=== PATIENT | male | born 1945 | race Caucasian/White ===

== ENCOUNTER 2022-04-18 14:48 | Outpatient (CLI) | payer MEDICARE, BC, SELFPAY ==
--- OUTSIDE RECORDS SUMMARY | 2022-04-18 14:51 | XMS_ITS | Encounter Summary ---
:1945 Author Organization [place] Address [address] [place] [address] Care Team Providers Name Role Phone [facility], [facility] Provi kelle Clinics- Antony Bucrh MD Unavailable Yeny May APRN SECURITY NURSE Unavailable Encounter Details Date Type Department Care Team Description 12/12/2021 Travel Social History Tobacco Use Types Packs/Day Years Used Date Smoking Tobacco: Former Cigarettes Quit : 1979 Smokeless Tobacco: Never Alcohol Use Standard Drinks/Week Comments Yes 0 (1 standard drink = 0.6 oz pure alcoho l) 1-2 drinks a day Sex Assigned at Date Recorded Male 04/02/2021 10:12 AM CDT COVID-19 Exposure Response Date Recorded In the last 10 days, have you been in contact with No / Unsu re 12/12/2021 9:43 AM CDT someone who was confirmed or suspected to have Coronavirus/COVID-19? documented as of this encounter Plan of Treatment Not on filedocumented as of this encounter Visit Diagnoses Not on filedocumented in this encounter Care Teams Spray Foam Installer Relationship Specialty Start Date End Date [facility], PCP - General 02/01/21 [facility]- [address] [place] [address] Antony Burch Assigned Neuroscience 04/08/21 MD Jan Provider [address] [address] Yeny May APRN SECURITY NURSE Assigned Heart and Vascular 10/28/21 [address] Provider [place] [id number] documented as of this encounter
--- OUTSIDE RECORDS SUMMARY | 2022-04-18 14:51 | XMS_ITS | Encounter Summary ---
:1945 Author Organization [place] Address [address] [place] [address] Care Team Providers Name Role Phone [facility], [facility] Prov kelle Clinics- Antony Burch MD Unavailable Yeny May APRN, CNP Unavailable Reason for Referral Consultation (Routine: Next available opening) - Pending Review Specialty Diagnoses / Procedures Referred By Contact Refer red To Contact Cardiovascular Disease Diagnoses Benign essential hypertension Yeny May APRN [employer] [address] [place] [address] Referral ID Status Reason Start Date Expiration Date Visits V isits Requested Authorized [id number] Pending 11/28/2021 11/28/2022 1 1 Review Consultation (Routine: Next available opening) - Pending Review Specialty Diagnoses / Procedures Referred By Contact Refer red To Contact Cardiovascular Disease Diagnoses Benign essential hypertension Yeny May APRN CNP [address] [place] [address] Referral ID Status Reason Start Date Expiration Date Visits V isits Requested Authorized [id number] Pending 11/28/2021 11/28/2022 1 1 Review Scheduling Instructions BP check at time of labs Reason for Visit Reason Comments Follow Up Atrial Fib Hypertension Consultation (Routine: Next available opening) - Pending Review Specialty Diagnoses / Procedures Referred By Contact Refer red To Contact Cardiovascular Disease Diagnoses Benign essential hypertension Yeny May, INDUSTRIAL DESIGN INTERN [employer] [address] [place] [address] Referral ID Status Reason Start Date Expiration Date Visits V isits Requested Authorized [id number] Pending 10/23/2021 10/23/2022 1 1 Review Encounter Details Date Type Department Care Team Description 11/28/2021 Office Visit Yeny Evans, Connor colon [facility] INDUSTRIAL DESIGN INTERN [employer] hypertension [facility] [address] [place] [address] [place] [phone] (Work) [phone] Social History Tobacco Use Types Packs/Day Years [...] in contact with No / Unsu re 11/28/2021 8:46 AM CDT someone who was confirmed or suspected to have Coronavirus/COVID-19? documented as of this encounter Last Filed Vital Signs Vital Sign Reading Time Taken Comments Blood Pressure 148/84 11/28/2021 10:06 AM CDT Pulse 67 11/28/2021 10:06 AM CDT Temperature - - Respiratory Rate - - Oxygen Saturation 98% 11/28/2021 10:06 AM CDT Inhaled Oxygen Concentration - - Weight 128.4 kg (283 lb) 11/28/2021 10:06 AM CDT Height 185.4 cm (6' 1) 11/28/2021 10:06 AM CDT Body Mass Index 37.34 11/28/2021 10:06 AM CDT documented in this encounter Patient Instructions Patient InstructionsYeny May APRN CNP - 11/28/2021 10:19 AM CDT Increase your hydrochlorothiazide to 25 mg/day Return in 2 wks with labs and BP check with RN documented in this encounter Progress Notes Yeny May APRN CNP - 11/28/2021 10:00 AM CDT HISTORY OF PRESENT ILLNESS: ? This is a 75 year old male who follows with Dr. Casiano at [facility] ??His past medical history includes: A-fib, hypertension, sleep apnea, hyperlipidemia, GERD, neuropathy, and arthritis ?? Mr Lang was hospitalized (02/01/21) for stroke-like symptoms and brief left- sided weakness/confusion. His EKG showed??atrial fibrillation??at 63 bpm and he was started on Eliquis. ??His brain MRI showed acute/early subacute ischemia in the left parietal cortex felt to be due to new onset A-fib. ??HisECHO showed LVEF 50-55%, mild RV enlargement with borderline reduced RV function, 1+ aortic regurgitation, mild aortic root dilatation and ascending aorta dilatation. ?? A follow up event monitor showed atrial fibrillation with intermittent IVCD with HRs 50-80 bpm Therewas one pause up to 2.7 sec during sleep. His Losartan was increased last month for better blood pressure control. ?? Our visit today is for further review and labs ?? Mr Lang overall denies any significant cardiovascular complaints He specifically denies any chestpain, orthopnea, or significant palpitations. He has some shortness of breath after going up a couple of flight of stairs, but this is unchanged. He does not participate in any formal exercise due to balance and shoulder issues but is able to do all of his own yard work He does tend to get more ankle swelling towards the end of the day ?I reviewed his labs today: Sodium: 139 Potassium: 4.0 BUN: 15 Creatinine: 0.86 ?? VITAL SIGNS: BP: 148/84 Pulse: 67 Weight: 283 lbs (stable) BMI: 37 ?? IMPRESSION AND PLAN: ?? Asymptomatic Persistent A-fib -incidentally noted at time of stroke (01/2021) -rate controlled without any??heart rate reducing??agents -one 2.7 sec pause during sleep Consider treadmill stress test to assess chronotropic response if hedevelops dyspnea on exertion, lightheadedness or presyncope. -chronic Eliquis (CHADS2 Vasc score: 5) ?? 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 Hypertension: -on Losartan 50 mg, hydrochlorothiazide 12.5 mg, Hytrin 2mg -BP still elevated -will increase hydrochlorothiazide to 25 mg/day -return in 2-3 wks with BMP and BP check with the RN ?? Hyperlipidemia: -now on Crestor 5 mg Some intolerance to Atorvastatin -LDL 40 (managed by PMD) ?? Sleep Apnea -wears CPAP ?? Obesity: -discussed weight reduction and increasing physical activity ?? Peripheral Neuropathy The total time for the visit today was 30 minutes which includes patient visit, reviewing of records, discussion, and placing of orders of the outpatient coordination of cardiovascular care as described. The level of medical decision making during this visit was of mild/moderate complexity. Thank you for allowing me to participate in their care. Orders Placed This Encounter Procedures ??? Basic metabolic panel ??? Basic metabolic panel ??? Follow-Up with Cardiology Nurse ??? Follow-Up with Cardiology Orders Placed This Encounter Medications ??? hydrochlorothiazide (HYDRODIURIL) 25 MG tablet Sig: Take 1 tablet (25 mg) by mouth daily Dispense: 90 tablet Refill: 3 Medications Discontinued During This Encounter Medication Reason ??? hydrochlorothiazide (MICROZIDE) 12.5 MG capsule Encounter Diagnosis Name Primary? Benign essential hypertension CURRENT MEDICATIONS: Current Outpatient Medications Medication Sig Dispense Refill ??? apixaban ANTICOAGULANT (ELIQUIS) 5 MG tablet Take 1 tablet (5 mg) by mouth 2 times daily 180 tablet 3 ??? co-enzyme Q-10 100 MG CAPS capsule Take 100 mg by mouth daily ??? hydrochlorothiazide (HYDRODIURIL) 25 MG tablet Take 1 tablet (25 mg) by mouth daily 90 tablet 3 ??? losartan (COZAAR) 50 MG tablet Take 1 tablet (50 mg) by mouth daily 90 tablet 3 ??? pantoprazole (PROTONIX) 40 MG EC tablet Take 40 mg by mouth every other day ??? rosuvastatin (CRESTOR) 5 MG tablet TAKE ONE TABLET BY MOUTH IN THE EVENING ??? terazosin (HYTRIN) 2 MG capsule Take 2 mg by mouth At Bedtime. ALLERGIES Allergies Allergen Reactions ??? Simvastatin Other (See Comments) Myalgias ??? Lisinopril Cough PAST MEDICAL HISTORY: Past Medical History: Diagnosis Date ??? Arthritis ??? Coronary artery disease more than ten years high cholestrol ??? High cholesterol ??? Hypertension ??? SURJIT on CPAP 07/18/2017 PAST SURGICAL HISTORY: Past Surgical History: Procedure Laterality Date ??? ARTHROPLASTY HIP 03/22/2013 Procedure: ARTHROPLASTY HIP; Right Total hip Arthroplasty ; Surgeon: Mark Viera MD; Location: [facility] OR ??? LAMINECTOMY LUMBAR THREE+ LEVELS FAMILY HISTORY: No family history on file. SOCIAL HISTORY: Social History Socioeconomic History ??? Marital status: Spouse name: None ??? Number of children: None ??? Years of education: None ??? Highest education level: None Tobacco Use ??? Smoking status: Former Smoker Quit date: 1980 Years since quittin.4 ??? Smokeless tobacco: Never Used Substance and Sexual Activity ??? Alcohol use: Yes Comment: 1-2 drinks a day ??? Drug use: No Review of Systems: Skin: Eyes: ENT: Positive for vertigo Respiratory: Positive for shortness of breath;dyspnea on exertion;sleep apnea;CPAP Cardiovascular: Positive for;palpitations;edema Gastroenterology: Negative Genitourinary: Musculoskeletal: Negative Neurologic: Negative Psychiatric: Heme/Lymph/Imm: Endocrine: Physical Exam: Vitals: BP (!) 148/84 (BP Location: Right arm, Patient Position: Sitting, Cuff Size: Adult Regular) Pulse 67 Ht 1.854 m (6' 1) Wt 128.4 kg (283 lb) SpO2 98% BMI 37.34 kg/m?? Constitutional: cooperative;well nourished Skin: warm and dry to the touch Head: normocephalic Eyes: pupils equal and round Lymph: ENT: no pallor or cyanosis Neck: JVP normal Respiratory: clear to auscultation;normal respiratory excursion Cardiac: irregularly irregular rhythm no presence of murmur pulses full and equal GI: BS normoactive obese Extremities and Muscular Skeletal: bilateral LE edema;trace Neurological: affect appropriate Psych: Alert and Oriented x 3 CC Yeny May APRN [employer] [facility] [address] [place] [id number] documented in this encounter Plan of Treatment Scheduled Orders Name Type Priority Associated Diagnoses Order S chedule Basic metabolic panel Lab Routine Benign essential Ex pected: 05/30/2022 hypertension (Approximate), Expires: 2022 Scheduled Referrals Name Type Priority Associated Diagnoses Order S chedule Follow-Up with Referral Routine: Next Benign essential Expected : Cardiology Nurse available opening hypertension 2021 (Approximate), Expires: 11/28/2022 Follow-Up with Referral Routine: Next Benign essential Expected : Cardiology available opening hypertension 05/30/2022 (Approximate), Expires: 11/28/2022 documented as of this encounter Results (ABNORMAL) Basic metabolic panel (12/12/2021 10:03 AM CDT) Analysis Performed At Patho logist Time Signature Sodium 137 133 - 144 12/12/2021 LABORATORY mmol/L 11:43 AM CDT Potassium 3.7 3.4 - 5.3 12/12/2021 LABORATORY mmol/L 11:43 AM CDT Chloride 102 94 - 109 12/12/2021 LABORATORY mmol/L 11:43 AM CDT Carbon Dioxide 28 20 - 32 12/12/2021 LABORATORY (CO2) mmol/L 11:43 AM CDT Anion Gap 7 3 - 14 12/12/2021 LABORATORY mmol/L 11:43 AM CDT Urea Nitrogen 14 7 - 30 12/12/2021 LABORATORY mg/dL 11:43 AM CDT Creatinine 0.98 0.66 - 12/12/2021 LABORATORY 1.25 mg/dL 11:43 AM CDT Calcium 9.3 8.5 - 10.1 12/12/2021 LABORATORY mg/dL 11:43 AM CDT Glucose 113 (H) 70 - 99 12/12/2021 LABORATORY mg/dL 11:43 AM CDT GFR Estimate 79 >60 12/12/2021 [facility] mL/min/1.7 11:43 AM CDT 3m2 Comment: Effective June 19, 2021 eGF Rcr in adults is calculated using the 2020 CKD-EPI creatinine equation which includ es age and gender (Bob et al., NEJM, DOI: 10.1056/WTULuf7489841) Specimen Anatomical Collection Method / Collection Time Recei price Time (Source) Location / Volume Laterality Blood STRUCTURE OF RIGHT Venipuncture / 12/12/2021 10:03 UPPER LIMB / Unknown AM CDT 10:03 AM CDT Unknown Yeny May APRN, CNP LAB - BLOOD ORDERABLES Performing Organization Address City/State/ZIP Code [place] [address] Care Lab [address] Lab (1st floor, no room number) documented in this encounter Visit Diagnoses Diagnosis Benign essential hypertension Essential hypertension, benign documented in this encounter Care Teams Rocket Engine Component Mechanic Relationship Specialty Start Date End Date [facility], PCP - General 02/01/21 [facility]- [address] [place] [address] Antony Burch Assigned Neuroscience 04/08/21 MD Jan Provider [address] [address] Yeny May APRN CNP Assigned Heart and Vascular 10/28/21 [address] Provider [place] [id number] documented as of this encounter
--- OUTSIDE RECORDS SUMMARY | 2022-04-18 14:51 | XMS_ITS | Encounter Summary ---
:1945 Author Organization [place] Address [address] [place] [address] Care Team Providers Name Role Phone [facility] Provi kelle Clinics- Antony Burch MD Unavailable Yeny May APRN PLASMA PROCESSING CENTRIFUGE OPERATOR Unavailable Reason for Visit Reason Comments Hypertension BP Re-Check Encounter Details Date Type Department Care Team Description 12/12/2021 Documentation Only University Rhea Calderon Hypert ension (BP [facility] Re-Check) [facility] [id number] [place] [address] [address] [place] [address] Social History Tobacco Use Types Packs/Day Years [...] on filedocumented in this encounter Care Teams Admissions Officer Relationship Specialty Start Date End Date [facility], PCP - General 02/01/21 [facility]- [address] [place] [address] Antony Burch Assigned Neuroscience 04/08/21 MD Jan Provider [address] [address] Yeny May APRN PLASMA PROCESSING CENTRIFUGE OPERATOR Assigned Heart and Vascular 10/28/21 [address] Provider [place] [id number] documented as of this encounter
--- OUTSIDE RECORDS SUMMARY | 2022-04-18 14:51 | XMS_ITS | Encounter Summary ---
:1945 Author Organization [place] Address [address] [place] [address] Care Team Providers Name Role Phone [facility] Provi kelle Clinics- Denton Casiano MD Unavailable Antony Burch MD Unavailable [phone] Encounter Details Date Type Department Care Team Description 10/22/2021 Travel Social History Tobacco Use Types Packs/Day Years Used Date Smoking Tobacco: Former Cigarettes Quit : 1979 Smokeless Tobacco: Never Alcohol Use Standard Drinks/Week Comments Not Currently 0 (1 standard drink = 0.6 oz pure alcoho l) Sex Assigned at Date Recorded Male 04/02/2021 10:12 AM CDT COVID-19 Exposure Response Date Recorded In the last 10 days, have you been in contact with No / Unsu re 10/22/2021 11:16 PM CDT someone who was confirmed or suspected to have Coronavirus/COVID-19? documented as of this encounter Plan of Treatment Not on filedocumented as of this encounter Visit Diagnoses Not on filedocumented in this encounter Care Teams Carding Machine Feeder Relationship Specialty Start Date End Date [facility], PCP - General 02/01/21 [facility]- [address] [place] [address] Denton Casiano MD Assigned Heart and Vascular 03/25/2110/27 [address] Provider [place] [address] Antony Burch Assigned Neuroscience 04/08/21 MD Jan Provider [address] [id number] documented as of this encounter
--- OUTSIDE RECORDS SUMMARY | 2022-04-18 14:51 | XMS_ITS | Clinical Summary ---
:1945 Author Organization [place] Address [address] [place] [address] Care Team Providers Name Role Phone [facility] Provi kelle [place]- Antony Burch MD Unavailable Yeny May APRN TRUCKING SUPERVISOR Unavailable Allergies Active Allergy Reactions Severity Noted Date Comments Lisinopril Cough Low 03/21/2021 Simvastatin Other (See Comments) 07/18/2017 Myalgia s Medications Medication Sig Dispensed Refills Start Date End Date Status terazosin (HYTRIN) 2 MG Take 2 mg by 0 Active capsule mouth At Bedtime. pantoprazole (PROTONIX) 40 Take 40 mg by 0 Active MG EC tablet mouth every other day co-enzyme Q-10 100 MG CAPS Take 100 mg 0 Active capsule by mouth daily rosuvastatin (CRESTOR) 5 TAKE ONE 0 08/16/2021 Active MG tablet TABLET BY MOUTH IN THE EVENING losartan (COZAAR) 50 MG Take 1 tablet 90 tablet 3 10/23/2021 Active tabletIndications: Benign (50 mg) by essential hypertension mouth daily hydrochlorothiazide Take 1 tablet 90 tablet 3 11/28/2021 Active (HYDRODIURIL) 25 MG (25 mg) by tabletIndications: Benign mouth daily essential hypertension apixaban ANTICOAGULANT Take 1 tablet 180 tablet 3 02/04/2022 Active (ELIQUIS) 5 MG (5 mg) by tabletIndications: mouth 2 times Cerebrovascular accident daily (CVA) due to embolism of cerebral artery (H) Active Problems Problem Noted Date Morbid obesity 03/21/2021 TIA (transient ischemic attack) 02/01/2021 Atrial fibrillation, unspecified type 02/01/2021 CVA (cerebral vascular accident) 02/01/2021 Gastroesophageal reflux disease without esophagitis Overview: Formatting of this note might be differe nt from the original. Atypical Chest pain with card eval last yr and was neg for ischemia and [place] to be reflux SURJIT on CPAP 07/18/2017 Overview: Formatting of this note might be differe nt from the original. 03[place] Angioedema of lips, initial encounter 02/27/2014 Hives 02/27/2014 Status post THR (total hip replacement) 03/22/2013 Encounters Date Type Specialty Care Team Description 02/04/2022 Refill Cardiology Lalo, Yeny E, ROLLS BAKER TRUCKING SUPERVISOR Refi ll Request (Eliquhortencia) from Last 3 Months Social History Tobacco Use Types Packs/Day Years Used Date Smoking Tobacco: Former Cigarettes Quit : 1979 Smokeless Tobacco: Never Alcohol Use Standard Drinks/Week Comments Yes 0 (1 standard drink = 0.6 oz pure alcoho l) 1-2 drinks a day Sex Assigned at Date Recorded Male 04/02/2021 10:12 AM CDT Last Filed Vital Signs Vital Sign Reading Time Taken Comments Blood Pressure 107/74 12/12/2021 10:27 AM CDT Pulse 65 12/12/2021 10:27 AM CDT Temperature 36.2 ??C (97.2 ??F) 02/20/2021 9:41 PM CDT Respiratory Rate 18 02/20/2021 9:41 PM CDT Oxygen Saturation 96% 12/12/2021 10:27 AM CDT Inhaled Oxygen Concentration - - Weight 128.4 kg (283 lb) 11/28/2021 10:06 AM CDT Height 185.4 cm (6' 1) 11/28/2021 10:06 AM CDT Body Mass Index 37.34 11/28/2021 10:06 AM CDT Plan of Treatment Health Maintenance Due Date Last Done Comments ADVANCE CARE PLANNING 1945 ANNUAL REVIEW OF HM ORDERS 1945 HEPATITIS B IMMUNIZATION 1945 (1 of 3 - 3-dose series) HEPATITIS C SCREENING 12/24/1961 FALL RISK ASSESSMENT 12/24/2008 MEDICARE ANNUAL WELLNESS 12/24/2008 VISIT COVID-19 Vaccine (2 - 06/25/2021 05/28/2021 Moderna series) PHQ-2 (once per calendar 06/30/2021 year) INFLUENZA VACCINE (#1) 2022 04/10/2021, 04/14/2020, 03/08/2019, Additional history exists DTAP/TDAP/TD IMMUNIZATION 04/18/2025 04/18/2015 (2 - Td or Tdap) LIPID 02/02/2026 02/02/2021 COLONOSCOPY Discontinued 07/04/2011 COLORECTAL CANCER Discontinued SCREENING Pneumococcal Vaccine: 65+ Completed 03/08/2019, 04/18/2015 Years ZOSTER IMMUNIZATION Completed 06/05/2020, 03/14/2020, 05/28/2013 CT COLONOGRAPHY Discontinued FIT-DNA (Cologuard) Discontinued FIT Discontinued FLEX SIG Discontinued IPV IMMUNIZATION Aged Out No longer eligi ble based on patient 's age to complete this topic MENINGITIS IMMUNIZATION Aged Out No longe r eligible based on patient 's age to complete this topic Medical Devices Implanted Type Area Human Services Case Manager Device Shelf Model / Identifier Expiration Serial / Lot Date Imp Head Femoral Zim Versys 36mm -3.5 [id number] Right : [employer] 07/30/[id number] / Implanted: Qty: 1 on 03/22/2013 by Mark Viera MD at [facility] / [id number] Insurance Payer Benefit Plan / Subscriber ID Effective Phone Address T ype Group Dates MEDICARE MEDICARE [id number] 2008-Prese [phone] ATTN CLAI [place] Medicare nt 40 [address] [place] [address] BCBS BCBS OF [place] [id number] 2008-Prese [phone] [address] [address] Indemnity nt [address] [place] [id number] Advance Directives For more information, please contact: [phone] Latest Code Status on File Code Status Date Activated Date Inactivated Comments Full Code 02/01/2021 6:24 PM 02/02/2021 4:22 PM All basic and advanced life-sustaining interventions ar e performed as appropriate Question Answer Comments Code status determined by: Discussion with patient/ legal de cision maker Code Status History Code Status Date Activated Date Inactivated Comments Full Code 03/22/2013 12:02 PM 03/25/2013 2:20 PM Care Teams Pharmaceutical Engineer Relationship Specialty Start Date End Date [facility], PCP - General 02/01/21 [facility]- [address] [place] [address] Antony Burch Assigned Neuroscience 04/08/21 MD Jan Provider [address] [id number] Yeny May APRN CNP Assigned Heart and Vascular 10/28/21 [address] Provider [place] [id number]
--- OUTSIDE RECORDS SUMMARY | 2022-04-18 14:51 | XMS_ITS | Encounter Summary ---
:1945 Author Organization [place] Address [address] [place] [address] Care Team Providers Name Role Phone [facility] Prov kelle Cayden- Antony Burch MD Unavailable Lalo Yeny E CONCRETE FINISHER APPRENTICE AUTOMATIC SPINNING LATHE SETTER Unavailable Reason for Visit Reason Onset Date Comments Call Back 10/31/2021 Medication questions Encounter Details Date Type Department Care Team Description 10/31/2021 Telephone [facility] Lalo Yeny E, Ca ll Back (Medication Clinic Arianna CONCRETE FINISHER APPRENTICE AUTOMATIC SPINNING LATHE SETTER questions) [address] [facility] [address] [facility] [address] [place] [id number] [place] [address] Social History Tobacco Use Types Packs/Day Years [...] in contact with No / Unsu re 10/23/2021 12:53 PM CDT someone who was confirmed or suspected to have Coronavirus/COVID-19? documented as of this encounter Miscellaneous Notes Telephone Encounter - Linda Thornton RN - 10/31/2021 1:52 PM CDT Contacted patient and will take 50mg of losartan in am. Has a follow up visit on 11-28-21 patient willtake his BP at home in am and in evening and will bring them to his next OV to review. Linda Thornton RN on 10/31/2021 at 1:54 PM Telephone Encounter - Shilpa Jacobs - 10/31/2021 12:02 PM CDT Health Call Center Phone Message May a detailed message be left on voicemail: yes Reason for Call: Other: Pt would like a call back to discuss when he is suppose to take his losartanin the morning or at night for his med change of 50 mg Action Taken: Message routed [facility] Cardio Travel Screening: Not Applicable documented in this encounter Plan of Treatment Not on filedocumented as of this encounter Visit Diagnoses Not on filedocumented in this encounter Care Teams Airport Operations Crew Member Relationship Specialty Start Date End Date [facility], PCP - General 02/01/21 [facility] [address] [place] [address] Antony Burch Assigned Neuroscience 04/08/21 MD Jan Provider [address] [place] [id number] Yeny May APRN CNP Assigned Heart and Vascular 10/28/21 [address] Provider [place] [id number] documented as of this encounter
--- OUTSIDE RECORDS SUMMARY | 2022-04-18 14:51 | XMS_ITS | Encounter Summary ---
:1945 Author Organization [place] Address [address] [place] [address] Care Team Providers Name Role Phone [facility] Provi kelle Clinics- Denton Casiano MD Unavailable Antony Burch MD Unavailable [phone] Encounter Details Date Type Department Care Team Description 10/23/2021 Travel Social History Tobacco Use Types Packs/Day [...] on filedocumented in this encounter Care Teams Technical Lead Relationship Specialty Start Date End Date [facility], PCP - General 02/01/21 [facility]- [address] [place] [address] Denton Casiano MD Assigned Heart and Vascular 03/25/2110/27 [address] Provider [place] [address] Antony Burch Assigned Neuroscience 04/08/21 MD Jan Provider [address] [place] [address] [id number] documented as of this encounter
--- OUTSIDE RECORDS SUMMARY | 2022-04-18 14:51 | XMS_ITS | Encounter Summary ---
:1945 Author Organization [place] Address [address] [place] [address] Care Team Providers Name Role Phone [facility] kelle Clinics- Antony Burch MD Unavailable [phone] Yeny May [facility] Un[facility] Reason for Visit Reason Onset Date Comments Refill Request 02/04/2022 Eliquis Encounter Details Date Type Department Care Team Description 02/04/2022 Refill [facility] Yeny May, JOELLEN RN Refill Request (Eliquis) [facility] Heart [facility] [id number] [place] [address] [place], [place] [phone] (Wo rk) [id number] [phone] Social History Tobacco Use Types Packs/Day Years Used Date Smoking Tobacco: Former Cigarettes Quit : 1979 Smokeless Tobacco: Never Alcohol Use Standard Drinks/Week Comments Yes 0 (1 standard drink = 0.6 oz pure alcoho l) 1-2 drinks a day Sex Assigned at Date Recorded Male 04/02/2021 10:12 AM CDT documented as of this encounter Miscellaneous Notes Telephone Encounter - Yaquelin Barkley RN - 02/04/2022 11:49 AM CDT [facility] Refill Guideline reviewed. Medication meets criteria for refill. 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
--- OUTSIDE RECORDS SUMMARY | 2022-04-18 14:51 | XMS_ITS | Encounter Summary ---
:1945 Author Organization [place] Address [address] [place] [address]. [place] [address] Care Team Providers Name Role Phone [facility] Prov kelle Cayden- Denton Casiano MD Unavailable Reason for Visit Reason Comments Stroke follow up Encounter Details Date Type Department Care Team Description 04/03/2021 Office Visit [facility] Vivi Celeste PA-C [address] [place] [address] History of TIA (transient ischemic attac k) and stroke (Primary Dx); Neurology Clinic Antony Burch MD [address] [place] [address] Peripheral sensory-motor axonal polyneur opathy Kevin [address] [place] [id number] Social History Tobacco Use Types Packs/Day Years Used Date Smoking Tobacco: Former Cigarettes Quit : 1979 Smokeless Tobacco: Never Alcohol Use Standard Drinks/Week Comments Not Currently 0 (1 standard drink = 0.6 oz pure alcoho l) Sex Assigned at Date Recorded Male 04/02/2021 10:12 AM CDT COVID-19 Exposure Response Date Recorded In the last month, have you been in contact with No / Unsure 04/03/2021 1:41 PM CDT someone who was confirmed or suspected to have Coronavirus / COVID-19? documented as of this encounter Last Filed Vital Signs Vital Sign Reading Time Taken Comments Blood Pressure 122/81 04/03/2021 1:48 PM CDT Pulse 52 04/03/2021 1:48 PM CDT Temperature - - Respiratory Rate - - Oxygen Saturation 96% 04/03/2021 1:48 PM CDT Inhaled Oxygen Concentration - - Weight 123.3 kg (271 lb 12.8 oz) 04/03/2021 1:48 PM CDT Height 185.4 cm (6' 1) 04/03/2021 1:48 PM CDT Body Mass Index 35.86 04/03/2021 1:48 PM CDT documented in this encounter Patient Instructions Patient InstructionsAntony Burch MD - 04/03/2021 2:00 PM CDT AFTER VISIT SUMMARY (AVS): At today's visit we thoroughly discussed current symptoms, evaluation results, symptoms and signs ofstroke, secondary stroke prevention measures, and the plan. Symptoms and signs of stroke were discussed. You should call 911 with any SUDDEN onset of weakness, vision loss, speech problems, numbness, or severe headache of unknown cause. For secondary stroke prevention: -Continue Eliquis and atorvastatin lifelong -Long-term blood pressure goal is less than 130/85 -Long-term LDL goal is less than 70 -Long-term goal of hemoglobin A1C is less than 7.0 -Low-salt low-fat diet -Regular aerobic exercise 30 minutes 3-4 times per week If you want to evaluate your peripheral polyneuropathy and balance difficulty further, please schedule a separate visit. Next follow-up appointment is on as needed basis. Please do not hesitate to call me with any questions or concerns. Thanks. documented in this encounter Progress Notes Antony Burch MD - 04/03/2021 2:00 PM CDT ESTABLISHED PATIENT NEUROLOGY NOTE DATE OF VISIT: 04/03/2021 CLINIC LOCATION: [facility] PATIENT NAME: Vivek Lang DATE of : 1945 REASON FOR VISIT: Chief Complaint Patient presents with ??? Stroke follow up SUBJECTIVE: HISTORY OF PRESENT ILLNESS: Patient is new to me, but was previously seen by stroke neurology team. History and prior evaluation are briefly summarized below, but please refer to previous neurology notes for more detailed information. The patient is accompanied by his , who participates in the interview today. Per chart review, the patient has history of peripheral polyneuropathy, lumbar radiculopathy with associated right foot drop, hypertension, obstructive sleep apnea, arthritis, and vertigo. On 02/01/2021 he presented to [facility] with transient episode of bilateral hand incoordination, confusion, blurry vision, and dysarthria/language difficulty that lasted 10 to 15 minutes. In the emergency room he was found to be in atrial fibrillation on telemetry. Head CT was negative for acute intracranial findings. Brain MRI from the same day demonstrated punctate foci of acute to early subacute ischemia in the left temporal occipital junction with equivocal additional punctate foci of ischemia in the left parietal cortex along with cerebral atrophy and non-specific T2 hyperintensities felt to be most likely related to chronic microvascular ischemic changes.Head and neck CTA was negative for high-grade stenosis of intracranial or cervical vessels. Images were personally reviewed and independently interpreted. Additional stroke evaluation included TTE, which demonstrated atrial fibrillation rhythm with no evidence of intracardiac thrombus. LDL was 40. Hemoglobin A1C was 5.6. B12 was 367. The patient was evaluated by stroke inpatient neurology team that recommended to start anticoagulation with Eliquis whilestopping aspirin and to continue home statin. Outpatient 30-day cardiac event monitoring was also consistent with atrial fibrillation. At the present time, the patient is compliant with Eliquis and 10 mg of atorvastatin. He denies interval development of new focal neurological symptoms. Has chronic bilateral lower extremity numbness due to known peripheral polyneuropathy, chronic low back pain with right-sided lumbar radiculopathy and resultant right foot drop, and chronic balance difficulty. Had 2 previous back surgeries and underwent EMG at [place] in 2018, which demonstrated length dependent sensorimotor axonal polyneuropathy and chronic right lumbosacral radiculopathy, predominantly involving L3-L5 myotomes (according to Care Everywhere). On review of systems, patient endorses no additional active complaints. Medications, allergies, family and social history were also reviewed. There are no changes reported by patient. REVIEW OF SYSTEMS: 10-system review was completed. Pertinent positives are included in HPI. The remainder of ROS is negative. EXAM: Physical Exam: Vitals: BP (!) 162/75 Pulse 52 Ht 1.854 m (6' 1) Wt 123.3 kg (271 lb 12.8 oz) SpO2 96% BMI 35.86 kg/m?? General: pt is in NAD, cooperative. Skin: normal turgor, moist mucous membranes, no lesions/rashes noticed. HEENT: ATNC, white sclera, normal conjunctiva. Respiratory: Symmetric lung excursion, no accessory respiratory muscle use. Abdomen: Non distended. Neurological: awake, cooperative, follows commands, no aphasia or dysarthria noted, cranial nerves II-XII: Funduscopic exam is normal bilaterally, no ptosis, extraocular motility is full, face is symmetric, tongue is midline, equally moves all extremities, strength is 5/5 bilaterally in upper and lower extremities, except right dorsiflexion which is reduced to 4-/5, there is associated muscle atrophies of the right lower extremity (chronic), no pronator drift, deep tendon reflexes are equal in both upper extremities, but absent at patella and ankles bilaterally, sensation to the light touch, vibration, and pinprick is reduced from his knees down, proprioception is relatively preserved, finger to nose and [id number] tests are intact bilaterally, unsteady gait with elements of right steppage. Unable to tandem. ASSESSMENT AND PLAN: Assessment: 75 year old male patient presents for a follow-up of punctate and likely asymptomatic strokes felt to be related to atrial fibrillation. The stroke work-up is complete, which was reviewed in detail, including brain images. The patient is on appropriate secondary stroke prevention measures.We reviewed typical symptoms and signs of stroke and the plan. We also briefly discussed his balance difficulty and polyneuropathy symptoms along with possible associated work-up which would include lab work and possibly cervical spine MRI to evaluate for presenceof cervical myelopathy. The patient wanted to think about it and will contact my clinic if he is willing to proceed. I discussed with the patient and his that he does not need to follow-up regarding his history of stroke, but if other neuropathy evaluation is desired, he could schedule a separate neurology visitat his convenience. Vivek to follow up with Primary Care provider regarding elevated blood pressure. Diagnoses: ICD-10-CM 1. History of TIA (transient ischemic attack) and stroke Z86.73 2. 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 Symptoms and signs of stroke were discussed. The patient clearly understands to call 911 with any SUDDEN onset of weakness, vision loss, speech problems, numbness, or severe headache of unknown cause. For secondary stroke prevention, I counseled the patient to: -Continue Eliquis and atorvastatin lifelong -Long-term blood pressure goal is less than 130/85 -Long-term LDL goal is less than 70 -Long-term goal of hemoglobin A1C is less than 7.0 -Low-salt low-fat diet -Regular aerobic exercise 30 minutes 3-4 times per week I suggested the patient to schedule a separate visit to discuss his peripheral polyneuropathy and associated balance difficulty in detail. Next follow-up appointment is on as needed basis. Total Time: 81 minutes spent on the date of the encounter doing chart review, history and exam, documentation and further activities per the note. Antony Burch MD [facility] Neurology (Chart documentation was completed in part with [employer] voice-recognition software. Even though reviewed, some grammatical, spelling, and word errors may remain.) documented in this encounter Plan of Treatment Scheduled Referrals Name Type Priority Associated Diagnoses Order 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
--- OUTSIDE RECORDS SUMMARY | 2022-04-18 14:51 | XMS_ITS | Encounter Summary ---
:1945 Author Organization [place] Address [address] [place] [address] Care Team Providers Name Role Phone [facility], [facility] And [facility] kelle Clinics- Denton Casiano MD Unavailable Antony Burch MD Unavailable [phone] Reason for Referral Consultation (Routine: Next available opening) - Pending Review Specialty Diagnoses / Procedures Referred By Contact Refer red To Contact Cardiovascular Disease Diagnoses Benign essential hypertension Yeny May APRN CNP [address] [place] [address] Referral ID Status Reason Start Date Expiration Date Visits V isits Requested Authorized [id number] Pending 10/23/2021 10/23/2022 1 1 Review Reason for Visit Reason Comments Follow Up 6 month TIA, HTN Consultation (Routine) - Closed Specialty Diagnoses / Procedures Referred By Contact Refer red To Contact Diagnoses Benign essential hypertension History of TIA (transient ischemic attack) and stroke Permanent atrial fibrillation (H) Morbid obesity (H) Denton Casiano MD [address] [place] [address] Referral ID Status Reason Start Date Expiration Date Visits Requ ested Visits Authorized [id number] Closed 03/21/2021 03/21/2022 1 1 Encounter Details Date Type Department Care Team Description 10/23/2021 [facility] [address] [place] [id number] Benign essential hypertension; [facility] November, BLASTING GANG MINER MACHINING MANAGER [address] [place] [id number] History of TIA (transient ischemic attac k) and stroke; [facility] Permanent atrial fibrillatio n (H); [address] [facility] Morbid obesity (H) [address] [place] [address] Social History Tobacco Use Types [...] Sign Reading Time Taken Comments Blood Pressure 150/76 10/23/2021 1:36 PM CDT Pulse 64 10/23/2021 12:56 PM CDT Temperature - - Respiratory Rate - - Oxygen Saturation 94% 10/23/2021 12:56 PM CDT Inhaled Oxygen Concentration - - Weight 127.5 kg (281 lb) 10/23/2021 12:56 PM CDT Height 185.4 cm (6' 1) 10/23/2021 12:56 PM CDT Body Mass Index 37.07 10/23/2021 12:56 PM CDT documented in this encounter Patient Instructions Patient Instructionsmelecio November, BLASTING GANG MINER MACHINING 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 Return in 1 month with labs Continue to work on weight reduction documented in this encounter Progress Notes Yeny May APRN CNP - 10/23/2021 1:00 PM CDT HISTORY OF PRESENT ILLNESS: ? This is a 75 year old male who follows with Dr. Casiano at [facility] His past medical history includes: A-fib, hypertension, sleep apnea, hyperlipidemia, GERD, neuropathy, and arthritis ?? Mr Lang was hospitalized (02/01/21) for stroke-like symptoms and brief left- sided weakness/confusion. His EKG showed atrial fibrillation at 63 bpm and he was started on Eliquis. His brain MRI showed acute/early subacute ischemia in the left parietal cortex felt to be due to new onset A-fib. His ECHO showed LVEF 50-55%, mild RV enlargement with borderline reduced RV function, 1+ aortic regurgitation,mild aortic root dilatation and ascending aorta dilatation. A follow up event monitor showed atrial fibrillation with intermittent IVCD with HRs 50-80 bpm Therewas one pause up to 2.7 sec during sleep. Our visit today is for a 6 month review Mr Lang overall denies any significant cardiovascular complaints He recently returned from [place] and admits to eating and drinking more calories He is not surprised that he has gained weight, but is motivated to diet He denies any chest pain, orthopnea, or significant palpitations. He has some shortness of breath after going up a couple of flight of stairs, but this is unchanged. He does not participate in any formal exercise due to balance and shoulder issues. He has not been checking his BP at home, but does have a way to do so, ? VITAL SIGNS: BP: 142/92 , 150/76 Pulse: 64 Weight: 281 bs (up 10 lbs in 6 months) BMI: 37 ?? IMPRESSION AND PLAN: ?? Asymptomatic Persistent A-fib -incidentally noted at time of stroke (01/2021) -rate controlled without any heart rate reducing agents -one 2.7 sec pause during sleep Consider treadmill stress test to assess chronotropic response if hedevelops dyspnea on exertion, lightheadedness or presyncope. -chronic Eliquis (CHADS2 Vasc score: 5) ?? 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 Hypertension: -on Losartan 25 mg, hydrochlorothiazide 12.5 mg, Hytrin 2mg -BP elevated -will increase Losartan to 50 mg/day -return in 1 month with BMP ?? Hyperlipidemia: -now on Crestor Some intolerance to Atorvastatin -LDL 40 (managed by PMD) ?? Sleep Apnea -wears CPAP Obesity: -discussed weight reduction and increasing physical activity Peripheral Neuropathy The total time for the visit today was 30 minutes which includes patient visit, reviewing of records, discussion, and placing of orders of the outpatient coordination of cardiovascular care as described. The level of medical decision making during this visit was of moderate complexity. Thank you for allowing me to participate in their care. Orders Placed This Encounter Procedures ??? Basic metabolic panel ??? Follow-Up with Cardiology SAIMA Orders Placed This Encounter Medications ??? rosuvastatin (CRESTOR) 5 MG tablet Sig: TAKE ONE TABLET BY MOUTH IN THE EVENING ??? losartan (COZAAR) 50 MG tablet Sig: Take 1 tablet (50 mg) by mouth daily Dispense: 90 tablet Refill: 3 Medications Discontinued During This Encounter Medication Reason ??? atorvastatin (LIPITOR) 10 MG tablet Therapy completed ??? losartan (COZAAR) 25 MG tablet Encounter Diagnoses Name Primary? Benign essential hypertension ??? History of TIA (transient ischemic attack) and stroke ??? Permanent atrial fibrillation (H) ??? Morbid obesity (H) CURRENT MEDICATIONS: Current Outpatient Medications Medication Sig Dispense Refill ??? apixaban ANTICOAGULANT (ELIQUIS) 5 MG tablet Take 1 tablet (5 mg) by mouth 2 times daily 180 tablet 3 ??? co-enzyme Q-10 100 MG CAPS capsule Take 100 mg by mouth daily ??? hydrochlorothiazide (MICROZIDE) 12.5 MG capsule Take 1 capsule (12.5 mg) by mouth daily 90 capsule 3 ??? losartan (COZAAR) 50 MG tablet Take 1 tablet (50 mg) by mouth daily 90 tablet 3 ??? pantoprazole (PROTONIX) 40 MG EC tablet Take 40 mg by mouth every other day ??? terazosin (HYTRIN) 2 MG capsule Take 2 mg by mouth At Bedtime. ??? rosuvastatin (CRESTOR) 5 MG tablet TAKE ONE TABLET BY MOUTH IN THE EVENING ALLERGIES Allergies Allergen Reactions ??? Simvastatin Other [...] ??? Smoking status: Former Smoker Quit date: 1979 Years since quittin.3 ??? Smokeless tobacco: Never Used Substance and Sexual Activity ??? Alcohol use: Not Currently ??? Drug use: No Review of Systems: Skin: Negative Eyes: Positive for glasses ENT: Positive for vertigo Hx vertigo Respiratory: Positive for sleep apnea;CPAP;dyspnea on exertion Cardiovascular: Positive for;palpitations;chest pain;edema Gastroenterology: Positive for reflux under control with medication Genitourinary: Positive for urinary frequency Musculoskeletal: Positive for joint pain shoulders Neurologic: Positive for numbness or tingling of feet Neuropathy Psychiatric: Negative Heme/Lymph/Imm: Negative Endocrine: Negative Physical Exam: Vitals: BP (!) 150/76 Pulse 64 Ht 1.854 m (6' 1) Wt 127.5 kg (281 lb) SpO2 94% BMI 37.07 kg/m?? Constitutional: cooperative;well nourished Skin: warm and dry to the touch Head: normocephalic Eyes: pupils equal and round Lymph: ENT: no pallor or cyanosis Neck: JVP normal Respiratory: clear to auscultation;normal respiratory excursion Cardiac: irregularly irregular rhythm no presence of murmur pulses full and equal GI: BS normoactive obese Extremities and Muscular Skeletal: no edema Neurological: affect appropriate Psych: Alert and Oriented x 3 CC Denton Casiano MD [address] [facility] [address] [place] [address] documented in this encounter Plan of Treatment Scheduled Referrals Name Type Priority Associated Diagnoses Order S chedule Follow-Up with Referral Routine: Next Benign essential Expected : Cardiology SAIMA available opening hypertension 11/23/19 (Approximate), Expires: 10/23/2022 documented as of this encounter Results (ABNORMAL) Basic metabolic panel (11/28/2021 8:57 AM CDT) Analysis Performed At Patho logist Time Signature Sodium 139 133 - 144 11/28/2021 LABORATORY mmol/L 9:53 AM CDT Potassium 4.0 3.4 - 5.3 11/28/2021 LABORATORY mmol/L 9:53 AM CDT Chloride 105 94 - 109 11/28/2021 LABORATORY mmol/L 9:53 AM CDT Carbon Dioxide 27 20 - 32 11/28/2021 LABORATORY (CO2) mmol/L 9:53 AM CDT Anion Gap 7 3 - 14 11/28/2021 [facility] LAB[facility]ATORY mmol/L 9:53 AM CDT Urea Nitrogen 15 7 - 30 11/28/2021 LABORATORY mg/dL 9:53 AM CDT Creatinine 0.86 0.66 - 11/28/2021 LABORATORY 1.25 mg/dL 9:53 AM CDT Calcium 8.8 8.5 - 10.1 11/28/2021 LABORATORY mg/dL 9:53 AM CDT Glucose 120 (H) 70 - 99 11/28/2021 LABORATORY mg/dL 9:53 AM CDT GFR Estimate 89 >60 11/28/2021 LABORATORY mL/min/1.7 9:53 AM CDT 3m2 Comment: Effective June 19, 2021 eGF Rcr in adults is calculated using the 2020 CKD-EPI creatinine equation which includ es age and gender (Bob et al., NEJM, DOI: 10.1056/UREWku3924604) Specimen Anatomical Collection Method / Collection Time Recei price Time (Source) Location / Volume Laterality Blood STRUCTURE OF RIGHT Venipuncture / 11/28/2021 8:57 06/0 06/2021 8:57 HAND / Unknown Unknown AM CDT AM CDT Yeny May BLASTING GANG MINER MACHINING MANAGER LAB - BLOOD ORDERABLES Performing Organization Address City/State/ZIP Code Phon [place] [address] Care Lab [address] Lab (1st floor, no room number) documented in this encounter Visit Diagnoses Diagnosis Benign essential hypertension Essential hypertension, benign History of TIA (transient ischemic attac k) and stroke Permanent atrial fibrillation (H) Atrial fibrillation Morbid obesity (H) Morbid obesity documented in this encounter Care Teams Abrasives Sales Representative Relationship Specialty Start Date End Date [facility], PCP - General 02/01/21 [facility]- [address] [place] [address] Denton Casiano MD Assigned Heart and Vascular 03/25/2110/27 [address] Provider [place] [id number] Antony Burch Assigned Neuroscience 04/08/21 MD Jan Provider [address] [place] [address] [address] documented as of this encounter
--- OUTSIDE RECORDS SUMMARY | 2022-04-18 14:51 | XMS_ITS | Encounter Summary ---
:1945 Author Organization [place] Address [address] [place] [address] Care Team Providers Name Role Phone [facility] And Primary Care Prov kelle Clinics- Antony Burch MD Unavailable Lalo November UTILITY MANAGER SITE SPECIALIST Unavailable Reason for Visit Reason Comments Hypertension BP Re-Check Consultation (Routine: Next available opening) - Pending Review Specialty Diagnoses / Procedures Referred By Contact Refer red To Contact Cardiovascular Disease Diagnoses Benign essential hypertension Lalo November, UTILITY MANAGER SITE SPECIALIST [address] [facility] [address] [place] [address] Referral ID Status Reason Start Date Expiration Date Visits V isits Requested Authorized [id number] Pending 11/28/2021 11/28/2022 1 1 Review Encounter Details Date Type Department Care Team Description 12/12/2021 [facility] [employer] [facility] November, Hypertension (BP Health/Nurse [facility] UTILITY MANAGER SITE SPECIALIST Re-Check) Visit Heart [address] [facility] [address] [address] [place], [place] [address] [address] [place], [place] (Work) [address] Social History Tobacco Use Types Packs/Day [...] Pulse 65 12/12/2021 10:27 AM CDT Temperature - - Respiratory Rate - - Oxygen Saturation 96% 12/12/2021 10:27 AM CDT Inhaled Oxygen Concentration - - Weight - - Height - - Body Mass Index - - documented in this encounter Progress Notes Rhea Calderon CMA - 12/12/2021 10:00 AM CDT ALLIED HEALTH BLOOD PRESSURE CHECK Last office visit: 11/28/21 With Yeny May Previous blood pressure: 148/84 mm Hg Previous heart rate: 67 bpm Time of visit: 9:45 Morning medications were taken at: apx 8:15 am Today's blood pressure: 107/74 mm Hg Today's heart rate: 65 bpm Home monitor blood pressure: N/A mmHg Home monitor heart rate: N/A bpm Additional Comments: Pt is taking hydrochlorothiazide 12.5 MG BID until current RX is gone (apx a month supply left). Then will take 25 MG every day. Pt not having any issues or side effects. Results routed to: Yeny May/Linda Thornton Ordering Provider: Yeny May In clinic Provider: Dr. Weathers documented in this encounter Plan of Treatment Not on filedocumented as of this encounter Visit Diagnoses Diagnosis Benign essential hypertension Essential hypertension, benign documented in this encounter Care Teams Cost Accounting Analyst Relationship Specialty Start Date End Date [facility], PCP - General 02/01/21 [facility]- [address] [place] [address] Antony Burch Assigned Neuroscience 04/08/21 MD Jan Provider [address] [place] [address] Yeny May APRN SITE SPECIALIST Assigned Heart and Vascular 10/28/21 [address] Provider [place] [address] documented as of this encounter
--- OUTSIDE RECORDS SUMMARY | 2022-04-18 14:51 | XMS_ITS | Encounter Summary ---
:1945 Author Organization [place] Address [address] [place] [address] Care Team Providers Name Role Phone [facility], [facility] And Primary Care [place] kelle Clinics- Antony Burch MD Unavailable [phone] Yeny May APRN SUPERVISOR TREE TRIMMING Unavailable Encounter Details Date Type Department Care Team Description 12/08/2021 Travel Social History Tobacco Use Types Packs/Day [...] in contact with No / Unsu re 12/08/2021 10:52 PM CDT someone who was confirmed or suspected to have Coronavirus/COVID-19? documented as of this encounter Plan of Treatment Not on filedocumented as of this encounter Visit Diagnoses Not on filedocumented in this encounter Care Teams Pallet Repairer Relationship Specialty Start Date End Date [facility], PCP - General 02/01/21 [facility]- [address] [place] [address] Antony Burch Assigned Neuroscience 04/08/21 MD Jan Provider [address] [place] [address] Yeny May APRN SUPERVISOR TREE TRIMMING Assigned Heart and Vascular 10/28/21 [address] Provider [place] [id number] documented as of this encounter
--- OUTSIDE RECORDS SUMMARY | 2022-04-18 14:51 | XMS_ITS | Encounter Summary ---
:1945 Author Organization [place] Address [address] [place] [address]. [place] [address] Care Team Providers Name Role Phone [facility] And Primary Care Provi kelle Clinics- Yeny May CONTINGENTS SUPERVISOR WHITE SUGAR BOILER Unavailable Encounter Details Date Type Department Care Team Description 03/21/2021 Travel Social History Tobacco Use Types Packs/Day [...] been in contact with No / Unsure 03/21/2021 7:20 AM CDT someone who was confirmed or suspected to have Coronavirus / COVID-19? documented as of this encounter Plan of Treatment Not on filedocumented as of this encounter Visit Diagnoses Not on filedocumented in this encounter Care Teams Green Inspector Relationship Specialty Start Date End Date [facility], PCP - General 02/01/21 [facility] Named [facility]- [address] [place] [address] Yeny May, CONTINGENTS SUPERVISOR WHITE SUGAR BOILER Assigned Heart and Vascular 02/18/2103/24 [address] Provider [place] [address] documented as of this encounter
--- OUTSIDE RECORDS SUMMARY | 2022-04-18 14:51 | XMS_ITS | Encounter Summary ---
:1945 Author Organization [place] Address [address] [place] [address] Care Team Providers Name Role Phone [facility] And Primary Care Provi kelle Clinics- Antony Burch MD Unavailable Yeny May APRN BOBBIN PRESSER Unavailable Encounter Details Date Type Department Care Team Description 11/28/2021 [facility] Heart Jw essential hypertension Clinic [place] [address] [place] [address] [address] [place] [address] Social History Tobacco Use Types Packs/Day Years [...] Not on filedocumented as of this encounter Procedures Procedure Name Priority Date/Time Associated Diagnosis Comme nts BASIC METABOLIC Routine 11/28/2021 8:57 AM Benign essential Re sults for this PANEL CDT hypertension procedure are i n the results section. documented in this encounter Results (ABNORMAL) Basic metabolic panel [...] Anion Gap 7 3 - 14 11/28/2021 LABORATORY mmol/L 9:53 AM CDT Urea Nitrogen [...] and gender (Bob et al., NEJM, DOI: 10.1056/[id number]) Specimen Anatomical Collection Method / Collection Time Recei price Time (Source) Location / Volume Laterality Blood STRUCTURE OF RIGHT Venipuncture / 11/28/2021 8:57 06/0 06/2021 8:57 HAND / Unknown Unknown AM CDT AM CDT Yeny May APRN, CNP LAB - BLOOD ORDERABLES Performing Organization Address City/State/ZIP Code [place] [address] Care Lab [address] Lab (1st floor, no room number) documented in this encounter Visit Diagnoses Diagnosis Benign essential hypertension Essential hypertension, benign documented in this encounter Care Teams Javascript Software Engineer Relationship Specialty Start Date End Date [facility], PCP - General 02/01/21 [facility]- [address] [place] [address] Antony Burch Assigned Neuroscience 04/08/21 MD Jan Provider [address] [place] [address] Yeny May APRN BOBBIN PRESSER Assigned Heart and Vascular 10/28/21 [address] Provider [place] [id number] documented as of this encounter
--- OUTSIDE RECORDS SUMMARY | 2022-04-18 14:51 | XMS_ITS | Encounter Summary ---
:1945 Author Organization [place] Address [address] [place] [address] Care Team Providers Name Role Phone [facility], [facility] And Primary Care Provi kelle Clinics- Antony Burch MD Unavailable Yeny May APRN MOLD BUNCH TRIMMER Unavailable Encounter Details Date Type Department Care Team Description 11/28/2021 Travel Social History Tobacco Use Types Packs/Day [...] on filedocumented in this encounter Care Teams Wreath And Garland Maker Relationship Specialty Start Date End Date [facility], PCP - General 02/01/21 [facility]- [address] [place] [address] Antony Burch Assigned Neuroscience 04/08/21 MD Jan Provider [address] [address] Yeny May APRN MOLD BUNCH TRIMMER Assigned Heart and Vascular 10/28/21 [address] Provider [place] [id number] documented as of this encounter
--- OUTSIDE RECORDS SUMMARY | 2022-04-18 14:51 | XMS_ITS | Encounter Summary ---
:1945 Author Organization [place] Address [address] [place] [address] Care Team Providers Name Role Phone [facility] And Primary Care Provi kelle Clinics- Denton Casiano MD Unavailable Encounter Details Date Type Department Care Team Description 04/03/2021 Travel Social History Tobacco Use Types Packs/Day [...] on filedocumented in this encounter Care Teams Putty Mixer Relationship Specialty Start Date End Date [facility], PCP - General 02/01/21 [facility]- [address] [place] [address] Denton Casiano MD Assigned Heart and Vascular 03/25/2110/27 [address] [facility] [address] Provider [place] [address] documented as of this encounter
--- OUTSIDE RECORDS SUMMARY | 2022-04-18 14:51 | XMS_ITS | Encounter Summary ---
:1945 Author Organization [place] Address [address] [place] [address] Care Team Providers Name Role Phone [facility] And Primary Care Provi kelle Clinics- Antony Burch MD Unavailable Yeny May APRN ENTRY LEVEL BUSINESS ANALYST Unavailable Encounter Details Date Type Department Care Team Description 12/12/2021 [facility] Heart Jw essential hypertension Clinic [place] [address] [place] [address] [address] [place] [address] Social History Tobacco Use [...] Associated Diagnosis Comme nts BASIC METABOLIC Routine 12/12/2021 10:03 Benign essential Resu lts for this PANEL AM CDT hypertension procedure are i n the [...] AM CDT GFR Estimate 79 >60 12/12/2021 LABORATORY mL/min/1.7 11:43 AM CDT 3m2 Comment: Effective June 19, 2021 eGF Rcr in adults is calculated using the 2020 CKD-EPI creatinine equation which includ es age and gender (Bob et al., NEJM, DOI: 10.1056/[id number]) Specimen Anatomical Collection Method / Collection Time Recei price Time (Source) Location / Volume Laterality Blood STRUCTURE OF RIGHT Venipuncture / 12/12/2021 10:03 UPPER LIMB / Unknown AM CDT 10:03 AM CDT Unknown Yeny May APRN, CNP LAB - BLOOD ORDERABLES Performing Organization Address City/State/ZIP Code [place] [address] Care Lab [address] Lab (1st floor, no room number) documented in this encounter Visit Diagnoses Diagnosis Benign essential hypertension Essential hypertension, benign documented in this encounter Care Teams Bolt Machine Operator Relationship Specialty Start Date End Date [facility], PCP - General 02/01/21 [facility]- [address] [place] [address] Antony Burch Assigned Neuroscience 04/08/21 MD Jan Provider [address] [address] Yeny May APRN ENTRY LEVEL BUSINESS ANALYST Assigned Heart and Vascular 10/28/21 [address] Provider [place] [id number] documented as of this encounter
--- OUTSIDE RECORDS SUMMARY | 2022-04-18 14:52 | XMS_ITS | Encounter Summary ---
:1945 Author Organization [place] Address [address] [place] [address] Care Team Providers Name Role Phone [facility] And Primary Care Provi kelle Clinics- Yeny May APRN MANAGER CONFIGURATION Unavailable Encounter Details Date Type Department Care Team Description 02/20/2021 Travel Social History Tobacco Use Types Packs/Day Years Used Date Smoking Tobacco: Former Cigarettes Quit : 1979 Smokeless Tobacco: Never Alcohol Use Standard Drinks/Week Comments Yes 0 (1 standard drink = 0.6 oz pure alcoho l) 1-2 per day Sex Assigned at Date Recorded Male 04/02/2021 10:12 AM CDT COVID-19 Exposure Response Date Recorded In the last month, have you been in contact with No / Unsure 02/20/2021 9:18 PM CDT someone who was confirmed or suspected to have Coronavirus / COVID-19? documented as of this encounter Plan of Treatment Not on filedocumented as of this encounter Visit Diagnoses Not on filedocumented in this encounter Care Teams Health Records Technology Teacher Relationship Specialty Start Date End Date [facility], PCP - General 02/01/21 [facility]- [address] [place] [address] Yeny May, TEST TUBE MAKER MANAGER CONFIGURATION Assigned Heart and Vascular 02/18/2103/24 [address] Provider [place] [address] documented as of this encounter
--- OUTSIDE RECORDS SUMMARY | 2022-04-18 14:52 | XMS_ITS | Encounter Summary ---
:1945 Author Organization [place] Address [facility] [place] [address] Care Team Providers Name Role Phone Ran Lee MD Primary Care Provider Reason for Visit Auth/Cert - Closed Specialty Diagnoses / Procedures Referred By Contact Refer red To Contact Surgery Diagnoses DJD Rh Periop Services Procedures ARTHROPLASTY HIP [address], [place] [address] Phone: Fax: Referral ID Status Reason Start Date Expiration Date Visits Requ ested Visits Authorized [id number] Closed 1 1 Encounter Details Date Type Department Care Team Description 03/22/2013 Anesthesia Event [facility] Domenico Browne PeriOp Services MD Michael [address] [place] [address] ANESTHESIA [id number] [place], [place] [address] (Wo rk) Anesthesia Record Procedure Summary Procedure Name Responsible Anesthesia Start Anesthesia Stop Anesthesiologist Time Time Right Total hip Domenico Browne MD 03/22/13 0727 03/22/13 0947 Arthroplasty (Right: Hip) Events Date Time Event Comment 03/22/2013 0727 An Start 0730 An Start Data 0734 An Induction 0735 AN START GERMAIN 0735 Present 0738 An Intubation 0749 an ran now 0828 Present 0919 Present 0920 AN END GERMAIN BILLING 09 Present 09 an stop data 0947 An Stop Electronically s igned by Saul Mcdonough CRNA on March 22 9:47 AM Name Total midazolam 1 mg/mL 2 mg fentaNYL 50 mcg/mL 200 mcg lidocaine 1% 50 mg propofol 10 mg/mL 200 mg rocuronium 10 mg/mL 50 mg glycopyrrolate 0.2 mg/mL 0.8 mg neostigmine 1mg/mL 3 mg dexamethasone 4 mg/mL 8 mg HYDROmorphone 1 mg/ml 1 mg ketamine 100 mg/mL 100 mg ceFAZolin (ANCEF) IVPB 2 g (pre-mix) 2 g tranexamic Acid (CYKLOKAPRON) 1,000 mg in NaCl 0.9% 50 mL bolus 1 g naloxone 0.4 mg/mL 40 mcg lactated ringers infusion 2,800 mL Agents Name O2 Air Exp Sevoflurane Exp Desflurane Blood No blood administrations on file. Lines, Drains, and Airways Type Details Placement Removal Peripheral IV 03/22/13; 0646; 18 G; 03/22/13 0646 by 03/25/13 1148 by Left; Hand Domenico Browne Wehage, Peg gy, RN MD RETIRED ETT 03/22/13; 0738; Airway 03/22/13 0738 by 03/22/13 0939 by Size: 8; Cuffed; Oral Saul Mcdonough, Saul Mcdonough, endotracheal tube; Blade NURSE LDR FLAME CUTTING SUPERVISOR NURSE LDR CR NA Type: Anna; Blade Size: 2; Place by: ; Insertion Attempts: 1; Breath Sounds: Equal, clear and bilateral; End Tidal CO2: Present; Dentition: Intact; Grade View of Cords: 1 Urethral Catheter 03/22/13; 0756; No; 03/22/13 0756 by 03/23/13 1928 by Anesthesia; 16 fr Arias Meza, GARRETT Siddiqui, Kris Cid RN Incision/Surgical Site 03/22/13; 0759; Right; 03/22/13 0759 by 0 01/04/17 1804 by Hip; 01/04/17; 1804 Arias Meza, Debby Giron RN Retired Non-Surgical 03/22/13; 09; 03/22/13 0930 by 03/22/13 0 955 by Airway nasopharyngeal; End of Judith Soler, Maxwell moreno, raiza RN GARRETT Wong documented in this encounter Social History Tobacco Use Types Packs/Day Years Used Date Smoking Tobacco: Never Alcohol Use Standard Drinks/Week Comments Yes 0 (1 standard drink = 0.6 oz pure alcoho l) 2 per day Sex Assigned at Date Recorded Male 04/02/2021 10:12 AM CDT documented as of this encounter OR Notes Anesthesia Postprocedure Evaluation - Domenico Browne MD - 03/22/2013 10:40 AM CDT Anesthesia Post-Evaluation Note Patient: Vivek Lang Procedure(s) Performed: Procedure(s) with comments: ARTHROPLASTY HIP - Right Total hip Arthroplasty Patient location: PACU Anesthesia type: General Patient Condition Respiratory Function (RR / SpO2 / Airway Patency): Satisfactory Cardiac Function (HR / Rhythm / BP): Satisfactory Mental Status: Satisfactory Temperature: Satisfactory Pain Control: Satisfactory PONV: None or treated Hydration Status: Satisfactory Beta-Aftab Therapy: None indicated, given if indicated Blood pressure 170/98, temperature 96.8 ??F (36 ??C), temperature source Temporal, resp. rate 8, height 1.905 m (6' 3), weight 130.636 kg (288 lb), SpO2 94.00%. Domenico Browne MD Anesthesia Preprocedure Evaluation - Domenico Browne MD - 03/22/2013 6:40 AM CDT Anesthesia Evaluation . Pt has had prior anesthetic. Type: General No history of anesthetic complications ROS/MED HX Pulmonary: - neg pulmonary ROS Neurologic: - neg neurologic ROS Cardiovascular: (+) hypertension CAD (patient denies ASCVD, but in chart), . . METS/Exercise Tolerance: Hematologic: Comments: Hgb 14.8 K 4.5 - neg hematologic ROS Musculoskeletal: - neg musculoskeletal ROS GI/Hepatic: - neg GI/hepatic ROS Renal: - neg renal ROS Endo: - neg endo ROS Psychiatric: - neg psychiatric ROS Infectious Disease: - neg infectious disease ROS Other: - neg other ROS Physical Exam Normal systems: cardiovascular, pulmonary and dental Airway Mallampati: II TM distance: >3 FB Neck ROM: full Dental Cardiovascular Rhythm and rate: regular and normal (-) no friction rub, no systolic click and no murmur Pulmonary breath sounds clear to auscultation(-) no rhonchi, no decreased breath sounds, no wheezes, no ralesand no stridor Anesthesia Plan ASA Scores 2 . Plan for General and ETT - with Intravenous induction.Maintenance will be Balanced. Routine analgesia and antiemetics to be used for post-operative care. Anesthetic plan, risks, benefits and alternatives discussed with: patient or business process representative. History & Physical Review History and physical reviewed; no interval change. . documented in this encounter Miscellaneous Notes Anesthesia Care Transfer Note - Saul Mcdonough APRN CRNA - 03/22/2013 9:46 AM CDT Anesthesia Care Transfer Note Patient: Vivek Lang Transferred to: PACU Patient vital signs: stable Airway: nonePt awake vss exchanging well report to rn documented in this encounter Plan of Treatment Not on filedocumented as of this encounter Visit Diagnoses Not on filedocumented in this encounter Administered Medications Inactive Administered Medications - up to 3 most recent administrations Medication Order MAR Action Action Date Dose Rate Site ceFAZolin (ANCEF) IVPB 2 g (pre-mix) Given 03/22/2013 7:27 AM CDT 2 g Routine, 2 g, Intravenous, PRE-OP/PRE-PROCEDURE, Starting on Fri03/22/13 at 0542, For 1 dose, Give first dose within 1 hour PRIOR to incision., Indications: Perioperative Pharmacoprophylaxis, Pre-procedure dexamethasone (DECADRON) injection Given 03/22/2013 7:34 AM CDT 8 mg PRN, Administer over 1-4 Minutes, Starting on Fri03/22/13 at 0734, Anesthesia Intra-op fentaNYL (SUBLIMAZE) injection Given 03/22/2013 8:27 AM CDT 100 mcg PRN, moderate to severe pain, Starting on Fri03/22/13 at 0734, Anesthesia Intra-op Given 03/22/2013 7:34 AM CDT 100 mcg glycopyrrolate (ROBINUL) injection Given 03/22/2013 9:08 AM CDT 0.6 mg PRN, Starting on Fri03/22/13 at 0734, Anesthesia Intra-op Given 03/22/2013 7:34 AM CDT 0.2 mg HYDROmorphone (PF) (DILAUDID) injection Given 03/22/2013 7:48 AM CDT 1 mg PRN, moderate to severe pain, Starting on Fri03/22/13 at 0748, Anesthesia Intra-op ketamine (KETALAR) injection Given 03/22/2013 7:34 AM CDT 100 mg PRN, Starting on Fri03/22/13 at 0734, Must dilute with NS or D5W prior to intravenous administration., Anesthesia Intra-op lactated ringers infusion New Bag 03/22/2013 8:45 AM CDT mL at 75-100 mL/hr, Intravenous, CONTINUOUS, UNLESS otherwise indicated., Pre-procedure, Starting on Fri03/22/13 at 0545, Until Fri03/22/13 at 0941 New Bag 03/22/2013 8:07 AM CDT mL New Bag 03/22/2013 7:27 AM CDT mL lidocaine 1 % injection Given 03/22/2013 7:34 AM CDT 50 mg PRN, Starting on Fri03/22/13 at 0734, Anesthesia Intra-op midazolam (VERSED) injection Given 03/22/2013 7:27 AM CDT 2 mg PRN, anxiety, Starting on Fri03/22/13 at 0727, Anesthesia Intra-op naloxone (NARCAN) injection Given 03/22/2013 9:31 AM CDT 40 mcg PRN, opioid reversal, Starting on Fri03/22/13 at 0931, For respiratory rate < or = 8. Partial reversal dose: 0.1 mg titrated q 2 minutes for Sedation Level of 3 (frequently drowsy, arousable, drifts to sleep during conversation).Full reversal dose: 0.4 mg bolus for Sedation Level of 4 (somnolent, minimal or no response to stimulation)., Anesthesia Intra-op neostigmine (PROSTIGMINE) injection Given 03/22/2013 9:08 AM CDT 3 mg Intravenous, PRN, Starting on 9/23/13 at 0908, Anesthesia Intra-op propofol (DIPRIVAN) injection Given 03/22/2013 7:34 AM CDT 200 mg PRN, Starting on Fri03/22/13 at 0734, Anesthesia Intra-op rocuronium (ZEMURON) injection Given 03/22/2013 7:34 AM CDT 50 mg PRN, Starting on Fri03/22/13 at 0734, Anesthesia Intra-op tranexamic Acid (CYKLOKAPRON) 1,000 mg in NaCl New Bag 0 03/22/2013 7:27 AM CDT 1 g 0.9% 50 mL bolus 1 g, Intravenous, ONCE, On Fri03/22/13 at 0545, For 1 dose, Each 1 gram to be infused over 10 minutes., Pre-procedure documented in this encounter Care Teams Hot Plate Plywood Press Operator Relationship Specialty Start Date End Date Ran Lee MD PCP - General Family Practice 06/27/11 07/30/[address] [phone] documented as of this encounter
--- OUTSIDE RECORDS SUMMARY | 2022-04-18 14:52 | XMS_ITS | Encounter Summary ---
:1945 Author Organization [place] Address [address] [place] [address] Care Team Providers Name Role Phone [facility] Primary Care [facility] Clinics- Encounter Details Date Type Department Care Team Description 02/14/2021 Travel Social History Tobacco Use Types Packs/Day [...] been in contact with No / Unsure 02/14/2021 7:18 AM CDT someone who was confirmed or suspected to have Coronavirus / COVID-19? documented as of this encounter Plan of Treatment Not on filedocumented as of this encounter Visit Diagnoses Not on filedocumented in this encounter Care Teams Associate Professor Of History Relationship Specialty Start Date End Date [facility] And PCP - General 02/01/21 [facility] [address] [place] [address] documented as of this encounter
--- OUTSIDE RECORDS SUMMARY | 2022-04-18 14:52 | XMS_ITS | Encounter Summary ---
:1945 Author Organization [facility] Address [address] [place] [address] Care Team Providers Name Role Phone Unavailable Primary Care Provider Unavailable Reason for Visit (Routine) - Closed Specialty Diagnoses / Procedures Referred By Contact Refer red To Contact Cardiology Diagnoses er weekend Zz Rh Echocardiography Procedures ECH STRESS TEST [address] [phone] Phone: Referral ID Status Reason Start Date Expiration Date Visits Requ ested Visits Authorized [id number] Closed 01/06/2017 01/06/2018 1 1 Encounter Details Date Type Department Care Team Description 01/06/2017 Hospital Encounter [facility] Sharri Lashay William Pr ecordial pain Cardiopulmonary MD Soraya [address] [facility] [place], [place] [address] [address] [facility] [phone] [place], [place] [id number] (Wo rk) Social History Tobacco Use Types Packs/Day Years Used Date Smoking Tobacco: Never Alcohol Use Standard Drinks/Week Comments Yes 0 (1 standard drink = 0.6 oz pure alcoho l) 2 per day Sex Assigned at Date Recorded Male 04/02/2021 10:12 AM CDT documented as of this encounter Medications at Time of Discharge Medication Sig Dispensed Refills Start Date End Date terazosin (HYTRIN) 2 MG Take 2 mg by mouth 0 capsule At Bedtime. 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 per tablet triamterene-hydrochloroth One half tab 1-2 30 tablet 0 /01/201702/01/2021 iazide (MAXZIDE-25) times daily for 37.5-25 MG per tablet blood pressure documented as of this encounter Plan of Treatment Not on filedocumented as of this encounter Procedures Procedure Name Priority Date/Time Associated Diagnosis Comme nts ECHO STRESS TEST KARI 01/06/2017 1:43 PM Precordial pain Re sults for this WITH LUMASON CDT procedure are i n the results section. documented in this encounter Results Echo Stress Test with Lumason (01/06/2017 1:43 PM CDT) Anatomical Region Laterality Modality Echocardiography Specimen (Source) Anatomical Collection Method Collection Time Re ceived Time Location / / Volume Laterality 01/06/2017 1:24 PM CDT Narrative 01/06/2017 4:15 PM CDT [id number]^NATALIIA^LASHAY^SORAYA [facility] Echocardiography Laboratory [address] [place] [address] Name: VIVEK LANG : 1945 Study Date: 01/06/2017 01:24 PM Age: 71 yrs Gender: Male Patient Location: [facility] Reason For Study: Precordian Pain History: Chest Pain,HTN,Hyperlipidemia Ordering Physician: LASHAY WILLIAM Referring Physician: Clair Performed By: Yuri Engel RDCS BSA: 2.5 m2 Height: 74 in Weight: 270 lb HR: 64 BP: 140/90 mmHg Medications: HCTZ __ Procedure Stress Echo Complete. Contrast Lumason. __ Interpretation Summary This was a normal stress echocardiogram with no evidence of stress-induced ischemia. Fair to poor exercise tolerance ( 03:58 Cayden protocol / 4.6 Mets) The sensitivity of this test may be limi pushpa due to limited exercise tolerance. __ Stress Exercise was stopped due to fatigue. The patient exhibited dyspnea during exe rcise. There was a hypertensive BP response to exercise. Target Heart Rate was achieved. The Neal treadmill score was intermediat e risk ( -11< Neal score <5). There was no chest pain or significant S T changes with exercise. This was a normal stress echocardiogram with no evidence of stress-induced ischemia. The visual ejection fraction is estimate d at >70%. Normal resting wall motion and no stress -induced wall motion abnormality. Left ventricular cavity size decreases w ith exercise. Global LV systolic function augments wit h exercise. Baseline The patient is in normal sinus rhythm. Occasional premature ventricular contrac tions. The visual ejection fraction is estimate d at 55-60%. No regional wall motion abnormalities no pushpa. Stress Results ? Protocol: ??Cayden Protocol ?Maximum Predicted HR: ?? 147 bpm ? Target HR: 125 bpm ? % Maximum Predicted HR: 85 % ? Duration ??Heart ??Stage ?? (mm:ss) ??Rate ? BP ? Comment ? (bpm) Stage 1 ?? 3:00 ? 111 ?? 162/90 Stage 2 ?? 0:58 ? 125 ?? 180/115SOB RecoveryR ??12:00 ?72 ?124/82 RP P: 22,500, No sx's upon termination, DTS: ? -3, FAC: Below ? Stress Duration: ?? 3:58 mm:ss * ?Recovery Time: 12:00 mm:ss ? Maximum Stress HR: 125 bpm * ? METS: ?5 Left Ventricle The left ventricle is normal in size. Mitral Valve The mitral valve is not well visualized. There is no mitral regurgitation noted. There is no mitral valve stenosis . Tricuspid Valve The tricuspid valve is not well visualiz ed. There is trace tricuspid regurgitation. There is no tricuspid flavia nosis. Aortic Valve The aortic valve is trileaflet. No aorti c regurgitation is present. No aortic stenosis is present. Pulmonic Valve The pulmonic valve is not well seen, but is grossly normal. There is trace pulmonic valvular regurgitation. There i s no pulmonic valvular stenosis. __ Doppler Measurements & Calculations TR max raffy: 328.8 cm/sec TR max P.2 mmHg __ Report approved by: Dr. Colby rodriguez 01/06/2017 04:15 PM Procedure Note Colby Russell MD - 01/06/2017For matting of this note might be different from the original. [id number] [facility] [id number]^NATALIIA^LASHAY^SORAYA [facility] Echocardiography Laboratory [address] [place] [address] Name: VIVEK LANG : 1945 Study Date: 01/06/2017 01:24 PM Age: 71 yrs Gender: Male Patient Location: [facility] Reason For Study: Precordian Pain History: Chest Pain,HTN,Hyperlipidemia Ordering Physician: LASHAY WILLIAM Referring Physician: Clair Performed By: Yuri Engel RDCS BSA: 2.5 m2 Height: 74 in Weight: 270 lb HR: 64 BP: 140/90 mmHg Medications: HCTZ __ Procedure Stress Echo Complete. Contrast Lumason. __ Interpretation Summary This was a normal stress echocardiogram with no evidence of stress-induced ischemia. Fair to poor exercise tolerance ( 03:58 Cayden protocol / 4.6 Mets) The sensitivity of this test may be limi pushpa due to limited exercise tolerance. __ Stress Exercise was stopped due to fatigue. The patient exhibited dyspnea during exe rcise. There was a hypertensive BP response to exercise. Target Heart Rate was achieved. The Neal treadmill score was intermediat e risk ( -11< Neal score <5). There was no chest pain or significant S T changes with exercise. This was a normal stress echocardiogram with no evidence of stress-induced ischemia. The visual ejection fraction is estimate d at >70%. Normal resting wall motion and no stress -induced wall motion abnormality. Left ventricular cavity size decreases w ith exercise. Global LV systolic function augments wit h exercise. Baseline The patient is in normal sinus rhythm. Occasional premature ventricular contrac tions. The visual ejection fraction is estimate d at 55-60%. No regional wall motion abnormalities no pushpa. Stress Results Protocol: Cayden Protocol Maximum Predic pushpa HR: 147 bpm Target HR: 125 bpm % Maximum Predicted HR: 85 % Duration Heart Stage (mm:ss) Rate BP Comment (bpm) Stage 1 3:00 111 162/90 Stage 2 0:58 125 180/115SOB RecoveryR 12:00 72 124/82 RPP: 22,500, N o sx's upon termination, DTS: -3, FAC: Below Stress Duration: 3:58 mm:ss * Recovery Time: 12:00 mm:ss Maximum Stress HR: 125 bpm * METS: 5 Left Ventricle The left ventricle is normal in size. Mitral Valve The mitral valve is not well visualized. There is no mitral regurgitation noted. There is no mitral valve stenosis . Tricuspid Valve The tricuspid valve is not well visualiz ed. There is trace tricuspid regurgitation. There is no tricuspid flavia nosis. Aortic Valve The aortic valve is trileaflet. No aorti c regurgitation is present. No aortic stenosis is present. Pulmonic Valve The pulmonic valve is not well seen, but is grossly normal. There is trace pulmonic valvular regurgitation. There i s no pulmonic valvular stenosis. __ Doppler Measurements & Calculations TR max raffy: 328.8 cm/sec TR max P.2 mmHg __ Report approved by: Dr. Colby rodriguez 01/06/2017 04:15 PM Lashay William MD CV ECHO ORDERABLES documented in this encounter Visit Diagnoses Diagnosis Precordial pain documented in this encounter Administered Medications Inactive Administered Medications - up to 3 most recent administrations Medication Order MAR Action Action Date Dose Rate Site sulfur hexafluoride microsphere Given 01/06/2017 1:44 PM CDT 5 m Ls (LUMASON) 60.7-25 MG injection 5 mL 5 mL, Intravenous, ONCE, On 01/06/17 at 1345, For 1 dose documented in this encounter
--- OUTSIDE RECORDS SUMMARY | 2022-04-18 14:52 | XMS_ITS | Encounter Summary ---
:1945 Author Organization [place] Address [address] [place] [address]. [place] [address] Care Team Providers Name Role Phone [facility] Primary Care [facility] Clinics- Reason for Referral Care Coordination (Routine) - Closed Specialty Diagnoses / Procedures Referred By Contact Refer red To Contact Diagnoses Other specified counseling System, Provider Not In Referral ID Status Reason Start Date Expiration Date Visits Requ ested Visits Authorized [id number] Closed 02/05/2021 02/05/2022 1 1 Encounter Details Date Type Department Care Team Description 02/05/2021 Orders Only [facility], Provider Other specified Care Coordination Not In counseling [address] [place] [phone] Social History Tobacco Use Types Packs/Day Years Used Date Smoking Tobacco: Never Alcohol Use Standard Drinks/Week Comments Yes 0 (1 standard drink = 0.6 oz pure alcoho l) 2 per day Sex Assigned at Date Recorded Male 04/02/2021 10:12 AM CDT COVID-19 Exposure Response Date Recorded In the last month, have you been in contact with No / Unsure 02/01/2021 2:12 PM CDT someone who was confirmed or suspected to have Coronavirus / COVID-19? 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
--- OUTSIDE RECORDS SUMMARY | 2022-04-18 14:52 | XMS_ITS | Encounter Summary ---
:1945 Author Organization [place] Address [address] [place] [id number] Care Team Providers Name Role Phone Unavailable Primary Care Provider Unavailable Reason for Visit Reason Comments Chest Pain Encounter Details Date Type Department Care Team Description 01/04/2017 Emergency [facility] Lashay Saldana Precor dial pain; [employer] Emergency Dep t MD Esther Sinus bradycardia; [address] [facility] Bruised ribs, left, initial encounter; [place], [place] Essential hypertension [id number] [facility] [phone] [place], [place] [address] (Wo rk) Social History Tobacco Use Types Packs/Day Years Used Date Smoking Tobacco: Never Alcohol Use Standard Drinks/Week Comments Yes 0 (1 standard drink = 0.6 oz pure alcoho l) 2 per day Sex Assigned at Date Recorded Male 04/02/2021 10:12 AM CDT documented as of this encounter Last Filed Vital Signs Vital Sign Reading Time Taken Comments Blood Pressure 120/68 01/04/2017 5:30 PM CDT Pulse 48 01/04/2017 3:40 PM CDT Temperature 36.9 ??C (98.5 ??F) 01/04/2017 2:23 PM CDT Respiratory Rate 18 01/04/2017 3:40 PM CDT Oxygen Saturation 94% 01/04/2017 5:30 PM CDT Inhaled Oxygen Concentration - - Weight - - Height - - Body Mass Index - - documented in this encounter Discharge Instructions Discharge InstructionsLashay Saldana MD - 01/04/2017 5:33 PM CDT Discharge Instructions Chest Pain You have been seen today for chest pain or discomfort. At this time, your doctor has found no signs that your chest pain is due to a serious or life-threatening condition, (or you have declined more testing and/or admission to the hospital). However, sometimes there is a serious problem that does not show up right away. Your evaluation today may not be complete and you may need further testing and evaluation. You need to follow-up with your regular doctor within 7 days. Return to the Emergency Department if: ??? Your chest pain changes, gets worse, starts to happen more often, or comes with less activity. ??? You are short of breath. ??? You get very weak or tired. ??? You pass out or faint. ??? You have any new symptoms, like fever, cough, numb legs, or you cough up blood. ??? You have anything else that worries you. Until you follow-up with your regular doctor please do the following: ??? Take one aspirin daily unless you have an allergy or are told not to by your doctor. ??? If a stress test appointment has been made, go to the appointment. ??? If you have questions, contact your regular doctor. If your doctor today has told you to follow-up with your regular doctor, it is very important that you make an appointment with your clinic and go to the appointment. If you do not follow-up with your primary doctor, it may result in missing an important development which could result in permanent injury or disability and/or lasting pain. If there is any problem keeping your appointment, call your doctor or return to the Emergency Department. If you were given a prescription for medicine here today, be sure to read all of the information (including the package insert) that comes with your prescription. This will include important information about the medicine, its side effects, and any warnings that you need to know about. The pharmacist who fills the prescription can provide more information and answer questions you may have about the medicine. If you have questions or concerns that the pharmacist cannot address, please call or return to the Emergency Department. Remember that you can always come back to the Emergency Department if you are not able to see your regular doctor in the amount of time listed above, if you get any new symptoms, or if there is anything that worries you. documented in this encounter Medications at Time of Discharge [...] One half tab 1-2 30 tablet 0 01/201702/01/2021 iazide (MAXZIDE-25) times daily for 37.5-25 MG per tablet blood pressure documented as of this encounter ED Notes Amy Oliveira RN - 01/04/2017 3:41 PM CDT Pt back from imaging, hooked up to VS machine, updated on plan of care and estimated wait times for results of studies. Call light within reach. Debby Hines RN - 01/04/2017 2:17 PM CDT Jaw pain and heart burn started about an hour ago, took a TUMS without relief. feels miserable. Fell a couple days ago, onto left arm into left side of his chest and is so sore its hard to breathe. Feels a little short of breath. Denies nausea and vomiting. [place] a little clammy on the way over here. Lashay Saldana MD - 01/04/2017 2:11 PM CDT History Chief Complaint: Chest Pain HPI Vivek Lang is a 71 year old male with a history of coronary artery disease, on a daily Asprin regimen who presents to the Emergency Department for evaluation of chest pain. The patient reports the onset of jaw pain and burning chest pain approximately one hour prior to arrival. He took TUMs without any relief. No particular event happening at onset. Not pleuritic or exertional. Here in the ED, the patient reports slight improvement of his symptoms. Of note, he reports falling a couple days ago, landing on his left arm and left side of his chest and since complains of chest soreness and pain, increased shortness of breath with exertion as well as fatigue and an intermittent cough. The patient denies any fever, nausea, vomiting, leg swelling, congestion, wheezing or abdominal pain. Cardiac Risk Factors: History of hypertension - yes History of hyperlipidemia - yes History of diabetes - no History of smoking - no Family history of heart complications - no Allergies: No known drug allergies Medications: Asprin terazosin (HYTRIN) 2 MG capsule acetaminophen 650 MG TABS bisoprolol-hydrochlorothiazide (ZIAC) 10-6.25 MG per tablet Past Medical History: Coronary artery disease Hyperlipidemia Hypertension Past Surgical History: Arthroplasty hip Laminectomy lumbar Family History: No past pertinent family history. Social History: Smoking Status: never smoker Alcohol Use: yes Marital Status: [2] Review of Systems Constitutional: Positive for fatigue. Negative for fever. HENT: Negative for congestion. Respiratory: Positive for cough and shortness of breath. Negative for wheezing. Cardiovascular: Positive for chest pain. Negative for leg swelling. Gastrointestinal: Negative for abdominal pain, nausea and vomiting. All other systems reviewed and are negative. Physical Exam First Vitals: Patient Vitals for the past 24 hrs: BP Temp Pulse Heart Rate Resp SpO2 01/04/17 1423 127/67 98.5 ??F (36.9 ??C) 56 56 16 95 % Physical Exam Eyes: Sclera white; Pupils are equal and round ENT: External ears and nares normal CV: Regular rate and rhythm, No murmur Tenderness upper L CW and lateral L CW, no bruising or rash Trace BLE edema ankles only; symmetric Resp: Breath sounds clear and equal bilaterally GI: Abdomen is soft, non-tender, non-distended MS: Moves all extremities Skin: Warm and dry Neuro: Speech is normal and fluent. No apparent deficit. Emergency Department Course ECG: Indication: chest pain Time: 1420 Vent. Rate 55 bpm. KS interval 238. QRS duration 118. QT/QTc 474/453. P-R-T axis 45 37 63. Sinus bradycardia with st degree AV block, nonspecific intraventricular conduction delay, nonspecific ST abnormality, Abnormal ECG. Read time: 1425. Imaging: Radiographic findings were communicated with the patient who voiced understanding of the findings. Chest XR: There is moderate cardiomegaly. The lungs are clear. There is no pleural effusion or pneumothorax. There is no evidence for congestive failure. As per radiology. Laboratory: CBC: WBC: 6.1, HGB: 15.5, PLT: 150 BMP: Glucose 179(H), Calcium 8.3(L), o/w WNL (Creat 1.05) 1542 Troponin: <0.015 1730 Troponin: <0.015 Hemoglobin A1c: 5.9 Interventions: 1505 Asprin 324 mg PO Emergency Department Course: Nursing notes and vitals reviewed. I performed an exam of the patient as documented above. EKG obtained in the ED, see results above. The patient was sent for a chest xray while here in the emergency department, findings above. Blood drawn. This was sent to the lab for further testing, results above. 1602 I reassessed the patient. Patients heart rate was going as low as 36. I personally reviewed the laboratory results with the Patient and answered all related questions prior to discharge. 1733 I reassessed the patient. Findings and plan explained to the Patient. Patient discharged home with instructions regarding supportive care, medications, and reasons to return. The importance of close follow-up was reviewed. Impression & Plan Medical Decision Making: Vivek Lang is a 71 year old male here for evaluation of burning chest discomfort in the setting of recent shortness of breath on exertion. He has a separate chest pain secondary to a fall that he has had. Differential for this combination includes ACS, pericarditis, pleural effusion, pneumothorax, hemothorax, pneumonia, rib fracture amongst others. EKG was obtained and shows no ischemic changes. First troponin came back negative but he arrived soon after symptom onset. He has several risk factors for heart disease including his age and gender and hypertension and high cholesterol. His HEART score is 3 or 4 depending on how you characterize his pain. Based on this a second troponin was obtained. This returned normal as well. When I was updating him I noticed his heart rate would drop to under 40. This was still sinus on the monitor. I wonder if this may be the reason he has been feeling more fatigued and more short of breath as he does not have the cardiac output he needs to support his exertion. He is on a betablocker and his blood pressure medication is being changed. Outpatient stress test is ordered and he will be following up closely with his primary care physician. Diagnosis: ICD-10-CM 1. Precordial pain R07.2 Troponin I 2. Sinus bradycardia R00.1 3. Bruised ribs, left, initial encounter S20.212A Disposition: discharged to home Discharge Medications: New Prescriptions TRIAMTERENE-HYDROCHLOROTHIAZIDE (MAXZIDE-25) 37.5-25 MG PER TABLET One half tab 1-2 times daily forblood pressure I, Amy Golden, am serving as a scribe on 01/04/2017 at 2:25 PM to personally document services performed by Lashay Saldana, * based on my observations and the provider's statements to me. Amy Golden 01/04/2017 [facility] EMERGENCY [facility]PARTMENT Lashay Saldana MD 01/04/17 1815 documented in this encounter Plan of Treatment Not on filedocumented as of this encounter Procedures Procedure Name Priority Date/Time Associated Comments Diagnosis TROPONIN I Timed 01/04/2017 4:52 PM Precordial pain Result s for this CDT procedure are i n the results section. XR CHEST 2 VIEWS STAT 01/04/2017 3:39 PM Resul ts for this CDT procedure are i n the results section. CBC WITH PLATELETS & STAT 01/04/2017 2:52 PM R esults for this DIFFERENTIAL CDT procedure are i n the results section. TROPONIN I STAT 01/04/2017 2:52 PM Results f or this CDT procedure are i n the results section. HEMOGLOBIN A1C Routine 01/04/2017 2:52 PM Results for this CDT procedure are i n the results section. BASIC METABOLIC PANEL STAT 01/04/2017 2:52 PM Results for this CDT procedure are i n the results section. EKG 12-LEAD, TRACING STAT 01/04/2017 2:20 PM R esults for this ONLY CDT procedure are i n the results section. documented in this encounter Results Troponin I (01/04/2017 4:52 PM CDT) [facility] Method Time Signature Troponin I ES <0.015 0.000 - [place] The 99th percentile for uppe r reference range is 0.045 ug/L. ??Troponin values in 0.045 [facility] the range of 0.045 - 0.120 ug/L may be associated wit h risks of adverse ug/L HOSPITAL clinical events. Specimen Anatomical Collection Method Collection Time Receive d Time (Source) Location / / Volume Laterality Blood specimen 01/04/2017 4:52 PM 017 5:04 (specimen) CDT PM CDT Lashay Saldana MD LAB - BLOOD ORDERABLES Performing Organization Address City/State/ZIP Code Phon e Number M [place] [address] [address] [facility] [address] [phone] XR Chest 2 Views (01/04/2017 3:39 PM CDT) Anatomical Region Laterality Modality Chest Digital Radiography Specimen (Source) Anatomical Location Collection Method / Collectio n Time Received Time / Laterality Volume Impressions 01/04/2017 3:50 PM CDT IMPRESSION: There is moderate cardiomegaly. The lungs are clear. There is no pleural effusion or pneumothorax. There is no evidence for congestive failure. LACI TORIBIO MD Narrative 01/04/2017 3:50 PM CDT CHEST TWO VIEWS ??01/04/2017 3:39 PM COMPARISON: None. HISTORY: Chest pain, short of breath, re cent fall on left chest. Procedure Note Laci Toribio MD - 01/04/2017Forma tting of this note might be different from the original. CHEST TWO VIEWS 01/04/2017 3:39 PM COMPARISON: None. HISTORY: Chest pain, short of breath, re cent fall on left chest. IMPRESSION: There is moderate cardiomega ly. The lungs are clear. There is no pleural effusion or pneumothorax. There is no evidence for congestive failure. LACI TORIBIO MD Lashay Saldana MD IMG DIAGNOSTIC IMAGING ORDER ANTHONY Hemoglobin A1c (01/04/2017 2:52 PM CDT) athologist Signature Hemoglobin A1C 5.9 4.3 - 6.0 [facility] Specimen Anatomical Collection Method Collection Time Receive d Time (Source) Location / / Volume Laterality 01/04/2017 2:52 PM 7 3:18 CDT PM CDT Lashay Saldana MD LAB - BLOOD ORDERABLES Performing Organization Address City/[facility] Phon e Number M [facility] [address] [place], [place] [address] [facility] [address] [place], [place] [address] [address] [phone] Troponin I (01/04/2017 2:52 PM CDT) [facility] Method Time Signature Troponin I ES <0.015 0.000 [facility] The 99th percentile for uppe r reference range is 0.045 ug/L. ??Troponin values in 0.045 [facility] the range of 0.045 - 0.120 ug/L may be associated wit h risks of adverse ug/L HOSPITAL clinical events. Specimen Anatomical Collection Method Collection Time Receive d Time (Source) Location / / Volume Laterality Blood specimen 01/04/2017 2:52 PM 017 3:18 (specimen) CDT PM CDT Lashay Saldana MD LAB - BLOOD ORDERABLES Performing Organization Address City/[facility]/ZIP Code Phon e Number M [facility] [address] [phone] [facility] [address] [id number], [facility] [phone] (ABNORMAL) Basic metabolic panel (01/04/2017 2:52 PM CDT) athologist Signature Sodium 134 133 - 144 [place] mmol/L [facility] Potassium 3.9 3.4 - 5.3 [place] mmol/L [facility] Chloride 101 94 - 109 [place] mmol/L [facility] Carbon Dioxide 25 20 - 32 [place] mmol/L [facility] Anion Gap 8 3 - 14 [place] mmol/L [facility] Glucose 179 (H) 70 - 99 [place] mg/dL [facility] Urea Nitrogen 20 7 - 30 [place] mg/dL [facility] Creatinine 1.05 0.66 - [place] 1.25 mg/dL [facility] GFR Estimate 69 >60 [place] mL/min/1.[address] Comment: Non GFR Calc GFR Estimate If Black 84 >60 mL/min/1.7m2 F [facility] Comment: GFR Calc Calcium 8.3 (L) 8.5 - 10.1 mg/dL [facility] Specimen Anatomical Collection Method Collection Time Receive d Time (Source) Location / / Volume Laterality Blood specimen 01/04/2017 2:52 PM 017 3:18 (specimen) CDT PM CDT Lashay Saldana MD LAB - BLOOD ORDERABLES Performing Organization Address City/State/ZIP Code Phon e Number M [facility] [address] [phone] [facility] [address] [phone], [facility] [phone] CBC with platelets differential (01/04/2017 2:52 PM CDT) [facility] Method Time Signature WBC 6.1 4.0 - [place] 11.0 [facility] 10e9/L [facility] RBC Count 5.05 4.4 - 5.9 [place] 10e12/L [facility] Hemoglobin 15.5 13.3 - [place] 17.7 g/dL [facility] Hematocrit 46.6 40.0 - [place] 53.0 % [facility] MCV 92 78 - 100 [facility] MCH 30.7 26.5 - [facility] 33.0 pg [facility] MCHC 33.3 31.5 - [place] 36.5 g/dL [facility] RDW 13.2 10.0 - [place] 15.0 % [facility] Platelet Count 150 150 - 450 [place] 10e9/L [facility] Diff Method Automated [facility] % Neutrophils 68.3 % [facility] % Lymphocytes 20.4 % [facility] % Monocytes 7.9 % [facility] % Eosinophils 2.1 % [facility] % Basophils 1.0 % [facility] % Immature 0.3 % [place] Granulocytes [facility] Nucleated RBCs 0 0 /100 [facility] Absolute 4.1 1.6 - 8.3 [place] Neutrophil 10e9/L [facility] Absolute 1.2 0.8 - 5.3 [place] Lymphocytes 10e9/L [facility] Absolute 0.5 0.0 - 1.3 [place] Monocytes 10e9/L [facility] Absolute 0.1 0.0 - 0.7 [place] Eosinophils 10e9/L [facility] Absolute 0.1 0.0 - 0.2 [place] Basophils 10e9/L [facility] Abs Immature 0.0 0 - 0.4 [place] Granulocytes [address] [place] [address] Absolute 0.0 [place] Nucleated RBC [facility] Specimen Anatomical Collection Method Collection Time Receive d Time (Source) Location / / Volume Laterality Blood specimen 01/04/2017 2:52 PM 017 3:18 (specimen) CDT PM CDT Lashay Saldana MD LAB - BLOOD ORDERABLES Performing Organization Address City/State/ZIP Code Phon e Number [facility] [address] [address] [facility] [address] [phone] EKG 12 lead (01/04/2017 2:20 PM CDT) [facility] gist Method Time Signature Interpretation ECG Click View RADIOLOGY Image link RESULTS to view waveform and result Specimen (Source) Anatomical Collection Method Collection Time Re ceived Time Location / / Volume Laterality 01/04/2017 2:20 PM CDT Lashay Saldana MD ECG ORDERABLES Performing Organization Address City/State/ZIP Code Phon e Number RADIOLOGY RESULTS documented in this encounter Visit Diagnoses Diagnosis Precordial pain Sinus bradycardia Other specified cardiac dysrhythmias Bruised ribs, left, initial encounter Essential hypertension Unspecified essential hypertension documented in this encounter Administered Medications Inactive Administered Medications - up to 3 most recent administrations Medication Order MAR Action Action Date Dose Rate Site aspirin chewable tablet 324 mg Given 01/04/2017 3:05 PM CDT 324 mg 324 mg, Oral, ONCE, On 01/04/17 at 1433, For 1 dose documented in this encounter Active and Recently Administered Medications Times are shown in CDT. Scheduled Medication Order 01/02/2017 01/03/2017 01/04/2017 aspirin chewable tablet 324 mg (COMPLETED) 1505 (Given - Provider: Debby Hines RN) 324 mg, Oral, ONCE, 01/04/17 at 1433, For 1 dose documented in this encounter
--- OUTSIDE RECORDS SUMMARY | 2022-04-18 14:52 | XMS_ITS | Encounter Summary ---
:1945 Author Organization [facility] Address [address] [place] [id number] Care Team Providers Name Role Phone [facility] Provi kelle [facility]- Lalo November CLEAN ENERGY POLICY ANALYST BUSINESS CONTINUITY ANALYST Unavailable Reason for Referral Consultation (Routine) - Closed Specialty Diagnoses / Procedures Referred By Contact Refer red To Contact Diagnoses Benign essential hypertension History of TIA (transient ischemic attack) and stroke Permanent atrial fibrillation (H) Morbid obesity (H) Denton Casiano MD [address] [place] [address] Referral ID Status Reason Start Date Expiration Date Visits Requ ested Visits Authorized [id number] Closed 03/21/2021 03/21/2022 1 1 Reason for Visit Reason Comments Hypertension Consultation (Routine) - Closed Specialty Diagnoses / Procedures Referred By Contact Refer red To Contact Diagnoses Benign essential hypertension Lalo November, CLEAN ENERGY POLICY ANALYST BUSINESS CONTINUITY ANALYST [address] [place] [address] Referral ID Status Reason Start Date Expiration Date Visits Requ ested Visits Authorized [id number] Closed 02/14/2021 02/14/2022 1 1 Encounter Details Date Type Department Care Team Description 03/21/2021 Office Visit [facility], Yeny E, A PRN BUSINESS CONTINUITY ANALYST [address] [place] [id number] History of TIA (transient ischemic attac k) and stroke (Primary Dx); [facility] Denton Casiano MD [address] [place] [id number] Benign essential hypertension; [facility] Permanent atrial fibrillatio n (H); [address] [facility] Morbid obesity (H) [address] [place] [address] Social History Tobacco Use Types [...] Sign Reading Time Taken Comments Blood Pressure 118/74 03/21/2021 8:37 AM CDT Pulse 60 03/21/2021 8:37 AM CDT Temperature - - Respiratory Rate - - Oxygen Saturation - - Inhaled Oxygen Concentration - - Weight 124.2 kg (273 lb 14.4 oz) 03/21/2021 8:37 AM CDT Height 185.4 cm (6' 1) 03/21/2021 8:37 AM CDT Body Mass Index 36.14 03/21/2021 8:37 AM CDT documented in this encounter Progress Notes Denton Casiano MD - 03/21/2021 8:45 AM CDT Cardiology Progress Note Assessment and Plan: 1. Atrial fibrillation, recent diagnosis but minimally symptomatic ?? Continue anticoagulation for presentation of TIA ?? Auto rate controlled. 2-second pauses on monitor. If lightheadedness or presyncope or dyspnea on exertion in the future, consider treadmill stress test to assess chronotropic response and possible pacemaker. 2. Hypertension ?? Change lisinopril to losartan due to cough Follow-up in 6 months with Yeny May 40 minutes was spent with the patient, precharting and reviewing tests as well as post visit charting all done today.. This note was transcribed using electronic voice recognition software and there may be typographicalerrors present. Interval History: The patient is a very pleasant 75 year old whom I have seen during inpatient hospitalization earlierthis year when he presented with TIA and rate controlled atrial fibrillation. The atrial fibrillation was not known previously. He was put on anticoagulation and has done pretty well since. We changed his antihypertensive regimen a little bit, he has noticed a little bit of dry cough with the lisinopril. He has some stable dyspnea. He gets occasional headaches. He does not have any stroke residual. Review of Systems: Review of Systems: Skin: Negative Eyes: Positive for ENT: Positive for hearing loss Respiratory: Positive for dyspnea on exertion;cough;CPAP;sleep apnea Cardiovascular: Positive for Gastroenterology: Positive for heartburn Genitourinary: Positive for urgency Musculoskeletal: Positive for arthritis;joint pain Neurologic: Positive for headaches;stroke;numbness or tingling of feet Psychiatric: Negative Heme/Lymph/Imm: Negative Endocrine: Negative Physical Exam: Vitals: BP 118/74 Pulse 60 Ht 1.854 m (6' 1) Wt 124.2 kg (273 lb 14.4 oz) BMI 36.14 kg/m?? Constitutional: cooperative;well nourished Skin: warm and dry to the touch Head: normocephalic Eyes: pupils equal and round Chest: clear to auscultation;normal respiratory excursion Cardiac: irregularly irregular rhythm no presence of murmur Extremities and Back: no edema Neurological: affect appropriate Medications: Current Outpatient Medications Medication Sig Dispense Refill ??? apixaban ANTICOAGULANT (ELIQUIS) 5 MG tablet Take 1 tablet (5 mg) by mouth 2 times daily 180 tablet 3 ??? atorvastatin (LIPITOR) 10 MG tablet Take 10 mg by mouth At Bedtime ??? co-enzyme Q-10 100 MG CAPS capsule Take 100 mg by mouth daily ??? hydrochlorothiazide (MICROZIDE) 12.5 MG capsule Take 1 capsule (12.5 mg) by mouth daily 90 capsule 3 ??? losartan (COZAAR) 25 MG tablet Take 1 tablet (25 mg) by mouth daily 90 tablet 3 ??? pantoprazole (PROTONIX) 40 MG EC tablet Take 40 mg by mouth every other day ??? terazosin (HYTRIN) 2 MG capsule Take 2 mg by mouth At Bedtime. Data: All laboratory data reviewed Results for orders placed or performed in visit on 03/21/21 (from the past 24 hour(s)) Basic metabolic panel Result Value Ref Range Sodium 137 133 - 144 mmol/L Potassium 3.8 3.4 - 5.3 mmol/L Chloride 105 94 - 109 mmol/L Carbon Dioxide (CO2) 26 20 - 32 mmol/L Anion Gap 6 3 - 14 mmol/L Urea Nitrogen 14 7 - 30 mg/dL Creatinine 1.14 0.66 - 1.25 mg/dL Calcium 8.7 8.5 - 10.1 mg/dL Glucose 120 (H) 70 - 99 mg/dL GFR Estimate 62 >60 mL/min/1.73m2 All laboratory data reviewed Lab Results Component Value Date CHOL 115 02/02/2021 Lab Results Component Value Date HDL 55 02/02/2021 Lab Results Component Value Date LDL 40 02/02/2021 Lab Results Component Value Date TRIG 98 02/02/2021 No results found for: CHOLHDLRATIO TSH Date Value Ref Range Status 02/01/2021 1.29 0.40 - 4.00 mU/L Final Last Basic Metabolic Panel: Lab Results Component Value Date NA 137 03/21/2021 NA 134 01/04/2017 Lab Results Component Value Date POTASSIUM 3.8 03/21/2021 POTASSIUM 3.9 01/04/2017 Lab Results Component Value Date CHLORIDE 105 03/21/2021 CHLORIDE 101 01/04/2017 Lab Results Component Value Date ISIS 8.7 03/21/2021 ISIS 8.3 01/04/2017 Lab Results Component Value Date CO2 26 03/21/2021 CO2 25 01/04/2017 Lab Results Component Value Date BUN 14 03/21/2021 BUN 20 01/04/2017 Lab Results Component Value Date CR 1.14 03/21/2021 CR 1.05 01/04/2017 Lab Results Component Value Date GLC 120 03/21/2021 GLC 179 01/04/2017 Lab Results Component Value Date WBC 7.5 02/20/2021 WBC 6.1 01/04/2017 Lab Results Component Value Date RBC 5.05 02/20/2021 RBC 5.05 01/04/2017 Lab Results Component Value Date HGB 15.8 02/20/2021 HGB 15.5 01/04/2017 Lab Results Component Value Date HCT 46.7 02/20/2021 HCT 46.6 01/04/2017 Lab Results Component Value Date MCV 93 02/20/2021 MCV 92 01/04/2017 Lab Results Component Value Date MCH 31.3 02/20/2021 MCH 30.7 01/04/2017 Lab Results Component Value Date MCHC 33.8 02/20/2021 MCHC 33.3 01/04/2017 Lab Results Component Value Date RDW 12.7 02/20/2021 RDW 13.2 01/04/2017 Lab Results Component Value Date PLT 143 02/20/2021 PLT 150 01/04/2017 documented in this encounter Plan of Treatment Scheduled Referrals Name Type Priority Associated Diagnoses Order S chedule Follow-Up with Referral Routine: Next Benign essential Expected : Cardiac Advanced available opening hypertension 09/18/2021 Practice Provider History of TIA (Approxi mate), (transient ischemic Expires: attack) and stro ke 03/21/2022 Permanent atrial fibrillation (H) Morbid obesity (H) documented as of this encounter Visit Diagnoses Diagnosis History of TIA (transient ischemic attac k) and stroke - Primary Benign essential hypertension Essential hypertension, benign Permanent atrial fibrillation (H) Atrial fibrillation Morbid obesity (H) Morbid obesity documented in this encounter Care Teams Food Service Order Clerk Relationship Specialty Start Date End Date [facility], PCP - General 02/01/21 [facility]- [address] [place] [address] Yeny May APRN BUSINESS CONTINUITY ANALYST Assigned Heart and Vascular 02/18/2103/24 [address] Provider [place] [id number] documented as of this encounter
--- OUTSIDE RECORDS SUMMARY | 2022-04-18 14:52 | XMS_ITS | Encounter Summary ---
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 Unavailable Reason for Visit Reason Comments Dizziness Encounter Details Date Type Department Care Team Description 02/20/2021 Emergency [facility] Trey Brittany Alfaro MD Dizziness Emergency Dept [facility] [address] [place] [address] [place], [place] [phone] (Wo rk) Social History Tobacco Use Types [...] Sign Reading Time Taken Comments Blood Pressure 126/94 02/20/2021 11:00 PM CDT Pulse 51 02/20/2021 11:05 PM CDT Temperature 36.2 ??C (97.2 ??F) 02/20/2021 9:41 PM CDT Respiratory Rate 18 02/20/2021 9:41 PM CDT Oxygen Saturation 99% 02/20/2021 11:05 PM CDT Inhaled Oxygen Concentration - - Weight 122.5 kg (270 lb) 02/20/2021 9:41 PM CDT Height 185.4 cm (6' 1) 02/20/2021 9:41 PM CDT Body Mass Index 35.62 02/20/2021 9:41 PM CDT documented in this encounter Discharge Instructions Discharge InstructionsLiu Alfaro MD - 02/20/2021 11:20 PM CDT Discharge Instructions Dizziness (Lightheaded) Today you were seen for dizziness. Dizziness can be caused by many things and it can be very difficult to determine the cause of dizziness. At this time, your provider has found no signs that your dizziness is due to a serious or life- threatening condition. However, sometimes there is a serious problem that does not show up right away, and it is important for you to follow up with your regular provider as instructed. Generally, every Emergency Department visit should have a follow-up clinic visit with either a primary or a specialty clinic/provider. Please follow-up as instructed by your emergency provider today. Return to the Emergency Department if: You pass out (fainting or falling out), especially during exercise. You develop chest pain, chest pressure or difficulty breathing. Your feel an irregular heartbeat. You have excessive vaginal bleeding, or blood in your stool or vomit (throw up). You have a high fever. Your symptoms get worse or more frequent. If when you begin to feel dizzy or lightheaded, it is important to sit down or lay down immediately to prevent injury from falling. If you were given a prescription for [...] are not able to see your regular provider in the amount of time listed above, if you get any new symptoms, or if there is anything that worries you. documented in this encounter Medications at Time of Discharge Medication Sig Dispensed Refills Start Date End Date co-enzyme Q-10 100 MG CAPS Take 100 mg by 0 capsule mouth daily pantoprazole (PROTONIX) 40 Take 40 mg by 0 MG EC tablet mouth every other day terazosin (HYTRIN) 2 MG Take 2 mg by mouth 0 capsule At Bedtime. 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 symptoms fell similar to his stroke 3 weeks ago. Is currently on Eliquis. Denies any other neuro deficit. ABCs intact. Liu Alfaro MD - 02/20/2021 9:17 PM CDT History Chief Complaint: Dizziness The history is provided by the patient. Vivek Lang is a 75 year old male with history of CVA, CAD, hypertension, and atrial fibrillation, currently anticoagulated on Eliquis, who presents with dizziness. The patient reports that he beganto feel dizzy last night before bed, but it helped to lie down and close his eyes. He had mild dizziness this morning and also notes feeling tired and anxious all day. He also reports having acid reflux today. Earlier today, a friend commented that the patient looked flushed. The patient later called the nurse line, who suggested he come to the ED. He denies any chest pain, shortness of breath, headache, weakness, numbness, confusion, or fever. The patient also notes that he was seen at Urgent Care on 02/08/21 for an allergic reaction to bee stings and received a prescription for Prednisone, which he just finished on Friday. He was also admitted to [facility] on 02/01/2021 for a stroke. At that time his medications were optimized and he was started on anticoagulation. Imaging/Labs from [facility] ED visit on 02/01/2021: Imaging: Chest XR: No radiographic evidence of acute chest abnormality. Reading per radiology Head CT w/o contrast: 1. No CT findings of acute intracranial process. 2. Brain atrophy and presumed chronic small vessel ischemic changes, as described. Reading per radiology Head/Neck CTA w contrast: 1. No high-grade stenosis or large vessel occlusion identified involving the major intracranial arteries. 2. No high-grade stenosis or occlusion of the cervical carotid or vertebral arteries. 3. Mild atherosclerotic disease involving the carotid bifurcations and carotid siphons without significant stenosis. Reading per radiology MR Brain w/o and w contrast: 1. Punctate focus of acute to early subacute ischemia in the left temporal/occipital junction. Equivocal additional punctate focus of ischemia in the left parietal cortex. 2. Age-related changes. 3. The brainstem is obscured by artifact. Reading per radiology Echocardiogram: Left ventricular systolic function is borderline reduced. The visual ejection fraction is 50-55%. Right ventricle is mildly dilated. Right ventricular systolic function is borderline reduced. Mild (1+) aortic regurgitation. The inferior vena cava was dilated at 3.1 cm without respiratory variability, consistent with increased right atrial pressure. Mild aortic root dilatation. Max diameter of the visualized portion 4.1 cm. The ascending aorta is Mildly dilated. Max diameter of the visualized portion 4.2 cm. The rhythm was atrial fibrillation. Laboratory: BMP: Glucose 109(H), o/w WNL (Creatinine: 1.07) CBC: WBC 5.4, HGB 15.5, PLT 138(L) TSH with free T4 reflex: 1.29 Hemoglobin A1C: 5.6 Asymptomatic COVID-PCR: Negative Review of Systems Constitutional: Negative for fever. Respiratory: Negative for shortness of breath. Cardiovascular: Negative for chest pain. Neurological: Positive for dizziness. Negative for weakness, numbness and headaches. Psychiatric/Behavioral: Negative for confusion. The patient is nervous/anxious. All other systems reviewed and are negative. Allergies: Simvastatin Medications: Eliquis Lipitor Zestoretic Protonix Hytrin Past Medical History: Arthritis CAD Hypertension TIA Atrial fibrillation CVA GERD Colon polyps Sleep apnea Past Surgical History: Right total hip arthroplasty Lumbar laminectomy Left ankle surgery Colonoscopy Family History: CVA, father Lung cancer, mother Social History: PCP: [facility] Presents to the ED with . Physical Exam Patient Vitals for the past 24 hrs: BP Temp Temp src Pulse Resp SpO2 Height Weight 02/20/212304 -- -- -- 51 -- 99 % -- -- 02/20/212299 (!) 126/94 -- -- 51 -- 98 % -- -- 02/20/212254 -- -- -- 54 -- 96 % -- -- 02/20/212244 138/78 -- -- 53 -- 97 % -- -- 02/20/212239 -- -- -- 52 -- 97 % -- -- 02/20/212234 -- -- -- 50 -- 97 % -- -- 02/20/212229 138/80 -- -- 50 -- 96 % -- -- 02/20/212219 -- -- -- 55 -- 97 % -- -- 02/20/212214 121/87 -- -- 50 -- 97 % -- -- 02/20/212209 -- -- -- 52 -- 97 % -- -- 02/20/212204 -- -- -- 53 -- 97 % -- -- 02/20/212199 136/77 -- -- 63 -- 99 % -- -- 02/20/212154 -- -- -- 59 -- 98 % -- -- 02/20/212140 (!) 148/95 97.2 ??F (36.2 ??C) Oral 58 18 98 % 1.854 m (6' 1) 122.5 kg (270 lb) Physical Exam General: Well appearing, nontoxic. Resting comfortably Head: Scalp, face, and head appear normal Eyes: Pupils are equal, round, reactive to light EOMI, no nystagmus Conjunctivae non-injected and sclerae white ENT: The external nose is normal Pinnae are normal Neck: Normal range of motion There is no rigidity noted Trachea is in the midline CV: Regular rate and rhythm Normal S1/S2, no S3/S4 No murmur or rub. Radial pulses 2+ bilaterally. Resp: Lungs are clear and equal bilaterally There is no tachypnea No increased work of breathing No rales, wheezing, or rhonchi GI: Abdomen is soft, obese, no rigidity or guarding No distension, or mass No tenderness or rebound tenderness MS: Normal muscular tone Symmetric motor strength No lower extremity edema Skin: No rash or acute skin lesions noted Neuro: A&Ox3, GCS 15 CN II - XII intact Speech clear, fluent, and normal Strength 5/5 and symmetric in bilateral upper and lower extremities. No pronator drift. No leg drift. SILT throughout. No ankle clonus FTN testing normal. No tremor. No meningismus Psych: Normal affect. Appropriate interactions. Emergency Department Course ECG: ECG taken at 2157, ECG read at 2206 Atrial fibrillation with slow ventricular response Nonspecific intraventricular block Abnormal ECG No significant change as compared to prior, dated 02/01/2021. Rate 54 bpm. MT interval * ms. QRS duration 126 ms. QT/QTc 420/398 ms. P-R-T axes * 59 31. Laboratory: CBC: WBC 7.5, HGB 15.8, PLT 143(L) CMP: Glucose 117(H), Protein Total 6.5(L), o/w WNL (Creatinine: 1.10) Glucose by meter: 132(H) Magnesium: 1.9 Emergency Department Course: Reviewed: I reviewed the patient's nursing notes, vitals, past medical records, Care Everywhere. Assessments: ED Course as of Feb 21 2336e Feb 20, [id number] I performed an assessment and examination of the patient as noted above. 2322 Findings and plan explained to the Patient. Patient discharged home with instructions regardingsupportive care, medications, and reasons to return. The importance of close follow-up was reviewed. Disposition: The patient was discharged to home. Impression & Plan Medical Decision Making: Vivek Lang is a 75 year old male who presents for evaluation of intermittent episodes of dizziness and feeling flushed. On my evaluation he is well- appearing, hemodynamically stable and afebrile. He has no focal neurologic deficits. Telemetry and EKG monitoring revealed atrial fibrillation with con trolled ventricular response and no evidence of acute ischemia or other dysrhythmia. A broad differential diagnosis is considered. Work-up in the emergency department thankfully reassuring. CMP, glucose, CBC without any concerning findings. Patient has mild stable chronic thrombocytopenia. His presenting signs and symptoms are not consistent with acute stroke, intracranial hemorrhage. Patient has no concerning headache. No fever or evidence of infection. He has no chest pain or ischemic symptoms to suggest an acute coronary syndrome or other primary cardiac etiology. While in the emergency department the patient remained asymptomatic and he felt that he was doing well. At this time is no indication for further emergent testing or hospitalization. If symptoms continue I stressed the importance of close outpatient follow-up with his primary care physician. The patient has completed his stroke evaluation with the exception of 30-day cardiac event monitor which she is currently wearing and his medications have been optimized per his previous hospitalization and follow-up with cardiology. The patient was agreeable with the plan of care. Close return precautions were provided he was discharged in stable condition. Covid-19 Vivek Lang was evaluated during a global COVID-19 pandemic, which necessitated consideration that the patient might be at risk for infection with the SARS-CoV-2 virus that causes COVID-19. Applicable protocols for evaluation were followed during the patient's care. Diagnosis: ICD-10-CM 1. Dizziness R42 Scribe Disclosure: Pamela Coyle, am serving as a scribe at 10:11 PM on 02/20/2021 to document services personally performed by Liu Alfaro MD based on my observations and the provider's statements to me. Liu Alfaro MD 02/21/21 2683 documented in this encounter Plan of Treatment Not on filedocumented as of this encounter Procedures Procedure Name Priority Date/Time Associated Comments Diagnosis EXTRA BLUE TOP TUBE STAT 02/20/2021 10:03 Resu lts for this PM CDT procedure are i n the results section. CBC WITH PLATELETS AND STAT 02/20/2021 10:03 R esults for this DIFFERENTIAL PM CDT procedure are i n the results section. CBC WITH PLATELETS & STAT 02/20/2021 10:03 Res ults for this DIFFERENTIAL PM CDT procedure are i n the results section. MAGNESIUM STAT 02/20/2021 10:03 Results for this PM CDT procedure are i n the results section. COMPREHENSIVE STAT 02/20/2021 10:03 Results fo r this METABOLIC PANEL PM CDT procedure ar e in the results section. EXTRA TUBE STAT 02/20/2021 10:02 Results for this PM CDT procedure are i n the results section. EXTRA BLOOD BANK STAT 02/20/2021 10:02 Results for this PURPLE TOP TUBE PM CDT procedure ar e in the results section. EXTRA GREEN TOP STAT 02/20/2021 10:02 Results for this (LITHIUM HEPARIN) TUBE PM CDT proce dure are in the results section. EXTRA RED TOP TUBE STAT 02/20/2021 10:02 Resul ts for this PM CDT procedure are i n the results section. EKG 12-LEAD, TRACING STAT 02/20/2021 9:57 PM R esults for this ONLY CDT procedure are i n the results section. GLUCOSE BY METER STAT 02/20/2021 9:54 PM Resul ts for this CDT procedure are i n the results section. documented in this encounter Results (ABNORMAL) CBC with platelets and differential (02/20/2021 10:03 PM CDT) [facility] gist Method Time Signature WBC Count 7.5 4.0 - 02/20/2021 [facility] 11.0 10:13 PM CDT 10e3/uL RBC Count 5.05 4.40 - 02/20/2021 [facility] 5.90 10:13 PM CDT 10e6/uL Hemoglobin 15.8 13.3 - 02/20/2021 [facility] 17.7 g/dL 10:13 PM CDT Hematocrit 46.7 40.0 - 02/20/2021 [facility] 53.0 % 10:13 PM CDT MCV 93 78 - 100 02/20/2021 [facility] fL 10:13 PM CDT MCH 31.3 26.5 - 02/20/2021 [facility] 33.0 pg 10:13 PM CDT MCHC 33.8 31.5 - 02/20/2021 [facility] 36.5 g/dL 10:13 PM CDT RDW 12.7 10.0 - 02/20/2021 [facility] 15.0 % 10:13 PM CDT Platelet Count 143 (L) 150 - 450 02/20/2021 [facility] 10e3/uL 10:13 PM CDT % Neutrophils 65 % 02/20/2021 [facility] 10:13 PM CDT % Lymphocytes 22 % 02/20/2021 [facility] 10:13 PM CDT % Monocytes 9 % 02/20/2021 [facility] 10:13 PM CDT % Eosinophils 3 % 02/20/2021 [facility] 10:13 PM CDT % Basophils 1 % 02/20/2021 [facility] 10:13 PM CDT % Immature 0 % 02/20/2021 [facility] Granulocytes 10:13 PM CDT NRBCs per 100 WBC 0 <1 /100 02/20/2021 [facility] RY 10:13 PM CDT Absolute 4.8 1.6 - 8.3 02/20/2021 [facility] Neutrophils 10e3/uL 10:13 PM CDT Absolute 1.7 0.8 - 5.3 02/20/2021 [facility] Lymphocytes 10e3/uL 10:13 PM CDT Absolute 0.7 0.0 - 1.3 02/20/2021 [facility] Monocytes 10e3/uL 10:13 PM CDT Absolute 0.2 0.0 - 0.7 02/20/2021 [facility] Eosinophils 10e3/uL 10:13 PM CDT Absolute 0.1 0.0 - 0.2 02/20/2021 [facility] Basophils 10e3/uL 10:13 PM CDT Absolute Immature 0.0 <=0.0 02/20/2021 [facility] Granulocytes 10e3/uL 10:13 PM CDT Absolute NRBCs 0.0 10e3/uL 02/20/2021 [facility] 10:13 PM CDT Specimen Anatomical Collection Method / Collection Time Recei price Time (Source) Location / Volume Laterality Blood STRUCTURE OF RIGHT Venipuncture / 02/20/2021 10:03 UPPER LIMB / Unknown PM CDT 10:09 PM CDT Unknown Liu Alfaro MD LAB - BLOOD ORDERABLES Performing Organization Address City/State/ZIP Code [place] [address] Care Lab [address] Lab (1st floor, no room number) Magnesium (02/20/2021 10:03 PM CDT) P athologist Signature Magnesium 1.9 1.6 - 2.3 02/20/2021 [facility] mg/dL 10:31 PM CDT Specimen Anatomical Collection Method / Collection Time Recei price Time (Source) Location / Volume Laterality Blood STRUCTURE OF RIGHT Venipuncture / 02/20/2021 10:03 UPPER LIMB / Unknown PM CDT 10:09 PM CDT Unknown Liu Alfaro MD LAB - BLOOD ORDERABLES Performing Organization Address City/[facility]/ZIP Code [place] [address] Care Lab [address] Lab (1st floor, no room number) (ABNORMAL) Comprehensive metabolic panel (02/20/2021 10:03 PM CDT) Patholo gist Method Time Signature Sodium 138 133 - 144 02/20/2021 [facility] mmol/L 10:31 PM CDT Potassium 3.5 3.4 - 5.3 02/20/2021 [facility] mmol/L 10:31 PM CDT Chloride 104 94 - 109 02/20/2021 [facility] mmol/L 10:31 PM CDT Carbon Dioxide 28 20 - 32 02/20/2021 [facility] (CO2) mmol/L 10:31 PM CDT Anion Gap 6 3 - 14 02/20/2021 [facility] mmol/L 10:31 PM CDT Urea Nitrogen 17 7 - 30 02/20/2021 [facility] mg/dL 10:31 PM CDT Creatinine 1.10 0.66 - 02/20/2021 [facility] 1.25 mg/dL 10:31 PM CDT Calcium 8.6 8.5 - 10.1 02/20/2021 [facility] mg/dL 10:31 PM CDT Glucose 117 (H) 70 - 99 02/20/2021 [facility] mg/dL 10:31 PM CDT Alkaline 65 40 - 150 02/20/2021 [facility] Phosphatase U/L 10:31 PM CDT AST 25 0 - 45 U/L 02/20/2021 [facility] 10:31 PM CDT ALT 35 0 - 70 U/L 02/20/2021 [facility] 10:31 PM CDT Protein Total 6.5 (L) 6.8 - 8.8 02/20/2021 [facility] g/dL 10:31 PM CDT Albumin 3.5 3.4 - 5.0 02/20/2021 [facility] g/dL 10:31 PM CDT Bilirubin Total 1.0 0.2 - 1.3 02/20/2021 [facility] mg/dL 10:31 PM CDT GFR Estimate 64 >60 02/20/2021 [facility]ORY mL/min/1.7 10:31 PM CDT 3m2 Comment: As of January 07, 2021, eGFR is ca lculated by the CKD-EPI creatinine equation, without race adjustment. eGFR can be inf luenced by muscle mass, exercise, and diet. The reported eGFR is an estimation only and is only applicable if the renal function is stable. Specimen Anatomical Collection Method / Collection Time Recei price Time (Source) Location / Volume Laterality Blood STRUCTURE OF RIGHT Venipuncture / 02/20/2021 10:03 UPPER LIMB / Unknown PM CDT 10:09 PM CDT Unknown Liu Alfaro MD LAB - BLOOD ORDERABLES Performing Organization Address City/[facility]/ZIP [facility] [place] [phone] Care Lab [address] Lab (1st floor, no room number) Extra Blue Top Tube (02/20/2021 10:03 PM CDT) P athologist Signature Hold Specimen JI 02/20/2021 [facility] 11:16 PM CDT Specimen Anatomical Collection Method / Collection Time Recei price Time (Source) Location / Volume Laterality Blood STRUCTURE OF RIGHT Venipuncture / 02/20/2021 10:03 UPPER LIMB / Unknown PM CDT 10:09 PM CDT Unknown Liu Alfaro MD LAB - BLOOD ORDERABLES Performing Organization Address City/State/ZIP Code [place] [address] Care Lab [address] Lab (1st floor, no room number) Extra Blood Bank Purple Top Tube (02/20/2021 10:02 PM CDT) P athologist Signature Hold Specimen JIC 02/20/2021 [facility] 11:16 PM CDT Specimen Anatomical Collection Method / Collection Time Recei price Time (Source) Location / Volume Laterality Blood STRUCTURE OF RIGHT Venipuncture / 02/20/2021 10:02 UPPER LIMB / Unknown PM CDT 10:09 PM CDT Unknown Liu Alfaro MD LAB - BLOOD ORDERABLES Performing Organization Address City/[facility]/ZIP Code Phon e Number BLOOD BANK [address] [place] [address] Extra Green Top ([place] Heparin) Tube (02/20/2021 10:02 PM CDT) athologist Signature Hold Specimen JIC 02/20/2021 [facility] 11:16 PM CDT Specimen Anatomical Collection Method / Collection Time Recei price Time (Source) Location / Volume Laterality Blood STRUCTURE OF RIGHT Venipuncture / 02/20/2021 10:02 UPPER LIMB / Unknown PM CDT 10:09 PM CDT Unknown Liu Alfaro MD LAB - BLOOD ORDERABLES Performing Organization Address City/[facility]/ZIP Code [place] [address] Care Lab [address] Lab (1st floor, no room number) Extra Red Top Tube (02/20/2021 10:02 PM CDT) P athologist Signature Hold Specimen JIC 02/20/2021 [facility] 11:16 PM CDT Specimen Anatomical Collection Method / Collection Time Recei price Time (Source) Location / Volume Laterality Blood STRUCTURE OF RIGHT Venipuncture / 02/20/2021 10:02 UPPER LIMB / Unknown PM CDT 10:09 PM CDT Unknown Liu Alfaro MD LAB - BLOOD ORDERABLES Performing Organization Address City/[facility]/ZIP Code [place] [address] Care Lab [address] Lab (1st floor, no room number) EKG 12-lead, tracing only (02/20/2021 9:57 PM CDT) Component Value Ref Range Test Analysis Performed Pathologis t Method Time At Signature Systolic Blood mmHg RADIOLOGY Pressure RESULTS Diastolic Blood mmHg RADIOLOGY Pressure RESULTS Ventricular Rate 54 BPM RADIOLOGY RESULTS Atrial Rate 500 BPM RADIOLOGY RESULTS MT Interval ms RADIOLOGY RESULTS QRS Duration 126 ms RADIOLOGY RESULTS QT 420 ms RADIOLOGY RESULTS QTc 398 ms RADIOLOGY RESULTS P [place] degrees RADIOLOGY RESULTS R AXIS 59 degrees RADIOLOGY RESULTS T [place] 31 degrees RADIOLOGY RESULTS Interpretation Atrial fibrillation with slow ventricular response RADIOLOGY ECG Non-specific intra-ventricular conduction block RESULTS Abnormal ECG When compared with ECG of 01-FEB-2021 15:21, QT has shortened Confirmed by - EMERGENCY ROMMEL Harden PHYSICIAN ([id number]), editor & co founder RAJIV HEBERT ([id number]) on 02/21/2021 6:42:50 AM Specimen Anatomical Collection Method Collection Time Receive d Time (Source) Location / / Volume Laterality 02/20/2021 9:57 PM 6:42 CDT AM CDT Gil Stevens DO ECG ORDERABLES Performing Organization Address City/[facility]/ZIP Code Phon e Number RADIOLOGY RESULTS (ABNORMAL) Glucose by meter (02/20/2021 9:54 PM CDT) P athologist Signature GLUCOSE BY 132 (H) 70 - 99 02/20/2021 [facility] METER POCT mg/dL 10:00 PM CDT POC Specimen Anatomical Collection Method Collection Time Receive d Time (Source) Location / / Volume Laterality Blood BLOOD SPECIMEN / 02/20/2021 9:54 PM 02/20 Unknown CDT 10:00 PM CDT Liu Alfaro MD LAB - BEAKER POCT Performing Organization Address City/[facility]/ZIP Code Phon e [place] [address] Care Lab [address] Lab (1st floor, no room number) documented in this encounter Visit Diagnoses Diagnosis Dizziness Dizziness and giddiness documented in this encounter Care Teams Research Statistician Relationship Specialty Start Date End Date [facility], PCP - General 02/01/21 [facility] [address] [place] [address] Yeny May, HAYDEE HAND EDGE BANDER Assigned Heart and Vascular 02/18/2103/24 [address] Provider CYNTHIA BROWN [id number] documented as of this encounter
--- OUTSIDE RECORDS SUMMARY | 2022-04-18 14:52 | XMS_ITS | Encounter Summary ---
:1945 Author Organization [place] Address Critical access hospital0 [place] [address] Care Team Providers Name Role Phone [facility]- Reason for Referral Consultation (Routine) - Closed Specialty Diagnoses / Procedures Referred By Contact Refer coleen To Contact Diagnoses TIA (transient ischemic attack) Atrial fibrillation, unspecified type (H) Denton Casiano MD [address] [facility] [address] [place] [address] Referral ID Status Reason Start Date Expiration Date Visits Requ ested Visits Authorized [id number] Closed 02/02/2021 02/02/2022 1 1 Consultation (Routine) Specialty Diagnoses / Procedures Referred By Contact Bam horne To Contact Neurology Vivi Celeste PA- C [address] [place], [place] [address] Referral ID Status Reason Start Date Expiration Date Visits Requ ested Visits Authorized Scheduling Instructions Follow up in 4-[address] Whitlock or Dr. Burch Diagnosis: recent stroke and peripheral neuropathy consultation Reason for Visit Reason Comments One-sided Weakness Auth/Cert Specialty Diagnoses / Procedures Referred By Contact Refer red To Contact Med Surg Diagnoses TIA (transient ischemic attack) Atrial fibrillation, unspecified type (H) CVA (cerebral vascular accident) (H) TIA (transient ischemic attack) Atrial fibrillation, unspecified type (H) CVA (cerebral vascular accident) (H) [facility] [address] [place], [place] [address] Phone: Referral ID Status Reason Start Date Expiration Date Visits Requ ested Visits Authorized [id number] 1 1 Encounter Details Date Type Department Care Team Description 02/01/2021 [facility][1] Zac Watkins MD [facility] [address] [place] [id number] Cerebrovascular accident (CVA) due to em bolism of cerebral artery (H) (Primary Dx); - Encounter [facility] Geetha Briseno MD [address] [place] [address] TIA (transient ischemic attack); 02/02/2021 Dept Atrial fibrillation, unspeci fied type (H) [address] [place] [address] Social History Tobacco Use Types Packs/Day Years [...] Sign Reading Time Taken Comments Blood Pressure 159/88 02/02/2021 1:58 PM CDT Pulse 62 02/02/2021 1:58 PM CDT Temperature 36.5 ??C (97.7 ??F) 02/02/2021 7:43 AM CDT Respiratory Rate 18 02/02/2021 1:58 PM CDT Oxygen Saturation 96% 02/02/2021 1:58 PM CDT Inhaled Oxygen Concentration - - Weight 130.7 kg (288 lb 3.2 oz) 02/01/2021 6:19 PM CDT Height 185.4 cm (6' 1) 02/01/2021 6:19 PM CDT Body Mass Index 38.02 02/01/2021 6:19 PM CDT documented in this encounter Discharge Summaries Lianet Hawthorne PA-C - 02/02/2021 1:15 PM CDT Discharge Summary Hospitalist Service Vivek Lang Date of : 1945 Age: [age] year old Date of Admission: 02/01/2021 Date of Discharge: 02/02/2021 Admitting Physician: Geetha Briseno MD Discharge Physician: Lianet Hawthorne PA-C Discharging Service: Hospitalist Service Primary Provider: [facility], [facility]- Primary Care Physician Discharge Diagnoses/Problem Oriented Hospital Course (Providers): Vivek Lang was admitted on 02/01/2021 by Geetha Briseno MD and I would refer you to their history and physical. Briefly, patient presented with left- sided weakness, bilateral foot numbness, confusion, eye blurriness and dysarthria. All symptoms are resolved now. On admission CT head and CTA head/ neck were unremarkable. EKG showed a rate controlled atrial fibrillation. Patient was given aspirin and MRI brain was performed which showed punctate focus of acute to early subacute ischemia in the left temporal/occipital junction. There was an equivocal additional punctate focus of ischemia in the le ft parietal cortex. Stroke neurology consulted and cardiology consulted who agreed that Eliquis should be used for anticoagulation. He may stop his baby aspirin and continue his cholesterol medicine. A30-day event monitor was placed and he should follow-up with both neurology and cardiology as an outpatient. I am concerned that his blood pressure has been elevated here but he assures me that it is more normal at home. He should continue his current blood pressure medicine and check this daily to see if it needs to be adjusted. Code Status: Full Code Brief Hospital Stay Summary Sent Home With Patient in AVS: Reason for your hospital stay You were admitted for concern stroke like symptoms. On admission you were found to be in an irregular heart rhythm called atrial fibrillation. MRI showed that you had a stroke with punctate focus of acute to early subacute ischemia in the left temporal/occipital junction. Equivocal additional punctate focus of ischemia in the left parietal cortex. You were seen by stroke neurology and Cardiology who agreed the stroke was likely related to atrial fibrillation. We have started you a blood thinner to prevent stroke called Eliquis. You CAN NOT miss doses as this is preventing stroke. We have also put on a 30 day event monitor to see how fast and irregular your heart is on a regular basis. You should have follow up with Cardiology and Neurology in the future. Please check your blood pressure daily and keep record of this Pending Results: Unresulted Labs Ordered in the Past 30 Days of this Admission Date and Time Order Name Status Description 02/02/2021 12:03 PM Vitamin B12 In process Discharge Instructions and Follow-Up: Follow-up Appointments Follow-up and recommended labs and tests Follow up with primary care provider or cardiology in 2 weeks to look at blood pressure diary Follow up with neurology, referral placed Discharge Disposition: Discharged to home Discharge Medications: Current Discharge Medication List START taking these medications Details apixaban ANTICOAGULANT (ELIQUIS) 5 MG tablet Take 1 tablet (5 mg) by mouth 2 times daily Qty: 60 tablet, Refills: 6 Associated Diagnoses: 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) CONTINUE these medications which have NOT CHANGED Details atorvastatin (LIPITOR) 10 MG tablet Take 10 mg by mouth At Bedtime co-enzyme Q-10 100 MG CAPS capsule Take 100 mg by mouth daily pantoprazole (PROTONIX) 40 MG EC tablet Take 40 mg by mouth every other day terazosin (HYTRIN) 2 MG capsule Take 2 mg by mouth At Bedtime. triamterene-HCTZ (MAXZIDE-25) 37.5-25 MG tablet Take 1 tablet by mouth daily STOP taking these medications aspirin 81 MG EC tablet Comments: Reason for Stopping: Allergies: No Known Allergies Consultations This Hospital Stay: Consultation during this admission received from cardiology and neurology Condition and Physical on Discharge: Discharge condition: Stable Vitals: Blood pressure (!) 159/69, pulse 67, temperature 97.7 ??F (36.5 ??C), temperature source Oral, resp. rate 18, height 1.854 m (6' 1), weight 130.7 kg (288 lb 3.2 oz), SpO2 94 %. Constitutional: Alert and orientated x 3 Lungs: CTAB Cardiovascular: RRR with no murmur Abdomen: Bowel sounds are present with no tenderness Skin: No rash or open sores Other: Discharge Time: Less than 30 minutes. Image Results From This Hospital Stay (For Non-EPIC Providers): Results for orders placed or performed during the hospital encounter of 02/01/[address] w/o contrast Narrative CT SCAN OF THE HEAD WITHOUT CONTRAST 02/01/2021 3:56 PM HISTORY: 5 minute episode aphasia and coordination difficulty now normal TECHNIQUE: Axial images of the head and coronal reformations without IV contrast material. Radiation dose for this scan was reduced using automated exposure control, adjustment of the mA and/or kV according to patient size, or iterative reconstruction technique. COMPARISON: None. FINDINGS: There is no evidence of intracranial hemorrhage, mass, acute infarct or anomaly. The ventricles are normal in size and configuration. Moderate generalized brain parenchymal volume loss. Mild patchy scattered nonspecific hypoattenuation in the cerebral white matter, likely representing chronic small vessel ischemic changes. Atherosclerotic calcifications primarily involving the carotid siphons are noted. Bilateral lens replacements. The visualized orbits otherwise appear normal. The visualized aspects of the paranasal sinuses, mastoids, and middle ear cavities appear clear. The bony calvarium and bones of the skull base appear intact. Impression IMPRESSION: 1. No CT findings of acute intracranial process. 2. Brain atrophy and presumed chronic small vessel ischemic changes, as described. DAGOBERTO PATHAK MD SYSTEM ID: [id number] CTA Head Neck with Contrast Narrative CT ANGIOGRAM OF THE HEAD AND NECK WITH CONTRAST 02/01/2021 3:57 PM HISTORY: 5 minutes episode aphasia and discoordination. TECHNIQUE: CT angiography with an injection of 70mL [id number]-[id number] IV with scans through the head and neck. Images were transferred to a separate 3-D workstation where multiplanar reformations and 3-D images were created. Estimates of carotid stenoses are made relative to the distal internal carotid artery diameters except as noted. Radiation dose for this scan was reduced using automated exposure control, adjustment of the mA and/or kV according to patient size, or iterative reconstruction technique. COMPARISON: CT head of same date. CT HEAD FINDINGS: No contrast enhancing lesions identified. The cerebral vasculature appears grossly symmetric along the convexities. CT ANGIOGRAM HEAD FINDINGS: Nonflow-limiting atherosclerotic calcification of the bilateral carotid siphons. The major intracranial arteries including the proximal branches of the anterior cerebral, middle cerebral, and posterior cerebral arteries appear patent without vascular cutoff. No aneurysm identified. No significant stenosis. Venous circulation is unremarkable. CT ANGIOGRAM NECK FINDINGS: Mild atherosclerosis of the aortic arch without significant stenosis of the origins of the great vessels. Conventional three-vessel aortic arch branching pattern. Right carotid artery: The right common and internal carotid arteries are patent. Mild atherosclerotic disease at the carotid bifurcation and proximal internal carotid artery without significant stenosis by NASCET criteria. Left carotid artery: The left common and internal carotid arteries are patent. Mild atherosclerotic disease at the carotid bifurcation and proximal internal carotid artery without significant stenosis by NASCET criteria. Vertebral arteries: Vertebral arteries are patent without evidence of dissection. Dominant left and smaller right vertebral arteries. No significant stenosis. Other findings: Minimal anterolisthesis of C4 on C5, likely on a degenerative basis. Multilevel degenerative changes are noted in the cervical spine. Impression IMPRESSION: 1. No high-grade stenosis or large vessel occlusion identified involving the major intracranial arteries. 2. No high-grade stenosis or occlusion of the cervical carotid or vertebral arteries. 3. Mild atherosclerotic disease involving the carotid bifurcations and carotid siphons without significant stenosis. DAGOBERTO PATHAK MD SYSTEM ID: [id number] MR Brain w/o & w Contrast Narrative EXAM: MR BRAIN W/O and W CONTRAST LOCATION: [facility] DATE/TIME: 02/01/2021 4:39 PM INDICATION: One sided weakness COMPARISON: CTA head and neck on the same date CONTRAST: 12 mL Gadavist TECHNIQUE: Routine multiplanar multisequence head MRI without and with intravenous contrast. FINDINGS: The brainstem is largely obscured by artifact. INTRACRANIAL CONTENTS: Punctate focus of restricted diffusion in the left temporal/occipital junction. Equivocal punctate focus of restricted diffusion in the left parietal cortex. No mass, acute hemorrhage, or extra-axial fluid collections. Patchy nonspecific T2/FLAIR hyperintensities within the cerebral white matter most consistent with mild to moderate chronic microvascular ischemic change. Normal ventricles and sulci. Normal position of the cerebellar tonsils. No pathologic contrast enhancement. SELLA: No abnormality accounting for technique. OSSEOUS STRUCTURES/SOFT TISSUES: Normal marrow signal. The major intracranial vascular flow voids are maintained. ORBITS: No abnormality accounting for technique. SINUSES/MASTOIDS: Mild mucosal thickening scattered about the paranasal sinuses. No middle ear or mastoid effusion. Impression IMPRESSION: 1. Punctate focus of acute to early subacute ischemia in the left temporal/occipital junction. Equivocal additional punctate focus of ischemia in the left parietal cortex. 2. Age-related changes. 3. The brainstem is obscured by artifact. XR Chest 2 Views Narrative CHEST TWO VIEWS 02/01/2021 4:46 PM HISTORY: Transient ischemic attack, new diagnosis atrial fibrillation. COMPARISON: 01/04/2017 FINDINGS: Cardiomegaly is similar to prior. Pulmonary vascularity within normal limits. No airspace consolidation, pneumothorax, or pleural effusion. Stable calcified granuloma in the left lung. Impression IMPRESSION: No radiographic evidence of acute chest abnormality. ANUSHKA LACEY MD SYSTEM ID: [id number] Echocardiogram Complete Value LVEF 50-55% Narrative [id number]^SUZANNA^GEETHA^TENZIN [facility] Echocardiography Laboratory [address] [place], [place] [address] Name: VIVEK LANG Nusrat : 1945 Study Date: 02/02/2021 07:18 AM Age: 75 yrs Gender: Male Patient Location: [facility] Reason For Study: TIA Ordering Physician: GEETHA BRISENO Referring Physician: [facility] Performed By: Vivek Elliott RDCS BSA: 2.5 m2 Height: 73 in Weight: 288 lb HR: 55 BP: 179/93 mmHg Procedure Complete Portable Echo Adult. Poson ([facility] #[id number]) given intravenously. Interpretation Summary Technically challenging study due to patient body habitus, even with the use of contrast imaging. Left ventricular systolic function is borderline reduced. [...] 4.2 cm. The rhythm was atrial fibrillation. Left Ventricle The left ventricle is normal in size. There is normal left ventricular wall thickness. Left ventricular systolic function is borderline reduced. The visual ejection fraction is 50-55%. Left ventricular diastolic function is not assessable. No regional wall motion abnormalities noted. Right Ventricle The right ventricle is mildly dilated. The right ventricular systolic function is borderline reduced. Atria The left atrium is mildly dilated. The right atrium is mildly dilated. Mitral Valve The mitral valve is normal in structure and function. Tricuspid Valve The tricuspid valve is not well visualized, but is grossly normal. There is trace tricuspid regurgitation. The right ventricular systolic pressure is approximated at 29.5 mmHg plus the right atrial pressure. Aortic Valve There is mild trileaflet aortic sclerosis. There is mild (1+) aortic regurgitation. Pulmonic Valve The pulmonic valve is not well seen, but is grossly normal. Vessels Mild aortic root dilatation. Max diameter of the visualized portion 4.1 cm. The ascending aorta is Mildly dilated. Max diameter of the visualized portion 4.2 cm. The inferior vena cava was dilated at 3.1 cm without respiratory variability, consistent with increased right atrial pressure. Pericardium There is no pericardial effusion. Rhythm The rhythm was atrial fibrillation. MMode/2D Measurements & Calculations IVSd: 1.2 cm LVIDd: 5.8 cm LVIDs: 3.2 cm LVPWd: 1.1 cm FS: 44.5 % LV mass(C)d: 271.6 grams LV mass(C)dI: 108.1 grams/m2 Ao root diam: 4.1 cm LA dimension: 5.4 cm asc Aorta Diam: 4.2 cm LA/Ao: 1.3 LVOT diam: 2.6 cm LVOT area: 5.3 cm2 LA Volume (BP): 90.0 ml LA Volume Index (BP): 35.9 ml/m2 RWT: 0.39 Time Measurements Aortic HR: 65.0 BPM Doppler Measurements & Calculations MV E max raffy: 83.2 cm/sec AI P1/2t: 447.0 msec LV V1 max P.3 mmHg LV V1 max: 75.9 cm/sec LV V1 VTI: 14.8 cm CO(LVOT): 5.1 l/min CI(LVOT): 2.0 l/min/m2 SV(LVOT): 78.6 ml SI(LVOT): 31.3 ml/m2 TR max raffy: 270.5 cm/sec TR max P.5 mmHg E/E' av.7 Lateral E/e': 7.3 Medial E/e': 10.1 Report approved by: Anika Howe 02/02/2021 08:10 AM Most Recent Lab Results In [facility] (For Non-EPIC Providers): Most Recent 3 CBC's: Recent Labs Lab Test 02/01/21 1516 01/04/17 1452 03/24/13 0619 WBC 5.4 6.1 -- HGB 15.5 15.5 10.6* MCV 93 92 -- PLT 138* 150 -- Most Recent 3 BMP's: Recent Labs Lab Test 02/01/21 1516 01/04/17 1452 03/24/13 0619 03/23/13 0618 NA 138 134 -- 135 POTASSIUM 3.8 3.9 -- 4.6 CHLORIDE 105 101 -- 98 CO2 26 25 -- 30 BUN 16 20 -- 15 CR 1.07 1.05 -- 0.78 ANIONGAP 7 8 -- 7 ISIS 8.6 8.3* -- 8.3* GLC 109* 179* 105* 155* 156* Most Recent 3 Troponin's:No lab results found. Most Recent 3 INR's: Recent Labs Lab Test 03/25/13 0630 03/24/13 0619 03/23/13 0618 INR 1.72* 1.23* 1.13 Most Recent 2 LFT's:No lab results found. Most Recent Cholesterol Panel: Recent Labs Lab Test 02/02/21 0643 CHOL 115 LDL 40 HDL 55 TRIG 98 Most Recent 6 Bacteria Isolates From Any Culture (See EPIC Reports for Culture Details):No lab results found. Most Recent TSH, T4 and HgbA1c: Recent Labs Lab Test 02/01/21 1841 02/01/21 1516 TSH -- 1.29 A1C 5.6 -- Associated attestation - Boubacar Haq MD - 02/07/2021 1:18 PM CDT Physician Attestation I, Boubacar Haq MD, have reviewed and discussed with the advanced practice provider their discharge plan for Vivek Lang. I did not participate in a shared visit by interviewing or examining thepatient and this should be billed as an advanced practice provider only discharge. Boubacar Haq Date of Service (when I saw the patient): I did not personally see this patient today. documented in this encounter Discharge Instructions AttachmentsThe following attachments cannot be sent through Care Everywhere. Eliquis Oral Tablet 5 mg ([place])AFIB PATIENT INFORMATIONAtrial Fibrillation, Discharge Instructions for ([place])documented in this encounter Medications at Time of Discharge Medication Sig Dispensed Refills Start Date End Date co-enzyme Q-10 100 MG CAPS Take 100 mg by 0 capsule mouth daily pantoprazole (PROTONIX) 40 Take 40 mg by 0 MG EC tablet mouth every other day terazosin (HYTRIN) 2 MG Take 2 mg by mouth 0 capsule At Bedtime. apixaban ANTICOAGULANT Take 1 tablet (5 60 tablet 6 021 02/14/2021 (ELIQUIS) 5 MG mg) by mouth 2 tabletIndications: times daily 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) atorvastatin (LIPITOR) 10 Take 10 mg by 0 10/23/2021 MG tablet mouth At Bedtime triamterene-HCTZ Take 1 tablet by 0 (MAXZIDE-25) 37.5-25 MG mouth daily tablet documented as of this encounter Progress Notes Azalea Iglesias RN - 02/02/2021 2:18 PM CDT Patient's After Visit Summary was reviewed with patient and Patient verbalized understanding of After Visit Summary, recommended follow up and was given an opportunity to ask questions. Discharge medications sent home with patient/family: YES Discharged with spouse Yumi Sims - 02/02/2021 12:34 PM CDT 30 day event monitor placed. documented in this encounter H&P Notes Geetha Briseno MD - 02/01/2021 4:48 PM CDT [facility] History and Physical Hospitalist Date of Admission: 02/01/2021 Assessment and Plan: Vivek Lang is a 75 year old male past medical history of hypertension who presents with strokelike symptoms which have now resolved. In the ED patient is a CT head without contrast did not show anyacute changes CTA which not show any occlusive disease an MRI ordered which is pending. Symptomatic patient symptoms are improved. Labs are within normal limits, ECG does show new atrial fib. He has been admitted for management of his new diagnosis of atrial fib and TIA. TIA -MRI ordered pending -Neurology has been consulted. Aspirin for now and then start Duexis once MRI has been done. Defer to neurology when to start DOAC -Pending MRI results may consider permissive hypertension versus resuming his antihypertensive medications -Neurochecks, lipid panel and hemoglobin A1c New atrial fib. His Chads score is 3. -Currently rate controlled. Echocardiogram ordered. TSH. Pending MRI results we will consider DOAC Hypertension -May consider resuming antihypertensive pending MRI results and also pharmacy reconciliation BPH -Resume medication once reconciled SURJIT -CPAP in the evening GERD -Medication once reconciled History of arthritis - educated patient to avoid NSAID'S while on anticoagulation, hold meloxicam --------- # Code status: # Anticipated discharge date and Disposition: in 1-2 day # DVT: SCDs # IVF: none Geetha Briseno MD Text Page (7am - 6pm, M-F) Primary Care Physician [facility] Chief Complaint History is obtained from the patient History of Present Illness Vivek Lang is a h 75 year old male past medical history of hypertension who presents with strokelike symptoms which have now resolved. Symptoms began 1 pm. His symptoms were left-sided weakness bilateral foot numbness confusion blurriness, dysarthria. His symptoms only lasted 3 minutes and now areresolved. Otherwise patient has minimal complaints. Low-dose aspirin and his blood pressure medications in the Evening Past Medical History I have reviewed this patient's medical history and updated it with pertinent information if needed. Past Medical History: Diagnosis Date ??? Arthritis ??? Coronary artery disease more than ten years high cholestrol ??? High cholesterol ??? Hypertension Past Surgical History I have reviewed this patient's surgical history and updated it with pertinent information if needed. Past Surgical History: Procedure Laterality Date ??? ARTHROPLASTY HIP 03/22/2013 Procedure: ARTHROPLASTY HIP; Right Total hip Arthroplasty ; Surgeon: Mark Viera MD; Location: [facility] OR ??? LAMINECTOMY LUMBAR THREE+ LEVELS Prior to Admission Medications Prior to Admission Medications Prescriptions Last Dose Informant Patient Reported? Taking? ASPIRIN PO Yes No Sig: Take 81 mg by mouth daily acetaminophen 650 MG TABS No No Sig: Take 650 mg by mouth every 6 hours bisoprolol-hydrochlorothiazide (ZIAC) 10-6.25 MG per tablet Yes No Sig: Take 1 tablet by mouth daily. terazosin (HYTRIN) 2 MG capsule Yes No Sig: Take 2 mg by mouth At Bedtime. triamterene-hydrochlorothiazide (MAXZIDE-25) 37.5-25 MG per tablet No No Sig: One half tab 1-2 times daily for blood pressure Facility-Administered Medications: None Allergies No Known Allergies Social History I have reviewed this patient's social history and updated it with pertinent information if needed. Vivek Silverio Precious reports that he has never smoked. He does not have any smokeless tobacco history on file. He reports current alcohol use. He reports that he does not use drugs. Family History Family history reviewed with patient and is noncontributory. ROS Constitutional: no weight loss, night sweats, fever, chills HEENT: no vision changes, headache, eye pain, double vision, no runny nose, stuffy ears, sore throat Cardiovascular: no chest pain, shortness of breath, PND, orthopnea, edema, palpitations, LOC Respiratory: no SOB, cough, wheezing Gastrointestinal: no abdominal pain, no hematochezia, melena, vomiting, diarrhea, constipation Musculoskeletal: no muscle weakness, pain, stiffness, joint swelling, decreased range of movement Neurological: no numbness, no weakness, poor balance, headache Psychiatric: no depression, change in mood, no hermila, change in personality Endocrine: no polyuria, polydipsia, heat cold intolerance Hematologic: no bruising, or bleeding easily Physical Exam Temp: 98.3 ??F (36.8 ??C) Temp src: Oral BP: (!) 181/96 Pulse: 50 Resp: 20 SpO2: 97 % Vital Signs with Ranges Temp: [97.6 ??F (36.4 ??C)-98.3 ??F (36.8 ??C)] 98.3 ??F (36.8 ??C) Pulse: [49-83] 50 Resp: [20] 20 BP: (161-181)/(80-115) 181/96 SpO2: [96 %-98 %] 97 % 284 lbs 0 oz General: Pt in NAD, normal appearance HEENT: PERRLA, EOMI, normocephalic / atraumatic no cervical LAD, no bruit, no pallor, WNL oropharynx, neck supple Cardiac: +S1, S2, RRR, no MRG, no edema Lungs: Clear to Auscultation Bilateral, normal breathing without accessory muscle usage, no wheezing, rhonchi or crackles GI: soft NT/ND +bowel sounds all quadrants Psych: normal mood and affect, A&Ox3 Neurological: A&O x3, non focal Skin: warm, dry, normal turgor, no rash Data Data reviewed today: I personally reviewed the EKG tracing showing atrial fib. Recent Labs Lab 02/01/21 1516 WBC 5.4 HGB 15.5 MCV 93 PLT 138* NA 138 POTASSIUM 3.8 CHLORIDE 105 CO2 26 BUN 16 CR 1.07 ANIONGAP 7 ISIS 8.6 GLC 109* Recent Results (from the past 24 hour(s)) Head CT w/o contrast Narrative CT SCAN OF THE HEAD WITHOUT CONTRAST 02/01/2021 3:56 PM HISTORY: 5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 intact, conjunctiva and lids normal Neck: supple, painless ROM, no cervical lymphadenopathy Lungs: CTAB, no resp distress CV: rrr, no m/r/g, ppi Abd: soft, nontender, nondistended, no rebound/masses/guarding/hsm Ext: no peripheral edema Skin: warm, dry, well perused, no rashes/bruising/lesions on exposed skin Neuro: alert, follows commands, speech clear, CN 2-12 intact, strength 5/5 and symmetric in BUE intrinsic hand muscles as well as BLE SILT in all 4 ext Negative Pronator drift Intact finger-nose bilateral upper extremities, no dysdiadochokinesis gait stable Psych: Normal mood, normal affect Emergency Department Course ECG ECG taken at 1521, ECG read at [address] abnormality No significant changes as compared to prior, dated 01/04/17. Rate 63 bpm. KS interval * ms. QRS duration 110 ms. QT/QTc 456/466 ms. P-R-T axes * 38 51. Imaging: XR Chest 2 Views Final Result IMPRESSION: No radiographic evidence of acute chest abnormality. ANUSHKA LACEY MD SYSTEM ID: [id number] CTA Head Neck with Contrast Preliminary Result IMPRESSION: 1. No high-grade stenosis or large vessel occlusion identified involving the major intracranial arteries. 2. No high-grade stenosis or occlusion of the cervical carotid or vertebral arteries. 3. Mild atherosclerotic disease involving the carotid bifurcations and carotid siphons without significant stenosis. Head CT w/o contrast Preliminary Result IMPRESSION: 1. No CT findings of acute intracranial process. 2. Brain atrophy and presumed chronic small vessel ischemic changes, as described. MR Brain w/o & w Contrast (Results Pending) Laboratory: BMP: Glucose 109 (H) o/w WNL (Creatinine 1.07) CBC: WBC 5.4, HGB 15.5, PLT 138 (L) Asymptomatic COVID: in process Emergency Department Course: Reviewed: I reviewed nursing notes, vitals, past medical history and care everywhere Assessments: 1441 I obtained history and examined the patient as noted above. 1610 I rechecked the patient and explained findings. Consults: [address] Olivia of stroke neurology regarding patient's presentation, findings, and plan of care. [address] Olivia of stroke neurology regarding patient's presentation, findings, and plan of care. [address] Briseno of the hospitalist service regarding patient's presentation, findings, and plan of care. They accepted the patient for admission. Interventions: 1614 ASA 162 mg PO 1732 Gadavist 12 mL IV Disposition: The patient was admitted to the hospital under the care of Dr. Briseno. Impression & Plan Medical Decision Making: Presenting symptoms consistent with a TIA. Neuro exam normal on arrival and the patient feels at baseline and no ongoing abnormal speech pattern according to his significant other and daughter. Found of atrial fibrillation which is a new diagnosis for him on a screening EKG. Initial CT CTA showing no significant acute abnormalities. Discussed with stroke neurology given the new A. fib will admit to the hospitalist service to complete stroke work-up and MRI. Aspirin for the time being consider DOAC in a.m. after stroke neurology has been able to evaluate Covid-19 Vivek Lang was evaluated during a global COVID-19 pandemic, which necessitated consideration that the patient might be at risk for infection with the SARS-CoV-2 virus that causes COVID-19. Applicable protocols for evaluation were followed during the patient's care. COVID-19 was considered as part of the patient's evaluation. The plan for testing is: a test was obtained during this visit. Diagnosis: ICD-10-CM 1. TIA (transient ischemic attack) G45.9 2. Atrial fibrillation, unspecified type (H) I48.91 Scribe Disclosure: I, Suzette Fraga, am serving as a scribe at 2:41 PM on 02/01/2021 to document services personally performed by Zac Watkins, based on my observations and the provider's statements to me. Zac Watkins MD 02/01/21 1820 documented in this encounter Miscellaneous Notes Plan of Care - Esdras Chauhan RN - 02/02/2021 1:44 PM CDT Primary Dx: TIA Adm Date: 02/01/2021 Code Status: Full Code Living Situation: Home w/ Assessment: BP (!) 159/69 (BP Location: Right arm) Pulse 67 Temp 97.7 ??F (36.5 ??C) (Oral) Resp 18 Ht 1.854 m (6' 1) Wt 130.7 kg (288 lb 3.2 oz) SpO2 94% BMI 38.02 kg/m?? Neuro: AxOx4, calm, cooperative, no pronator drift, purposeful movement, no WKNS, sensation intact, speech is clear and logical. HEENT: Resp: clear bilat, denies SOB/cough CV: denies chest pain, Apical pulse abnormal, running A-Fib on tele w/ a 2.1 sec pause. PNV: pulses +2, +1 edema in ankles, reports numbness and tingling in feet bilat per baseline. Warm,no discoloration, GI: WDL, Last BM 02/02 : WDL Skin: CDI, denies areas of concern MS: WDL, at normal strength against resistance Pain: denies Safety: Ind in room, calls appropriately, at bedside IV: Labs: MRI: L Temporal/Occipital Ischemic stroke. Tele: A-Fib, 2.1 sec pause Activity: Ind Nutrition: Tolerating reg Misc: POC: discharge home with event monitor and neuro consult. Plan of Care - Bianca Melgar, PT - 02/02/2021 12:22 PM CDT PT: Orders received. Chart reviewed and discussed with care team. PT not indicated as pt near baseline level of functioning with no residual deficits. Defer discharge recommendations to care team. Willcomplete IP PT orders. Plan of Care - Patito Gil OT - 02/02/2021 11:20 AM CDT OT: Orders received. Chart reviewed and discussed with care team. OT not indicated as pt near baseline level of functioning with no residual deficits. Defer discharge recommendations to care team. Willcomplete IP OT orders. Utilization Review - Peri Wadsworth MD - 02/02/2021 10:44 AM CDT Admission Status; Secondary Review Determination Under the authority of the Utilization Management Committee, the utilization review process indicated a secondary review on the above patient. The review outcome is based on review of the medical records, discussions with staff, and applying clinical experience noted on the date of the review. (x) Inpatient Status Appropriate - This patient's medical care is consistent with medical managementfor inpatient care and reasonable inpatient medical practice. () Observation Status Appropriate - This patient does not meet hospital inpatient criteria and is placed in observation status. If this patient's primary payer is Medicare and was admitted as an inpatient, Condition Code 44 should be used and patient status changed to observation. () Admission Status NOT Appropriate - This patient's medical care is not consistent with medical management for Inpatient or Observation Status. RATIONALE FOR DETERMINATION Vivek Lang is a 75 year old male with hypertension who presented with left- sided weakness, bilateral foot numbness, confusion, blurry vision, and dysarthria. In the ED, a CT head without contrast didnot show any acute changes and CTA did not show any occlusive disease. EKG showed new atrial fibrillation. Symptoms resolved. MRI, however, shows punctate focus of acute to early subacute ischemia in the left temporal/occipital junction. Equivocal additional punctate focus of ischemia in the left parietal cortex. Neurology/Stroke consultation pending. It is reasonable to anticipate a hospital stay ofat least 2 midnights. IP status appropriate. The severity of illness, intensity of service provided, expected LOS and risk for adverse outcome make the care complex, high risk and appropriate for hospital admission. The information on this document is developed by the utilization review team in order for the business office to ensure compliance. This only denotes the appropriateness of proper admission status and does not reflect the quality of care rendered. The definitions of Inpatient Status and Observation Status used in making the determination above are those provided in the CMS Coverage Manual, Chapter 1 and Chapter 6, section 70.4. Sincerely, Peri Wadsworth MD Physician Advisor Utilization Review/ Case Management [facility]. Provider Notification - Lo Hsu RN - 02/02/2021 5:08 AM CDT Paged: FYI per telephone maintainer pt had 2.1 sec pause Plan of Care - Lianet Germain RN - 02/02/2021 12:20 AM CDT Paged and called Dr. Peters to make sure she got a call back from Neurology, no response to either. No new orders regarding abnormal MRI. Plan of Care - Lianet Germain RN - 02/01/2021 11:55 PM CDT Paged covering Neurology per Dr. Peters's request. MRI results are back and abnormal. Plan of Care - Gerri Miller RN - 02/01/2021 9:02 PM CDT PRIMARY DIAGNOSIS: TIA/Afib OUTPATIENT/OBSERVATION GOALS TO BE MET BEFORE DISCHARGE: 1. Orthostatic performed: No 2. Diagnostic testing complete & at baseline neurologic testing: No 3. Cleared by consultants (if involved): No 4. Interpretation of cardiac rhythm per behavioral health tech: Afib controlled HR in the 50s 5. Tolerating adequate PO diet and medications: Yes 6. Return to near baseline physical activity or neurologic status: Yes Transfer Station Attendant Nurse Safe discharge environment identified: Yes Barriers to discharge: Yes Entered by: Gerri Miller 02/01/2021 9:02 PM Please review provider order for any additional goals. Nurse to notify provider when observation goals have been met and patient is ready for discharge. Temp: 98 ??F (36.7 ??C) Temp src: Oral BP: (!) 169/88 Pulse: 54 Resp: 18 SpO2: 95 % O2 Device: None (Room air) A&Ox4. Neuros intact. Up Independently. Denies pain. Denies nausea. Regular diet- eating well. No swallowing issues. Denies weakness. Plan- echo in am, neurology following/consult, per neurology a cardiology consult but not ordered yet, neuro checks every 4 hours, PT/OT consults ordered, monitor on tele overnight, lipid panel lab draw in am, MRI results still pending. Pharmacy-Admission Medication History - Yoni Woodard RPH - 02/01/2021 7:05 PM CDT Admission medication history interview status for this patient is complete. See [facility] admission navigator for allergy information, prior to admission medications and immunization status. Medication history interview done, indicate source(s): Patient and Family Medication history resources (including written lists, pill bottles, clinic record):[facility], [facility] Changes made to [employer]LECT[employer] medication list: Added: Atorvastatin, Protonix, Coq10 Changed: Asa, Maxzide Removed: Ziac (old) Medication reconciliation/reorder completed by provider prior to medication history? N Prior to Admission medications Medication Sig Last Dose Taking? Auth Provider aspirin 81 MG EC tablet Take 81 mg by mouth every other day 01/31/2021 at hs Yes Unknown, Entered By History atorvastatin (LIPITOR) 10 MG tablet Take 10 mg by mouth At Bedtime 01/31/2021 at hs Yes Unknown, Entered By History co-enzyme Q-10 100 MG CAPS capsule Take 100 mg by mouth daily 02/01/2021 at am Yes Unknown, Entered ByHistory pantoprazole (PROTONIX) 40 MG EC tablet Take 40 mg by mouth every other day 01/30/2021 at hs Yes Unknown, Entered By History terazosin (HYTRIN) 2 MG capsule Take 2 mg by mouth At Bedtime. 01/31/2021 at hs Yes Reported, Patient triamterene-HCTZ (MAXZIDE-25) 37.5-25 MG tablet Take 1 tablet by mouth daily 02/01/2021 at am Yes Unknown, Entered By History Plan of Care - Gerri Miller RN - 02/01/2021 6:51 PM CDT ROOM # 225 Living Situation (if not independent, order SW consult): Facility name: special effects person: , pt lives with Activity level at baseline: Ind Activity level on admit: Ind Patient registered to observation; given Patient Bill of Rights; given the opportunity to ask questions about observation status and their plan of care. Patient has been oriented to the observation room, bathroom and call light is in place. Discussed discharge goals and expectations with patient/family. 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 ECHO COMPLETE WITH Routine 02/02/2021 7:38 AM Res ults for this CONTRAST CDT procedure are i n the results section. TROPONIN I STAT 02/02/2021 6:43 AM Results f or this CDT procedure are i n the results section. LIPID REFLEX TO DIRECT Routine 02/02/2021 6:43 AM Results for this LDL PANEL CDT procedure are i n the results section. VITAMIN B12 Routine 02/02/2021 6:43 AM Results f or this CDT procedure are i n the results section. HEMOGLOBIN A1C Routine 02/01/2021 6:41 PM Results for this CDT procedure are i n the results section. SARS-COV2 (COVID-19) STAT 02/01/2021 6:00 PM R esults for this VIRUS RT-PCR CDT procedure are i n the results section. COVID-19 VIRUS STAT 02/01/2021 6:00 PM Results for this (CORONAVIRUS) BY PCR CDT procedu re are in the results section. MR BRAIN W/O & W STAT 02/01/2021 5:35 PM Resul ts for this CONTRAST CDT procedure are i n the results section. XR CHEST 2 VIEWS STAT 02/01/2021 4:46 PM Resul ts for this CDT procedure are i n the results section. CTA HEAD NECK W STAT 02/01/2021 3:57 PM Result s for this CONTRAST CDT procedure are i n the results section. CT HEAD W/O CONTRAST STAT 02/01/2021 3:56 PM R esults for this CDT procedure are i n the results section. EKG 12-LEAD, TRACING STAT 02/01/2021 3:21 PM R esults for this ONLY CDT procedure are i n the results section. CBC WITH PLATELETS AND STAT 02/01/2021 3:16 PM Results for this DIFFERENTIAL CDT procedure are i n the results section. CBC WITH PLATELETS & STAT 02/01/2021 3:16 PM R esults for this DIFFERENTIAL CDT procedure are i n the results section. TSH WITH FREE T4 REFLEX Routine 02/01/2021 3:16 PM Results for this CDT procedure are i n the results section. BASIC METABOLIC PANEL STAT 02/01/2021 3:16 PM Results for this CDT procedure are i n the results section. documented in this encounter Results CARDIAC EVENT MONITOR APPLICATION AND PROVIDER INTERPRETATION (02/02/2021 12:34 PM CDT) Anatomical Region Laterality Modality Other Specimen (Source) Anatomical Location Collection Method / Collectio n Time Received Time / Laterality Volume Narrative This result has an attachment that is no t available. Lianet Hawthorne PA-C CV CARDIAC SERVICES ORDERA BLES ECHO COMPLETE WITH CONTRAST (02/02/2021 7:38 AM CDT) P athologist Signature LVEF 50-55% CARDIOLOGY RESULTS Anatomical Region Laterality Modality Echocardiography Specimen (Source) Anatomical Collection Method Collection Time Re ceived Time Location / / Volume Laterality 02/02/2021 7:18 AM CDT Narrative 02/02/2021 8:10 AM T [id number]^SUZANNA^GEETHA^TENZIN [facility] Echocardiography Laboratory [address] [place] [id number] Name: VIVEK LANG : 1945 Study Date: 02/02/2021 07:18 AM Age: 75 yrs Gender: Male Patient Location: [facility] Reason For Study: TIA Ordering Physician: GEETHA BRISENO Referring Physician: [facility] Performed By: Vivek Elliott RDCS BSA: 2.5 m2 Height: 73 in Weight: 288 lb HR: 55 BP: 179/93 mmHg Procedure Complete Portable Echo Adult. [employer] (N DC #[id number]) given intravenously. Interpretation Summary Technically challenging study due to pat ient body habitus, even with the use of contrast imaging. Left ventricular systolic function is medardo rderline reduced. The visual ejection fraction is 50-55%. Right ventricle is mildly dilated. Right ventricular systolic function is borderline reduced. Mild (1+) aortic regurgitation. The inferior vena cava was dilated at 3. 1 cm without respiratory variability, consistent with increased right atrial p ressure. Mild aortic root dilatation. Max diamete r of the visualized portion 4.1 cm. The ascending aorta is Mildly dilated. M ax diameter of the visualized portion 4.2 cm. The rhythm was atrial fibrillation. Left Ventricle The left ventricle is normal in size. Th ere is normal left ventricular wall thickness. Left ventricular systolic fun ction is borderline reduced. The visual ejection fraction is 50-55%. Left ventricular diastolic function is not assessable. No regional wall motion abno rmalities noted. Right Ventricle The right ventricle is mildly dilated. T he right ventricular systolic function is borderline reduced. Atria The left atrium is mildly dilated. The r ight atrium is mildly dilated. Mitral Valve The mitral valve is normal in structure and function. Tricuspid Valve The tricuspid valve is not well visualiz ed, but is grossly normal. There is trace tricuspid regurgitation. The right ventricular systolic pressure is approximated at 29.5 mmHg plus the right atrial pressure. 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 There is mild (1+) aortic regurgitation. Pulmonic Valve The pulmonic valve is not well seen, but is grossly normal. Vessels Mild aortic root dilatation. Max diamete r of the visualized portion 4.1 cm. The ascending aorta is Mildly dilated. M ax diameter of the visualized portion 4.2 cm. The inferior vena cava was dilat ed at 3.1 cm without respiratory variability, consistent with increased r ight atrial pressure. Pericardium There is no pericardial effusion. Rhythm The rhythm was atrial fibrillation. MMode/2D Measurements & Calculations IVSd: 1.2 cm LVIDd: 5.8 cm LVIDs: 3.2 cm LVPWd: 1.1 cm FS: 44.5 % LV mass(C)d: 271.6 grams LV mass(C)dI: 108.1 grams/m2 Ao root diam: 4.1 cm LA dimension: 5.4 cm asc Aorta Diam: 4.2 cm LA/Ao: 1.3 LVOT diam: 2.6 cm LVOT area: 5.3 cm2 LA Volume (BP): 90.0 ml LA Volume Index (BP): 35.9 ml/m2 RWT: 0.39 Time Measurements Aortic HR: 65.0 BPM Doppler Measurements & Calculations MV E max raffy: 83.2 cm/sec AI P1/2t: 447.0 msec LV V1 max P.3 mmHg LV V1 max: 75.9 cm/sec LV V1 VTI: 14.8 cm CO(LVOT): 5.1 l/min CI(LVOT): 2.0 l/min/m2 SV(LVOT): 78.6 ml SI(LVOT): 31.3 ml/m2 TR max raffy: 270.5 cm/sec TR max P.5 mmHg E/E' av.7 Lateral E/e': 7.3 Medial E/e': 10.1 Report approved by: Anika Howe 02/02 08:10 AM Procedure Note Jose Weathers MD - 02/02/2021Formatting o f this note might be different from the original. [id number]^SUZANNA^GEETHA^TENZIN [facility] Echocardiography Laboratory [address] [place] [id number] Name: VIVEK LANG : 1945 Study Date: 02/02/2021 07:18 AM Age: 75 yrs Gender: Male Patient Location: [facility] Reason For Study: TIA Ordering Physician: GEETHA BRISENO Referring Physician: [facility] Performed By: Vivek Elliott RDCS BSA: 2.5 m2 Height: 73 in Weight: 288 lb HR: 55 BP: 179/93 mmHg Procedure Complete Portable Echo Adult. Jessy Deng DC #[id number]) given intravenously. Interpretation Summary Technically challenging study due to pat ient body habitus, even with the use of contrast imaging. Left ventricular systolic function is medardo rderline reduced. The visual ejection fraction is 50-55%. Right ventricle is mildly dilated. Right ventricular systolic function is borderline reduced. Mild (1+) aortic regurgitation. The inferior vena cava was dilated at 3. 1 cm without respiratory variability, consistent with increased right atrial p ressure. Mild aortic root dilatation. Max diamete r of the visualized portion 4.1 cm. The ascending aorta is Mildly dilated. M ax diameter of the visualized portion 4.2 cm. The rhythm was atrial fibrillation. Left Ventricle The left ventricle is normal in size. Th ere is normal left ventricular wall thickness. Left ventricular systolic fun ction is borderline reduced. The visual ejection fraction is 50-55%. Left ventricular diastolic function is not assessable. No regional wall motion abno rmalities noted. Right Ventricle The right ventricle is mildly dilated. T he right ventricular systolic function is borderline reduced. Atria The left atrium is mildly dilated. The r ight atrium is mildly dilated. Mitral Valve The mitral valve is normal in structure and function. Tricuspid Valve The tricuspid valve is not well visualiz ed, but is grossly normal. There is trace tricuspid regurgitation. The right ventricular systolic pressure is approximated at 29.5 mmHg plus the right atrial pressure. 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 There is mild (1+) aortic regurgitation. Pulmonic Valve The pulmonic valve is not well seen, but is grossly normal. Vessels Mild aortic root dilatation. Max diamete r of the visualized portion 4.1 cm. The ascending aorta is Mildly dilated. M ax diameter of the visualized portion 4.2 cm. The inferior vena cava was dilat ed at 3.1 cm without respiratory variability, consistent with increased r ight atrial pressure. Pericardium There is no pericardial effusion. Rhythm The rhythm was atrial fibrillation. MMode/2D Measurements & Calculations IVSd: 1.2 cm LVIDd: 5.8 cm LVIDs: 3.2 cm LVPWd: 1.1 cm FS: 44.5 % LV mass(C)d: 271.6 grams LV mass(C)dI: 108.1 grams/m2 Ao root diam: 4.1 cm LA dimension: 5.4 cm asc Aorta Diam: 4.2 cm LA/Ao: 1.3 LVOT diam: 2.6 cm LVOT area: 5.3 cm2 LA Volume (BP): 90.0 ml LA Volume Index (BP): 35.9 ml/m2 RWT: 0.39 Time Measurements Aortic HR: 65.0 BPM Doppler Measurements & Calculations MV E max raffy: 83.2 cm/sec AI P1/2t: 447.0 msec LV V1 max P.3 mmHg LV V1 max: 75.9 cm/sec LV V1 VTI: 14.8 cm CO(LVOT): 5.1 l/min CI(LVOT): 2.0 l/min/m2 SV(LVOT): 78.6 ml SI(LVOT): 31.3 ml/m2 TR max raffy: 270.5 cm/sec TR max P.5 mmHg E/E' av.7 Lateral E/e': 7.3 Medial E/e': 10.1 Report approved by: Anika Howe 02/02 08:10 AM Geetha Briseno MD CV ECHO ORDERABLES Vitamin B12 (02/02/2021 6:43 AM CDT) athologist Signature Vitamin B12 [phone] 02/02/2021 [facility] pg/mL 6:09 PM CDT Specimen Anatomical Collection Method / Collection Time Recei price Time (Source) Location / Volume Laterality Blood STRUCTURE OF LEFT Venipuncture / 02/02/2021 6:43 02/02 7:21 HAND / Unknown Unknown AM CDT AM CDT Vivi Celeste PA-C LAB - BLOOD ORDERABLES Performing Organization Address City/State/ZIP Code [place] [address] [address] [facility], [address] [place] [address], Lab [place] [address] [facility], Room [address]80 Troponin I (02/02/2021 6:43 AM CDT) athologist Signature Troponin I <0.015 0.000 - 02/02/2021 LABORATORY 0.045 ug/L 9:44 AM CDT Comment: The 99th percentile for upper r eference range is 0.045ug/L. Troponin values in the range of 0.045 - 0.120 ug/L may b e associated with risks of adverse clinical events. Specimen Anatomical Collection Method / Collection Time Recei price Time (Source) Location / Volume Laterality Blood STRUCTURE OF LEFT Venipuncture / 02/02/2021 6:43 02/02 7:21 HAND / Unknown Unknown AM CDT AM CDT Vivi Celeste PA-C LAB - BLOOD ORDERABLES Performing Organization Address City/State/ZIP Code [place] [address] [facility] [address] Lab (1st floor, no room number) Lipid panel reflex to direct LDL (02/02/2021 6:43 AM CDT) P athologist Signature Cholesterol 115 <200 mg/dL 02/02/2021 [facility] 7:45 AM CDT Comment: Age 0-19 years Desirable: <170 mg/dL Borderline high: ??170-199 mg/dl High: ?>199 mg/dl Age 20 years and older Desirable: <200 mg/dL Triglycerides 98 <150 mg/dL 02/02/2021 7:45 AM CDT [facility] Comment: 0-9 years: Normal: ?Less than 75 mg/dL Borderline high: ??75-99 mg/dL High: ? Greater than or equal to 100 mg/dL 0-19 years: Normal: ?Less than 90 mg/dL Borderline high: ??90-129 mg/dL High: ? Greater than or equal to 130 mg/dL 20 years and older: Normal: ?Less than 150 mg/dL Borderline high: ??150-199 mg/dL High: ? 200-499 mg/dL Very high: ?? Greater than or equal to 5 00 mg/dL Direct Measure HDL 55 >=40 mg/dL 02/02/2021 7:45 AM C DT [facility] Comment: 0-19 years: ? Greater than or equal to 45 mg/dL Low: Less than 40 mg/dL Borderline low: 40-44 mg/dL 20 years and older: Female: Greater than or equal to 50 mg/d L Male: ?? Greater than or equal to 40 mg/ dL LDL Cholesterol Calculated 40 <=100 mg/dL 02/02/2021 7:45 AM CDT [facility] Comment: Age 0-19 years: Desirable: 0-110 mg/dL Borderline high: 110-129 mg/dL High: >= 130 mg/dL Age 20 years and older: Desirable: <100mg/dL Above desirable: 100-129 mg/dL Borderline high: 130-159 mg/dL High: 160-189 mg/dL Very high: >= 190 mg/dL Non HDL Cholesterol 60 <130 mg/dL 02/02/2021 7:45 AM CDT [facility] Comment: 0-19 years: Desirable: ? Less than 120 mg/ dL Borderline high: ?? 120-144 mg/dL High: ? Greater th an or equal to 145 mg/dL 20 years and older: Desirable: ? 130 mg/dL Above Desirable: 130-159 mg/dL Borderline high: ?? 160-189 mg/dL High: ? 190-219 mg/dL Very high: ?? Greater than or equal to 2 20 mg/dL Patient Fasting > 8hrs? Unknown 02/02/2021 7:45 AM CDT [facility] Specimen Anatomical Collection Method / Collection Time Recei price Time (Source) Location / Volume Laterality Blood STRUCTURE OF LEFT Venipuncture / 02/02/2021 6:43 02/02 7:21 HAND / Unknown Unknown AM CDT AM CDT Geetha Briseno MD LAB - BLOOD ORDERABLES Performing Organization Address City/State/ZIP Code [place] [phone] [facility] [address] Lab (1st floor, no room number) Hemoglobin A1c (02/01/2021 6:41 PM CDT) P athologist Signature Hemoglobin A1C 5.6 0.0 - 5.6 02/01/2021 [facility] % 7:12 PM CDT Comment: Normal <5.7% Prediabetes 5.7-6.4% ?? Diabetes 6.5% or higher Note: Adopted from ADA consensus guideli kelly. Specimen Anatomical Collection Method / Collection Time Recei price Time (Source) Location / Volume Laterality Blood BLOOD SPECIMEN / Venipuncture / 02/01/2021 6:41 2020 6:44 Unknown Unknown PM CDT PM CDT Geetha Briseno MD LAB - BLOOD ORDERABLES Performing Organization Address City/[facility]/ZIP [place] [address] Care Lab [address] [facility] Lab (1st floor, no room number) SARS-COV2 (COVID-19) Virus RT-PCR (02/01/2021 6:00 PM CDT) Analysis Performed At [facility] logist Time Signature SARS CoV2 PCR Negative Negative 02/01/2021 LABORATORY 6:31 PM CDT Comment: NEGATIVE: SARS-CoV-2 (COVID-19) RNA not detected, presumed negative. Specimen Anatomical Location / Collection Method Collection Walter e Received Time (Source) Laterality / Volume Swab NASOPHARYNGEAL Non-blood 02/01/2021 6:00 02/01/2021 6:04 STRUCTURE / Unknown Collection / PM CDT PM CDT Unknown Narrative LABORATORY - 02/01/2021 6:31 PM CDT Testing was performed using the claudio?? SARS-CoV-2 & Influenza A/B Assay on the claudio?? Dayana?? System. ??This test shoul d be ordered for the detection of SARS-COV-2 in individuals who meet SARS-CoV-2 clini isis and/or epidemiological criteria. Test performance is unknown in asymptomatic p atients. ??This test is for in vitro diagnostic use under the FDA EUA for lab oratories certified under CLIA to perform moderate and/or high complexity testing. This test has not been FDA cleared or approved. ??A negative test does not rul e out the presence of PCR inhibitors in the specimen or target RNA in concentration below the limit of detection for the assay. The possibility of a false negative shou ld be considered if the patient's recent exposure or clinical presentation sugges ts COVID-19. ??[facility] are certified under the Clinical Laborat ory Improvement Amendments of 1988 (CLIA-88) as qualified to perform moderate and/or high complexity laboratory testing. Zac Watkins MD LAB - MICRO GENERAL ORDERABL ES Performing Organization Address City/[facility]/ZIP Code Phon e Number [facility] [place] [address] Care Lab [address] [facility] Lab (1st floor, no room number) MR Brain w/o & w Contrast (02/01/2021 5:35 PM CDT) Anatomical Region Laterality Modality Head, SUBRAD MR NEURO, UMP MR NEURO, RAD MR Magnetic Resonance Specimen (Source) Anatomical Collection Method Collection Time Re ceived Time Location / / Volume Laterality 02/01/2021 4:39 PM CDT Impressions 02/01/2021 11:36 PM CDT IMPRESSION: 1. ??Punctate focus of acute to early corbin bacute ischemia in the left temporal/occipital junction. Equivocal additional punctate focus of ischemia in the left parietal cortex. 2. ??Age-related changes. 3. ??The brainstem is obscured by artifa ct. Narrative 02/01/2021 11:36 PM CDT EXAM: MR BRAIN W/O and W CONTRAST LOCATION: [facility] DATE/TIME: 02/01/2021 4:39 PM INDICATION: One sided weakness COMPARISON: CTA head and neck on the [facility] CONTRAST: 12 mL Gadavist TECHNIQUE: Routine multiplanar multisequ ence head MRI without and with intravenous contrast. FINDINGS: The brainstem is largely obscured by art ifact. INTRACRANIAL CONTENTS: Punctate focus of restricted diffusion in the left temporal/occipital junction. Equivocal punctate focus of restricted diffusion in the left parietal cortex. No mass, acute hemorrhage, or extra-axial fluid collections. Patchy nonspecific T2/FLAIR hyperintensities wi thin the cerebral white matter most consistent with mild to moderate chronic microvascular ischemic change. Normal ventricles and sulci. Normal position of the cerebellar tonsils. No pathologic contrast enhancement. SELLA: No abnormality accounting for jennifer hnique. OSSEOUS STRUCTURES/SOFT TISSUES: Normal marrow signal. The major intracranial vascular flow voids are maintained. ORBITS: No abnormality accounting for te chnique. SINUSES/MASTOIDS: Mild mucosal thickenin g scattered about the paranasal sinuses. No middle ear or mastoid effusion. Procedure Note Jamil Khoury MD - 02/01/2021Formatti ng of this note might be different from the original. EXAM: MR BRAIN W/O and W CONTRAST LOCATION: [facility] DATE/TIME: 02/01/2021 4:39 PM INDICATION: One sided weakness COMPARISON: CTA head and neck on the peter date CONTRAST: 12 mL Gadavist TECHNIQUE: Routine multiplanar multisequ ence head MRI without and with intravenous contrast. FINDINGS: The brainstem is largely obscured by art ifact. INTRACRANIAL CONTENTS: Punctate focus of restricted diffusion in the left temporal/occipital junction. Equivocal punctate focus of restricted diffusion in the left parietal cortex. No mass, acute hemorrhage, or extra-axial fluid collections. Patchy nonspecific T2/FLAIR hyperintensities wi thin the cerebral white matter most consistent with mild to moderate chronic microvascular ischemic change. Normal ventricles and sulci. Normal position of the cerebellar tonsils. No pathologic contrast enhancement. SELLA: No abnormality accounting for jennifer hnique. OSSEOUS STRUCTURES/SOFT TISSUES: Normal marrow signal. The major intracranial vascular flow voids are maintained. ORBITS: No abnormality accounting for te chnique. SINUSES/MASTOIDS: Mild mucosal thickenin g scattered about the paranasal sinuses. No middle ear or mastoid effusion. IMPRESSION: 1. Punctate focus of acute to early suba cute ischemia in the left temporal/occipital junction. Equivocal additional punctate focus of ischemia in the left parietal cortex. 2. Age-related changes. 3. The brainstem is obscured by artifact . Zac Watkins MD IMG MRI ORDERABLES XR Chest 2 Views (02/01/2021 4:46 PM CDT) Anatomical Region Laterality Modality Chest Digital Radiography Specimen (Source) Anatomical Location Collection Method / Collectio n Time Received Time / Laterality Volume Impressions 02/01/2021 5:18 PM CDT IMPRESSION: No radiographic evidence of acute chest abnormality. ANUSHKA LACEY MD SYSTEM ID: ??[id number] Narrative 02/01/2021 5:18 PM CDT CHEST TWO VIEWS 02/01/2021 4:46 PM HISTORY: Transient ischemic attack, new diagnosis atrial fibrillation. COMPARISON: 01/04/2017 FINDINGS: Cardiomegaly is similar to ash or. Pulmonary vascularity within normal limits. No airspace consol idation, pneumothorax, or pleural effusion. Stable calcified granu nida in the left lung. Procedure Note Anushka Lacey MD - 02/01/2021Forma tting of this note might be different from the original. CHEST TWO VIEWS 02/01/2021 4:46 PM HISTORY: Transient ischemic attack, new diagnosis atrial fibrillation. COMPARISON: 01/04/2017 FINDINGS: Cardiomegaly is similar to ash or. Pulmonary vascularity within normal limits. No airspace consol idation, pneumothorax, or pleural effusion. Stable calcified granu nida in the left lung. IMPRESSION: No radiographic evidence of acute chest abnormality. ANUSHAK LACEY MD SYSTEM ID: [id number] Zac Watkins MD G DIAGNOSTIC IMAGING ORDER ANTHONY CTA Head Neck with Contrast (02/01/2021 3:57 PM CDT) Anatomical Region Laterality Modality Head, SUBRAD CT NEURO, SUBRAD CT NEURO, UMP CT NEURO, Computed Tomography RAD CT Specimen (Source) Anatomical Location Collection Method / Collectio n Time Received Time / Laterality Volume Impressions 02/01/2021 10:31 PM CDT IMPRESSION: 1. No high-grade stenosis or large vesse l occlusion identified involving the major intracranial arterie s. 2. No high-grade stenosis or occlusion o f the cervical carotid or vertebral arteries. 3. Mild atherosclerotic disease involvin g the carotid bifurcations and carotid siphons without significant sten osis. DAGOBERTO PATHAK MD SYSTEM ID: ??[id number] Narrative 02/01/2021 10:[address] ANGIOGRAM OF THE HEAD AND NECK WITH CONTRAST ??02/01/2021 3:57 PM HISTORY: 5 minutes episode aphasia and d iscoordination. TECHNIQUE: ??CT angiography with an inje ction of 70mL Isovue-370 IV with scans through the head and neck. Im ages were transferred to a separate 3-D workstation where multiplan ar reformations and 3-D images were created. Estimates of carotid steno ses are made relative to the distal internal carotid artery diameters except as noted. Radiation dose for this scan was reduced using aut omated exposure control, adjustment of the mA and/or kV according to patient size, or iterative reconstruction technique. COMPARISON: CT head of same date. CT HEAD FINDINGS: No contrast enhancing lesions identified. The cerebral vasculature appears grossly sym metric along the convexities. CT ANGIOGRAM HEAD FINDINGS: ??Nonflow-li miting atherosclerotic calcification of the bilateral carotid s iphons. The major intracranial arteries including the proximal branches of the anterior cerebral, middle cerebral, and posterior cerebral arteries appear patent without vascular cutoff. No aneurysm identified. No significant stenosis. Venous circulation is unremarkable. CT ANGIOGRAM NECK FINDINGS: Mild atherosclerosis of the aortic arch without significant stenosis of the origins of the great vessels. Con ventional three-vessel aortic arch branching pattern. Right carotid artery: The right common a nd internal carotid arteries are patent. Mild atherosclerotic disease at the carotid bifurcation and proximal internal carotid artery wit hout significant stenosis by NASCET criteria. Left carotid artery: The left common and internal carotid arteries are patent. Mild atherosclerotic disease at the carotid bifurcation and proximal internal carotid artery without significant stenosis by NASCET criteria. Vertebral arteries: Vertebral arteries a re patent without evidence of dissection. Dominant left and smaller ri ght vertebral arteries. No significant stenosis. Other findings: Minimal anterolisthesis of C4 on C5, likely on a degenerative basis. Multilevel degenerat brynn changes are noted in the cervical spine. Procedure Note Dagoberto Pathak MD - 02/01/2021Formattin g of this note might be different from the original. CT ANGIOGRAM OF THE HEAD AND NECK WITH C ONTRAST 02/01/2021 3:57 PM HISTORY: 5 minutes episode aphasia and d iscoordination. TECHNIQUE: CT angiography with an inject ion of 70mL Isovue-370 IV with scans through the head and neck. Im ages were transferred to a separate 3-D workstation where multiplan ar reformations and 3-D images were created. Estimates of carotid steno ses are made relative to the distal internal carotid artery diameters except as noted. Radiation dose for this scan was reduced using aut omated exposure control, adjustment of the mA and/or kV according to patient size, or iterative reconstruction technique. COMPARISON: CT head of same date. CT HEAD FINDINGS: No contrast enhancing lesions identified. The cerebral vasculature appears grossly sym metric along the convexities. CT ANGIOGRAM HEAD FINDINGS: Nonflow-limi ting atherosclerotic calcification of the bilateral carotid s iphons. The major intracranial arteries including the proximal branches of the anterior cerebral, middle cerebral, and posterior cerebral arteries appear patent without vascular cutoff. No aneurysm identified. No significant stenosis. Venous circulation is unremarkable. CT ANGIOGRAM NECK FINDINGS: Mild atherosclerosis of the aortic arch without significant stenosis of the origins of the great vessels. Con ventional three-vessel aortic arch branching pattern. Right carotid artery: The right common a nd internal carotid arteries are patent. Mild atherosclerotic disease at the carotid bifurcation and proximal internal carotid artery wit hout significant stenosis by NASCET criteria. Left carotid artery: The left common and internal carotid arteries are patent. Mild atherosclerotic disease at the carotid bifurcation and proximal internal carotid artery without significant stenosis by NASCET criteria. Vertebral arteries: Vertebral arteries a re patent without evidence of dissection. Dominant left and smaller ri ght vertebral arteries. No significant stenosis. Other findings: Minimal anterolisthesis of C4 on C5, likely on a degenerative basis. Multilevel degenerat brynn changes are noted in the cervical spine. IMPRESSION: 1. No high-grade stenosis or large vesse l occlusion identified involving the major intracranial arterie s. 2. No high-grade stenosis or occlusion o f the cervical carotid or vertebral arteries. 3. Mild atherosclerotic disease involvin g the carotid bifurcations and carotid siphons without significant sten osis. DAGOBERTO PATHAK MD SYSTEM ID: [id number] Zac Watkins MD IMG CT ORDERABLES Head CT w/o contrast (02/01/2021 3:56 PM CDT) Anatomical Region Laterality Modality Head, SUBRAD CT NEURO, SUBRAD CT NEURO, P CT NEURO, Computed Tomography RAD CT Specimen (Source) Anatomical Location Collection Method / Collectio n Time Received Time / Laterality Volume Impressions 02/01/2021 10:41 PM CDT IMPRESSION: 1. No CT findings of acute intracranial process. 2. Brain atrophy and presumed chronic sm all vessel ischemic changes, as described. DAGOBERTO PATHAK MD SYSTEM ID: ??[id number] Narrative 02/01/2021 10:[address] SCAN OF THE HEAD WITHOUT CONTRAST ?? 02/01/2021 3:56 PM HISTORY: 5 minute episode aphasia and co ordination difficulty now normal TECHNIQUE: ??Axial images of the head an d coronal reformations without IV contrast material. Radiation dose for this scan was reduced using automated exposure control, adjustment o f the mA and/or kV according to patient size, or iterative reconstruc tion technique. COMPARISON: None. FINDINGS: There is no evidence of intrac ranial hemorrhage, mass, acute infarct or anomaly. The ventricles are n ormal in size and configuration. Moderate generalized brai n parenchymal volume loss. Mild patchy scattered nonspecific hypoat tenuation in the cerebral white matter, likely representing chroni c small vessel ischemic changes. Atherosclerotic calcifications primarily involving the carotid siphons are noted. Bilateral lens replacements. The visuali zed orbits otherwise appear normal. The visualized aspects of the pa ranasal sinuses, mastoids, and middle ear cavities appear clear. The medardo ny calvarium and bones of the skull base appear intact. Procedure Note Dagoberto Pathak MD - 02/01/2021Formattin g of this note might be different from the original. CT SCAN OF THE HEAD WITHOUT CONTRAST 02/01 3:56 PM HISTORY: 5 minute episode aphasia and co ordination difficulty now normal TECHNIQUE: Axial images of the head and coronal reformations without IV contrast material. Radiation dose for this scan was reduced using automated exposure control, adjustment o f the mA and/or kV according to patient size, or iterative reconstruc tion technique. COMPARISON: None. FINDINGS: There is no evidence of intrac ranial hemorrhage, mass, acute infarct or anomaly. The ventricles are n ormal in size and configuration. Moderate generalized brai n parenchymal volume loss. Mild patchy scattered nonspecific hypoat tenuation in the cerebral white matter, likely representing chroni c small vessel ischemic changes. Atherosclerotic calcifications primarily involving the carotid siphons are noted. Bilateral lens replacements. The visuali zed orbits otherwise appear normal. The visualized aspects of the pa ranasal sinuses, mastoids, and middle ear cavities appear clear. The medardo ny calvarium and bones of the skull base appear intact. IMPRESSION: 1. No CT findings of acute intracranial process. 2. Brain atrophy and presumed chronic sm all vessel ischemic changes, as described. DAGOBERTO PATHAK MD SYSTEM ID: [id number] Zac Watkins MD IMG CT ORDERABLES EKG 12-lead, tracing only (02/01/2021 3:21 PM CDT) Component Value Ref Range Test Analysis Performed Pathologis t Method Time At Signature Systolic Blood mmHg RADIOLOGY Pressure RESULTS Diastolic Blood mmHg RADIOLOGY Pressure RESULTS Ventricular Rate 63 BPM RADIOLOGY RESULTS Atrial Rate 43 BPM RADIOLOGY RESULTS KS Interval ms RADIOLOGY RESULTS QRS Duration 110 ms RADIOLOGY RESULTS QT 456 ms RADIOLOGY RESULTS QTc 466 ms RADIOLOGY RESULTS P [place] degrees RADIOLOGY RESULTS R AXIS 38 degrees RADIOLOGY RESULTS T [place] 51 degrees RADIOLOGY RESULTS Interpretation Atrial fibrillation RADIO LOGY ECG Nonspecific ST abnormality RES ULTS Abnormal ECG No previous ECGs available Confirmed by - EMERGENCY ROMMEL Fina PHYSICIAN ([id number]), market editor SIMONE QUIROGA ([id number]) on 02/02/2021 6:47:41 AM Specimen Anatomical Collection Method Collection Time Receive d Time (Source) Location / / Volume Laterality 02/01/2021 3:21 PM 6:47 CDT AM CDT Zac Watkins MD ECG ORDERABLES Performing Organization Address City/State/ZIP Code Phon e Number RADIOLOGY RESULTS TSH with free T4 reflex (02/01/2021 3:16 PM CDT) P athologist Signature TSH 1.29 0.40 - 4.00 02/01/2021 [facility] mU/L 7:04 PM CDT Specimen Anatomical Collection Method / Collection Time Recei price Time (Source) Location / Volume Laterality Blood STRUCTURE OF RIGHT Venipuncture / 02/01/2021 3:16 08/0 10/2020 3:25 HAND / Unknown Unknown PM CDT PM CDT Geetha Briseno MD LAB - BLOOD ORDERABLES Performing Organization Address City/State/ZIP Code [place] [phone] Care Lab [address] Lab (1st floor, no room number) (ABNORMAL) CBC with platelets and differential (02/01/2021 3:16 PM CDT) Patholo gist Method Time Signature WBC Count 5.4 4.0 - 02/01/2021 [facility] 11.0 4:03 PM CDT 10e3/uL RBC Count 5.00 4.40 - 02/01/2021 [facility] 5.90 4:03 PM CDT 10e6/uL Hemoglobin 15.5 13.3 - 02/01/2021 [facility] 17.7 g/dL 4:03 PM CDT Hematocrit 46.6 40.0 - 02/01/2021 [facility] 53.0 % 4:03 PM CDT MCV 93 78 - 100 02/01/2021 [facility] fL 4:03 PM CDT MCH 31.0 26.5 - 02/01/2021 [facility] 33.0 pg 4:03 PM CDT MCHC 33.3 31.5 - 02/01/2021 [facility] 36.5 g/dL 4:03 PM CDT RDW 13.2 10.0 - 02/01/2021 [facility] 15.0 % 4:03 PM CDT Platelet Count 138 (L) 150 - 450 02/01/2021 [facility] 10e3/uL 4:03 PM CDT % Neutrophils 67 % 02/01/2021 [facility] 4:03 PM CDT % Lymphocytes 20 % 02/01/2021 [facility] 4:03 PM CDT % Monocytes 9 % 02/01/2021 [facility] 4:03 PM CDT % Eosinophils 3 % 02/01/2021 [facility] 4:03 PM CDT % Basophils 1 % 02/01/2021 [facility] 4:03 PM CDT % Immature 0 % 02/01/2021 [facility] Granulocytes 4:03 PM CDT NRBCs per 100 WBC 0 <1 /100 02/01/2021 [facility] RY 4:03 PM CDT Absolute 3.6 1.6 - 8.3 02/01/2021 [facility] Neutrophils 10e3/uL 4:03 PM CDT Absolute 1.1 0.8 - 5.3 02/01/2021 [facility] Lymphocytes 10e3/uL 4:03 PM CDT Absolute 0.5 0.0 - 1.3 02/01/2021 [facility] Monocytes 10e3/uL 4:03 PM CDT Absolute 0.2 0.0 - 0.7 02/01/2021 [facility] Eosinophils 10e3/uL 4:03 PM CDT Absolute 0.1 0.0 - 0.2 02/01/2021 [facility] Basophils 10e3/uL 4:03 PM CDT Absolute Immature 0.0 <=0.0 02/01/2021 [facility] RY Granulocytes 10e3/uL 4:03 PM CDT Absolute NRBCs 0.0 10e3/uL 02/01/2021 [facility] 4:03 PM CDT Specimen Anatomical Collection Method / Collection Time Recei price Time (Source) Location / Volume Laterality Blood STRUCTURE OF RIGHT Venipuncture / 02/01/2021 3:16 08/0 10/2020 3:25 HAND / Unknown Unknown PM CDT PM CDT Zac Watkins MD LAB - BLOOD ORDERABLES Performing Organization Address City/State/ZIP Code [place] [phone] Care Lab [address] Lab (1st floor, no room number) (ABNORMAL) Basic metabolic panel (02/01/2021 3:16 PM CDT) Analysis Performed At Patho logist Time Signature Sodium 138 133 - 144 02/01/2021 LABORATORY mmol/L 3:54 PM CDT Potassium 3.8 3.4 - 5.3 02/01/2021 LAB[facility]ATORY mmol/L 3:54 PM CDT Chloride 105 94 - 109 02/01/2021 LAB[facility]AT[facility] mmol/L 3:54 PM CDT Carbon Dioxide 26 20 - 32 02/01/2021 LABORATORY (CO2) mmol/L 3:54 PM CDT Anion Gap 7 3 - 14 02/01/2021 [facility] mmol/L 3:54 PM CDT Urea Nitrogen 16 7 - 30 02/01/2021 [facility] mg/dL 3:54 PM CDT Creatinine 1.07 0.66 - 02/01/2021 [facility] 1.25 mg/dL 3:54 PM CDT Calcium 8.6 8.5 - 10.1 02/01/2021 [facility] mg/dL 3:54 PM CDT Glucose 109 (H) 70 - 99 02/01/2021 [facility]AT[facility] mg/dL 3:54 PM CDT GFR Estimate 67 >60 02/01/2021 LAB[facility]AT[facility] mL/min/1.7 3:54 PM CDT 3m2 Comment: As of January [...] Laterality Blood STRUCTURE OF RIGHT Venipuncture / 02/01/2021 3:16 08/0 10/2020 3:25 HAND / Unknown Unknown PM CDT PM CDT Zac Watkins MD LAB - BLOOD ORDERABLES Performing Organization Address City/State/ZIP Code [place] [phone] Care Lab [address] Lab (1st floor, no room number) documented in this encounter Visit Diagnoses Diagnosis Cerebrovascular accident (CVA) due to em bolism of cerebral artery (H) - Primary TIA (transient ischemic attack) Unspecified transient cerebral ischemia Atrial fibrillation, unspecified type (H ) TIA (transient ischemic attack) Unspecified transient cerebral ischemia Atrial fibrillation, unspecified type (H ) CVA (cerebral vascular accident) (H) Unspecified cerebral artery occlusion wi th cerebral infarction documented in this encounter Admitting Diagnoses Diagnosis Atrial fibrillation, unspecified type (H ) CVA (cerebral vascular accident) (H) Unspecified cerebral artery occlusion wi th cerebral infarction documented in this encounter Administered Medications Inactive Administered Medications - up to 3 most recent administrations Medication Order MAR Action Action Date Dose Rate Site aspirin (ASA) chewable tablet 162 Given 02/01/2021 4:14 PM CDT 1 62 mg mg 162 mg, Oral, ONCE, On Martine 02/01/21 at 1605, For 1 dose gadobutrol (GADAVIST) injection 15 mL Given 02/01/2021 5:32 PM CDT 12 mLs 15 mL, Intravenous, ONCE, On Martine 02/01/21 at 1640, For 1 dose iopamidol (ISOVUE-370) solution 500 mL Given 02/01/2021 3:33 PM CDT 70 mLs 500 mL, Intravenous, ONCE, On Martine 02/01/21 at 1530, For 1 dose ondansetron (ZOFRAN) injection 4 mg 4 mg, Intravenous, EVERY 6 HOURS PRN, nausea, vomiting , Administer over 2-5 Minutes, Starting on Martine 02/01/21 at 1824, Give IF patient unable to tolerate oral medication. This is Step 1 of nausea and vomiting alicia gement. If nausea not resolved in 15 minutes, go to Step 2 pro chlorperazine (COMPAZINE). Irritant. For ordered IV doses 0.1-4 mg, give IV Push undiluted over 2-5 minutes. ondansetron (ZOFRAN-ODT) ODT tab 4 mg 4 mg, Oral, EVERY 6 HOURS PRN, nausea, v omiting, Starting on Martine 02/01/21 at 1824, This is Step 1 of nausea and vomiting management. If n ausea not resolved in 15 minutes, go to Step 2 prochlorperazine ( COMPAZINE). With dry hands, peel back foil backing and gently remove tablet. Do not push oral disintegrating tablet through foil backing. Administer immediately on tongue and ora l disintegrating tablet dissolves in seconds, then swallow with saliva. Liquid not required. pantoprazole (PROTONIX) EC tablet 40 mg Given 02/02/2021 11:55 AM CDT 40 mg 40 mg, Oral, EVERY OTHER DAY, First dose on Fri02/02/21 at 1030, DO NOT CRUSH. perflutren diluted 1mL to 2mL with saline Given 02/02/2021 7:38 AM CDT 3 mLs (OPTISON) diluted injection 3 mL 3 mL, Intravenous, ONCE, On Fri02/02/21 at 0800, For 1 dose, [facility] 4262-5052-88 prochlorperazine (COMPAZINE) injection 5 mg 5 mg, Intravenous, EVERY 6 HOURS PRN, nausea, vomiting , Administer over 1-2 Minutes, Starting on Fri02/01/21 at 1824, Give IF patient unable to tolerate oral medication. This is Step 2 of nausea and vomiting management. Give if nausea not resolved 15 minutes after giving ondanse iftikhar (ZOFRAN). If nausea not resolved in 15-30 minutes, Notify provider. For ordered IV doses 0 .1-10 mg, give IV push undiluted, each 5 mg over 1 minute. prochlorperazine (COMPAZINE) suppository 12.5 mg 12.5 mg, Rectal, EVERY 12 HOURS PRN, eric sea, vomiting, Starting on Fri02/01/21 at 1824, This is Step 2 of nausea and vomit ing management. Give if nausea not resolved 15 minutes after giving ondansetron (ZOFRAN). If nause a not resolved in 15-30 minutes, Notify provider. prochlorperazine (COMPAZINE) tablet 5 mg 5 mg, Oral, EVERY 6 HOURS PRN, vomiting, Starting on Fri02/01/21 at 1824, This is Step 2 of nausea and vomiting management . Give if nausea not resolved 15 minutes after giving ondansetron (ZOFRAN). If na usea not resolved in 15-30 minutes, Notify provider. Saline CT scan flush Given 02/01/2021 3:34 PM CDT 80 mLs Intravenous, 100 mL, ONCE, On Fri02/01/21 at 1530, For 1 dose sodium chloride (PF) 0.9% PF flush 10 mL Given 02/02/2021 7:38 AM CDT 10 mLs 10 mL, Intravenous, ONCE, On Fri02/02/21 at 0800, For 1 dose documented in this encounter Active and Recently Administered Medications Times are shown in CDT. Scheduled Medication Order 01/31/2021 02/01/2021 02/02/2021 aspirin (ASA) chewable tablet 162 mg (COMPLETED) 1614 (Given - Provider: Maia Hays, GARRETT) 162 mg, Oral, ONCE, On Fri02/01/21 at 1605, For 1 dose atorvastatin (LIPITOR) tablet 10 mg 10 mg, Oral, AT BEDTIME, First dose on Fri02/02/21 at 2200 gadobutrol (GADAVIST) injection 15 mL (COMPLETED) 1732 (Given - Provider: Kevin Mojica) 15 mL, Intravenous, ONCE, On Fri02/01/21 at 1640, For 1 dose gadobutrol (GADAVIST) injection 15 mL 17 31 (Not Given - Provider: Kevin Mojica - Reason: Other) 15 mL, Intravenous, ONCE, On Fri02/01/21 at 1735, For 1 dose iopamidol (ISOVUE-370) solution 500 mL (COMPLETED) 1533 (Given - Provider: NICO Adams) 500 mL, Intravenous, ONCE, On Fri02/01/21 at 1530, For 1 dose pantoprazole (PROTONIX) EC tablet 40 mg 1155 (Given - Provider: Esdras Chauhan, GARRETT) 40 mg, Oral, EVERY OTHER DAY, First dose on Fri02/02/21 at 1030, DO NOT CRUSH. perflutren diluted 1mL to 2mL with salin e (OPTISON) diluted injection 3 mL (COMPLETED) 737 (Given - Provid er: Vivek Elliott) 3 mL, Intravenous, ONCE, On Fri02/02/21 at 0800, For 1 dose, [facility] 9228-[address]60-[address] scan flush (COMPLETED) 1534 (G iven - Provider: NICO Adams) Intravenous, 100 mL, ONCE, On Fri02/01/21 at 1530, For 1 dose sodium chloride (PF) 0.9% PF flush 10 mL (COMPLETED) 07 (Given - Provider: Vivek Elliott) 10 mL, Intravenous, ONCE, On Fri02/02/21 at 0800, For 1 dose terazosin (HYTRIN) capsule 2 mg 2 mg, Oral, AT BEDTIME, First dose on Fri02/02/21 at 2200 PRN Medication Order 01/31/2021 02/01/2021 02/02/2021 melatonin tablet 1 mg 1 mg, Oral, AT BEDTIME PRN, sleep, Start ing on Martine 02/01/21 at 1824, Do not give unless at least 6 hours of uninterrupted sleep is expected. ondansetron (ZOFRAN) injection 4 mg(Linked Group 1) 4 mg, Intravenous, EVERY 6 HOURS PRN, na usea, vomiting, Administer over 2-5 Minutes, Starting on Martine 02/01/21 at 1824, Give IF patient unable to tolerate oral medication. This is Step 1 of nausea and vomi ting management. If nausea not resolved in 15 minutes, go to Step 2 prochlorperazine (COMPAZINE). Irritant. For ordered IV doses 0.1-4 mg, give IV Push undiluted over 2-5 minutes. ondansetron (ZOFRAN-ODT) ODT tab 4 mg(Linked Group 1) 4 mg, Oral, EVERY 6 HOURS PRN, nausea, v omiting, Starting on Martine 02/01/21 at 1824, This is Step 1 of nausea and vomiting management. If nausea not resolved in 15 minutes, go to Step 2 prochlorperazine (CO MPAZINE). With dry hands, peel back foil backing and gently remove tablet. Do not push oral disintegrating tablet through foil backing. Administer immediately on tongue and oral disintegrating tablet di ssolves in seconds, then swallow with saliva. Liquid not require d. prochlorperazine (COMPAZINE) injection 5 mg(Linked Group 2) 5 mg, Intravenous, EVERY 6 HOURS PRN, na usea, vomiting, Administer over 1-2 Minutes, Starting on Martine 02/01/21 at 1824, Give IF patient unable to tolerate oral medication. This is Step 2 of nausea and vomi ting management. Give if nausea not reso lved 15 minutes after giving ondansetron (ZOFRAN). If nausea not resolved in 15-30 minutes, Notify provider. For ordered IV doses 0.1-10 mg, give IV push undiluted, each 5 mg over 1 minute. prochlorperazine (COMPAZINE) suppository 12.5 mg(Linked Group 2) 12.5 mg, Rectal, EVERY 12 HOURS PRN, eric sea, vomiting, Starting on Martine 02/01/21 at 1824, This is Step 2 of nausea and vomiting management. Give if nausea not resolved 15 minutes after giving ondansetron ( ZOFRAN). If nausea not resolved in 15-30 minutes, Notify provide r. prochlorperazine (COMPAZINE) tablet 5 mg(Linked Group 2) 5 mg, Oral, EVERY 6 HOURS PRN, vomiting, Starting on Martine 02/01/21 at 1824, This is Step 2 of nausea and vomiting management. Give if nausea not resolved 15 minutes after giving ondansetron (ZOFRAN). If na usea not resolved in 15-30 minutes, Notify provider. Linked Groups Order Group 1: ondansetron (ZOFRAN-ODT) ODT tab 4 mgJump to med 4 mg, Oral, EVERY 6 HOURS PRN, nausea, v omiting, Starting on Martine 02/01/21 at 1824
This is Step 1 of nausea and vomiting management. If nausea not resolved in 15 minutes, go to Step 2 prochlorperazine (COMPAZINE).&nbs p;With dry hands, peel back foil backing and gently remove tablet. Do not push oral disintegrating tablet through foil backing. Administer immediately on tong ue and oral disintegrating tablet dissol ves in seconds, then swallow with saliva. Liquid not required.
Or ondansetron (ZOFRAN) injection 4 mgJump to med 4 mg, Intravenous, EVERY 6 HOURS PRN, na usea, vomiting, Administer over 2-5 Minutes, Starting on Martine 02/01/21 at 1824
Give IF patient unable to tolerate oral medication. This is Step 1 o f nausea and vomiting management. If eric sea not resolved in 15 minutes, go to Step 2 prochlorperazine (COMPAZINE). Irritant. For ordered IV doses 0.1-4 mg, give IV Push undiluted over 2-5 minutes.
Group 2: prochlorperazine (COMPAZINE) injection 5 mgJump to med 5 mg, Intravenous, EVERY 6 HOURS PRN, na usea, vomiting, Administer over 1-2 Minutes, Starting on Martine 02/01/21 at 1824
Give IF patient unable to tolerate oral medication. This is Step 2 o f nausea and vomiting management. Give i f nausea not resolved 15 minutes after giving ondansetron (ZOFRAN). If nausea not resolved in 15-30 minutes, Notify provider. For ordered IV dos es 0.1-10 mg, give IV push undiluted, ea ch 5 mg over 1 minute.
Or prochlorperazine (COMPAZINE) tablet 5 mgJump to med 5 mg, Oral, EVERY 6 HOURS PRN, vomiting, Starting on Martine 02/01/21 at 1824
This is Step 2 of nausea and vomiting management. Give if nausea not resolved 15 minutes after giving ondansetron (ZOFRAN ). If nausea not resolved in 15-30 minutes, Notify provider.
Or prochlorperazine (COMPAZINE) suppository 12.5 mgJump to med 12.5 mg, Rectal, EVERY 12 HOURS PRN, eric sea, vomiting, Starting on Martine 02/01/21 at 1824
This is Step 2 of nausea and vomiting management. Give if nausea not resolved 15 minutes after giving ondan setron (ZOFRAN). If nausea not reso lved in 15-30 minutes, Notify provider.
documented in this encounter Care Teams Managed Care Provider Relationship Specialty Start Date End Date [facility] And PCP - General 02/01/21 [facility]- [address] [place] [address] documented as of this encounter
--- OUTSIDE RECORDS SUMMARY | 2022-04-18 14:52 | XMS_ITS | Encounter Summary ---
:1945 Author Organization [place] Address [address] [place] [id number] Care Team Providers Name Role Phone [facility]- Encounter Details Date Type Department Care Team Description 02/01/2021 Travel Social History Tobacco Use Types Packs/Day [...] on filedocumented in this encounter Care Teams Dandy Tender Relationship Specialty Start Date End Date [facility] And PCP - General 02/01/21 [facility]- [address] [place] [address] documented as of this encounter
--- OUTSIDE RECORDS SUMMARY | 2022-04-18 14:52 | XMS_ITS | Encounter Summary ---
:1945 Author Organization [place] Address [address] [place] [id number] Care Team Providers Name Role Phone [facility] Prov kelle 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 documented as of this encounter Miscellaneous Notes Telephone Encounter - Linda Thornton RN - 03/14/2021 10:46 AM CDT Patient notified of Event monitor review from Yeny May agrees with plan and will follow up on 03-21-[address] Casiano. Patient states he has had a mild headache jsut about every day. Not sure if from his BP medications. He has not been taking his BP at home. Recommend he take his BP 1-2 hours after his medications and also when he has a headache and bring the readings to his upcoming OV. .sverb Telephone Encounter - Yeny May APRN CNP - 03/13/2021 12:22 PM CDT Reviewed recent event monitor This showed A-fib with a controlled ventricular rate (60-80 bpm) Some periods of IVCD. No change in medical regimen On Eliquis Follow up as planned with Dr. Casiano next week documented in this encounter Plan of Treatment Not on filedocumented as of this encounter Visit Diagnoses Not on filedocumented in this encounter Care Teams Ornamental Metal Fabricator Apprentice Relationship Specialty Start Date End Date [facility], PCP - General 02/01/21 [facility]- [address] [place] [address] Yeny May APRN CNP Assigned Heart and Vascular 02/18/2103/24 [address] Provider KEVINCYNTHIA [id number] documented as of this encounter
--- OUTSIDE RECORDS SUMMARY | 2022-04-18 14:52 | XMS_ITS | Encounter Summary ---
:1945 Author Organization [facility] Address [address] [place] [id number] Care Team Providers Name Role Phone Ran Lee MD Primary Care Provider Reason for Visit Auth/Cert - Closed Specialty Diagnoses / Procedures Referred By Contact Refer red To Contact Surgery Diagnoses DJD Rh Periop Services Procedures ARTHROPLASTY HIP [address] [place], [place] [address] Phone: Fax: Referral ID Status Reason Start Date Expiration Date Visits Requ ested Visits Authorized [id number] Closed 1 1 Encounter Details Date Type Department Care Team Description 03/22[facility]2013 [facility]2013 [place] [id number] Milton Corona MD (total hip Surgical [facility] replacement) [address] [facility] (Primary Dx) [place] [address] [address] [address] [place] [address] Social History Tobacco Use Types Packs/Day Years Used Date Smoking Tobacco: Never Alcohol Use Standard Drinks/Week Comments Yes 0 (1 standard drink = 0.6 oz pure alcoho l) 2 per day Sex Assigned at Date Recorded Male 04/02/2021 10:12 AM CDT documented as of this encounter Last Filed Vital Signs Vital Sign Reading Time Taken Comments Blood Pressure 126/63 03/25/2013 7:48 AM CDT Pulse 60 03/24/2013 7:00 PM CDT Temperature 36.8 ??C (98.3 ??F) 03/25/2013 7:48 AM CDT Respiratory Rate 16 03/25/2013 7:48 AM CDT Oxygen Saturation 96% 03/25/2013 7:48 AM CDT Inhaled Oxygen Concentration - - Weight 130.6 kg (288 lb) 03/22/2013 5:35 AM CDT Height 190.5 cm (6' 3) 03/22/2013 5:35 AM CDT Body Mass Index 36 03/22/2013 5:35 AM CDT documented in this encounter Discharge Summaries Elana Ayala PA-C - 03/25/2013 10:03 AM CDT Diagnosis: DJD hip Procedure: THR Surgeon: Freddy Obregon MD Patient underwent total hip replacement without complication. Patient's hospital stay included physical therapy and DVT prophylaxis. After discussion with patient regarding no history of DVT and current high mobility, patient is discharged with ASA for home DVT pphx. Patient will follow -up in the office 10- 14days post-op for wound check. Please refer to chart for any other specifics of this hospitalstay. Elana Ayala PA-C documented in this encounter Discharge Instructions Discharge InstructionsKelsi Brooks RN - 03/25/2013 11:21 AM CDT See general discharge instruction sheet for hips. 1. Do exercises as instructed by therapist. 2. Observe your hip precautions. 3. Walk daily increasing distance and time each day by a little. 4. Ice hip for swelling and discomfort. 5. May shower, change dressing daily and examine incision when uncovered for problems. 6. Wear white stockings until follow up appt. May remove three times per day for 30-45 min 7. Notify your dentist of your implant so you can get antibiotics before any dental work or for any other invasive procedure. 8. Do not cross legs. Clarification: Aquacel dressing: This is a new type of dressing. DO NOT CHANGE DRESSING DAILY. Leavethis dressing on until follow-up appointment with Orthopedic Surgeon. See instruction sheet for further information regarding this dressing. documented in this encounter Medications at Time of Discharge Medication Sig Dispensed Refills Start Date End Date terazosin (HYTRIN) 2 MG Take 2 mg by mouth 0 capsule At Bedtime. acetaminophen 650 MG Take 650 mg by 100 tablet 1 03/24/2013 02/01/2021 TABSIndications: Status mouth every 6 post THR (total hip hours replacement) aspirin EC 325 MG Take 1 tablet (325 40 tablet 0 03/26/2013 01/04/2017 tabletIndications: Status mg) by mouth daily post THR (total hip replacement) bisoprolol-hydrochlorothia Take 1 tablet by 0 02/01/2021 zide (ZIAC) 10-6.25 MG per mouth daily. tablet oxyCODONE (ROXICODONE) 5 1 tab po q 4 hrs prn pain scale 1-5, 65 ta blet 0 03/24/2013 01/04/2017 MG immediate release 2 tabs po q 4hrs prn pain scale 6-10 tabletIndications: Status post THR (total hip replacement) simvastatin (ZOCOR) 20 MG Take 20 mg by 0 01/04/2017 tablet mouth At Bedtime. documented as of this encounter Progress Notes Tony Burgos MD - 03/25/2013 11:04 AM CDT Vitals stable. No active complaints. Tolerating oral diet. Being discharge today, Patient is on ASA for DVT prophylaxis as per ortho No new meds for BP control. May go home from Medicine standpoint. Elana Ayala PA-C - 03/25/2013 10:00 AM CDT Orthopedic Surgery 03/25/2013 POD 3 S: Patient voices no ortho complaints today. Denies chest pain or shortness of breath. O: Blood pressure 126/63, pulse 60, temperature 98.3 ??F (36.8 ??C), temperature source Oral, resp. rate 16, height 1.905 m (6' 3), weight 130.636 kg (288 lb), SpO2 96.00%. HGB 10.6 03/24/2013 INR 1.72 03/25/2013 I/O last 3 completed shifts: In: 240 [P.O.:240] Out: 1200 [Urine:1200] Distal extremity CMSI bilaterally. Calves are negative bilaterally, both soft and nontender. The dressing is C/D/I. Incision is benign with minimal drainage. A: Mr. Lang is doing well status post Procedure(s): ARTHROPLASTY HIP. P: Continue physical therapy. Continue DVT pphx. Anticipate discharge to home on daily ASA and TTWB.Will f/u in 10-14 days post-op. Elana Ayala PA-C [phone] Elana Ayala PA-C - 03/25/2013 8:01 AM CDT Orthopedic Surgery 03/25/2013 POD 3 S: Patient voices no ortho complaints today. Denies chest pain or shortness of breath. O: Blood pressure 126/63, pulse 60, temperature 98.3 ??F (36.8 ??C), temperature source Oral, resp. rate 16, height 1.905 m (6' 3), weight 130.636 kg (288 lb), SpO2 96.00%. HGB 10.6 03/24/2013 INR 1.72 03/25/2013 I/O last 3 completed shifts: In: 240 [P.O.:240] Out: 1200 [Urine:1200] Distal extremity CMSI bilaterally. Calves are negative bilaterally, both soft and nontender. The dressing is C/D/I. Incision is benign with minimal drainage. A: Mr. Lang is doing well status post Procedure(s): ARTHROPLASTY HIP. P: Continue physical therapy. Continue DVT pphx with last dose of coumadin today then ASA daily at home due to his low risk factors. Anticipate discharge to Home today. Please reinforce that he is to be toe touch weightbearing on that operative leg. Elana Ayala PA-C [phone] Tony Burgos MD - 03/24/2013 11:30 AM CDT [facility] Hospitalist Progress Note 03/24/2013 Name: Vivek Lang Date of Admission: 03/22/2013 Interval History: He did well overnight with resolution of nausea and vomiting. Currently afebrile with stable vitals signs. He is in good spirit and participatory with therapy. Medications: I have reviewed this patient's current medications. Physical Exam: Heart Rate: 61 , Blood pressure 104/63, pulse 57, temperature 98.4 ??F (36.9 ??C), temperature source Oral, resp. rate 16, height 1.905 m (6' 3), weight 130.636 kg (288 lb), SpO2 94.00%. I/O last 3 completed shifts: In: 600 [P.O.:400; I.V.:200] Out: 1850 [Urine:1850] Exam: HEENT; Atraumatic, normocephalic, pinkish conjuctiva, pupils bilateral reactive Skin: warm and moist, no rashes Lungs: equal chest expansion, clear to auscultation, no wheezes, no stridor, no crackles, Heart: normal rate, normal rhythm, no rubs or gallops. Abdomen: normal bowel sounds, no tenderness, no peritoneal signs, no guarding Neuro; follow commands, alert and oriented x3 Psych; no hallucination, euthymic mood, not agitated Data: Recent labs, imaging, and other studies were reviewed. Lab 03/24/1361803/23/13617 WBC -- -- HGB 10.6* 12.6* HCT -- -- MCV -- -- PLT -- -- Lab 03/24/1361803/23/13617 NA -- 135 POTASSIUM -- 4.6 CHLORIDE -- 98 CO2 -- 30 ANIONGAP -- 7 GLC 105* 156* 155* BUN -- 15 CR -- 0.78 GFRESTIMATED -- >90 GFRESTBLACK -- >90 ISIS -- 8.3* Assessment and Plan: 1.) Hypertension- controlled will continue current regimen. 2.) nausea and vomiting- resolved 3.) DVT prophylaxis- as per ortho. 4.) deconditioning- with PT/OT here. Elana Ayala PA-C - 03/24/2013 10:02 AM CDT Orthopedic Surgery 03/24/2013 POD 2 S: Patient voices no ortho complaints today. Denies chest pain or shortness of breath. O: Blood pressure 118/72, pulse 70, temperature 98.4 ??F (36.9 ??C), temperature source Oral, resp. rate 16, height 1.905 m (6' 3), weight 130.636 kg (288 lb), SpO2 93.00%. HGB 10.6 03/24/2013 INR 1.23 03/24/2013 I/O last 3 completed shifts: In: 600 [P.O.:400; I.V.:200] Out: 1850 [Urine:1850] Distal extremity CMSI bilaterally. Calves are negative bilaterally, both soft and nontender. The dressing is C/D/I. A: Mr. Lang is doing well status post Procedure(s): ARTHROPLASTY HIP. P: Continue physical therapy TTWB. Continue DVT pphx w coumadin in hospital and then convert to daily ASA for home due to his low risk factors and high mobility. Anticipate discharge to Home tomorrow. Elana Ayala PA-C [phone] Fatou Koroma-Provider - 03/24/2013 10:00 AM CDT Domi Galvan OT - 03/23/2013 3:47 PM CDT 03/23/13 1542 Quick Adds Type of Visit Initial Occupational Therapy Evaluation Living Environment (R) Lives With spouse Living Arrangements house Home Accessibility (walk in shower) Number of Stairs To Enter Home 3 Transportation Available car;family or friend will provide Living Environment Comment Pt.'s is home and can assist. Pt. is talking about possible installing a comfort height toilet at home. Self-Care Dominant Hand right Usual Activity Tolerance good Current Activity Tolerance moderate Regular Exercise no Equipment Currently Used At Home raised toilet;walker, rolling Activity/Exercise/Self-Care Comment Pt. was independent with ADLs but noted pain impairing participation. (R) Functional Level Prior (R) Ambulation 0-->independent (R) Transferring 0-->independent (R) Toileting 0-->independent (R) Bathing 0-->independent (R) Dressing 0-->independent (R) Eating 0-->independent (R) Communication 0-->understands/communicates without difficulty (R) Swallowing 0-->swallows foods and liquids without difficulty (R) Cognition 0 - no cognition issues reported (R) Fall history within last six months no (R) Which of the above functional risks had a recent onset or change? ambulation Prior Functional Level Comment retired General Information Onset of Illness/Injury or Date of Surgery - Date 03/22/13 Referring Physician Maximiliano Patient/Family Goals Statement return home Pertinent History of Current Problem s/p R LUCI. PMHx: back surgery, HTN, CAD Precautions/Limitations right hip precautions;fall precautions Weight-Bearing Status - RLE weight-bearing as tolerated (foot flat) General Observations Pt. in bed with present and agreeable to therapy. 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 Transfer Skills Transfer Comments SBA Lower Body Dressing Level of [place]: Dress Lower Body stand-by assist Physical Assist/Nonphysical Assist: Dress Lower Body set-up required;supervision Assistive Device senior commissary agent;sock-aid Grooming Level of [place]: Grooming stand-by assist Physical Assist/Nonphysical Assist: Grooming set-up required (in bed) Eating/Self Feeding Level of [place]: Eating independent Instrumental Activities of Daily Living (IADL) Previous Responsibilities (shares with ) Activities of Daily Living Analysis Impairments Contributing to Impaired Activities of Daily Living pain;post surgical precautions;ROM decreased General Therapy Interventions Planned Therapy Interventions ADL retraining;transfer training Clinical Impression Criteria for Skilled Therapeutic Interventions Met yes, treatment indicated OT Diagnosis impaired independence with ADLs Influenced by the following impairments see above Functional limitations due to impairments decreased bending and reaching, decreased functional transfers, decreased LE dressing and grooming Rehab Potential good, to achieve stated therapy goals Therapy Frequency daily Predicted Duration of Therapy Intervention (days/wks) 3 days Anticipated Equipment Needs at Discharge (has AE, DME may need new RTS or commode) Anticipated Discharge Disposition home w/ assist Risks and Benefits of Treatment have been explained. Yes Patient, Family & other staff in agreement with plan of care Yes Total Evaluation Time Total Evaluation Time (Minutes) 10 Cande Hawthorne LSW - 03/23/2013 2:35 PM CDT SWS D: Per identification in rounds for SW to follow for discharge needs. Chart reviewed noting pt's admit yesterday after surgery for R LUCI, noted PT assessment with anticipation of pt's return home on discharge. Pt lives with his in their one level home in [place], prior to surgery he had been i ndependent with ambulation and ADLs. A: Based on progress and support available anticipate pt's return home with assist of as needed. PT/OT will assess for and issue needed DME for ambulation and ADLs adjustment. P: No SW needs identified at this time, available until discharge should needs arise. Aleisha Mckeon RN - 03/23/2013 2:12 PM CDT RN:pt vss Lungs: are clear, encouraged pt to use IS hourly BS:+Pt having a lot of nausea at beginning of shift. Zofran given. Started passing flatus. pt is drinking well, Low output. CMS:+, Pillow support under operative leg.Dressing is CDI. Pain: controlled with pain meds before pt. Ice to operative extremity. Activity: Up with A1, doing well in pt, tolerated wheelchair after pt. Tony Burgos MD - 03/23/2013 2:05 PM CDT UA reviewed not suggestive of UTI Patient has no complaints prior to cartagena cath insertion of dysuria, hematuria or frequency. No fever, no abdominal pain. Will continue to monitor. May remove cartagena cath if no further indication from surgical standpoint. Elana Ayala PA-C - 03/23/2013 1:44 PM CDT Orthopedic Surgery 03/23/2013 POD 1 S: Patient voices no ortho complaints today. Denies chest pain or shortness of breath. O: Blood pressure 158/68, temperature 98.6 ??F (37 ??C), temperature source Oral, resp. rate 16, height 1.905 m (6' 3), weight 130.636 kg (288 lb), SpO2 92.00%. HGB 12.6 03/23/2013 INR 1.13 03/23/2013 I/O last 3 completed shifts: In: 5250 [P.O.:440; I.V.:4810] Out: 2450 [Urine:1625; Emesis/NG output:550; Blood:275] Distal extremity CMSI bilaterally. Calves are negative bilaterally, both soft and nontender. The dressing is C/D/I. A: Mr. Lang is doing well status post Procedure(s): ARTHROPLASTY HIP. P: Continue physical therapy. Continue DVT pphx. Anticipate discharge to home on . Elana Ayala PA-C [phone] Tony Burgos MD - 03/23/2013 11:20 AM CDT [facility] Hospitalist Progress Note 03/23/2013 Name: Vivek Lang Date of Admission: 03/22/2013 Interval History: Patient had several episodes of nausea and vomiting overnight. BP on the higher side. No fever, abdominal pain, shortness of breath or chest pain. Complaining of headache. Medications: I have reviewed this patient's current medications. Physical Exam: Heart Rate: 62 , Blood pressure 158/68, temperature 98.6 ??F (37 ??C), temperature source Oral, resp. rate 16, height 1.905 m (6' 3), weight 130.636 kg (288 lb), SpO2 92.00%. I/O last 3 completed shifts: In: 5250 [P.O.:440; I.V.:4810] Out: 2450 [Urine:1625; Emesis/NG output:550; Blood:275] Exam: HEENT; Atraumatic, normocephalic, pinkish conjuctiva, pupils bilateral reactive Skin: warm and moist, no rashes Lungs: equal chest expansion, clear to auscultation, no wheezes, no stridor, no crackles, Heart: normal rate, normal rhythm, no rubs or gallops. Abdomen: normal bowel sounds, no tenderness, no peritoneal signs, no guarding Neuro; follow commands, alert and oriented x3 Psych; no hallucination, euthymic mood, not agitated Data: Recent labs, imaging, and other studies were reviewed. Lab 03/23/13 0618 WBC -- HGB 12.6* HCT -- MCV -- PLT -- Lab 03/23/13 0618 NA -- POTASSIUM -- CHLORIDE -- CO2 -- ANIONGAP -- GLC 156* BUN -- CR -- GFRESTIMATED -- GFRESTBLACK -- ISIS -- Assessment and Plan: 1.) Nausea and vomiting- will continue antiemetics, send lipase, electrolytes and UA. Urine in the cartagena catheter appears to have a lot of sediments and pus like material. ABx if with UTI 2. ) Hypertension- uncontrolled most likely precipitated by #1 3.) LUCI- postoperative state Allyssa Grover, PT - 03/23/2013 11:10 AM CDT 03/23/13 1022 Quick Adds Type of Visit Initial PT Evaluation Living Environment (R) Lives With spouse Living Arrangements house Number of Stairs To Enter Home 3 (railing present, to enter from garage) Transportation Available car Self-Care Usual Activity Tolerance good Current Activity Tolerance moderate Regular Exercise no Equipment Currently Used At Home walker, rolling (not used) Activity/Exercise/Self-Care Comment almost couldn't walk without AD prior to surgery. (R) Functional Level Prior (R) Ambulation 0-->independent (R) Transferring 0-->independent (R) Toileting 0-->independent (R) Bathing 0-->independent (R) Dressing 0-->independent (R) Eating 0-->independent (R) Communication 0-->understands/communicates without difficulty (R) Swallowing 0-->swallows foods and liquids without difficulty (R) Cognition 0 - no cognition issues reported (R) Fall history within last six months no (R) Which of the above functional risks had a recent onset or change? ambulation;transferring;toileting;bathing Prior Functional Level Comment retired General Information Onset of Illness/Injury or Date of Surgery - Date 03/22/[address] Obregon Patient/Family Goals Statement pt plans to d/c home with assist of spouse Pertinent History of Current Problem Pt s/p R LUCI, with operative small femur fx-repaired in surgery. PMHx significant for HTN. Precautions/Limitations right hip precautions (ant-lateral) Weight-Bearing Status - RLE weight-bearing as tolerated (flat foot) General Observations pt resting in bed on therapist arrival, reports nausea. Cognitive Status Examination Orientation orientation to person, place and time Level of Consciousness alert Follows Commands and Answers Questions 100% of the time Personal Safety and Judgment intact Memory intact Pain Assessment Patient Currently in Pain Yes, see Vital Sign flowsheet Posture Posture Not impaired Range of Motion (ROM) ROM Comment BLEs WFL, except R hip precautions-cues for no greater than 90* hip flexion. Strength Strength Comments not formally tested, pt requires min A for R LE mobility due to pain Bed Mobility Bed Mobility Comments supine to sit with min A of 2 Transfer Skills Transfer Comments sit to stand from raised bed with min A of 1 and CGA of 2nd. Gait Gait Comments pt took a few steps to turn to wc, with WW, CGA of 2. Balance Balance Comments seated balance normal. standing balance impaired due to RLE pain/weakness. Sensory Examination Sensory Perception Comments numbness B feet, R >L chronic. General Therapy Interventions Planned Therapy Interventions bed mobility training;gait training;strengthening;ROM;transfer training;home program guidelines;progressive activity/exercise Clinical Impression Criteria for Skilled Therapeutic Intervention yes, treatment indicated PT Diagnosis impaired functional mobility s/p R LUCI APTA Preferred Practice Pattern musculoskeletal Influenced by the following impairments RLE pain, weakness, hip precautions. Functional limitations due to impairments requires assist for mobility, decreased activity tolerance. Rehab Potential good, to achieve stated therapy goals Rehab potential affected by motivated, has assist of spouse as needed. Therapy Frequency` daily Predicted Duration of Therapy Intervention (days/wks) 3 days Anticipated Equipment Needs at Discharge (might need wide WW and SEC) Anticipated Discharge Disposition home w/ assist Risk & Benefits of therapy have been explained Yes Patient, Family & other staff in agreement with plan of care Yes Total Evaluation Time Total Evaluation Time (Minutes) 10 documented in this encounter H&P Notes Freddy Obregon MD - 03/18/2013 6:01 PM CDT Freddy Obregon MD - 03/16/2013 4:59 PM CDT documented in this encounter Consult Notes Tony Burgos MD - 03/22/2013 2:22 PM CDT Hospitalist Consultation Vivek Lang Date of : 1945 Age: [age] year old Date of Admission: 03/22/2013 Requesting Physician: Maximiliano Reason for consult: Post operative medical management Assessment and Plan: This patient is a 67 year old male who is POD 0 s/p right LUCI for treatment of underlying DJD that failed out patient medical management 1. LUCI: Pain management, Prophylaxis, diet, PT/OT and discharge planning per Ortho. Warfarin therapyreminder is scheduled per surgeon. Post op note reviewed. EBL 250cc. Small calcar crack occurred during surgery, fixed with cable and is stable. No intraoperative complication. Discontinue IV fluids once tolerating PO. Some post operative hypertension in PACU that has since resolved on floor. Will monitor. Recheck Hgb in AM. 2. HTN: Currently stable. Continue JEWELRY JOBBER Hytrin and Ziac with parameters. 3. Prophylaxis: Per surgery. Warfarin therapy reminder is scheduled. 5. Full Code 6. D/C plans: Patient lives locally at home with his and plans to d/c home. D/c plans per Ortho Case was discussed with me and I agree with the current diagnosis, plan and management as outlined above. Tony Burgos M.D. History of Present Illness: This patient is a 67 year old male who is POD 0 s/p right LUCI. Resting comfortable and pain controlled. Denies nausea, post op vomiting, headaches, abdominal pain, chest pain or dyspnea. Past Medical History: Past Medical History Diagnosis Date ??? Hypertension ??? Coronary artery disease more than ten years high cholestrol ??? High cholesterol ??? Arthritis Past Surgical History: Past Surgical History Procedure Date ??? Laminectomy lumbar three+ levels Social History: History Substance Use Topics ??? Smoking status: Never Smoker ??? Smokeless tobacco: Not on file ??? Alcohol Use: Yes 2 per day Family History: Non contribuatory Allergies: No Known Allergies Medications: Prior to Admission medications Medication Sig Last Dose Taking? Auth Provider terazosin (HYTRIN) 2 MG capsule Take 2 mg by mouth At Bedtime. 03/22/2013 at 0400 Yes Reported, Patient simvastatin (ZOCOR) 20 MG tablet Take 20 mg by mouth At Bedtime. Past Week at Unknown Yes Reported, Patient bisoprolol-hydrochlorothiazide (ZIAC) 10-6.25 MG per tablet Take 1 tablet by mouth daily. 03/22/2013 at 0400 Yes Reported, Patient aspirin 81 MG tablet Take 1 tablet by mouth daily. Past Month at Unknown Yes Reported, Patient Review of Systems: A comprehensive greater than 10 system review of systems was carried out. Pertinent positives and negatives are noted above. Otherwise negative for contributory info. Physical Exam: Vitals were reviewed Blood pressure 124/76, temperature 97.2 ??F (36.2 ??C), temperature source Temporal, resp. rate 16, height 1.905 m (6' 3), weight 130.636 kg (288 lb), SpO2 98.00%. Exam: GENERAL: Comfortable. PSYCH: pleasant, oriented, No acute distress. HEENT: PERRLA. Normal conjunctiva, normal hearing, nasal mucosa and Oropharynx are normal. NECK: Supple, no neck vein distention, adenopathy or bruits, normal thyroid. HEART: Normal S1, S2 with no murmur, no pericardial rub, S3 or S4. LUNGS: Clear to auscultation, normal Respiratory effort. ABDOMEN: Soft, no hepatosplenomegaly, normal bowel sounds. EXTREMITIES: No pedal edema, +2 pulses bilateral and equal. Neuro/motor and sensory intact. DressingRight hip c/d/i SKIN: Warm, dry to touch, No rash, wound or ulcerations. NEUROLOGIC: Nonfocal with normal cranial nerve and motor power and sensation. Data: Pre Op Hgb 14.8 Today INR 1.08 Leilani Torres PA-C Pt discussed with who agrees with the care as discussed above. documented in this encounter Nursing Notes Judith Soler RN - 03/22/2013 11:[address] Pavan holland regarding BP and HR. Judith Soler RN - 03/22/2013 10:37 AM CDT Xrays of right hip done. No c/o pain just intense itching on bottom of right foot which is common for him documented in this encounter Miscellaneous Notes Plan of Care - Miriam Pedro - 03/25/2013 9:33 AM CDT Problem: General Rehab Plan of Care Goal: Physical Therapy Goals The patient and/or their product support representative will achieve their patient-specific goals related to the plan of care. The patient-specific goals include: By 03/25/13 pt will demo: Total Hip Arthroplasty PT Goals 1. Perform all bed mobility with Min Assist or less to allow safe negotiation of bedroom environment. 2. Transfer from sitting with min assist or less following proper LUCI precautions to allow for safe negotiation of living environment. 3. Ambulate at least 100 ft with SBA or less using assistive device properly to decrease risk for falls during gait in the home environment. 4. Negotiate 4 stairs with rail with min assist or less to allow for safe access into living environment. FREQUENCY: BID Duration: 3 days D/c disposition: home with assist PT: pt discharging to home with assist from family Goals: 1. Met 2. Met 3. Met 4. met Physical Therapy Discharge Summary Reason for discharge: Discharged from facility. Progress towards goals: Goals met Recommendation(s): No further therapy is recommended. Plan of Care - RodrigoLashay - 03/25/2013 9:24 AM CDT Problem: General Rehab Plan of Care Goal: Occupational Therapy Goals The patient and/or their product support representative will achieve their patient-specific goals related to the plan of care. The patient-specific goals include: 1. Patient will transfer to toilet, completing dressing and hygiene cares with SBA using appropriateDME, following all hip precautions. (GOAL MET 03/25/13) 2. Patient will transfer to walk-in shower or tub/shower combination with SBA using appropriate DME,following all hip precautions. (GOAL MET 03/24/13 per pt report) 3. Patient will complete lower body dressing, after set-up, with SBA using appropriate DME, following all hip precautions. Goal met 03/23/13 4. Patient will stand at sink for at least 5 minutes of typical ADL routine with SBA. (goal not met as goal no longer appropriate due to TTWB status) 5. Patient will demonstrate safe use of walker, including transporting items and reaching during ADLs. 6. Patient will verbalize at least 2-3 adaptations to ADLs routines at home to accommodate energy level and safety needs. Goal met 03/23/13 Frequency: Daily Outcome: Completed Date Met: 03/25/13 OT: Recommend home with assist and this is pt's plan for later today. Pt was SBA with toilet transfer today and functional mobility in room and bathroom. Pt reports that will assist with LE Dressing as needed, otherwise will use AE that he has at home. Will dc from OT. Occupational Therapy Discharge Summary Reason for discharge: All goals and outcomes met, no futher needs identified. Discharged from facility. Progress towards goals: Goals met Recommendation(s): No further therapy is recommended. DC home with Plan of Care - Amira Crain RN - 03/24/2013 11:26 PM CDT Problem: IP GENERAL POC-ADULT,OB,BEHAVIORAL FVCPM Goal: Individualization/Patient-Specific Goal (Adult,OB,Behavioral The patient and/or their product support representative will achieve their patient-specific goals related to the plan of care. The patient-specific goals include: Right femur fracture intra-operative. Metal cable placed. Anticipate longer walker time post-op. Activity: Flat foot weight bearing. SWS Discharge planning for return home. Outcome: Improving VSS, af. Up with assist and walker. Pain controlled with po meds. Family visiting. States has baseline numbness in feet. Incision clean, dry and intact. Plan of Care - Rebecca Moreno, OT - 03/24/2013 3:15 PM CDT Problem: General Rehab Plan of Care Goal: Occupational Therapy Goals The patient and/or their product support representative will achieve their patient-specific goals related to the plan of care. The patient-specific goals include: 1. Patient will transfer to toilet, completing dressing and hygiene cares with SBA using appropriateDME, following all hip precautions. 2. Patient will transfer to walk-in shower or tub/shower combination with SBA using appropriate DME,following all hip precautions. 3. Patient will complete lower body dressing, after set-up, with SBA using appropriate DME, following all hip precautions. Goal met 03/23/13 4. Patient will stand at sink for at least 5 minutes of typical ADL routine with SBA. 5. Patient will demonstrate safe use of walker, including transporting items and reaching during ADLs. 6. Patient will verbalize at least 2-3 adaptations to ADLs routines at home to accommodate energy level and safety needs. Goal met 03/23/13 Frequency: Daily Outcome: Therapy, progress toward functional goals as expected OT-Per Dr. Obregon's PA-C, Becky, patient is TTWB status on the R. Patient was min A with sit to standand CGA with ambulation to complete toilet transfers. Anticipate patient will be safe to return homewith spouse to assist as needed. Will continue with OT for ADl's, functional mobility and increasingactivity tolerance as well as issuing DME as needed. Plan of Care - Lianet Anna, JEWELRY JOBBER - 03/24/2013 1:31 PM CDT Problem: General Rehab Plan of Care Goal: Physical Therapy Goals The patient and/or their product support representative will achieve their patient-specific goals related to the plan of care. The patient-specific goals include: By 03/25/13 pt will demo: Total Hip Arthroplasty PT Goals 1. Perform all bed mobility with Min Assist or less to allow safe negotiation of bedroom environment. 2. Transfer from sitting with min assist or less following proper LUIC precautions to allow for safe negotiation of living environment. 3. Ambulate at least 100 ft with SBA or less using assistive device properly to decrease risk for falls during gait in the home environment. 4. Negotiate 4 stairs with rail with min assist or less to allow for safe access into living environment. FREQUENCY: BID Duration: 3 days D/c disposition: home with assist PT: supine to sit with HOB raised with SBA. Sit <> stand with cues for RLE placement. Ambulated 80' with RW with CGA cues for TTWB. Supine R LUCI exercises x10 active. Anticipate pt to discharge to home tomorrow with assist from prn Plan of Care - Mimi Sierra, PT - 03/24/2013 12:02 PM CDT Problem: General Rehab Plan of Care Goal: Physical Therapy Goals The patient and/or their product support representative will achieve their patient-specific goals related to the plan of care. The patient-specific goals include: By 03/25/13 pt will demo: Total Hip Arthroplasty PT Goals 1. Perform all bed mobility with Min Assist or less to allow safe negotiation of bedroom environment. 2. Transfer from sitting with min assist or less following proper LUCI precautions to allow for safe negotiation of living environment. 3. Ambulate at least 100 ft with SBA or less using assistive device properly to decrease risk for falls during gait in the home environment. 4. Negotiate 4 stairs with rail with min assist or less to allow for safe access into living environment. FREQUENCY: BID Duration: 3 days D/c disposition: home with assist PT: Pt progressing well in therapy, transfers sit to stand w/ SBA and WW but cont to require min A for RLE for bed mobility. Pt amb 150 w WW and sBA, pt needing cues to maintain step to pattern and forward gaze when walking. May need SEC for use on stairs, has WW at home. DC to home Plan of Care - Kim Arauz RN - 03/24/2013 8:43 AM CDT Problem: IP GENERAL POC-ADULT,OB,BEHAVIORAL FVCPM Goal: Individualization/Patient-Specific Goal (Adult,OB,Behavioral The patient and/or their product support representative will achieve their patient-specific goals related to the plan of care. The patient-specific goals include: Right femur fracture intra-operative. Metal cable placed. Anticipate longer walker time post-op. Activity: Flat foot weight bearing. SWS Discharge planning for return home. Vss. Afebrile. Lungs clr-room air mid 90s. Is done. +bs/+gas, no nausea. Tolerating diet. Last bm 03/22/13. Voiding. Saline locked. Drsg-cdi. Cms wnl except for baseline numbness to bilateral feet- r>l. Tolerating ice and repositioning. No significant issues noted overnight. Plan of Care - Jaime Siddiqui RN - 03/23/2013 11:39 PM CDT Problem: IP GENERAL POC-ADULT,OB,BEHAVIORAL FVCPM Goal: Individualization/Patient-Specific Goal (Adult,OB,Behavioral The patient and/or their product support representative will achieve their patient-specific goals related to the plan of care. The patient-specific goals include: Right femur fracture intra-operative. Metal cable placed. Anticipate longer walker time post-op. Activity: Flat foot weight bearing. SWS Discharge planning for return home. Outcome: Improving BP 106/66 Temp 97.9 ??F (36.6 ??C) (Oral) Resp 18 Ht 1.905 m (6' 3) Wt 130.636 kg (288 lb) BMI 36.00 kg/m2 SpO2 98% Pain relieved with scheduled pain meds. No nausea/emesis this shift, tolerating regular diet. LS clear bilaterally, RA sats high 90s, encouraged to use IS & CDB hourly. BS hypo, flatus present, LBM9/23. CMS intact, baseline numbness bottom feet bilaterally R>L. Drsg changed sterilely, michael intact, edges approximated, new Aquecell applied. [place]a D/C, voiding clear yellow urine. UP with A1 +walker to bathroom. Systolic BP 90-100s, refused BP med, continue to monitor. Pleasant and cooperative, will make needs known, using call light appropriately. Plan of Care - Domi Galvan OT - 03/23/2013 3:51 PM CDT Problem: General Rehab Plan of Care Goal: Occupational Therapy Goals The patient and/or their product support representative will achieve their patient-specific goals related to the plan of care. The patient-specific goals include: 1. Patient will transfer to toilet, completing dressing and hygiene cares with SBA using appropriateDME, following all hip precautions. 2. Patient will transfer to walk-in shower or tub/shower combination with SBA using appropriate DME,following all hip precautions. 3. Patient will complete lower body dressing, after set-up, with SBA using appropriate DME, following all hip precautions. Goal met 03/23/13 4. Patient will stand at sink for at least 5 minutes of typical ADL routine with SBA. 5. Patient will demonstrate safe use of walker, including transporting items and reaching during ADLs. 6. Patient will verbalize at least 2-3 adaptations to ADLs routines at home to accommodate energy level and safety needs. Goal met 03/23/13 Frequency: Daily Outcome: Therapy, progress toward functional goals as expected OT eval completed and treatment initiated. Pt. Lives with his and they are both retired. Pt. lying in bed and agreeable to therapy. OT provided verbal cues for hip precautions and pt. verbalized understanding. Pt. able to complete bed mobility and supine to sit wtih SBA. OT provided education andtraining on use of senior commissary agent and sockaid for LE dressing due to hip precautions. Pt. able to complete LE dressing wtih AE with SBA at EOB. OT provided education and training on DME for toilet transfer aspt. notes his RTS has no arms and impairs independence with toileting. OT educated on DME for walk in shower transfer. OT educated [place] energy conservation[place] [facility] [place]. verbalized understanding and that his can help assist with setup at home. OT recommends discharge home with to assist with IADLs and setup for ADLs. Plan of Care - Allyssa Grover, PT - 03/23/2013 11:17 AM CDT Problem: General Rehab Plan of Care Goal: Physical Therapy Goals The patient and/or their product support representative will achieve their patient-specific goals related to the plan of care. The patient-specific goals include: By 03/25/13 pt will demo: Total Hip Arthroplasty PT Goals 1. Perform all bed mobility with Min Assist or less to allow safe negotiation of bedroom environment. 2. Transfer from sitting with min assist or less following proper LUCI precautions to allow for safe negotiation of living environment. 3. Ambulate at least 100 ft with SBA or less using assistive device properly to decrease risk for falls during gait in the home environment. 4. Negotiate 4 stairs with rail with min assist or less to allow for safe access into living environment. FREQUENCY: BID Duration: 3 days D/c disposition: home with assist Outcome: Therapy, progress toward functional goals as expected PT: PT eval and treatment completed. Pt presents s/p R LUCI, with ant-lateral precautions and WBAT with foot flat. Pt demos overall min A of 1-2 for transfers and up to wc, improved nausea after mobility. Pt previously independent and lives with spouse. Anticipate progression to d/c home with assist ofspouse, pt may need WW and SEC for stairs. Plan of Care - Sandrita Murdock RN - 03/23/2013 6:31 AM CDT Problem: IP GENERAL POC-ADULT,OB,BEHAVIORAL FVCPM Goal: Individualization/Patient-Specific Goal (Adult,OB,Behavioral The patient and/or their product support representative will achieve their patient-specific goals related to the plan of care. The patient-specific goals include: Right femur fracture intra-operative. Metal cable placed. Anticipate longer walker time post-op. Activity: Flat foot weight bearing. Outcome: No Change B/P: 138/82, T: 96.3, P: 58 , R: 16. Denies any pain incisional pain. C/O headache but denies any POmed's as he has had some emesis and continuous nausea. Emesis x2. Compazine given once with minimal relief. Has hypo BS. Cartagena in place with adequate output. CMS intact, has baseline numbness on feet. Appeared to sleep in between cares. Continue to monitor and notify MD with any significant changes. Plan of Care - Jaime Siddiqui RN - 03/22/2013 11:31 PM CDT Problem: IP GENERAL POC-ADULT,OB,BEHAVIORAL FVCPM Goal: Individualization/Patient-Specific Goal (Adult,OB,Behavioral The patient and/or their product support representative will achieve their patient-specific goals related to the plan of care. The patient-specific goals include: Right femur fracture intra-operative. Metal cable placed. Anticipate longer walker time post-op. Activity: Flat foot weight bearing. Outcome: Improving BP 129/75 Temp 97.2 ??F (36.2 ??C) (Temporal) Resp 16 Ht 1.905 m (6' 3) Wt 130.636 kg (288 lb) BMI 36.00 kg/m2 SpO2 97% Lungs: are clear bilaterally, RA sats high 90s, encouraged to use IS & CDB hourly BS: hypo, passing flatus, LBM today, tolerating full liquids - intermittent nausea relieved with rest declines PRN med Cartagena: patent draining clear yellow urine CMS: intact, denies calf tenderness, has baseline numbness in bottom of feet ( R>L). Pillow supports for comfort. Dressing small dried drainaged noted. Pain: controlled with PRN. Ice to R hip. Activity: Bedrest, tolerated repositioning with A2. Pleasant and cooperative, will make needs known, using call light appropriately. Plan of Care - Brandy Keyes RN - 03/22/2013 1:24 PM CDT Problem: IP GENERAL POC-ADULT,OB,BEHAVIORAL FVCPM Goal: Individualization/Patient-Specific Goal (Adult,OB,Behavioral The patient and/or their product support representative will achieve their patient-specific goals related to the plan of care. The patient-specific goals include: Outcome: Improving Patient returned from surgery this shift. HTN in PACU resolved since arrival. Denies pain. 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 Cartagena patent. Dr. Obregon rounded, femur fracture in surgery; cable applied. Flat foot weight bearing; anticipated longer walker time post-op. Tolerating clear liquids. Family in present in care. Educated on IS use, ankle pumps. Op Note - Freddy Obregon MD - 03/22/2013 9:27 AM CDT PREOPERATIVE DIAGNOSIS: Osteoarthritis, right hip. POSTOPERATIVE DIAGNOSIS: Osteoarthritis, right hip. PROCEDURE PERFORMED: Right total hip arthroplasty. SURGEON: Freddy Obregon MD. CUSTOMER SUPPORT ADVISOR: Elana Villegas PA-C. ANESTHESIA: General. ESTIMATED BLOOD LOSS: 250 cc. 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 This was treated with prophylactic cabling. PROCEDURE: Vivek Lang was taken to the operating room where, after successful administration of general anesthetic, antibiotic prophylaxis, tranexamic acid, and sterile prep and drape, a left lateraldecubitus position was used, followed by longitudinal incision with splitting the fascia and reflection of the anterior 40% of the gluteus medius with a sleeve of vastus lateralis. Dislocation was performed, and a femoral neck cut was made based on preoperative planning. Retractors were carefully placed about the acetabulum, and sequential reaming was performed to 56 mm, followed by placement of a Codi 58 mm Trilogy cup with a single screw as a precaution, although fixation was excellent. A 36 mm liner was placed, which was +3.5 mm offset. It was a neutral wall liner. Attention was directed to the femur. Templating demonstrated an anticipated size 15 prosthesis. Sequential reaming and broaching were performed, but with a 12.5 mm broach, a small 2-3 mm calcar crack developed that did not extend with exposure. I placed a prophylactic cable below the lesser trochanteras a precaution. The final stem was then placed, and the cable was retightened. A - 3.5x36 mm head was selected. With placement of the head and trialing, there was no visible evidence of the crack aftercable tightening. Copious lavage was performed, including Betadine-tinged saline ,and layered anatomic closure was accomplished, including Ethibond sutures through the trochanter. The wound was furtherirrigated, and Marcaine with epinephrine was placed for postoperative pain control. Sterile dressingwas applied. The patient will be given 4 weeks of DVT prophylaxis and 24 hours of antibiotic prophylaxis. FREDDY OBREGON MD MT: [id number] Name: VIVEK LANG Account: [id number] : 1945 Procedure Date: 03/22/2013 Document: [id number] Brief Op Note - Freddy Obregon MD - 03/22/2013 9:21 AM CDT OP NOTE LUCI for DJD of right hip Maximiliano - surgeon 250 EBL Small calcar crack treated with cable Freddy Obregon MD Pharmacy-Admission Medication History - Cecelia Schaefer RPH - 03/16/2013 5:02 PM CDT Admission medication history interview status for this patient is complete. See [facility] admission navigator for allergy information, prior to admission medications and immunization status. Medication history interview source(s):Patient Medication history resources (including written lists, pill bottles, clinic record):None Primary pharmacy: Actions taken by pharmacist (provider contacted, etc):None Additional medication history information:None Medication reconciliation/reorder completed by provider prior to medication history? No Prior to Admission medications Medication Sig Last Dose Taking? Auth Provider terazosin (HYTRIN) 2 MG capsule Take 2 mg by mouth At Bedtime. Yes Reported, Patient simvastatin (ZOCOR) 20 MG tablet Take 20 mg by mouth At Bedtime. Yes Reported, Patient bisoprolol-hydrochlorothiazide (ZIAC) 10-6.25 MG per tablet Take 1 tablet by mouth daily. Yes Reported, Patient aspirin 81 MG tablet Take 1 tablet by mouth daily. Yes Reported, Patient documented in this encounter Plan of Treatment Not on filedocumented as of this encounter Procedures Procedure Name Priority Date/Time Associated Comments Diagnosis INR Routine 03/25/2013 6:30 AM Results f or this CDT procedure are i n the results section. EKG 12-LEAD, TRACING Routine 03/24/2013 11:36 Res ults for this ONLY AM CDT procedure are i n the results section. INR Routine 03/24/2013 6:19 AM Results f or this CDT procedure are i n the results section. HEMOGLOBIN Routine 03/24/2013 6:19 AM Results f or this CDT procedure are i n the results section. GLUCOSE Routine 03/24/2013 6:19 AM Results f or this CDT procedure are i n the results section. URINE MACROSCOPIC Routine 03/23/2013 12:35 Result s for this WITH REFLEX TO MICRO PM CDT procedu re are in the results section. INR Routine 03/23/2013 6:18 AM Results f or this CDT procedure are i n the results section. MAGNESIUM Routine 03/23/2013 6:18 AM Results f or this CDT procedure are i n the results section. LIPASE Routine 03/23/2013 6:18 AM Results f or this CDT procedure are i n the results section. HEMOGLOBIN Routine 03/23/2013 6:18 AM Results f or this CDT procedure are i n the results section. GLUCOSE Routine 03/23/2013 6:18 AM Results f or this CDT procedure are i n the results section. BASIC METABOLIC PANEL Routine 03/23/2013 6:18 AM Results for this CDT procedure are i n the results section. XR PELVIS AD HIP STAT 03/22/2013 10:37 Results for this PORTABLE RIGHT 1 VIEW AM CDT proced ure are in the results section. ARTHROPLASTY, HIP, 03/22/2013 7:30 AM DJD TOTAL CDT Special Needs 6'3 /288# Per H&P INR STAT 03/22/2013 5:54 AM CDT Resul ts for this procedure are in the results section. documented in this encounter Results (ABNORMAL) INR (03/25/2013 6:30 AM CDT) P athologist Signature INR 1.72 (H) 0.86 - 1.14 [facility] Specimen Anatomical Collection Method Collection Time Receive d Time (Source) Location / / Volume Laterality Blood specimen 03/25/2013 6:30 AM 013 6:36 (specimen) CDT AM CDT Freddy Obregon MD LAB - BLOOD ORDERABLES Performing Organization Address City/State/ZIP Code Phon e Number M [facility] [address] [id number] [facility] EKG 12-lead, tracing only (03/24/2013 11:36 AM CDT) Patholo gist Method Time Signature Interpretation ECG Click View RADIOLOGY Image link RESULTS to view waveform and result Specimen (Source) Anatomical Collection Method Collection Time Re ceived Time Location / / Volume Laterality 03/24/2013 11:36 AM CDT Tony Burgos MD ECG ORDERABLES Performing Organization Address City/[facility]/ZIP Code Phon e Number RADIOLOGY RESULTS (ABNORMAL) INR (03/24/2013 6:19 AM CDT) P athologist Signature INR 1.23 (H) 0.86 - 1.14 [facility] Specimen Anatomical Collection Method Collection Time Receive d Time (Source) Location / / Volume Laterality Blood specimen 03/24/2013 6:19 AM 013 6:28 (specimen) CDT AM CDT Freddy Obregon MD LAB - BLOOD ORDERABLES Performing Organization Address [facility]/ZIP [facility] Phon e Number [facility] [address], [place] [address] [facility] (ABNORMAL) Glucose (03/24/2013 6:19 AM CDT) athologist Signature Glucose 105 (H) 60 - 99 [place] mg/dL [facility] Specimen Anatomical Collection Method Collection Time Receive d Time (Source) Location / / Volume Laterality Blood specimen 03/24/2013 6:19 AM 013 6:28 (specimen) CDT AM CDT Freddy Obregon MD LAB - BLOOD ORDERABLES Performing Organization Address City/[facility] Phon e Number M [facility] [address], [place] [address] [facility] (ABNORMAL) Hemoglobin (03/24/2013 6:19 AM CDT) P athologist Signature Hemoglobin 10.6 (L) 13.3 - 17.7 [facility] Specimen Anatomical Collection Method Collection Time Receive d Time (Source) Location / / Volume Laterality Blood specimen 03/24/2013 6:19 AM 013 6:28 (specimen) CDT AM CDT Freddy Obregon MD LAB - BLOOD ORDERABLES Performing Organization Address City/[facility] Code Phon bridger Harden [facility] [address] [place], [place] [address] [facility] (ABNORMAL) UA reflex to Microscopic (03/23/2013 12:35 PM CDT) Component Value Ref Test Analysis Performed At [facility] Range Method Time Signature Color Urine Yellow [facility] Appearance Urine Cloudy [facility] Glucose Urine 30 (A) NEG [place] mg/dL [facility] Bilirubin Urine Negative NEG [facility] Ketones Urine Negative NEG [place] mg/dL [facility] Specific [place] 1.022 1.003 - [place] Urine 1.035 [facility] Blood Urine Moderate (A) NEG [facility] pH Urine 5.5 5.0 - [place] 7.0 pH [facility] Protein Albumin 30 (A) NEG [place] Urine mg/dL [facility] Urobilinogen Normal 0.0 - [place] mg/dL 2.0 [facility] Nitrite Urine Negative NEG [facility] Leukocyte Small (A) NEG [place] Esterase Urine [facility] Source Catheterized [facility] RBC Urine 82 (H) 0 - 2 [facility] WBC Urine 11 (H) 0 - 2 [facility] Bacteria Urine Few (A) NEG /HPF [facility] Mucous Urine Present (A) NEG /LPF [facility] Amorphous Few (A) NEG /HPF [place] Crystals [facility] Specimen Anatomical Location Collection Method Collection Time Received Time (Source) / Laterality / Volume Urine specimen URINE SPECIMEN 03/23/2013 12:35 013 (specimen) COLLECTION, PM CDT 12:54 PM CDT CATHETERIZED / Unknown Tony Burgos MD LAB - URINE ORDERABLES Performing Organization Address City/[facility] Phon bridger Harden [facility] [address] [place], [place] [address] [facility] Magnesium (03/23/2013 6:18 AM CDT) athologist Signature Magnesium 2.1 1.6 - 2.3 [facility] mg/dL [facility] Specimen Anatomical Collection Method Collection Time Receive d Time (Source) Location / / Volume Laterality Blood specimen 03/23/2013 6:18 AM 013 1:11 (specimen) CDT PM CDT Tony Burgos MD LAB - BLOOD ORDERABLES Performing Organization Address City/[facility] Phon e Tom Harden [facility] [address] [place], [place] [address] [facility] (ABNORMAL) Basic metabolic panel (03/23/2013 6:18 AM CDT) athologist Signature Sodium 135 133 - 144 [place] mmol/L [facility] Potassium 4.6 3.4 - 5.3 [place] mmol/L [facility] Chloride 98 94 - 109 [place] mmol/L [facility] Carbon Dioxide 30 20 - 32 [place] mmol/L [facility] Anion Gap 7 6 - 17 [place] mmol/L [facility] Glucose 155 (H) 60 - 99 [place] mg/dL [facility] Urea Nitrogen 15 7 - 30 [place] mg/dL [facility] Creatinine 0.78 0.66 - [place] 1.25 mg/dL [facility] GFR Estimate >90 >60 [place] mL/min/1.7 [facility] m2 [facility] GFR Estimate If >90 >60 [place] Black mL/min/1.[address] LAB Calcium 8.3 (L) 8.5 - 10.4 [place] mg/dL [facility] Specimen Anatomical Collection Method Collection Time Receive d Time (Source) Location / / Volume Laterality Blood specimen 03/23/2013 6:18 AM 013 1:11 (specimen) CDT PM CDT Tony Burgos MD LAB - BLOOD ORDERABLES Performing Organization Address City/[facility] Phon e Number M [facility] [address], [place] [address] [facility] Lipase (03/23/2013 6:18 AM CDT) athologist Signature Lipase 51 20 - 250 [facility] U/L [facility] Specimen Anatomical Collection Method Collection Time Receive d Time (Source) Location / / Volume Laterality Blood specimen 03/23/2013 6:18 AM 013 1:11 (specimen) CDT PM CDT Tony Burgos MD LAB - BLOOD ORDERABLES Performing Organization Address [facility] Phon e [facility] [address], [place] [address] [phone] [place] [address] LAB INR (03/23/2013 6:18 AM CDT) athologist Signature INR 1.13 0.86 - 1.14 [facility] Specimen Anatomical Collection Method Collection Time Receive d Time (Source) Location / / Volume Laterality Blood specimen 03/23/2013 6:18 AM 013 6:34 (specimen) CDT AM CDT Freddy Obregon MD LAB - BLOOD ORDERABLES Performing Organization Address City/[facility] Phon e [facility] [address], [place] [address] 7 [phone] [place] [address] LAB (ABNORMAL) Glucose (03/23/2013 6:18 AM CDT) athologist Signature Glucose 156 (H) 60 - 99 [place] mg/dL [facility] Specimen Anatomical Collection Method Collection Time Receive d Time (Source) Location / / Volume Laterality Blood specimen 03/23/2013 6:18 AM 013 6:34 (specimen) CDT AM CDT Freddy Obregon MD LAB - BLOOD ORDERABLES Performing Organization Address [facility] Phon e [place] [address], [place] [address] [address] [phone] LAB (ABNORMAL) Hemoglobin (03/23/2013 6:18 AM CDT) athologist Signature Hemoglobin 12.6 (L) 13.3 - 17.7 [facility] g/dL [facility] Specimen Anatomical Collection Method Collection Time Receive d Time (Source) Location / / Volume Laterality Blood specimen 03/23/2013 6:18 AM 013 6:34 (specimen) CDT AM CDT Freddy Obregon MD LAB - BLOOD ORDERABLES Performing Organization Address [facility] Phon e Number M [facility] [address] [place] [place], [place] [address] [facility] XR Pelvis w Hip Port Right 1 View (03/22/2013 10:37 AM CDT) Anatomical Region Laterality Modality Abdomen/Pelvis Right Other Specimen (Source) Anatomical Collection Method Collection Time Re ceived Time Location / / Volume Laterality 03/22/2013 10:37 AM CDT Impressions 03/22/2013 12:24 PM CDT IMPRESSION: Right LUCI. Exam otherwise unremarkable. MATHEW HUA MD Narrative 03/22/2013 12:24 PM CDT PELVIS WITH UNILATERAL HIP RIGHT PORTABL E 03/22/2013 10:37 AM HISTORY: ??Post Op Right Hip Arthroplast y Procedure Note Mathew Hua MD - 03/22/2013Formatt ing of this note might be different from the original. PELVIS WITH UNILATERAL HIP RIGHT PORTABL E 03/22/2013 10:37 AM HISTORY: Post Op Right Hip Arthroplasty IMPRESSION IMPRESSION: Right LUCI. Exam otherwise un remarkable. MATHEW HUA MD Freddy Obregon MD IMG DIAGNOSTIC IMAGING ORDER ANTHONY INR (03/22/2013 5:54 AM CDT) P athologist Signature INR 1.08 0.86 - 1.14 [facility] Specimen Anatomical Collection Method Collection Time Receive d Time (Source) Location / / Volume Laterality Blood specimen 03/22/2013 5:54 AM 013 5:58 (specimen) CDT AM CDT Elana Ayala PA-C LAB - BLOOD ORDERABLES Performing Organization Address [facility] Phon e Number M [facility] [address] [place], [place] [address] [facility] documented in this encounter Visit Diagnoses Diagnosis Status post THR (total hip replacement) - Primary Hip joint replacement by other means Status post THR (total hip replacement) Hip joint replacement by other means documented in this encounter Administered Medications Inactive Administered Medications - up to 3 most recent administrations Medication Order MAR Action Action Date Dose Rate Site acetaminophen (TYLENOL) tablet 650 Given 03/25/2013 6:07 AM CDT 650 mg mg 650 mg, Oral, EVERY 6 HOURS, First dose on Fri03/22/13 at 1215, Maximum acetaminophen dose from all sources = 75 mg/kg/day not to exceed 4 grams/day., Post-procedure Given 03/24/2013 9:49 PM CDT 650 mg Given 03/24/2013 5:13 PM CDT 650 mg bisoprolol-hydrochlorothiazide (ZIAC) Given 03/25/2013 8:00 AM C DT 1 tablet 10-6.25 MG per tablet 1 tablet 1 tablet, Oral, DAILY, First dose on Fri03/23/13 at 0900, Hold if SBP less 115 or HR less 55 Given 03/24/2013 8:48 AM CDT 1 tablet Given 03/23/2013 8:15 AM CDT 1 tablet ceFAZolin (ANCEF) IVPB 2 g (pre-mix) New Bag 03/22/2013 10:45 PM CDT 2 g 200 mL/hr Routine, 2 g, Intravenous, EVERY 8 HOURS, First dose on Fri03/22/13 at 1500, For 2 doses, First post-op dose due 8 hours after intra-op dose, see eMAR. , Indications: Perioperative Pharmacoprophylaxis, Post-procedure New Bag 03/22/2013 3:27 PM CDT 2 g 200 mL/hr celecoxib (celeBREX) capsule 100 mg Given 03/24/2013 8:48 AM CDT 100 mg 100 mg, Oral, 2 TIMES DAILY, First dose on Fri03/22/13 at 2100, For 4 doses, For patients greater than or equal to 65 years of age. Do not give until Ketorolac dosing is complete or if ibuprofen ordered., Post-procedure Given 03/23/2013 9:27 PM CDT 100 mg Given 03/22/2013 9:45 PM CDT 100 mg celecoxib (celeBREX) capsule 400 mg Given 03/22/2013 5:54 AM CDT 400 mg 400 mg, Oral, ONCE, On Fri03/22/13 at 0545, For 1 dose, Pre-procedure dextrose 5 % and 0.45 % NaCl + KCl 20 New Bag 03/23/2013 5:09 PM C DT 100 mL/hr mEq/L at 100 mL/hr, Intravenous, CONTINUOUS, Change to saline lock when PO well tolerated., Post-procedure, Starting on Fri03/22/13 at 1215, Until Fri03/24/13 at 1059 New Bag 03/23/2013 7:09 AM CDT 100 mL/hr New Bag 03/22/2013 8:41 PM CDT 100 mL/hr docusate sodium (COLACE) capsule 100 mg Given 03/25/2013 8:00 AM CDT 100 mg 100 mg, Oral, 3 TIMES DAILY, First dose on Fri03/22/13 at 2200, 1st dose now Given 03/24/2013 9:49 PM CDT 100 mg Given 03/24/2013 5:14 PM CDT 100 mg gabapentin (NEURONTIN) capsule 100 mg Given 03/22/2013 9:45 PM CDT 100 mg 100 mg, Oral, 3 TIMES DAILY, First dose on Fri03/22/13 at 1600, For 3 doses, For patients 65 years and greater, Post-procedure Given 03/22/2013 4:48 PM CDT 100 mg gabapentin (NEURONTIN) capsule 600 mg Given 03/22/2013 5:54 AM CDT 600 mg 600 mg, Oral, ONCE, On Fri03/22/13 at 0545, For 1 dose, Pre-procedure hydrALAZINE (APRESOLINE) injection 2.5-5 mg Given 03/22/2013 11:19 AM CDT 10 mg 2.5-5 mg, Intravenous, EVERY 10 MIN PRN, high blood pressure, for SBP > 160 and HR > 60. , Starting on Fri03/22/13 at 0951, Max cumulative dose = 20 mg. FOR USE IN PACU ONLY, DC WHEN TRANSFERRED TO FLOOR., PACU Given 03/22/2013 11:05 AM CDT 10 mg lactated ringers infusion New Bag 03/22/2013 10:42 AM CDT 1,000 mLs 100 mL/hr at 100 mL/hr, Intravenous, CONTINUOUS, Continue until IV catheter is weaned, PACU, Starting on Fri03/22/13 at 1000, Until Fri03/22/13 at 1155 ondansetron (ZOFRAN) injection 4 mg Given 03/23/2013 8:14 AM CDT 4 mg 4 mg, Intravenous, EVERY 6 HOURS PRN, nausea, vomiting, Administer over 2-5 Minutes, Starting on Fri03/22/13 at 1202, This is Step 1 of nausea and vomiting protocol. If nausea not resolved in 15 minutes, go to Step 2 (Prochlorperazine)., Post-procedure oxyCODONE (OxyCONTIN) 12 hr tablet 10 mg Given 03/22/2013 5:53 AM CDT 10 mg 10 mg, Oral, ONCE, On Fri03/22/13 at 0545, For 1 dose, DO NOT CRUSH., Pre-procedure oxyCODONE (OxyCONTIN) 12 hr tablet 10 mg Given 03/24/2013 6:39 AM CDT 10 mg 10 mg, Oral, EVERY 12 HOURS, First dose (after last reorder) on Fri03/22/13 at 1800, For 4 doses, Moderate to severe pain. Hold while on STRUCTURAL WELDER or with regular IV opioid dosing. Start 12 hours after preop dose., Post-procedure Given 03/23/2013 6:01 PM CDT 10 mg Given 03/22/2013 6:46 PM CDT 10 mg oxyCODONE (ROXICODONE) immediate release tablet Given 03/25/2013 7:55 AM CDT 5 mg 5-10 mg 5-10 mg, Oral, EVERY 3 HOURS PRN, moderate to severe pain, Starting on Fri03/22/13 at 1202, Hold while on STRUCTURAL WELDER or with regular IV opioid dosing., Post-procedure Given 03/24/2013 6:51 PM CDT 5 mg Given 03/24/2013 12:54 PM CDT 5 mg prochlorperazine (COMPAZINE) injection 5 mg Given 03/23/2013 1:22 AM CDT 5 mg 5 mg, Intravenous, EVERY 6 HOURS PRN, nausea, vomiting, Starting on Fri03/22/13 at 1202, This is Step 2 of the nausea and vomiting protocol. If nausea not resolved in 15 minutes, give Metoclopramide if ordered (step 3 of nausea and vomiting protocol) , Post-procedure ranitidine (Zantac) injection 50 mg Given 03/25/2013 6:07 AM CDT 50 mg 50 mg, Intravenous, EVERY 8 HOURS, First dose on Fri03/24/13 at 1400 Given 03/24/2013 10:16 PM CDT 50 mg Given 03/24/2013 2:29 PM CDT 50 mg simvastatin (ZOCOR) tablet 20 mg Given 03/24/2013 9:49 PM CDT 20 mg 20 mg, Oral, AT BEDTIME, First dose on Fri03/22/13 at 2200 Given 03/23/2013 9:26 PM CDT 20 mg Given 03/22/2013 9:45 PM CDT 20 mg sodium chloride (PF) 0.9% PF flush 3 mL Given 03/25/2013 6:10 AM CDT 3 mLs 3 mL, Intravenous, EVERY 8 HOURS, First dose on Fri03/22/13 at 1215, to lock peripheral IV dormant line. Also Ordered Q1H PRN, Post-procedure Given 03/24/2013 9:53 PM CDT 3 mLs Given 03/24/2013 12:54 PM CDT 3 mLs terazosin (HYTRIN) capsule 2 mg Given 03/24/2013 9:49 PM CDT 2 mg 2 mg, Oral, AT BEDTIME, First dose on Fri03/22/13 at 2200, Hold if SBP less 100 Given 03/22/2013 10:33 PM CDT 2 mg warfarin (COUMADIN) tablet 10 mg Given 03/23/2013 6:02 PM CDT 10 mg 10 mg, Oral, ONCE AT 6PM, On Fri03/23/13 at 1800, For 1 dose warfarin (COUMADIN) tablet 10 mg Given 03/24/2013 6:00 PM CDT 10 mg 10 mg, Oral, ONCE AT 6PM, On Fri03/24/13 at 1800, For 1 dose warfarin (COUMADIN) tablet 5 mg Given 03/22/2013 5:54 AM CDT 5 mg 5 mg, Oral, PRE-OP/PRE-PROCEDURE, Starting on Fri03/22/13 at 0542, For 1 dose, Pre-procedure documented in this encounter Active and Recently Administered Medications Times are shown in CDT. Scheduled Medication Order 03/23/2013 03/24/2013 03/25/2013 acetaminophen (TYLENOL) tablet 650 mg 0400 (Not Given - Provider: Jeremie Hansen LPN - Reason: Nausea - Comment: vomiting)0934 (Not Given - Provider: Celestina Scherer RN - Reason: Patient/family refused)180 (Given - Provider: Jaime Siddiqui RN) 0400 (Not Given - Provider: Tita oliver LPN - Reason: Patient/family refused)0908 (Given - Provider: eKlsi Brooks RN)171 (Given - Provider: Shaista Mcclain LPN)214 (Given - Provider: Shaista Mcclain LPN) 0607 (Given - Provider: Jerica Loja RN)1000 (Canceled Entry - Provider: Orders Generic Provider) 650 mg, Oral, EVERY 6 HOURS, First dose on Fri03/22/13 at 1215, Maximum acetaminophen dose from all sources = 75 mg/kg/day not to exceed 4 grams/day., Post-procedure 2126 (Given - Provider: Jaime Siddiqui RN) bisoprolol-hydrochlorothiazide (ZIAC) 10-6.25 MG per t ablet 1 tablet (CANCELED) 0815 (Given - Provider: Aleisha Mckeon RN) 0848 (Given - Provider: Kelsi Brooks RN) 0800 (Given - Provider: Kelsi Brooks RN) 1 tablet, Oral, DAILY, First dose on Fri03/23/13 at 0900, Hold if SBP less 115 or HR less 55 celecoxib (celeBREX) capsule 100 mg () 0807 (No t Given - Provider: Celestina Scherer RN - Reason: Nausea)2126 (Given - Provider: Jaime Siddiqui RN) 0848 (Given - Provider: Kelsi Brooks RN) 100 mg, Oral, 2 TIMES DAILY, First dose on Fri03/22/13 at 2100, For 4 doses, For patients greater than or equal to 65 years of age. Do not give until Ketorolac dosing is complete or if ibuprofen ordered., Post-procedure docusate sodium (COLACE) capsule 100 mg (CANCELED) 080 7 (Not Given - Provider: Celestina Scherer RN - Reason: Nausea)180 (Given - Provider: Jaime Siddiqiu RN)212 (Given - Provider: Jaime Siddiqui RN) 0848 (Given - Provider: Kelsi Brooks RN)1714 (Given - Provider: Shaista Mcclain LPN)2149 (Given - Provider: Shaista Mcclain LPN) 0800 (Given - Provider: Kelsi Brooks RN) 100 mg, Oral, 3 TIMES DAILY, First dose on Fri03/22/13 at 2200, 1st dose now oxyCODONE (OxyCONTIN) 12 hr tablet 10 mg () 053 3 (Not Given - Provider: Jeremie GarciaecHERNAN luong - Reason: Nausea)1801 (Given - Provider: Jaime Siddiqui RN) 0639 (Given - Provider: Tita Esposito LPN) 10 mg, Oral, EVERY 12 HOURS, First dose on Fri03/22/13 at 1800, For 4 doses, Moderate to severe pain. Hold while on STRUCTURAL WELDER or with regular IV opioid dosing. Start 12 hours after preop dose., Post-procedure ranitidine (Zantac) injection 50 mg (CANCELED) 1429 (Given - Provider: Kelsi Brooks RN)2216 (Given - Provider: Amira Crain RN) 0607 (Given - Provider: Jerica Loja RN) 50 mg, Intravenous, EVERY 8 HOURS, First dose on Fri03/24/13 at 1400 simvastatin (ZOCOR) tablet 20 mg (CANCELED) 2126 (Give n - Provider: Jaime Siddiqui RN) 2149 (Given - Provider: Shaista Mcclain LPN) 20 mg, Oral, AT BEDTIME, First dose on Fri03/22/13 at 2200 sodium chloride (PF) 0.9% PF flush 3 mL (CANCELED) 040 0 (Not Given - Provider: Jeremie B Claveccherise, HERNAN - Reason: IV Infusing)1121 (Not Given - Provider: Celestina Scherer, GARRETT - Reason: IV Infusing)1950 (Not Given - Provider: Pricila Mcdaniel LPN - Reason: IV Infusing) 0347 (Given - Provider: Tita Esposito LPN)1254 (Given - Provider: Breanne Carpenter LPN)2153 (Given - Provider: Shaista Mcclain LPN) 0610 (Given - Provider: Jerica barragan RN) 3 mL, Intravenous, EVERY 8 HOURS, First dose on Fri03/22/13 at 1215, to lock peripheral IV dormant line. Also Ordered Q1H PRN, Post-procedure terazosin (HYTRIN) capsule 2 mg (CANCELED) 2126 (Not G iven - Provider: Jaime Siddiqui RN - Reason: Patient/family refused - Comment: Pt feels BP low enough not to take) 2148 (Given - Provider: Shaista Mcclain LPN) 2 mg, Oral, AT BEDTIME, First dose on Fri03/22/13 at 2 200, Hold if SBP less 100 warfarin (COUMADIN) tablet 10 mg (COMPLETED) 180 (Giv en - Provider: Jaime Siddiqui RN) 10 mg, Oral, ONCE AT 6PM, Fri03/23/13 at 1800, For 1 dose warfarin (COUMADIN) tablet 10 mg (COMPLETED) 1800 (Given - Provider: Shaista Mcclain LPN) 10 mg, Oral, ONCE AT 6PM, On Fri03/24/13 at 1800, For 1 dose Continuous Medication Order 03/23/2013 03/24/2013 03/25/2013 dextrose 5 % and 0.45 % NaCl + KCl 20 mEq/L (CANCELED) 0709 (New Bag - Provider: Jeremie Hansen LPN)1709 (New Bag - Provider: Jaime Siddiqui RN) at 100 mL/hr, Intravenous, CONTINUOUS, C hange to saline lock when PO well tolerated., Post-procedure PRN Medication Order 03/23/2013 03/24/2013 03/25/2013 ondansetron (ZOFRAN) injection 4 mg (CANCELED) 0814 (G iven - Provider: Aleisha Mckeon RN) 4 mg, Intravenous, EVERY 6 HOURS PRN, na usea, vomiting, for 2 Minutes, Starting Fri03/22/13 at 1202, This is Step 1 of nausea and vomiting protocol. If nausea not resolved in 15 minutes, go to Step 2 (Prochlorperazine)., Post-procedure oxyCODONE (ROXICODONE) immediate release tablet 5-10 m g 1123 (Given - Provider: Celestina Scherer RN) 0847 (Given - Provider: Kelsi Brooks RN)1254 (Given - Provider: Breanne Carpenter LPN)1851 (Given - Provider: Shaista Mcclain LPN) 0755 (Given - Provider: Kelsi Brooks RN) 5-10 mg, Oral, EVERY 3 HOURS PRN, modera te to severe pain, Starting 03/22/13 at 1202, Hold while on STRUCTURAL WELDER or with regular IV opioid dosing., Post-procedure prochlorperazine (COMPAZINE) injection 5 mg (CANCELED) 0122 (Given - Provider: Sandrita Murdock RN) 5 mg, Intravenous, EVERY 6 HOURS PRN, na usea, vomiting, Starting Fri03/22/13 at 1202, This is Step 2 of the nausea and vomiting protocol. If nausea not resolved in 15 minutes, give Metoclopramide if ord ered (step 3 of nausea and vomiting protocol) , Post-procedure documented in this encounter Care Teams Driver/Guide Relationship Specialty Start Date End Date Ran Lee MD PCP - General Family Practice 06/27/11 07/30/[address] [phone] documented as of this encounter
--- OUTSIDE RECORDS SUMMARY | 2022-04-18 14:52 | XMS_ITS | Encounter Summary ---
:1945 Author Organization [place] Address [facility] [place] [address] Care Team Providers Name Role Phone [facility] Primary [facility] kelle Clinics- Reason for Referral Consultation (Routine) - Closed Specialty Diagnoses / Procedures Referred By Contact Refer red To Contact Diagnoses Benign essential hypertension Yeny May, HAYDEE CHRISTIAN [address] [place] [address] Referral ID Status Reason Start Date Expiration Date Visits Requ ested Visits Authorized [id number] Closed 02/14/2021 02/14/2022 1 1 Reason for Visit Reason Comments Atrial Fib Consultation (Routine) - Closed Specialty Diagnoses / Procedures Referred By Contact Refer red To Contact Diagnoses TIA (transient ischemic attack) Atrial fibrillation, unspecified type (H) Denton Casiano MD [address] [place] [address] Referral ID Status Reason Start Date Expiration Date Visits Requ ested Visits Authorized [id number] Closed 02/02/2021 02/02/2022 1 1 Encounter Details Date Type Department Care Team Description 02/14/2021 Office Visit Yeny Evans, Connor essen tial hypertension (Primary Dx); [facility] HAYDEE CHRISTIAN TIA (transient ischemic attack); Heart [address] Atrial fibri llation, unspecified type (H); [facility] [address] Cerebrovascular accident (CVA) due to em bolism of cerebral artery (H) [address] [place], [place] [address] [address] [place], [place] (Work) [address] Social History Tobacco Use [...] Sign Reading Time Taken Comments Blood Pressure 136/78 02/14/2021 7:27 AM CDT Pulse 60 02/14/2021 7:27 AM CDT Temperature - - Respiratory Rate - - Oxygen Saturation - - Inhaled Oxygen Concentration - - Weight 126.5 kg (278 lb 14.4 oz) 02/14/2021 7:27 AM CDT Height 185.4 cm (6' 1) 02/14/2021 7:27 AM CDT Body Mass Index 36.8 02/14/2021 7:27 AM CDT documented in this encounter Patient Instructions Patient InstructionsYeny May APRN CNP - 02/14/2021 7:30 AM CDT Stop your Maxzide (triamterene/hydrochlorothiazide) Start Lisinopril hydrochlorothiazide every morning Continue to take your Terazosin every evening Continue your Eliquis twice a day Return in 1 month with labs documented in this encounter Progress Notes Yeny May APRN CNP - 02/14/2021 7:30 AM CDT HISTORY OF PRESENT ILLNESS: This is a 75 year old male who follows with Dr. Casiano at [facility] His past medical history includes: A-fib, hypertension, sleep apnea, hyperlipidemia, GERD, neuropathy, and arthritis Mr Lang was hospitalized (02/01/21) for stroke-like symptoms and brief left- sided weakness/confusion. His EKG showed atrial fibrillation at 63 bpm. His brain MRI showed acute/early subacute ischemia in the left parietal cortex felt to be due to new onset A-fib. His ECHO showed LVEF 50-55%, mild RV enlargement with borderline reduced RV function, 1+ aortic regurgitation, mild aortic root dilatation and ascending aorta dilatation. His troponin level was < 0.015. He has no prior history of coronaryartery disease. Eliquis was started and he was sent home on an event monitor. Our visit today is also with his who assists with his history and symptoms. He denies any chestpain, shortness of breath, or palpitations. His energy is good. He uses his CPAP nightly He does complain of some balance issues and admits to being fairly sedentary We talked about increasing his exercise and working on some balance exercises. He does admit to nocturia. 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 Basic metabolic panel ??? Follow-Up with Victims Advocate Clerk/Specialist Orders Placed This Encounter Medications ??? lisinopril-hydrochlorothiazide (ZESTORETIC) 10-12.5 MG tablet Sig: Take 1 tablet by mouth every morning Dispense: 30 tablet Refill: 11 ??? apixaban ANTICOAGULANT (ELIQUIS) 5 MG tablet Sig: Take 1 tablet (5 mg) by mouth 2 times daily Dispense: 180 tablet Refill: 3 Medications Discontinued During This Encounter Medication Reason ??? triamterene-HCTZ (MAXZIDE-25) 37.5-25 MG tablet ??? apixaban ANTICOAGULANT (ELIQUIS) 5 MG tablet Encounter Diagnoses Name Primary? TIA (transient ischemic attack) ??? Atrial fibrillation, unspecified type (H) ??? Benign essential hypertension Yes ??? 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) CURRENT MEDICATIONS: Current Outpatient Medications Medication Sig Dispense Refill ??? apixaban ANTICOAGULANT (ELIQUIS) 5 MG tablet Take 1 tablet (5 mg) by mouth 2 times daily 180 tablet 3 ??? atorvastatin (LIPITOR) 10 MG tablet Take 10 mg by mouth At Bedtime ??? co-enzyme Q-10 100 MG CAPS capsule Take 100 mg by mouth daily ??? lisinopril-hydrochlorothiazide (ZESTORETIC) 10-12.5 MG tablet Take 1 tablet by mouth every morning 30 tablet 11 ??? pantoprazole (PROTONIX) 40 MG EC tablet Take 40 mg by mouth every other day ??? terazosin (HYTRIN) 2 MG capsule Take 2 mg by mouth At Bedtime. ALLERGIES No Known Allergies PAST MEDICAL HISTORY: Past Medical History: Diagnosis Date ??? Arthritis ??? Coronary artery disease more than ten years high cholestrol ??? High cholesterol ??? Hypertension PAST SURGICAL HISTORY: Past Surgical History: Procedure Laterality Date ??? ARTHROPLASTY HIP 03/22/2013 Procedure: ARTHROPLASTY HIP; Right Total hip Arthroplasty ; Surgeon: Mark Viera MD; Location: [facility] OR ??? LAMINECTOMY LUMBAR THREE+ LEVELS FAMILY HISTORY: History reviewed. No pertinent family history. SOCIAL HISTORY: Social History Socioeconomic History ??? Marital status: Spouse name: None ??? Number of children: None ??? Years of education: None ??? Highest education level: None Occupational History ??? None Tobacco Use ??? Smoking status: Former Smoker Quit date: 1980 Years since quittin.6 ??? Smokeless tobacco: Never Used Substance and Sexual Activity ??? Alcohol use: Yes Comment: 1-2 per day ??? Drug use: No ??? Sexual activity: None Other Topics Concern ??? Parent/sibling w/ CABG, [place] or angioplasty before 65F 55M? Not Asked Social History Narrative ??? None Social Determinants of Health Financial Resource Strain: ??? Difficulty of Paying Living Expenses: Food Insecurity: ??? Worried About Running Out of Food in the Last Year: ??? Ran Out of Food in the Last Year: Transportation Needs: ??? Lack of Transportation (Medical): ??? Lack of Transportation (Non-Medical): Physical Activity: ??? Days of Exercise per Week: ??? Minutes of Exercise per Session: Stress: ??? Feeling of Stress : Social Connections: ??? Frequency of Communication with Friends and Family: ??? Frequency of Social Gatherings with Friends and Family: ??? Attends Tenriism Services: ??? Active Member of Clubs or Organizations: ??? Attends Club or Organization Meetings: ??? Marital Status: Intimate Partner Violence: ??? Fear of Current or Ex-Partner: ??? Emotionally Abused: ??? Physically Abused: ??? Sexually Abused: Review of Systems: Skin: Negative Eyes: Positive for cataract extraction of both eyes ENT: Positive for hearing loss per Respiratory: Positive for dyspnea on exertion;sleep apnea;CPAP Cardiovascular: Positive for;palpitations Gastroenterology: Positive for heartburn under control with medication Genitourinary: Positive for urgency Musculoskeletal: Positive for arthritis;joint pain of the fingers Neurologic: Positive for stroke;numbness or tingling of feet Psychiatric: Negative Heme/Lymph/Imm: Negative Endocrine: Negative Physical Exam: Vitals: BP 136/78 Pulse 60 Ht 1.854 m (6' 1) Wt 126.5 kg (278 lb 14.4 oz) BMI 36.80 kg/m?? Constitutional: cooperative;well nourished obese Skin: warm and dry to the touch Head: normocephalic Eyes: pupils equal and round Lymph: ENT: no pallor or cyanosis Neck: JVP normal;no carotid bruit Respiratory: clear to auscultation;normal respiratory excursion Cardiac: irregularly irregular rhythm no presence of murmur pulses below the femoral arteries are diminished GI: obese Extremities and Muscular Skeletal: no edema Neurological: affect appropriate Psych: Alert and Oriented x 3 CC Denton Casiano MD [address] [place] [address] documented in this encounter Plan of Treatment Scheduled Referrals Name Type Priority Associated Diagnoses Order S chedule Follow-Up with Referral Routine Benign essential Expected: Victims Advocate Clerk/Specialist hypertension 03/17/2021 (Approximate), Expires: 2021 documented as of this encounter Results (ABNORMAL) Basic metabolic panel (03/21/2021 7:33 AM CDT) Analysis Performed At Patho logist Time Signature Sodium 137 133 - 144 03/21/2021 LABORATORY mmol/L 8:24 AM CDT Potassium 3.8 3.4 - 5.3 03/21/2021 LABORATORY mmol/L 8:24 AM CDT Chloride 105 94 - 109 03/21/2021 LABORATORY mmol/L 8:24 AM CDT Carbon Dioxide 26 20 - 32 03/21/2021 LABORATORY (CO2) mmol/L 8:24 AM CDT Anion Gap 6 3 - 14 03/21/2021 LABORATORY mmol/L 8:24 AM CDT Urea Nitrogen 14 7 - 30 03/21/2021 LABORATORY mg/dL 8:24 AM CDT Creatinine 1.14 0.66 - 03/21/2021 LABORATORY 1.25 mg/dL 8:24 AM CDT Calcium 8.7 8.5 - 10.1 03/21/2021 LABORATORY mg/dL 8:24 AM CDT Glucose 120 (H) 70 - 99 03/21/2021 LABORATORY mg/dL 8:24 AM CDT GFR Estimate 62 >60 03/21/2021 LABORATORY mL/min/1.7 8:24 AM CDT 3m2 Comment: As of January 07, [...] Laterality Blood STRUCTURE OF RIGHT Venipuncture / 03/21/2021 7:33 0907/2020 7:33 HAND / Unknown Unknown AM CDT AM CDT Yeny E May PATIENT CONSUMER MARKETER HOUSEKEEPER/CUSTODIAN/LAUNDRY WORKER LAB - BLOOD ORDERABLES Performing Organization Address City/State/ZIP [place] [address] Care Lab [address] Lab (1st floor, no room number) documented in this encounter Visit Diagnoses Diagnosis Benign essential hypertension - Primary Essential hypertension, benign TIA (transient ischemic attack) Unspecified transient cerebral ischemia Atrial fibrillation, unspecified type (H ) Cerebrovascular accident (CVA) due to em bolism of cerebral artery (H) documented in this encounter Care Teams Hog Worker Relationship Specialty Start Date End Date [facility] And PCP - General 02/01/21 [facility] [address] [place] [address] documented as of this encounter
--- OUTSIDE RECORDS SUMMARY | 2022-04-18 14:52 | XMS_ITS | Encounter Summary ---
:1945 Author Organization [place] Address [address] [place] [address]. [place] [address] Care Team Providers Name Role Phone [facility] And Primary Care Provi kelle [facility] May, November HAND ICER CARE TRANSITION MANAGER Unavailable Encounter Details Date Type Department Care Team Description 03/21/[address] [facility], November E, AP RN Benign essential Clinic [facility] hypertension [address] [facility] [place], [place] [address] [phone] Social History Tobacco Use Types Packs/Day Years [...] Associated Diagnosis Comme nts BASIC METABOLIC Routine 03/21/2021 7:33 AM Benign essential Re sults for this [...] STRUCTURE OF RIGHT Venipuncture / 03/21/2021 7:33 09/2 07/2020 7:33 HAND / Unknown Unknown AM CDT AM CDT Yeny May APRN, CNP LAB - BLOOD ORDERABLES Performing Organization Address City/State/ZIP [place] [address] Care Lab [address] Lab (1st floor, no room number) documented in this encounter Visit Diagnoses Diagnosis Benign essential hypertension Essential hypertension, benign documented in this encounter Care Teams [place] Relationship Specialty Start Date End Date [facility], PCP - General 02/01/[address] [facility] [address] [place] [address] Yeny May, HAYDEE CARE TRANSITION MANAGER Assigned Heart and Vascular 02/18/2103/24 [address] [place] [address] documented as of this encounter
--- OUTSIDE RECORDS SUMMARY | 2022-04-18 14:52 | XMS_ITS | Encounter Summary ---
:1945 Author Organization [place] Address [address] [place] [address] Care Team Providers Name Role Phone [facility] And Primary Care Provi kelle [facility] [place] Yeny E TECHNICAL SALES CONSULTANT LAB MANAGER Unavailable Denton Casiano MD Unavailable Antony Burch MD Unavailable [phone] [place] Yeny E TECHNICAL SALES CONSULTANT LAB MANAGER Unavailable Encounter Details Date Type Department Care Team Description 02/21/2021 Documentation Only INTERFACED REPORT Unknown, Provider Social History Tobacco Use Types Packs/Day Years [...] on filedocumented in this encounter Care Teams Community Relations Police Lieutenant Relationship Specialty Start Date End Date [facility], PCP - General 02/01/21 [facility] [address], [place] [address] Yeny May APRN LAB MANAGER Assigned Heart and Vascular 02/18/2103/[address] Provider [place] [id number] Denton Casiano MD Assigned Heart and Vascular 03/25/2110/[address] Provider [place] [address] Antony Burch Assigned Neuroscience 04/08/21 MD Jan Provider [address] [place] [id number] Yeny May APRN LAB MANAGER Assigned Heart and Vascular 10/28/[address] Provider [place] [id number] documented as of this encounter
--- OUTSIDE RECORDS SUMMARY | 2022-04-18 14:53 | XMS_ITS | Encounter Summary ---
:1945 Author Organization [place] Address [address] [place] [address] Care Team Providers Name Role Phone Unavailable Primary Care Provider Unavailable Encounter Details Date Type Department Care Team Description 06/18/2005 Historic On Site Soil Evaluator [facility] Jessica Grant sa [facility] jesu R, PT [address] [facility] [place] [facility] [address] [address] [facility] [phone] [place], [place] [id number] Social History Tobacco Use Types Packs/Day Years Used Date Smoking Tobacco: Never Assessed Sex Assigned at Date Recorded Male 04/02/2021 10:12 AM CDT documented as of this encounter Progress Notes Jerica Grant, PT - 06/05/2011 12:13 AM PROJECT STRUCTURAL ENGINEER PHYSICAL THERAPY EVALUATION EVALUATION Summary: Patient is a 59-year-old male presenting to physical therapy with right sided low back pain, right lower extremity radicular symptoms, weakness in the L4-5 distribution, and abdominal/spinal weakness S/P L3, L4, L5 decompression/foraminotomy in October 2004. He will benefit from direct physical therapy intervention to decrease pain, improve strength and improve spinal stabilization. He will also benefit from postural re-education in order to prevent future lumbar problems. P.T. Diagnosis: Musculoskeletal Prognosis: Patient's prognosis is good for being able to be mobile without pain and have normal strength in his right lower extremity within 2-months. Plan of Care: Plan to continue seeing the patient on a 2-3x/week basis. Patient currently only scheduled through the end of the year with plans to reassess and determine any further need as patient's deductible starts over as of June 30. Therapy to include therapeutic exercise and home exercise program instruction for flexibility, strengthening and spinal stabilization, manual therapies such as myofascial release, and postural re-education. Goals: 1. Patient will be independent in a home exercise program for flexibility, strengthening and posture in order to maximize his function after discharge from therapy and prevent future onset of back problems within 4 weeks. 2. Patient will have improvement in right ankle dorsiflexion strength to a level of 5/5 in order to eliminate foot slap during gait within 4 weeks. 3. Patient will demonstrate appropriate posture throughout his trunk without verbal cueing within 4 weeks to prevent future lumbar problems. Interventions this Session: Patient received evaluation followed by patient education regarding findings of the exam and plan of care. We discussed appropriate postures and patient was placed in appropriate posture in his trunk with tactile cueing. He was instructed in the use of postural cues, such as a lumbar roll while sitting and changing his office chair to one which is more supportive to the lumbar spine. He was also instructed to use the lumbar support in his car and adjust his mirrors so that he can only see out of them when sitting in an erect position. Thank you for referring Vivek Lang to physical therapy. Please call [phone] with any questions. JERICA GRANT PT Dictated by: JERICA GRANT PT MT: catherine Document: [id number] CC: NIMISHA SERRANO MD EXAMINATION Physical Therapy Order/Medical Diagnosis: Patient is referred to physical therapy for evaluation and treatment with a diagnosis of S/P left L3, L4, L5 decompression/foraminotomy with residual right L5 radiculopathy and deconditioning. Chief Complaint/Functional limitations: Patient initially stating he has no pain, but upon further questioning states his pain is at a level of 2/10. It is aggravated with prolonged sitting and driving. He also is complaining of some numbness in the right lower extremity from his fraire down to the bottom of his foot and his toes. He feels this may be getting better since surgery. At times he has pain that radiates from the right side of his low back down his right lower extremity and, at times, going down all the way to his foot. He also has occasional muscle spasms in his hamstrings and calves on the right. Medical History: Patient's spinal surgery was on 11/14/2004. Patient reports that he had herniated discs which were impinging upon his nerves and he had begun losing feeling in his right leg and foot, and had weakness down into his ankle which required the surgery. Patient states the surgery included a laminectomy, as well as the foraminotomy. Patient's other past medical history is remarkable for hypertension and being overweight. Patient occasionally takes muscle relaxants and pain medications as needed. He does regularly take high blood pressure medication. 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 He does admit to sitting most of the day at his computer in a comfy chair with little support to his low back. Patient lives at home with his and reports that they walk frequently anywhere from 2-3 miles. Educational Assessment: Learning Barriers: Education Needs: None _X__Disease process ___ Vision ___Safety ___ Hearing ___Use of devices / equipment ___ Unable to read ___Activities of daily living ___ Unable to understand what is read ___Exercise program _X__ Language / needs role player ___Posture _X__ Patient Goals for Physical Therapy: 1. Patient hopes to be able to go for walks with his without feeling stiff afterwards as soon as possible. 2. Patient is hoping to be able to move about his day doing his normal routine without pain or radicular symptoms as soon as possible. 3. Patient is hoping to improve the strength in his right leg for ambulation as soon as possible. SYSTEMS REVIEW Communication, Affect, Cognition: Communication (e.g. age appropriate)Impaired: ___ Not impaired: _X__ Orientation x 3Impaired: ___ Not impaired: _X__ Emotional/behavioral responsesImpaired: ___ Not impaired: _X__ Musculoskeletal System Gross Symmetry Sitting:Impaired: _X__Not impaired: ___ Standing:Impaired: _X__Not impaired: ___ Comments: Patient sits and stands with slumped posture. He has rounded shoulders with abducted scapular and a forward head. He has a reduced lumbar lordosis. Gross ROM Upper Extremities:Impaired: ___Not tested: __X_ Lower Extremities:Impaired: ___Not impaired: _X__ CROM:Impaired: ___ Not tested: _X__ Comments: Patient has moderate loss of lumbar extension, but flexion and bilateral lateral flexion are within normal limits. Gross Strength Upper Extremities:Impaired: ___Not tested: _X__ Lower Extremities:Impaired: _X__Not impaired: ___ Comments: Patient has weakness noted in the dorsiflexors on the right and with great toe extension on the right. Dorsiflexion is graded at 4/5 and great toe extension 3+/5. Patient also demonstrating abdominal weakness. However, after tactile and verbal cueing, he was able to correctly activate his lower abdominal muscles. It was noted that the patient does have an abdominal hernia and was instructed in corrective technique while doing his crunches. Flexibility Patient has a straight leg raise of 72 on the right and 78 on the left. Palpation Patient with some myofascial restriction in the low back, especially in the area of his scar. Neuromuscular System Sensation:Impaired: _X__Not impaired: ___ Tone:Impaired: ___Not impaired: __X_ Reflexes:Impaired: _X__Not impaired: ___ Comments: Patient's sensation is intact for light touch throughout bilateral lower extremities; however, he does report reduced sensation on the right compared to the left in the arch of his right foot and on his toes. Patient with absent reflexes bilaterally in the lower extremities. Neural Tension With slump test, patient has reproduction of low back pain with distal initiation and a slumped posture. With spine in a neutral position he has no onset of symptoms. Locomotion Gait: Patient ambulating in a normal heel to toe gait pattern today. There is no foot slap noted on the right in the short amount of ambulation the patient was doing in therapy today. Transfers: Patient is independent with supine to/from sit transfers, bed mobility, and sit to stand. Name: MR#: [id number] LANG [id number] PHYSICAL THERAPY EVALUATION Page 4 of 5 LCN: PT DSC: 06/18/2005 [place], [place] Name: MR#: VIVEK LANG [id number] Age: 41 Sex: M : Date of Service: Account #: 1945 06[birth year]2005 [id number] Referring Physician: Fina MEYERS MD PHYSICAL THERAPY EVALUATION Page 1 of 5 ECT STRUCTURAL ENGINEER documented in this encounter Plan of Treatment Not on filedocumented as of this encounter Visit Diagnoses Not on filedocumented in this encounter
--- OUTSIDE RECORDS SUMMARY | 2022-04-18 14:53 | XMS_ITS | Encounter Summary ---
:1945 Author Organization [facility] Address [address] [place] [address] Care Team Providers Name Role Phone Siria Lee MD Primary Care Provider Reason for Visit Auth/Cert - Closed Specialty Diagnoses / Procedures Referred By Contact Refer red To Contact Gastroenterology Diagnoses Screening Rh Endoscopy Procedures COLONOSCOPY [address] [place] [address] Phone: Fax: Referral ID Status Reason Start Date Expiration Date Visits Requ ested Visits Authorized [id number] Closed 06/27/2011 12/24/2011 1 1 Encounter Details Date Type Department Care Team Description 07/04/2011 Hospital Encounter [facility] Zaid Squires MD Polyp of colon Endoscopy [facility] XXX RETIRED XXX [address] [facility] [place] [address] [place], [place] [phone] (Work) [phone] Social History Tobacco Use Types Packs/Day Years Used Date Smoking Tobacco: Never Assessed Alcohol Use Standard Drinks/Week Comments Yes 0 (1 standard drink = 0.6 oz pure alcoho l) daily couple of drinks Sex Assigned at Date Recorded Male 04/02/2021 10:12 AM CDT documented as of this encounter Last Filed Vital Signs Vital Sign Reading Time Taken Comments Blood Pressure 125/73 07/04/2011 1:10 PM [facility] Pulse 48 07/04/2011 11:55 AM [facility] [facility] Temperature - - Respiratory Rate 12 07/04/2011 1:10 PM [facility] [facility] Oxygen Saturation 91% 07/04/2011 1:10 PM [facility] Inhaled Oxygen Concentration - - Weight 97.5 kg (215 lb) 07/04/2011 11:27 AM [facility] Height 188 cm (6' 2) 07/04/2011 11:27 AM [facility] [facility] Body Mass Index 27.6 07/04/2011 11:27 AM [facility] [facility] documented in this encounter Medications at Time of Discharge Medication Sig Dispensed Refills Start Date End Date terazosin (HYTRIN) 2 MG Take 2 mg by mouth 0 capsule At Bedtime. aspirin 81 MG tablet Take 1 tablet by 0 03/23/2013 mouth daily. bisoprolol-hydrochlorothi Take 1 tablet by 0 02/01/2021 azide (ZIAC) 10-6.25 MG mouth daily. per tablet simvastatin (ZOCOR) 20 MG Take 20 mg by mouth 0 01/04/2017 tablet At Bedtime. documented as of this encounter Plan of Treatment Scheduled Orders Name Type Priority Associated Diagnoses Order S chedule PATIENT HANDOUT Procedures Routine Polyp of colon Ordered: 0 07/04/2011 documented as of this encounter Procedures Procedure Name Priority Date/Time Associated Diagnosis Comme nts SURGICAL PATHOLOGY Routine 07/04/2011 12:22 PM Re sults for this EXAM [facility] procedure are i n the results section. COLONOSCOPY, 07/04/2011 11:25 AM Screening FLEXIBLE, WITH [facility] [employer]AME [facility]IR[facility] LESION REMOVAL USING SNARE Special Needs Referring: Dr Siria Lee COLONOSCOPY Routine 07/04/2011 11:22 AM [facility] [facility] Resu lts for this procedure are in the results section . documented in this encounter Results Surgical pathology exam (07/04/2011 12:22 PM [facility] [facility]) Component Value Ref Test Analysis Performed At [facility] Range Method Time Signature Copath Report Patient Name: VIVEK LANG MR#: [id number] Specimen #: [id number] Collected: 07/04/2011 Received: 07/04/2011 Reported: 07/05/2011 11:54 Ordering Phy(s): ARISTEO SQUIRES Additional Phy(s): SIRIA LEE SPECIMEN(S): Sigmoid polyp FINAL DIAGNOSIS: Sigmoid colon polyps, biopsy/polypectomy - One fragment of t ubular adenoma. ??One fragment of markedly cauterized mucosa. ??Neg ative for high grade dysplasia and malignancy. ??See microscopic descriptio n. Electronically signed out by: Alex Ochoa M.D. CLINICAL HISTORY: Screening. GROSS: The specimen, labeled sigmoid colon polyp x2, consists of two fragments of goins to pink soft tissue measuring 0.3 cm in rina meter each. The specimen is submitted in its entirety in one cassette. ? ?REYNA/kd MICROSCOPIC: There is one fragment of tubular adenoma. ??The other fragme nt of mucosa shows marked cautery artifact limiting evaluation. ??It is n ot possible to definitively discern whether this portion represents a hy perplastic polyp or tubular adenoma due to artifact. NEGRITO/gaye DT/07-05-11 TESTING LAB LOCATION: [address] ??[phone] COLLECTION SITE: Client: [facility] Location: [facility] (R) Specimen Anatomical Collection Method Collection Time Receive d Time (Source) Location / / Volume Laterality 07/04/2011 12:22 07/04/2011 2:00 PM [facility] PM [facility] Aristeo JOHNSON - JAC CUENCA Performing Organization Address City/State/ZIP Code Phon e Number COPATH COLONOSCOPY (07/04/2011 11:22 AM [facility]) [facility] Method Time Signature COLONOSCOPY [facility] RAD IOLOGY RESULTS Patient Name: Vivek Lang ?Procedure Date: 07/04/2011 11:22:26 AM ? Date of : 1945 ?Admit Type: Outpatient ? Age: 65 ? Gender: Male ? Attending MD: Aristeo Louis MD ? Procedure: ?Colonoscopy Indications: ?Screeni ng for malignant neoplasm in the colon Providers: ?Aristeo Squires MD Referring MD: ? Siria Lee MD Medicines: ?Fentanyl 100 micrograms IV, Midazolam 1.5 mg IV, ?Atropine 0.6 mg IV Complications: ?No immediate complications Procedure: ?Pre-Anesthesia Assessment: ?- Prior to the procedure, a History and Physical ?was performed, and patient medications and ?allergies were reviewed. The patient is competent. ?The risks and benefits of the procedure and the ?sedation options and risks were discussed with the ?patient. All questions were answered and informed ?consent was obtained. Patient identification and ?proposed procedure were verified by the physician ?in the procedure room. Mental Status Examination: ?alert and oriented. Airway Examination: normal ?oropharyngeal airway and neck mobility. Respiratory ?Examination: clear to auscultation. CV Examination: ?normal. ASA Grade Assessment: II - A patient with ?mild systemic disease. After reviewing the risks ?a nd benefits, the patient was deemed in ?satisfactory condition to undergo the procedure. ?The anesthesia plan was to use moderate sedation / ?analgesia (conscious sedation). Immediately prior ?to administration of medications, the patient was ?re-assessed for adequacy to receive sedatives. The ?heart rate, respiratory rate, oxygen saturations, ?blood pressure, adequacy of pulmonary ventilation, ?and response to care were monitored throughout the ?procedure. The physical status of the patient was ?re-assessed after the procedure. ?After obtaining informed consent, the colonoscope ?was passed under direct vision. Throughout the ?procedure, the patient's blood pressure, pulse, and ?oxygen saturations were monitored continuously. The ?Colonoscope was introduced through the anus and ?advanced to the terminal ileum. The colonoscopy was ?performed without difficulty. The patient tolerated ?the procedure well. The quality of the bowel ?preparation was excel lent. ? Findings: ? The digital rectal ex am was normal. Two sessile polyps were found in the ? sigmoid colon. The polyps were 2 to 3 mm in size. The se polyps were ? removed with a hot snare. Resection and retrieval w ere complete. The ? rectum, descending colon, splenic flexure, transver se colon, hepatic ? flexure, ascending colon, cecum, appendiceal or ifice, ileocecal valve ? and ileum appeared normal. The retroflexed view of the anal verge was ? normal and showed no anal or rectal abnormaliti es. The terminal ileum ? appeared normal. ? Impression: ? - Two 2 to 3 mm polyps in the sigmoid colon. ?Resected and retrieve d. ?- The rectum, descending colon, splenic flexure, ?transverse colon, hepatic flexure, ascending colon, ?cecum, appendiceal orifice, ileocecal valve and ?terminal ileum are no rmal. ?- The examined portion of the ileum was normal. Recommendation: ? - Discharge patient to home ( ambulatory). ?- Telephone endoscopist for pathology results in 1 ?week. ?- If polyps are adenomatous repeat colonoscopy in 3 ?years. If polyps are hyperplastic then hemoccults q ?yr and flex sigmoidos copy in 3 yrs. ?- Return to primary care physician PRN. ? Brittany Squires M.D Aristeo Squires MD Signed Date: 07/04/2011 12:36:27 PM Number of Addenda: 0 I was physically present for the entire viewing portion of t he exam. Note Initiated On: 07/04/2011 11:22:26 AM Scope Withdrawal Time: 0 hours 7 minutes 7 seconds Total Procedure Duration: 0 hours 10 minutes 6 seconds Specimen (Source) Anatomical Collection Method Collection Time Re ceived Time Location / / Volume Laterality 07/04/2011 11:22 AM [facility] Siria Lee MD PROCEDURES Performing Organization Address City/State/ZIP Code Phon e Number RADIOLOGY RESULTS documented in this encounter Visit Diagnoses Diagnosis Polyp of colon Benign neoplasm of colon documented in this encounter Active and Recently Administered Medications Times are shown in [facility] [facility]. PRN Medication Order 07/02/2011 07/03/2011 07/04/2011 atropine injection (CANCELED) 12 18 (Given - Provider: Aristeo Squires MD) PRN, Starting Martine 07/04/11 at 1218, Intra-procedure fentanyl (SUBLIMAZE) injection (CANCELED) 1218 (Given - Provider: Aristeo Squires MD) PRN, moderate to severe pain, Starting Martine 07/04/11 at 1218, Intra -procedure midazolam (VERSED) injection (CANCELED) 1218 (Given - Provider: Aristeo Squires MD) PRN, anxiety, Starting Martine 07/04/11 at 1218, Intra-procedure documented in this encounter Care Teams Hansard Reporter Relationship Specialty Start Date End Date Siria Lee MD PCP - General Family Practice 06/27/11 07/30/[address] [phone] documented as of this encounter
--- OUTSIDE RECORDS SUMMARY | 2022-04-18 14:53 | XMS_ITS | Encounter Summary ---
:1945 Author Organization [facility] Address [address] [place] [address] Care Team Providers Name Role Phone Siria Lee MD Primary Care Provider Reason for Visit Auth/Cert - Closed Specialty Diagnoses / Procedures Referred By Contact Refer red To Contact Gastroenterology Diagnoses Screening Endoscopy Procedures COLONOSCOPY [address] [place] [address] Phone: Fax: Referral ID Status Reason Start Date Expiration Date Visits Requ ested Visits Authorized [id number] Closed 06/27/2011 12/24/2011 1 1 Encounter Details Date Type Department Care Team Description 07/04/2011 Surgery [facility] Aristeo Squires MD COLONOSCOPY with Endoscopy Ivel XXX RETIRED XXX polypectomy by hot [address] [facility] [place] [address] [address] [place], [place] [phone] (Wo rk) [address] [phone] Surgery Details Date/Time Status Location OR Service Patient Class Case Case Trauma Class Type Case? 07/04/11 11:30 Posted GI GI D Gastroenterology Outpatient AM Panel 1 Procedure LRB Anes Op Region Wound Class Commen ts COLONOSCOPY with N/A Conscious Sedation Rectum N/A COLONOSCOPY with polypectomy by hot polype ctomy by hot snare snare Surgeon Surgeon Role Service Panel Aristeo Squires MD Primary Gastroenterology 1 Special Needs Referring: Dr Siria Lee documented in this encounter Social History Tobacco [...] Comments Blood Pressure 125/73 07/04/2011 1:10 PM S[facility] C[facility]TER Pulse 48 07/04/2011 11:55 AM SCREW C[facility]TER Temperature - - Respiratory Rate 12 07/04/2011 1:10 PM SCRE[facility] CUTTER Oxygen Saturation 91% 07/04/2011 1:10 PM SCRE[facility] CUTTER Inhaled Oxygen Concentration - - Weight 97.5 kg (215 lb) 07/04/2011 11:27 AM SCREW C[facility]TER Height 188 cm (6' 2) 07/04/2011 11:27 AM S[facility] C[facility]TER Body Mass Index 27.6 07/04/2011 11:27 AM SCREW CUTTER documented in this encounter Medications at Time [...] 12:22 PM Re sults for this EXAM [facility] procedure are i n the results section. COLONOSCOPY, 07/04/2011 11:25 AM Screening FLEXIBLE, WITH SCREW C[facility]TER LESION REMOVAL USING SNARE Special Needs Referring: Dr Siria Lee COLONOSCOPY Routine 07/04/2011 11:22 AM S[facility] C[facility]TER Resu lts for this procedure are in the results section . documented in this encounter Results Surgical pathology exam (07/04/2011 12:22 PM SCREW CUTTER) Component Value Ref Test Analysis Performed At [facility] Method Time Signature Copath Report Patient Name: VIVEK LANG MR#: [id number] Specimen #: [id number] Collected: 07/04/2011 Received: 07/04/2011 [...] in its entirety in one cassette. ? ?MGP/kd MICROSCOPIC: There is one fragment of tubular adenoma. ??The other fragme nt of mucosa shows marked cautery artifact limiting evaluation. ??It is n ot possible to definitively discern whether this portion represents a hy perplastic polyp or tubular adenoma due to artifact. NEGRITO/gaye DT/07-05-11 TESTING LAB LOCATION: [address] ??[phone] COLLECTION SITE: Client: [facility] Location: [facility] (R) Specimen Anatomical Collection Method Collection Time Receive d Time (Source) Location / / Volume Laterality 07/04/2011 12:22 07/04/2011 2:00 PM SCREW CUTTER PM SCREW CUTTER Aristeo Squires MD LAB - [facility] Organization Address City/State/ZIP Code Phon e Number COPATH COLONOSCOPY (07/04/2011 11:22 AM SCREW CUTTER) [facility] gist Method Time Signature COLONOSCOPY [facility] RAD IOLOGY RESULTS Patient Name: Vivek Lang [...] / / Volume Laterality 07/04/2011 11:22 AM SCREW CUTTER Siria Lee MD PROCEDURES Performing Organization Address City/State/ZIP Code Phon e Number RADIOLOGY RESULTS documented in this encounter Visit Diagnoses Not on filedocumented in this encounter Administered Medications Inactive Administered Medications - up to 3 most recent administrations Medication Order MAR Action Action Date Dose Rate Site atropine injection Given 07/04/2011 12:18 PM SCREW CUTTER 0.6 mg PRN, Starting on Martine 12 at 1218, Intra-procedure fentanyl (SUBLIMAZE) injection Given 07/04/2011 12:18 PM SCREW CUTTER 100 mcg PRN, moderate to severe pain, Starting on Martine 07/04/11 at 1218, Intra-procedure midazolam (VERSED) injection Given 07/04/2011 12:18 PM SCREW CUTTER 1.5 mg PRN, anxiety, Starting on Martine 12 at 1218, Intra-procedure documented in this encounter Active and Recently Administered Medications Times are shown in SCREW CUTTER. PRN Medication Order 07/02/2011 07/03/2011 07/04/2011 atropine [...] Intra-procedure documented in this encounter Care Teams Mrp Controller Relationship Specialty Start Date End Date Siria Lee MD PCP - General Family Practice 06/27/11 07/30/[address] [phone] documented as of this encounter
--- OUTSIDE RECORDS SUMMARY | 2022-04-18 14:53 | XMS_ITS | Encounter Summary ---
:1945 Author Organization [facility] Address [address] [place] [address] Care Team Providers Name Role Phone Ran Lee MD Primary Care Provider Reason for Visit Auth/Cert - Closed Specialty Diagnoses / Procedures Referred By Contact Refer red To Contact Surgery Diagnoses DJD Rh Periop Services Procedures ARTHROPLASTY HIP [address] [place], [place] [address] Phone: Fax: Referral ID Status Reason Start Date Expiration Date Visits Requ ested Visits Authorized [id number] Closed 1 1 Encounter Details Date Type Department Care Team Description 03/22/2013 Surgery [facility] Freddy Obregon Right To jazzy hip [place] PeriOp Servic cristian Corona MD Arthroplasty [address] [place], [place] ORTHOPEDICS [address] [address] [facility] [phone] [address] [place] [address] (Wo rk) Surgery Details Date/Time Status Location OR Service Patient Case Case Traum a Class Class Type Case? 03/22/13 7:30 Posted [facility] OR OR 09 Orthopedics Surgery AM Admit Panel 1 Procedure LRB Anes Op Region Wound Class Commen ts Right Total hip Right General Hip I-Clean Right Tot al hip Arthroplasty Arthroplasty Surgeon Surgeon Role Service Panel Freddy Obregon MD Primary Orthopedics 1 Elana Ayala PA-C Assisting Supervisor Compressed Yeast Authorizat ion 1 Special Needs 6'3 /288# Per H&P documented in this encounter Social History Tobacco [...] control. May go home from Medicine standpoint. T Elana Ayala PA-C - 03/25/2013 10:00 AM [...] in 10-14 days post-op. Elana Ayala PA-C [phone] Elana Traylor PA-C - 03/25/2013 8:01 AM CDT Orthopedic [...] on that operative leg. Elana Ayala PA-C [phone] Tony Burgos MD - 03/24/2013 11:30 AM CDT [facility] Hospitalist Progress Note 03/24/2013 Name: Vivek Lang [...] imaging, and other studies were reviewed. Lab 03/24/13 0603/23/1318 WBC -- -- HGB 10.6* 12.6* HCT -- -- MCV -- -- PLT -- -- Lab 03/24/1319 03/23/1318 NA -- 135 POTASSIUM -- 4.6 CHLORIDE [...] discharge to Home tomorrow. Elana Ayala PA-C [phone] Fatou Koroma-Provider - 03/24/2013 10:00 AM CDT [...] WFL Mobility Bed Mobility Comments SBA, leg spring coiler Transfer Skills Transfer Comments SBA Lower Body Dressing Level of Sawyer: Dress Lower Body stand-by assist Physical Assist/Nonphysical Assist: Dress Lower Body set-up required;supervision Assistive Device director outcomes;sock-aid Grooming Level of Sawyer: Grooming stand-by assist Physical Assist/Nonphysical Assist: Grooming set-up required (in bed) Eating/Self Feeding Level of Sawyer: Eating independent Instrumental Activities of Daily Living [...] his in their one level home in [place], prior to surgery he had been i [...] to home on . Elana Ayala PA-C [phone] Tony Burgos MD - 03/23/2013 11:20 AM CDT [facility] Hospitalist Progress Note 03/23/2013 Name: Vivek Lang [...] imaging, and other studies were reviewed. Lab 03/23/13617 WBC -- HGB 12.6* HCT -- MCV -- PLT -- Lab 03/23/13617 NA -- POTASSIUM -- CHLORIDE -- CO2 [...] in AM. 2. HTN: Currently stable. 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 3. Prophylaxis: [...] Physical Therapy Goals The patient and/or their assisted sales representative will achieve their patient-specific goals related [...] therapy is recommended. Plan of Care - Lashay Wallace - 03/25/2013 9:24 AM CDT Problem: General Rehab Plan of Care Goal: Occupational Therapy Goals The patient and/or their assisted sales representative will achieve their patient-specific goals related [...] Individualization/Patient-Specific Goal (Adult,OB,Behavioral The patient and/or their assisted sales representative will achieve their patient-specific goals related [...] and intact. Plan of Care - Rebecca Moreno OT - 03/24/2013 3:15 PM CDT Problem: General Rehab Plan of Care Goal: Occupational Therapy Goals The patient and/or their assisted sales representative will achieve their patient-specific goals related [...] goals as expected OT-Per Dr. Obregon's PA-C, [place], patient is TTWB status on the R. Patient was min A with sit to standand CGA with ambulation to complete toilet transfers. Anticipate patient will be safe to return homewith spouse to assist as needed. Will continue with OT for ADl's, functional mobility and increasingactivity tolerance as well as issuing DME as needed. Plan of Care - Lianet Anna R, ENHANCED ENVIRONMENTAL OPERATOR - 03/24/2013 1:31 PM CDT Problem: General Rehab Plan of Care Goal: Physical Therapy Goals The patient and/or their assisted sales representative will achieve their patient-specific goals related [...] Physical Therapy Goals The patient and/or their assisted sales representative will achieve their patient-specific goals related [...] Individualization/Patient-Specific Goal (Adult,OB,Behavioral The patient and/or their assisted sales representative will achieve their patient-specific goals related to the plan of care. The patient-specific goals include: Right femur fracture intra-operative. Metal cable placed. Anticipate longer walker time post-op. Activity: Flat foot weight bearing. [facility] Discharge planning for return home. Vss. Afebrile. [...] Individualization/Patient-Specific Goal (Adult,OB,Behavioral The patient and/or their assisted sales representative will achieve their patient-specific goals related to the plan of care. The patient-specific goals include: Right femur fracture intra-operative. Metal cable placed. Anticipate longer walker time post-op. Activity: Flat foot weight bearing. [facility] Discharge planning for return home. Outcome: Improving [...] Occupational Therapy Goals The patient and/or their assisted sales representative will achieve their patient-specific goals related [...] OT provided education andtraining on use of director outcomes and sockaid for LE dressing due to hip precautions. Pt. able to complete LE dressing wtih AE with SBA at EOB. OT provided education and training on DME for toilet transfer aspt. notes his RTS has no arms and impairs independence with toileting. OT educated on DME for walk in shower transfer. OT educated on energy conservation/work simplification for ADLs at [facility]. Pt. verbalized understanding and that his can help assist with setup at home. OT recommends discharge home with to assist with IADLs and setup for ADLs. Plan of Care - Allyssa Grover PT - 03/23/2013 11:17 AM CDT Problem: General Rehab Plan of Care Goal: Physical Therapy Goals The patient and/or their assisted sales representative will achieve their patient-specific goals related [...] Individualization/Patient-Specific Goal (Adult,OB,Behavioral The patient and/or their assisted sales representative will achieve their patient-specific goals related [...] Individualization/Patient-Specific Goal (Adult,OB,Behavioral The patient and/or their assisted sales representative will achieve their patient-specific goals related [...] Individualization/Patient-Specific Goal (Adult,OB,Behavioral The patient and/or their assisted sales representative will achieve their patient-specific goals related [...] total hip arthroplasty. SURGEON: Freddy Obregon MD. COTTON OPENER: Elana Villegas PA-C. ANESTHESIA: General. ESTIMATED BLOOD [...] OBREGON MD MT: [id number] Name: VIVEK LANG MRN: [id number] Account: [id number] : 1945 Procedure Date: 03/22/2013 Document: [id number] Brief Op Note - Freddy Obregon MD - 03/22/2013 9:21 AM CDT OP NOTE LUCI for DJD of right hip Maximiliano - surgeon 250 EBL Small calcar crack treated with cable Freddy Obregon MD Pharmacy-Admission Medication History - Cecelia Schaefer [facility] - 03/16/2013 5:02 PM CDT Admission medication history interview status for this patient is complete. See [facility] admission navigator for allergy information, prior [...] Signature INR 1.72 (H) 0.86 - 1.14 [facility] Specimen Anatomical Collection Method Collection Time Receive d Time (Source) Location / / Volume Laterality Blood specimen 03/25/2013 6:30 AM 013 6:36 (specimen) CDT AM CDT Freddy Obregon MD LAB - BLOOD ORDERABLES Performing Organization Address City/State/ZIP Code Phon e Number [facility] [address] [place], [place] [address] [facility] EKG 12-lead, tracing only (03/24/2013 11:36 AM CDT) Patholo gist Method Time Signature Interpretation ECG Click View RADIOLOGY Image link RESULTS to view waveform and result Specimen (Source) Anatomical Collection Method Collection Time Re ceived Time Location / / Volume Laterality 03/24/2013 11:36 AM CDT Tony Burgos MD ECG ORDERABLES Performing Organization Address City/[facility]/ZIP Code Phon e Number RADIOLOGY RESULTS (ABNORMAL) INR (03/24/2013 6:19 AM CDT) P athologist Signature INR 1.23 (H) 0.86 - 1.14 [facility] Specimen Anatomical Collection Method Collection Time Receive d Time (Source) Location / / Volume Laterality Blood specimen 03/24/2013 6:19 AM 013 6:28 (specimen) CDT AM CDT Freddy Obregon MD LAB - BLOOD ORDERABLES Performing Organization Address City/[facility]/ZIP Code Phon e Number [facility] [address] [place], [place] [address] [facility] (ABNORMAL) Glucose (03/24/2013 6:19 AM CDT) P athologist Signature Glucose 105 (H) 60 - 99 [place] mg/dL [facility] Specimen Anatomical Collection Method Collection Time Receive d Time (Source) Location / / Volume Laterality Blood specimen 03/24/2013 6:19 AM 013 6:28 (specimen) CDT AM CDT Freddy Obregon MD LAB - BLOOD ORDERABLES Performing Organization Address City/[facility]/ZIP Code Phon e Number [facility] [address] [place], [place] [address] [facility] (ABNORMAL) Hemoglobin (03/24/2013 6:19 AM CDT) P athologist Signature Hemoglobin 10.6 (L) 13.3 - 17.7 [place] g/dL [facility] Specimen Anatomical Collection Method Collection Time Receive d Time (Source) Location / / Volume Laterality Blood specimen 03/24/2013 6:19 AM 013 6:28 (specimen) CDT AM CDT Freddy Obregon MD LAB - BLOOD ORDERABLES Performing Organization Address City/State/ZIP Code Phon e Number [facility] [address] [place], [place] [address] [facility] (ABNORMAL) UA reflex to Microscopic (03/23/2013 12:35 PM CDT) Component Value Ref Test Analysis Performed At Patholo gist Range Method Time Signature Color Urine Yellow [facility] Appearance Urine Cloudy [facility] Glucose Urine 30 (A) NEG [place] mg/dL [facility] Bilirubin Urine Negative NEG [facility] Ketones Urine Negative NEG [place] mg/dL [facility] Specific [place] 1.022 1.003 - [place] Urine 1.035 [facility] Blood Urine Moderate (A) NEG [facility] pH Urine 5.5 5.0 - [place] 7.0 pH [facility] Protein Albumin 30 (A) NEG [place] Urine mg/dL [facility] Urobilinogen Normal 0.0 - [place] mg/dL 2.0 [facility] Nitrite Urine Negative NEG [facility] Leukocyte Small (A) NEG [place] Esterase Urine [facility] Source Catheterized [place] Urine [facility] RBC Urine 82 (H) 0 - 2 [facility] WBC Urine 11 (H) 0 - 2 [facility] Bacteria Urine Few (A) NEG /HPF [facility] Mucous Urine Present (A) NEG /LPF [facility] Amorphous Few (A) NEG /HPF [place] Crystals [facility] Specimen Anatomical Location Collection Method Collection Time Received Time (Source) / Laterality / Volume Urine specimen URINE SPECIMEN 03/23/2013 12:35 013 (specimen) COLLECTION, PM CDT 12:54 PM CDT CATHETERIZED / Unknown Tony Burgos MD LAB - URINE ORDERABLES Performing Organization Address [facility]/[place] [address], [place] [address] [facility] Magnesium (03/23/2013 6:18 AM CDT) athologist Signature Magnesium 2.1 1.6 - 2.3 [facility] mg/dL [facility] Specimen Anatomical Collection Method Collection Time Receive d Time (Source) Location / / Volume Laterality Blood specimen 03/23/2013 6:18 AM 013 1:11 (specimen) CDT PM CDT Tony Burgos MD LAB - BLOOD ORDERABLES Performing Organization Address [facility]/[address] [facility] (ABNORMAL) Basic metabolic panel (03/23/2013 6:18 AM CDT) athologist Signature Sodium 135 133 - 144 [place] mmol/L [facility] Potassium 4.6 3.4 - 5.3 [place] mmol/L [facility] Chloride 98 94 - 109 [place] mmol/L [facility] Carbon Dioxide 30 20 - 32 [place] mmol/L [facility] Anion Gap 7 6 - 17 [place] mmol/L [facility] Glucose 155 (H) 60 - 99 [place] mg/dL [facility] Urea Nitrogen 15 7 - 30 [place] mg/dL [facility] Creatinine 0.78 0.66 - [facility] 1.25 mg/dL [facility] GFR Estimate >90 >60 [place] mL/min/1.[address] LAB GFR Estimate If >90 >60 [place] Black mL/min/1.[address] [place] [address] LAB Calcium 8.3 (L) 8.5 - 10.4 [place] mg/dL [facility] Specimen Anatomical Collection Method Collection Time Receive d Time (Source) Location / / Volume Laterality Blood specimen 03/23/2013 6:18 AM 013 1:11 (specimen) CDT PM CDT Tony Burgos MD LAB - BLOOD ORDERABLES Performing Organization Address City/[facility]/ZIP Code Phon e Number [facility] [address] [place], [place] [address] [phone] [place] [address] LAB Lipase (03/23/2013 6:18 AM CDT) athologist Signature Lipase 51 20 - 250 [facility] U/L [facility] Specimen Anatomical Collection Method Collection Time Receive d Time (Source) Location / / Volume Laterality Blood specimen 03/23/2013 6:18 AM 013 1:11 (specimen) CDT PM CDT Tony Burgos MD LAB - BLOOD ORDERABLES Performing Organization Address City/[facility]/ZIP Code Phon e Number [facility] [address] [place], [place] [address] [phone] [place] [address] LAB INR (03/23/2013 6:18 AM CDT) athologist Signature INR 1.13 0.86 - 1.14 [facility] Specimen Anatomical Collection Method Collection Time Receive d Time (Source) Location / / Volume Laterality Blood specimen 03/23/2013 6:18 AM 013 6:34 (specimen) CDT AM CDT Freddy Obregon MD LAB - BLOOD ORDERABLES Performing Organization Address City/[facility] Phon e Number [facility] [address] [place], [place] [address] 7 [phone] LAB (ABNORMAL) Glucose (03/23/2013 6:18 AM CDT) athologist Signature Glucose 156 (H) 60 - 99 [place] mg/dL [facility] Specimen Anatomical Collection Method Collection Time Receive d Time (Source) Location / / Volume Laterality Blood specimen 03/23/2013 6:18 AM 013 6:34 (specimen) CDT AM CDT Freddy Obregon MD LAB - BLOOD ORDERABLES Performing Organization Address City/[facility]/ZIP Code Phon e Number [facility] [address] [place] [address] [facility] (ABNORMAL) Hemoglobin (03/23/2013 6:18 AM CDT) P athologist Signature Hemoglobin 12.6 (L) 13.3 - 17.7 [place] g/dL [facility] Specimen Anatomical Collection Method Collection Time Receive d Time (Source) Location / / Volume Laterality Blood specimen 03/23/2013 6:18 AM 013 6:34 (specimen) CDT AM CDT Freddy Obregon MD LAB - BLOOD ORDERABLES Performing Organization Address [facility] Phon e [facility] [address], [place] [address] [facility] XR Pelvis w Hip Port Right [...] athologist Signature INR 1.08 0.86 - 1.14 [facility] Specimen Anatomical Collection Method Collection Time Receive d Time (Source) Location / / Volume Laterality Blood specimen 03/22/2013 5:54 AM 013 5:58 (specimen) CDT AM CDT Elana Ayala PA-C LAB - BLOOD ORDERABLES Performing Organization Address City/State/ZIP Code Phon e Number [facility] [address] [place], [place] [address] [facility] documented in this encounter Visit Diagnoses Not on filedocumented in this encounter Administered Medications Inactive Administered Medications - up to 3 most recent administrations Medication Order MAR Action Action Date Dose Rate Site bacitracin 100,000 Units, gentamicin Given 03/22/2013 9:12 AM CD T (GARAMYCIN) 200 mg, ceFAZolin (ANCEF) 2 g in sodium chloride 0.9% (bottle) 2,000 mL Bag for irrigation Irrigation, ONCE, On Fri03/22/13 at 0730, For 1 dose, Intra-procedure bupivacaine 0.25 % - EPINEPHrine 1:200,000 Given 03/22/2013 9:13 AM CDT 60 mLs (PF) injection PRN, Starting on Fri03/22/13 at 0913, Intra-procedure povidone-iodine (BETADINE) 10% soln 7ml Given 03/22/20 13 9:06 AM CDT 200 ml given + 0.9% NaCl 250mL PRN, Starting on Fri03/22/13 at 0906, Intra-procedure documented in this encounter Active and Recently Administered Medications Times are shown in CDT. Scheduled Medication Order 03/23/2013 03/24/2013 03/25/2013 acetaminophen (TYLENOL) tablet 650 mg 0400 (Not Given - Provider: Jeremie Hansen LPN - Reason: Nausea - Comment: vomiting)0934 (Not Given - Provider: Celestina Scherer, GARRETT - Reason: Patient/family refused)1801 (Given - Provider: Jaime Siddiqui RN) 0400 (Not Given - Provider: Tita oliver LPN - Reason: Patient/family refused)0908 (Given - Provider: Kelsi Brooks RN)1713 (Given - Provider: Shaista Mcclain LPN)2149 (Given - Provider: Shaista Mcclain LPN) 0607 [...] Mckeon RN) 0848 (Given - Provider: Kelsi Brooks, GARRETT) 0800 (Given - Provider: Kelsi Brooks RN) [...] - Reason: Nausea)180 (Given - Provider: Jaime Siddiqui RN)2126 (Given - Provider: Jaime Siddiqui RN) 0848 (Given - Provider: Klesi Brooks RN)1714 (Given - Provider: Shaista Mcclain LPN)214 (Given - Provider: Shaista Mcclain LPN) 0800 (Given - Provider: Kelsi Brooks RN) 100 mg, Oral, 3 TIMES DAILY, First dose on Fri03/22/13 at 2200, 1st dose now oxyCODONE (OxyCONTIN) 12 hr tablet 10 mg () 053 3 (Not Given - Provider: Jeremie B Clavecilla, BREAKER HAND - Reason: Nausea)1801 (Given - Provider: Jaime Siddiqui RN) 0639 (Given - Provider: Tita Esposito LPN) 10 mg, Oral, EVERY 12 HOURS, First dose on Fri03/22/13 at 1800, For 4 doses, Moderate to severe pain. Hold while on ETL DEVELOPER or with regular IV opioid dosing. Start 12 hours after preop dose., Post-procedure ranitidine (Zantac) injection 50 mg (CANCELED) 1429 (Given - Provider: Kelsi Brokos, RN)2216 (Given - Provider: Amira Crain RN) 0607 (Given - Provider: Jerica Loja RN) 50 mg, Intravenous, EVERY 8 HOURS, First dose on Fri03/24/13 at 1400 simvastatin (ZOCOR) tablet 20 mg (CANCELED) 2126 (Give n - Provider: Jaime Siddiqui RN) 214 (Given - Provider: Shaista Mcclain LPN) 20 mg, Oral, AT BEDTIME, First dose on Fri03/22/13 at 2200 sodium chloride (PF) 0.9% PF flush 3 mL (CANCELED) 040 0 (Not Given - Provider: Jeremie B Clavecilla, BREAKER HAND - Reason: IV Infusing)1121 (Not Given - Provider: Celestina Scherer RN - Reason: IV Infusing)1950 (Not Given - [...] (COMPLETED) 180 (Giv en - Provider: Jaime Siddiqui, GARRETT) 10 mg, Oral, ONCE AT 6PM, Fri03/23/13 [...] (CANCELED) 0814 (G iven - Provider: Aleisha Mckeon, GARRETT) 4 mg, Intravenous, EVERY 6 HOURS PRN, na usea, vomiting, for 2 Minutes, Starting Fri03/22/13 at 1202, This is Step 1 of nausea and vomiting protocol. If nausea not resolved in 15 minutes, go to Step 2 (Prochlorperazine)., Post-procedure oxyCODONE (ROXICODONE) immediate release tablet 5-10 m g 1123 (Given - Provider: Celestina Scherer, RN) 0847 (Given - Provider: Kelsi Brooks , RN)1254 (Given - Provider: Breanne Carpenter LPN)1851 (Given - Provider: Shaista Mcclain LPN) 0755 (Given - Provider: Kelsi Brooks, GARRETT) 5-10 mg, Oral, EVERY 3 HOURS PRN, modera te to severe pain, Starting Fri03/22/13 at 1202, Hold while on ETL DEVELOPER or with regular IV opioid dosing., Post-procedure prochlorperazine (COMPAZINE) injection 5 mg (CANCELED) 0122 (Given - Provider: Sandrita Murdock RN) 5 mg, Intravenous, EVERY 6 HOURS PRN, na usea, vomiting, Starting 03/22/13 at 1202, This is Step 2 of the nausea and vomiting protocol. If nausea not resolved in 15 minutes, give Metoclopramide if ord ered (step 3 of nausea and vomiting protocol) , Post-procedure documented in this encounter Care Teams Hand Baseball Sewer Relationship Specialty Start Date End Date Ran Lee MD PCP - General Family Practice 06/27/11 07/30/[address] [phone] documented as of this encounter
--- OUTSIDE RECORDS SUMMARY | 2022-04-18 14:53 | XMS_ITS | Encounter Summary ---
:1945 Author Organization [place] Address [address] [place] [address] Care Team Providers Name Role Phone Unavailable Primary Care Provider Unavailable Encounter Details Date Type Department Care Team Description 08/07/2005 Historic Certified Veterinary Technician [facility] Jessica Grant sa [facility] ejsu R, PT 201 [facility] [place] [facility] [address] [address] [facility] [phone] [place] [address] Social History Tobacco Use Types Packs/Day Years Used Date Smoking Tobacco: Never Assessed Sex Assigned at Date Recorded Male 04/02/2021 10:12 AM CDT documented as of this encounter Progress Notes Jerica Grant, PT - 06/04/2011 11:30 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 He received instruction in therapeutic exercise and home exercise program for abdominal stabilization, lower extremity flexibility, and ankle strengthening exercise. He also did receive manual therapy of myofascial release at one of his visits. Patient/Client Self-Report: At the patient's last visit on 06/28/05, he was without complaint. He did not have any pain. He was leaving on vacation after this visit and not returning until the beginning of July. He felt that he would be okay to continue with his independent home exercise program with a follow-up once he returned from vacation. He brought in all of his exercises, both from the MD and the PT, to review and condense into a work-out schedule. Patient had been compliant with this home exercise program. Current status unknown secondary to pt cancelling his follow-up appointment after vacation. Impairment Status: Patient demonstrated increased ankle dorsiflexion strength to 4+/5 on the right and had good TA contraction during abdominal stabilization exercise. Functional Status: Patient was completely independent in all mobility. Plan Of Care Goals set on 06/18/2005: 1. Patient will be independent in home exercise program for flexibility, strengthening and posture in order to maximize his function after discharge from therapy and prevent future onset of back problems within 4 weeks. Goal Progress: Goal met. 2. Patient will have improvement in right ankle dorsiflexion strength to a level of 5/5 in order to eliminate foot slap during gait within 4 weeks. Goal Progress: Goal in progress. Patient had a strength measurement of 4+/5 at his last visit. 3. Patient will demonstrate appropriate posture throughout the trunk without verbal cueing within 4 weeks to prevent future lumbar problems. Goal Progress: Goal in progress. Patient did demonstrate improvement in postural awareness. Educational Needs: At the patient's last visit, we condensed his entire home exercise program into a daily and weekly workout schedule. Patient had been provided with handouts of his entire home exercise program to refer to as needed. We also discussed proper lifting techniques and body mechanics. Evaluation: Patient was making good gains in physical therapy and with use of his home program. He will benefit from continued use of this program to maximize strength and flexibility for functional mobility. Reason for Discharge: Patient was to follow-up with physical therapy on 08/07/2005 after his vacation. He called to cancel this appointment and did not reschedule a further follow-up. Discharge Plan: Patient is discharged with his home exercise program. Thank you for referring Vivek Lang to Physical Therapy. Please call with any questions at [phone]. 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
--- OUTSIDE RECORDS SUMMARY | 2022-04-18 14:53 | XMS_ITS ---
:1945 Author Care Team Providers Name Role Phone KEREN MELENDEZ MD Primary Care Provider [phone] Allergies Code Code System Name Reaction Severity Status Onset NKDA ? Medications Name Status Start Date Stop Date ? ? atorvastatin 10 mg tablet Active ? Not av ailable diclofenac 1 % topical gel Active ? Not a vailable Fluzone High-Dose Quad 2020-21 (PF) 240 mcg/0.7 mL IM syringe Ac tive ? Not available Inject as directed. To be administered by a pharmacist. hydrocodone 5 mg-acetaminophen 325 mg tablet Active ? Not available ibuprofen 800 mg tablet Active ? Not avai lable TK 1 T PO TID PRN meloxicam 7.5 mg tablet Active ? Not avai lable oxycodone-acetaminophen 5 mg-325 mg tablet Active ? Not available TK 2 TS PO Q 4 H PRN pantoprazole 40 mg tablet,delayed release Active ? Not available prednisone 20 mg tablet Active ? Not avai lable Shingrix (PF) 50 mcg/0.5 mL intramuscular suspension, kit Active ? Not available terazosin 2 mg capsule Active ? Not avail able triamterene 37.5 mg-hydrochlorothiazide 25 mg tablet Active ? Not available Problems None recorded. Procedures Date Name Performed by ? ? Total Replacement of Right Hip Joint Inf ormation not available Results Lab Results Date Name Specimen Result Interpretation Description Value Range Status Address ? 05/23/2020 Urinalysis, Dipstick ? No observation ? ? ? recorded. ? Urinalysis, Dipstick ? Color-Status Straw ? Clarity-Status Clear ? Glucose-Status Negative ? Bilirubin-Status Small ? Ketones-Status Negative ? Sp Ackworth-Status 1.025 ? pH-Status 5.5 ? Urobilinogen-Status 1.0 ? Nitrates-Status negative ? Blood-Status Negative ? Leuko-Status Negative ? Specimen Type Voided ? ? Past Encounters None recorded. Social History Tobacco Smoking Status Former Smoker Notes: QUIT: 19 80 Vaccine List Vaccine Type pneumococcal polysaccharide PPV23 03/08/2019 Plan of Care Reminders Provider Appointments None recorded. ? ? Lab None recorded. ? ? Referral None recorded. ? ? Procedures None recorded. ? ? Surgeries None recorded. ? ? Imaging None recorded. ? ? Vitals Height Weight BMI 6 ft 1 in 265 lbs 35 kg/m2
--- OUTSIDE RECORDS SUMMARY | 2022-04-18 14:53 | XMS_ITS | Encounter Summary ---
:1945 Author Organization [place] Address [address] [place] [address] Care Team Providers Name Role Phone Ran Lee MD Primary Care Provider Reason for Visit Reason Onset Date Comments Nurse Advice Line 08/26/2012 Encounter Details Date Type Department Care Team Description 08/26/2012 Telephone [facility] DEPT FOR [facility] Fina Lee MD Nurse Advice Line [place] [phone] (Wo rk) Social History Tobacco Use Types Packs/Day Years Used Date Smoking Tobacco: Never Assessed Alcohol Use Standard Drinks/Week Comments Yes 0 (1 standard drink = 0.6 oz pure alcoho l) daily couple of drinks Sex Assigned at Date Recorded Male 04/02/2021 10:12 AM CDT documented as of this encounter Miscellaneous Notes Telephone Encounter - Kelvin Kim - 08/28/2012 1:11 PM CST [place] [facility] Triage Call Report Patient Name: Vivek Lang Call Date & Time: 08/26/2012 2:06:38PM Patient Phone: PCP Name: MRN: Patient Address: Patient Date of : 1945 Age: 66 yr. Patient Gender: Male Matting Press Tender Name: Amy Fishman Presenting Problem: . Patient calling reporting after eating a salad topping. Feels like it is stuck. Reporting coughing intermittent. Denies difficulty breathing or swallowing. Symptoms starting in past 3 hours. Triage Note: Guideline Title: Swallowing Difficulty Recommended Disposition: Override Disposition: See ED Immediately Question Response Question Note Known or suspected foreign body in airway No Severe breathing problems No New or worsening signs and symptoms that may indicate No shock Swallowing difficulty associated with sudden onset of No focal neurological changes (difficulty speaking, numbness, weakness, paralysis, loss of coordination) Signs/symptoms of anaphylaxis No Following ingestion of toxic or caustic substance No Choking sensation, cannot swallow own saliva with No associated drooling and soft muffled voice Swallowed alkali or button battery No Swallowed sharp object (pin, needle, piece of glass) OR an No object longer than 2 inches (5 cm) or wider than 3/4 inch (2 cm) wide New or worsening breathing problems No Something seems to be stuck AND not choking Yes Physician Contacted: Physician Instructions: No Care Advice: - Another adult should drive. - Do not give the patient anything to eat or drink. - Call EMS 911 if sudden onset or sudden worsening of breathing problems, struggling to breathe, high pitched noise when breathing in (stridor), unable to speak, grasping at throat, or panic/anxiety because of breathing problems. - IMMEDIATE ACTION - Write down provider's name. List or place the following in a bag for transport with the patient: current prescription and/or nonprescription medications; alternative treatments, therapies and medications;and street drugs. MEDICAL HISTORY Conditions: Condition Note: Medication: Medication Note: Allergy: Reaction: Procedure: Procedure Note: [place] STORE CLERK documented in this encounter Plan of Treatment Not on filedocumented as of this encounter Visit Diagnoses Not on filedocumented in this encounter Care Teams Print Operator Relationship Specialty Start Date End Date Ran Lee MD PCP - General Family Practice 06/27/11 07/30/[address] [phone] documented as of this encounter
--- OUTSIDE RECORDS SUMMARY | 2022-04-18 14:53 | XMS_ITS | Encounter Summary ---
:1945 Author Organization [place] Address [address] [place] [address] Care Team Providers Name Role Phone Unavailable Primary Care Provider Unavailable Encounter Details Date Type Department Care Team Description 03/20/2009 Results Only [facility] Edwige wild, Ran Weeks MD Hospital Results [address] [address] (Wo rk) Social History Tobacco Use Types Packs/Day Years Used Date Smoking Tobacco: Never Assessed Sex Assigned at Date Recorded Male 04/02/2021 10:12 AM CDT documented as of this encounter Plan of Treatment Not on filedocumented as of this encounter Procedures Procedure Name Priority Date/Time Associated Diagnosis Comme nts HC X-RAY PELVIS Routine 03/20/2009 12:27 PM Resul ts for this COMPLETE MIN 3 CDT procedure are in VIEWS the results section. documented in this encounter Results X-RAY PELVIS 3+ VW (03/20/2009 12:27 PM CDT) Anatomical Region Laterality Modality Other Specimen (Source) Anatomical Collection Method Collection Time Re ceived Time Location / / Volume Laterality 03/20/2009 12:27 PM CDT Impressions 03/21/2009 1:07 PM CDT PELVIS WITH UNILATERAL HIP March 20, 2009 12:27:00 PM HISTORY: Right hip and groin pain. COMPARISON: None. FINDINGS: No fracture or malalignment. IMPRESSION: No specific finding to accou nt for the patient's pain. Ran Lee MD GENERAL IMAGING documented in this encounter Visit Diagnoses Not on filedocumented in this encounter
[2022-04-18 22:08] LABS: Albumin* 4.7 g/dL (3.3-5.0); Chloride* 97 mmol/L (96-114); Sodium* 135 mmol/L (135-149)
[2022-04-18 22:09] LABS: Potassium* 4.1 mmol/L (3.6-5.1)
[2022-04-18 22:10] LABS: Cholesterol* 145 mg/dL (90-199)
[2022-04-18 22:11] LABS: Alkaline Phosphatase* 73 U/L (40-150); Aspartate Amino Transferase* 31 U/L (12-35); Bilirubin Total* 1.6 mg/dL (0.1-1.5); Blood Urea Nitrogen* 16 mg/dL (7-30); Carbon Dioxide* 30 mmol/L (20-32); Creatinine* 0.9 mg/dL (0.5-1.5); Estimated Glomerular Filt Rate 87 ml/min; Glucose* 106 mg/dL (60-115); Total Protein* 7.2 g/dL (6.0-8.3); Triglycerides* 91 mg/dL (40-149)
[2022-04-18 22:12] LABS: Alanine Aminotransferase* 19 U/L (4-50); Calcium* 9.7 mg/dL (8.4-10.6); HDL Cholesterol* 66 mg/dL (>=40); LDL Cholesterol Calculated 61 mg/dL (<100)
[2022-04-18 22:29] LABS: PSA Screen* 4.12 ng/mL (0.10-4.00)
== END 2022-04-18 14:49 | disposition home or self-care (01) ==
PROVIDERS: PCP Family Medicine; Visit Provider Family Medicine
DX: Z00.00 Encounter for general adult medical examination without abnormal findings (principal); E78.5 Hyperlipidemia, unspecified; I10 Essential (primary) hypertension; N40.0 Benign prostatic hyperplasia without lower urinary tract symptoms; Z12.5 Encounter for screening for malignant neoplasm of prostate
CPT/HCPCS: 80053; 80061; 84153

== ENCOUNTER 2022-05-28 17:00 | Outpatient (CLI) | payer MEDICARE, BC, SELFPAY ==
--- OUTSIDE RECORDS SUMMARY | 2022-05-28 14:22 | XMS_ITS | Encounter Summary ---
:1945 Author Organization [place] Address [address] [place] [address] Care Team Providers Name Role Phone [facility] Prov kelle Cayden- Antony Burch MD Unavailable Yeny May RIGGER CHIEF ENDODONTIC ASSISTANT Unavailable Encounter Details Date Type Department Care [...] as of this encounter Plan of Treatment Upcoming Encounters Date Type Specialty Care Team Description 10/08/2022 Office Visit Cardiology Yeny May, A PRN ENDODONTIC ASSISTANT [address] [place] [address] Denton Casiano MD [address] [place] [id number] documented as of this encounter Visit Diagnoses Not on filedocumented in this encounter Care Teams Detective Bureau Chief Relationship Specialty Start Date End Date [facility], PCP - General 02/01/[address] [facility] [address] [place] [address] Antoyn Burch Assigned Neuroscience 04/08/21 MD Jan Provider [address] [place] [address] [id number] Yeny May APRN ENDODONTIC ASSISTANT Assigned Heart and Vascular 10/28/21 [address] Provider [place] [id number] documented as of this encounter
--- OUTSIDE RECORDS SUMMARY | 2022-05-28 14:22 | XMS_ITS | Encounter Summary ---
:1945 Author Organization [place] Address [facility] [place] [address] Care Team Providers Name Role Phone [facility] kelle Clinics- Antony Burch MD Unavailable Yeny May E BACKREST ASSEMBLER [facility] Unavailable Reason for Visit Reason Onset Date Comments Refill Request 02/04/2022 Jessicaquis Encounter Details Date Type Department Care Team Description 02/04/2022 Refill [facility] Lalo Yeny E, AP RN Refill Request (Eliquis) [facility] [address] [facility] [address] [facility] [address] [place] [phone] Social History Tobacco Use Types Packs/Day Years [...] Barkley RN - 02/04/2022 11:49 AM CDT [facility] Refill Guideline reviewed. Medication meets criteria for refill. 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 [address] [place] [address] Antony Burch Assigned Neuroscience 04/08/21 MD Jan Provider [address] [place] [id number] Yeny May, BACKREST ASSEMBLER SEWAGE PLANT OPERATOR Assigned Heart and Vascular 10/28/21 [address] Provider [place] [id number] documented as of this encounter
--- OUTSIDE RECORDS SUMMARY | 2022-05-28 14:22 | XMS_ITS | Encounter Summary ---
:1945 Author Organization [place] Address [address] [place] [address] Care Team Providers Name Role Phone [facility] Provi kelle Clinics- Antony Burch MD Unavailable Yeny May DIETETIC TECH VICE PRESIDENT MEDICAL AFFAIRS Unavailable Encounter Details Date Type Department Care Team Description 12/12/2021 Lab [facility] Heart Jw gn essential hypertension [facility] [place] [address] [place] [address] [address] [place] [address] Social History Tobacco Use [...] Office Visit Cardiology Yeny May, Edgar PRN VICE PRESIDENT MEDICAL AFFAIRS [address] [facility] [address] [place] [id number] Denton Casiano MD [address] [facility] [address] [place], [place] [address] documented as of this encounter Procedures Procedure [...] and gender (Bob et al., NEJM, DOI: 10.1056/[id number]) Specimen Anatomical Collection Method / Collection Time Recei price Time (Source) Location / Volume Laterality Blood STRUCTURE OF RIGHT Venipuncture / 12/12/2021 10:03 UPPER LIMB / Unknown AM CDT 10:03 AM CDT Unknown Yeny May APRN, CNP LAB - BLOOD ORDERABLES Performing Organization Address City/State/ZIP Code Phon [place] [phone] Care Lab [address] Lab (1st floor, no room number) documented in this encounter Visit Diagnoses Diagnosis Benign essential hypertension Essential hypertension, benign documented in this encounter Care Teams Quality Control Assistant Relationship Specialty Start Date End Date [facility], PCP - General 02/01/21 [facility]- [address] [place] [address] Antony Burch Assigned Neuroscience 04/08/21 MD Jan Provider [address] [place] [address] [address] Yeny May APRN CNP Assigned Heart and Vascular 10/28/21 [address] Provider [place] [address] documented as of this encounter
--- OUTSIDE RECORDS SUMMARY | 2022-05-28 14:22 | XMS_ITS | Encounter Summary ---
:1945 Author Organization [place] Address [address] [place] [address] Care Team Providers Name Role Phone [facility] Provi kelle Clinics- Antony Burch MD Unavailable [phone] Yeny May MAGNETIC PROSPECTING OPERATOR SENIOR TECHNICAL PROGRAM MANAGER Unavailable Encounter Details Date Type Department Care Team Description 11/28/2021 Lab [facility] Heart Jw gn essential hypertension Clinic [place] [address] [place] [address] [address] [place] [address] Social History Tobacco Use [...] Office Visit Cardiology Yeny May, Edgar PRN SENIOR TECHNICAL PROGRAM MANAGER [address] [facility] [address] [place] [phone] Denton Casiano MD [address] [facility] [address] [place] [address] documented as of this encounter Procedures Procedure Name Priority Date/Time Associated Diagnosis Comme nts BASIC METABOLIC Routine 11/28/2021 8:57 AM Benign essential Re sults for this PANEL CDT hypertension procedure are i n the results section. documented in this encounter Results (ABNORMAL) Basic metabolic panel (11/28/2021 8:57 AM CDT) Analysis Performed At Patho logist Time Signature Sodium 139 133 - 144 11/28/2021 [facility] mmol/L 9:53 AM CDT Potassium 4.0 3.4 - 5.3 11/28/2021 [facility] mmol/L 9:53 AM CDT Chloride 105 94 - 109 11/28/2021 LABORATORY mmol/L 9:53 AM CDT Carbon Dioxide 27 20 - 32 11/28/2021 LABORATORY (CO2) mmol/L 9:53 AM CDT Anion Gap 7 3 - 14 11/28/2021 LABORATORY mmol/L 9:53 AM CDT Urea Nitrogen 15 7 - 30 11/28/2021 LABORATORY mg/dL 9:53 AM CDT Creatinine 0.86 0.66 - 11/28/2021 [facility] 1.25 mg/dL 9:53 AM CDT Calcium [...] and gender (Bob et al., NEJM, DOI: 10.1056/[id number]) Specimen Anatomical Collection Method / Collection Time Recei price Time (Source) Location / Volume Laterality Blood STRUCTURE OF RIGHT Venipuncture / 11/28/2021 8:57 06/0 06/2021 8:57 HAND / Unknown Unknown AM CDT AM CDT Yeny May APRN, CNP LAB - BLOOD ORDERABLES Performing Organization Address City/State/ZIP Code [place] [phone] Care Lab [address] Lab (1st floor, no room number) documented in this encounter Visit Diagnoses Diagnosis Benign essential hypertension Essential hypertension, benign documented in this encounter Care Teams Impregnator Relationship Specialty Start Date End Date [facility], PCP - General 02/01/21 [facility]- [address] [place] [address] Antony Burch Assigned Neuroscience 04/08/21 MD Jan Provider [address] [place] [address] [address] Yeny May APRN CNP Assigned Heart and Vascular 10/28/21 [address] Provider [place] [address] documented as of this encounter
--- OUTSIDE RECORDS SUMMARY | 2022-05-28 14:22 | XMS_ITS | Encounter Summary ---
:1945 Author Organization [place] Address [address] [place] [address] Care Team Providers Name Role Phone [facility] Prov kelle Cayden- Antony Burch MD Unavailable [phone] Yeny May CARTOGRAPHY SUPERVISOR RENAL DIALYSIS TECHNICIAN Unavailable Encounter Details Date Type Department Care [...] Office Visit Cardiology Yeny May, A PRN RENAL DIALYSIS TECHNICIAN [address] [place] [address] Denton Casiano MD [address] [place] [id number] documented as of this encounter Visit Diagnoses Not on filedocumented in this encounter Care Teams Hazardous Materials Handler Relationship Specialty Start Date End Date [facility], PCP - General 02/01/21 [facility]- [address] [place] [address] Antony Burch Assigned Neuroscience 04/08/21 MD Jan Provider [address] [place] [address] [id number] Yeny May APRN RENAL DIALYSIS TECHNICIAN Assigned Heart and Vascular 10/28/21 [address] Provider [place] [id number] documented as of this encounter
--- OUTSIDE RECORDS SUMMARY | 2022-05-28 14:22 | XMS_ITS | Encounter Summary ---
:1945 Author Organization [place] Address [address] [place] [address] Care Team Providers Name Role Phone [facility] Prov kelle Clinics- Antony Burch MD Unavailable Yeny May APRN, CNP Unavailable Reason for Referral Consultation (Routine: Next available opening) - Pending Review Specialty Diagnoses / Procedures Referred By Contact Refer red To Contact Cardiovascular Disease Diagnoses Benign essential hypertension Yeny May APRN CAD MANAGER [address] [place] [address] Referral ID Status Reason Start Date Expiration Date Visits V isits Requested Authorized [id number] Pending 11/28/2021 11/28/2022 1 1 Review Consultation (Routine: Next available opening) - Pending Review Specialty Diagnoses / Procedures Referred By Contact Refer red To Contact Cardiovascular Disease Diagnoses Benign essential hypertension Yeny May APRN CNP [address] [place] [address] Referral ID Status Reason Start Date Expiration Date Visits V isits Requested Authorized [id number] Pending 11/28/2021 11/28/2022 1 1 Review Scheduling Instructions BP check at time of labs Reason for Visit Reason Comments Follow Up Atrial Fib Hypertension Consultation (Routine: Next available opening) - Pending Review Specialty Diagnoses / Procedures Referred By Contact Refer red To Contact Cardiovascular Disease Diagnoses Benign essential hypertension Yeny May, HAYDEE CAD MANAGER [address] [employer] [place] [address] Referral ID Status Reason Start Date Expiration Date Visits V isits Requested Authorized [id number] Pending 10/23/2021 10/23/2022 1 1 Review Encounter Details Date Type Department Care Team Description 11/28/2021 Office Visit [facility] Yeny May, Connor e ssential [facility] HAYDEE CHRISTIAN hypertension Edgar [address] [address] [address] [place] [address] [place], [place] [phone] [address] (Work) [phone] Social History Tobacco Use Types Packs/Day Years [...] male who follows with Dr. Casiano at [facility] Heart ??His past medical history includes: A-fib, [...] Oriented x 3 CC Yeny May APRN CAD MANAGER [address] [place] [address] documented in this encounter Plan of Treatment Upcoming Encounters Date Type Specialty Care Team Description 10/08/2022 Office Visit Cardiology Yeny May A PRN CAD MANAGER [address] [place], [place] [address] Denton Casiano MD [address] [place], [place] [address] Scheduled Orders Name Type Priority Associated Diagnoses [...] (12/12/2021 10:03 AM CDT) [facility] Sodium 137 133 - 144 12/12/2021 [facility] mmol/L 11:43 AM CDT Potassium 3.7 3.4 - 5.3 12/12/2021 [facility] mmol/L 11:43 AM CDT Chloride 102 94 - 109 12/12/2021 [facility] mmol/L 11:43 AM CDT Carbon Dioxide 28 20 - 32 12/12/2021 LABORATORY (CO2) mmol/L 11:43 AM CDT Anion Gap 7 3 - 14 12/12/2021 [facility] mmol/L 11:43 AM CDT Urea Nitrogen [...] and gender (Bob et al., NEJM, DOI: 10.1056/[id number]) Specimen Anatomical Collection Method / Collection Time Recei price Time (Source) Location / Volume Laterality Blood STRUCTURE OF RIGHT Venipuncture / 12/12/2021 10:03 UPPER LIMB / Unknown AM CDT 10:03 AM CDT Unknown Yeny May APRN, CNP LAB - BLOOD ORDERABLES Performing Organization Address City/State/ZIP Code [place]on [place] [address] Care Lab [address] Lab (1st floor, no room number) documented in this encounter Visit Diagnoses Diagnosis Benign essential hypertension Essential hypertension, benign documented in this encounter Care Teams Supervisor Rolling Room Relationship Specialty Start Date End Date [facility], PCP - General 02/01/21 [facility] [address] [place] [address] Antony Burch Assigned Neuroscience 04/08/21 MD Jan Provider [address] [place] [address] [address] Yeny May APRN CAD MANAGER Assigned Heart and Vascular 10/28/21 [address] Provider [place] [id number] documented as of this encounter
--- OUTSIDE RECORDS SUMMARY | 2022-05-28 14:22 | XMS_ITS | Clinical Summary ---
:1945 Author Organization [place] Address [address] [place] [address] Care Team Providers Name Role Phone [facility] Provi kelle Clinics- Antony Burch MD Unavailable Yeny May APRN CUTTING MACHINE OFFBEARER Unavailable Denton Casiano MD Unavailable Allergies Active Allergy Reactions Severity Noted [...] yr and was neg for ischemia and [place] to be reflux SURJIT on CPAP 07/18/2017 Overview: Formatting of this note might be differe nt from the original. 03/[place] Angioedema of lips, initial encounter 02/27/2014 Hives 02/27/2014 Status post THR (total hip replacement) 03/22/2013 Social History Tobacco Use Types Packs/Day Years [...] 11/28/2021 10:06 AM CDT Plan of Treatment Upcoming Encounters Date Type Specialty Care Team Description 10/08/2022 Office Visit Cardiology Yeny May A PRN CUTTING MACHINE OFFBEARER [address] [place] [address] Denton Casiano MD [address] [place] 518275 Health Maintenance Due Date Last Done Comments ADVANCE CARE PLANNING 1945 ANNUAL REVIEW OF HM ORDERS 1945 HEPATITIS C SCREENING 12/24/1961 FALL RISK ASSESSMENT 12/24/2008 MEDICARE ANNUAL WELLNESS 12/24/2008 VISIT PHQ-2 (once per calendar 06/30/2021 year) INFLUENZA VACCINE (#1) 2022 04/10/2021, 04/14/2020, 03/08/2019, Additional history exists COVID-19 Vaccine (2 - 03/07/2022 03/07/2022, 05/28/2021 Moderna series) DTAP/TDAP/TD IMMUNIZATION 04/18/2025 04/18/2015 (2 - Td [...] this topic Medical Devices Implanted Type Area Lemon Grower Device Shelf Model / Identifier Expiration Serial / Lot Date Imp Head Femoral Zim Versys 36mm -3.5 [id number] Right : [employer] 07/30/[id number] / Implanted: Qty: 1 on 03/22/2013 by Mark Viera MD at [facility] Hip / [id number] Insurance Payer Benefit Plan / Subscriber ID Effective Phone Address T ype Group Dates MEDICARE MEDICARE [id number] 2008-Prese [phone] ATTN [place] Medicare nt 40 [address] [place] [address] BCBS BCBS OF [place] [id number] 2008-Prese [phone] [address] [address] Indemnity nt 00 [place] [address] Advance Directives For more information, please contact: [phone] Latest Code Status on File Code Status [...] 12:02 PM 03/25/2013 2:20 PM Care Teams Side Seam Envelope Machine Operator Relationship Specialty Start Date End Date [facility], PCP - General 02/01/21 [facility] [address] [place] [address] Antony Burch Assigned Neuroscience 04/08/21 MD Jan Provider [address] [place] [address] [id number] Yeny May APRN Assigned Heart and 10/28/21 CUTTING MACHINE OFFBEARER Vascular Provider [address] [place] [id number] Denton Casiano MD Cardiovascular Disease 05/17/22 [address] [place] [id number]
--- OUTSIDE RECORDS SUMMARY | 2022-05-28 14:22 | XMS_ITS | Encounter Summary ---
:1945 Author Organization [place] Address [address] [place] [address] Care Team Providers Name Role Phone [facility] And Primary Care Prov kelle Cayden- Antony Burch MD Unavailable Yeny May FUR CUTTER SUPERVISOR CLAIMS Unavailable Encounter Details Date Type Department Care [...] Office Visit Cardiology Yeny May, A PRN SUPERVISOR CLAIMS [address] [place] [address] Denton Casiano MD [address] [place] [phone] documented as of this encounter Visit Diagnoses Not on filedocumented in this encounter Care Teams Numberer And Wirer Relationship Specialty Start Date End Date [facility], PCP - General 02/01/21 [facility]- [address] [place] [address] Antony Burch Assigned Neuroscience 04/08/21 MD Jan Provider [address] [place] [address] [id number] Yeny May APRN SUPERVISOR CLAIMS Assigned Heart and Vascular 10/28/21 [address] Provider [place] 650705 documented as of this encounter
--- OUTSIDE RECORDS SUMMARY | 2022-05-28 14:22 | XMS_ITS | Encounter Summary ---
:1945 Author Organization [place] Address [address] [place] [address] Care Team Providers Name Role Phone [facility] And Primary Care Prov kelle Clinics- Antony Burch MD Unavailable [phone] Yeny May APRN MEAL COOKER Unavailable Denton Casiano MD Unavailable Reason for Visit Reason Comments Hypertension BP Re-Check Encounter Details Date Type Department Care Team Description 12/12/2021 Documentation Only [facility] Rhea Calderon Hy pertension (BP Heart rackman Re-Check) [place] [address] [place] [address] [address] [place] [address] Social History Tobacco Use Types [...] Office Visit Cardiology Yeny May, A PRN MEAL COOKER [address] [place], [place] [address] Denton Casiano MD [address] [place] [address] documented as of this encounter Visit Diagnoses Not on filedocumented in this encounter Care Teams Application Software Engineer Relationship Specialty Start Date End Date [facility], PCP - General 02/01/[address] [facility] [address] [place] [address] Antony Burch Assigned Neuroscience 04/08/21 MD Jan Provider [address] [place] [address] [place] [address]155 Yeny May, MANAGER PRINT Assigned Heart and 10/28/21 MEAL COOKER Vascular Provider [address] [place], [place] 27[address] Denton Casiano MD Cardiovascular Disease 05/17/[address] [place] [phone] documented as of this encounter
--- OUTSIDE RECORDS SUMMARY | 2022-05-28 14:22 | XMS_ITS | Encounter Summary ---
:1945 Author Organization [place] Address [address] [facility] [place] [address] Care Team Providers Name Role Phone [facility] Prov kelle Clinics- Antony Burch MD Unavailable Lalo November CASTING TESTER WAIST PRESSER Unavailable Reason for Visit Reason Comments Hypertension BP Re-Check Consultation (Routine: Next available opening) - Pending Review Specialty Diagnoses / Procedures Referred By Contact Refer red To Contact Cardiovascular Disease Diagnoses Benign essential hypertension Lalo November, CASTING TESTER WAIST PRESSER [address] [employer] [address] [place] [address] Referral ID Status Reason Start Date Expiration Date Visits V isits Requested Authorized [id number] Pending 11/28/2021 11/28/2022 1 1 Review Encounter Details Date Type Department Care Team Description 12/12/2021 [facility] Lalo November, Margaux pike (BP Health/Nurse Heart Clinic CASTING TESTER WAIST PRESSER Re-Check) Visit [place] [address] [employer] [address] [address] [address] [facility] [address] [place] [address] [place], [place] [phone] [address] (Work) [phone] Social History Tobacco Use Types Packs/Day Years [...] Office Visit Cardiology Yeny May A PRN WAIST PRESSER [address] [place] [address] Denton Casiano MD [address] [place] [address] documented as of this encounter Visit Diagnoses Diagnosis Benign essential hypertension Essential hypertension, benign documented in this encounter Care Teams Processing Associate Relationship Specialty Start Date End Date [facility], PCP - General 02/01/21 [facility] [address] [place] [address] Antony Burch Assigned Neuroscience 04/08/21 MD Jan Provider [address] [place] [address] [id number] Yeny May APRN WAIST PRESSER Assigned Heart and Vascular 10/28/21 [address] Provider [place] [address] documented as of this encounter
--- OUTSIDE RECORDS SUMMARY | 2022-05-28 14:22 | XMS_ITS | Encounter Summary ---
:1945 Author Organization [place] Address [address] [place] [address] Care Team Providers Name Role Phone [facility] Prov kelle Cayden- Antony Burch MD Unavailable Lalo Yeny E STARCH MANGLE TENDER FIREARMS SALES ASSOCIATE Unavailable Reason for Visit Reason Onset Date Comments Call Back 10/31/2021 Medication questions Encounter Details Date Type Department Care Team Description 10/31/2021 Telephone [facility] Lalo Yeny E, Ca ll Back (Medication Clinic Arianna STARCH MANGLE TENDER FIREARMS SALES ASSOCIATE questions) [address] [facility] [address] [facility] [address] [place] [phone] [place] [address] Social History Tobacco Use [...] Shilpa Jacobs - 10/31/2021 12:02 PM CDT [facility] Call Center Phone Message May a detailed [...] Office Visit Cardiology Yeny May A PRN FIREARMS SALES ASSOCIATE [address] [place] [address] Denton Casiano MD [address] [facility] [address] [place] [phone] documented as of this encounter Visit Diagnoses Not on filedocumented in this encounter Care Teams Highway Research Engineer Relationship Specialty Start Date End Date [facility], PCP - General 02/01/21 [facility]- [address] [place] [address] Antony Burch Assigned Neuroscience 04/08/21 MD Jan Provider [address] [place] [address] [address] Yeny May, HAYDEE FIREARMS SALES ASSOCIATE Assigned Heart and Vascular 10/28/21 [address] Provider [place] [id number] documented as of this encounter
--- OUTSIDE RECORDS SUMMARY | 2022-05-28 14:22 | XMS_ITS | Clinical Summary ---
:1945 Author Organization [facility] [place] [address] Care Team Providers Name Role Phone [facility], Provider Primary Care Provider Unavailable Allergies Not on File Medications Not on file Active Problems Not on file Social History Tobacco Use Types Packs/Day Years Used Date Never Assessed Sex Assigned at Date Recorded Not on file Plan of Treatment Health Maintenance Due Date Last Done Comments COVID-19 vaccine series (#1) 06/25/1946 Tdap 12/24/1954 Depression screening for age 12+ 1955 BMI (ht and wt on same day) for age 18+ 12/24/1961 Hepatitis C screening for age 18-79 12/24/1961 Tetanus booster 1963 Zoster (shingles) series for age 50+ (1 of 2) 12/24/1993 Pneumococcal series for age 65+ (1 - PCV) 12/24/2008 Influenza for age 65+ 02/28/2022 Results Not on filefrom Last 3 Months Insurance Payer Benefit Plan / Subscriber ID Effective Dates Phone Addre ss Type Group MEDICARE PART B MEDICARE PART B [id number] 2008-Presen ATTN: CLAIMS - HB USE ONLY HB ONLY t [address] [place] [address] MEDICARE - PB MEDICARE PB [id number] 2008-Presen ATTN: CLAIMS USE ONLY ONLY t [address] [place] [address] BLUE CROSS BLUE CROSS OF [id number] 2016-Presen [address] [place] [phone] Care Teams Proof Reader Relationship Specialty Start Date End Date Notonfile, Provider PCP - General 06/04/05
--- OUTSIDE RECORDS SUMMARY | 2022-05-28 14:22 | XMS_ITS | Encounter Summary ---
:1945 Author Organization [place] Address [address] [place] [address] Care Team Providers Name Role Phone [facility] kelle Clinics- Denton Casiano MD Unavailable Antony Burch MD Unavailable [phone] Encounter Details Date Type Department Care Team [...] Office Visit Cardiology Yeny May A PRN BRANCH LOGISTICS SUPERVISOR [address] [place] [phone] Denton Casiano MD [address] [place] [address] documented as of this encounter Visit Diagnoses Not on filedocumented in this encounter Care Teams Chocolate Finisher Relationship Specialty Start Date End Date [facility], PCP - General 02/01/21 [facility]- [address] [place] [address] Denton Casiano MD Assigned Heart and Vascular 03/25/2110/27 [address] Provider [place] [address] Antony Burch Assigned Neuroscience 04/08/21 MD Jan Provider [address] [place] [address] [address] documented as of this encounter
--- OUTSIDE RECORDS SUMMARY | 2022-05-28 14:23 | XMS_ITS | Encounter Summary ---
:1945 Author Organization [place] Address [address] [place] [address] Care Team Providers Name Role Phone [facility] Primary Care Prov kelle Clinics- Yeny May DIRECT SUPPORT STAFF MEMBER COMMERCIAL FISHER Unavailable Encounter Details Date Type Department Care [...] Care Team Description 10/08/2022 Office Visit Cardiology Lalo Yeny Jose Alejandro, A PRN COMMERCIAL FISHER [address] [place] [address] Denton Casiano MD [address] [place] [address] documented as of this encounter Visit Diagnoses Not on filedocumented in this encounter Care Teams Cotton Converter Relationship Specialty Start Date End Date [facility], PCP - General 02/01/21 [facility] [address] [place] [address] Yeny May, DIRECT SUPPORT STAFF MEMBER COMMERCIAL FISHER Assigned Heart and Vascular 02/18/2103/24 [address] Provider [place] [address] documented as of this encounter
--- OUTSIDE RECORDS SUMMARY | 2022-05-28 14:23 | XMS_ITS | Encounter Summary ---
:1945 Author Organization [place] Address [address] [place] [address] Care Team Providers Name Role Phone [facility] And Primary Care [facility] kelle Clinics- Denton Casiano MD Unavailable Antony Burch MD Unavailable [phone] Reason for Referral Consultation (Routine: Next available opening) - Pending Review Specialty Diagnoses / Procedures Referred By Contact Refer red To Contact Cardiovascular Disease Diagnoses Benign essential hypertension Yeny May APRN CNP [address] [place] [address] Referral ID Status Reason Start Date Expiration Date Visits V isits Requested Authorized [id number] Pending 10/23/2021 10/23/2022 1 1 Review Reason for Visit Reason Comments Follow Up 6 month TIA, HTN Consultation (Routine) - Closed Specialty Diagnoses / Procedures Referred By Contact Refer red To Contact Diagnoses Benign essential hypertension History of TIA (transient ischemic attack) and stroke Permanent atrial fibrillation (H) Morbid obesity (H) Denton Casiano MD [address] [place] [address] Referral ID Status Reason Start Date Expiration Date Visits Requ ested Visits Authorized [id number] Closed 03/21/2021 03/21/2022 1 1 Encounter Details Date Type Department Care Team Description 10/23/2021 Office Visit [facility] Denton Casiano MD [address] [place] [phone] Benign essential hypertension; Heart Clinic Lalo November, PACK PRESS OPERATOR SLAB POLISHER [address] [place] [phone] History of TIA (transient ischemic attac k) and stroke; [place] Permanent atrial fibrillatio n (H); [address] [facility] Morbid obesity (H) [address] [place] [address] Social History Tobacco Use Types [...] documented in this encounter Patient Instructions Patient InstructionsLalo November, PACK PRESS OPERATOR SLAB POLISHER - 10/23/2021 1:32 PM CDT Increase your [...] male who follows with Dr. Casiano at [facility] His past medical history includes: A-fib, hypertension, [...] significant cardiovascular complaints He recently returned from [place] and admits to eating and drinking more [...] Former Smoker Quit date: 1980 Years since quittin.3 ??? Smokeless tobacco: Never [...] Oriented x 3 CC Denton Casiano MD [address] [place] [address] documented in this encounter Plan of Treatment Upcoming Encounters Date Type Specialty Care Team Description 10/08/2022 Office Visit Cardiology Yeny May A PRN SLAB POLISHER [address] [place], [place] [address] Denton Casiano MD [address] [place] [address] Scheduled Referrals Name Type Priority Associated Diagnoses [...] and gender (Bob et al., NEJM, DOI: [id number]) Specimen Anatomical Collection Method / Collection Time Recei price Time (Source) Location / Volume Laterality Blood STRUCTURE OF RIGHT Venipuncture / 11/28/2021 8:57 06/0 06/2021 8:57 HAND / Unknown Unknown AM CDT AM CDT November E Lalo CARYN SLAB POLISHER LAB - BLOOD ORDERABLES Performing Organization Address City/State/ZIP Code [place] [address] Care Lab [address] Lab (1st floor, no room number) documented in this encounter Visit Diagnoses Diagnosis Benign essential hypertension Essential hypertension, benign History of TIA (transient ischemic attac k) and stroke Permanent atrial fibrillation (H) Atrial fibrillation Morbid obesity (H) Morbid obesity documented in this encounter Care Teams Developing Machine Tender Relationship Specialty Start Date End Date [facility], PCP - General 02/01/21 [facility]- [address] [place] [address] Denton Casiano MD Assigned Heart and Vascular 03/25/2110/27 [address] Provider [place] [address] Antony Burch Assigned Neuroscience 04/08/21 MD Jan Provider [address] [id number] documented as of this encounter
--- OUTSIDE RECORDS SUMMARY | 2022-05-28 14:23 | XMS_ITS | Encounter Summary ---
:1945 Author Organization [place] Address [address] [place] [address]. [place] [address] Care Team Providers Name Role Phone [facility] And Primary Care [facility] Clinics- Reason for Referral Care Coordination (Routine) - Closed Specialty Diagnoses / Procedures Referred By Contact Refer red To Contact Diagnoses Other specified counseling System, Provider Not In Referral ID Status Reason Start Date Expiration Date Visits Requ ested Visits Authorized [id number] Closed 02/05/2021 02/05/2022 1 1 Encounter Details Date Type Department Care Team Description 02/05/2021 Orders Only [facility], Provider Other specified Care Coordination Not In counseling [address] [place] [address] Social History Tobacco Use Types Packs/Day [...] Office Visit Cardiology Yeny May A PRN CIRCULATION MANAGER [address] [place] [address] Denton Casiano MD [address] [place] [address] Scheduled Referrals Name Type Priority Associated Diagnoses Order S [facility] Discharge Referral Routine Other specified Ex pected: 02/05/2021 - Referral to CC counseling (Approximat e), Expires: 2021 documented as of this encounter Visit Diagnoses Diagnosis Other specified counseling documented in this encounter Care Teams Cryptologic Support Specialist Relationship Specialty Start Date End Date [facility] And PCP - General 02/01/21 [facility]- [address] [place] [address] documented as of this encounter
--- OUTSIDE RECORDS SUMMARY | 2022-05-28 14:23 | XMS_ITS | Encounter Summary ---
:1945 Author Organization [place] Address [address] [place] [address] Care Team Providers Name Role Phone [facility] And Primary Care Provi kelle [facility], Yeny E REGISTERED NURSE AMBULATORY INK TECHNICIAN Unavailable Reason for Visit Reason Comments Dizziness Encounter Details Date Type Department Care Team Description 02/20/2021 Emergency [facility] Trey Brittany Alfaro MD Dizziness Emergency Dept [facility] [address] [place] [address] [place], [place] [id number] 90 (Wo rk) Social History Tobacco Use Types [...] on Friday. He was also admitted to [facility] on 02/01/2021 for a stroke. At that time his medications were optimized and he was started on anticoagulation. Imaging/Labs from [facility] ED visit on 02/01/2021: Imaging: Chest [...] father Lung cancer, mother Social History: PCP: [facility] Presents to the ED with . Physical [...] to prior, dated 02/01/2021. Rate 54 bpm. NE interval * ms. QRS duration 126 ms. [...] statements to me. Liu Alfaro MD 02/21/21 0789 documented in this encounter Plan of Treatment Upcoming Encounters Date Type Specialty Care Team Description 10/08/2022 Office Visit Cardiology Yeny May A PRN INK TECHNICIAN [address] [place] [address] Denton Casiano MD [address] [place] [address] documented as of this encounter Procedures Procedure [...] platelets and differential (02/20/2021 10:03 PM CDT) [facility] gist Method Time Signature WBC Count 7.5 [...] Address City/State/ZIP [place] [address] Care Lab [address] Lab (1st floor, no room number) [...] Address City/State/ZIP [place] [address] Care Lab [address] Lab (1st floor, no room number) [...] Urea Nitrogen 17 7 - 30 02/20/2021 LABORATORY mg/dL 10:31 PM CDT Creatinine 1.10 0.66 - 02/20/2021 LABORATORY 1.25 mg/dL 10:31 PM CDT Calcium 8.6 8.5 - 10.1 02/20/2021 LABORATORY mg/dL 10:31 PM CDT Glucose 117 (H) 70 - 99 02/20/2021 LABORATORY mg/dL 10:31 PM CDT Alkaline 65 40 - 150 02/20/2021 LABORATORY Phosphatase U/L 10:31 PM CDT AST 25 0 - 45 U/L 02/20/2021 LABORATORY 10:31 PM CDT ALT 35 0 - 70 U/L 02/20/2021 LABORATORY 10:31 PM CDT Protein Total 6.5 (L) 6.8 - 8.8 02/20/2021 LABORATORY g/dL 10:31 PM CDT Albumin 3.5 3.4 - 5.0 02/20/2021 LABORATORY g/dL 10:31 PM CDT Bilirubin Total 1.0 0.2 - 1.3 02/20/2021 LABORATORY mg/dL 10:31 PM CDT GFR Estimate [...] Address City/State/ZIP [place] [address] Care Lab [address] Lab (1st floor, no room number) Extra Blue Top Tube (02/20/2021 10:03 PM CDT) athologist Signature Hold Specimen JIC 02/20/2021 [facility] LABORATORY 11:16 PM CDT Specimen Anatomical Collection Method / Collection Time Recei price Time (Source) Location / Volume Laterality Blood STRUCTURE OF RIGHT Venipuncture / 02/20/2021 10:03 UPPER LIMB / Unknown PM CDT 10:09 PM CDT Unknown Liu Alfaro MD LAB - BLOOD ORDERABLES Performing Organization Address City/State/[place] [address] Care Lab [address] Lab (1st floor, no room number) Extra Blood Bank Purple Top Tube (02/20/2021 10:02 PM CDT) athologist Signature Hold Specimen [facility] 02/20/2021 [facility] BLOOD BANK 11:16 PM CDT Specimen Anatomical Collection Method / Collection Time Recei price Time (Source) Location / Volume Laterality Blood STRUCTURE OF RIGHT Venipuncture / 02/20/2021 10:02 UPPER LIMB / Unknown PM CDT 10:09 PM CDT Unknown Liu Alfaro MD LAB - BLOOD ORDERABLES Performing Organization Address City/State/ZIP Code Phon e Number BLOOD BANK [address] [place] [address] Extra Green Top ([place] Heparin) Tube (02/20/2021 10:02 PM CDT) athologist Signature Hold Specimen [facility] 02/20/2021 [facility] LABORATORY 11:16 PM CDT Specimen Anatomical Collection Method / Collection Time Recei price Time (Source) Location / Volume Laterality Blood STRUCTURE OF RIGHT Venipuncture / 02/20/2021 10:02 UPPER LIMB / Unknown PM CDT 10:09 PM CDT Unknown Liu Alfaro MD LAB - BLOOD ORDERABLES Performing Organization Address City/State/[place] [address] Care Lab [address] Lab (1st floor, no room number) Extra Red Top Tube (02/20/2021 10:02 PM CDT) athologist Signature [...] City/State/ZIP Code [place] [phone] Care Lab [address] Lab (1st floor, no room number) EKG 12-lead, tracing only (02/20/2021 9:57 PM CDT) Component Value Ref Range Test Analysis Performed Pathologis t Method Time At Signature Systolic Blood mmHg RADIOLOGY Pressure RESULTS Diastolic Blood mmHg RADIOLOGY Pressure RESULTS Ventricular Rate 54 BPM RADIOLOGY RESULTS Atrial Rate 500 BPM RADIOLOGY RESULTS NE Interval ms RADIOLOGY RESULTS QRS Duration 126 ms RADIOLOGY RESULTS QT 420 ms RADIOLOGY RESULTS QTc 398 ms RADIOLOGY RESULTS P [place] degrees RADIOLOGY RESULTS R AXIS 59 degrees RADIOLOGY RESULTS T [place] 31 degrees RADIOLOGY RESULTS Interpretation Atrial fibrillation with slow ventricular response RADIOLOGY ECG Non-specific intra-ventricular conduction block RESULTS Abnormal ECG When compared with ECG of 01-FEB-2021 15:21, QT has shortened Confirmed by - EMERGENCY ROMMEL Harden PHYSICIAN ([id number]), copy editor RAJIV HEBERT ([id number]) on 02/21/2021 6:42:50 AM Specimen Anatomical Collection Method Collection Time Receive d Time (Source) Location / / Volume Laterality 02/20/2021 9:57 PM 6:42 CDT AM CDT Gil Stevens DO ECG ORDERABLES Performing Organization Address City/State/ZIP Code Phon e Number RADIOLOGY RESULTS (ABNORMAL) Glucose by meter (02/20/2021 9:54 PM CDT) athologist Signature GLUCOSE BY 132 (H) 70 - 99 02/20/2021 LABORATORY METER POCT mg/dL 10:00 PM CDT POC Specimen Anatomical Collection Method Collection Time Receive d Time (Source) Location / / Volume Laterality Blood BLOOD SPECIMEN / 02/20/2021 9:54 PM 02/20 Unknown CDT 10:00 PM CDT Liu Alfaro MD LAB - [facility] PO[facility] Performing Organization Address City/State/ZIP Code Ph[place] [address] Care Lab [address] Lab (1st floor, no room number) documented in this encounter Visit Diagnoses Diagnosis Dizziness Dizziness and giddiness documented in this encounter Care Teams Inner Tube Cutter Relationship Specialty Start Date End Date [facility], PCP - General 02/01/[address] [facility]- [address] [place] [address] Yeny May APRN INK TECHNICIAN Assigned Heart and Vascular 02/18/2103/24 [address] Provider [place] [address] documented as of this encounter
--- OUTSIDE RECORDS SUMMARY | 2022-05-28 14:23 | XMS_ITS | Encounter Summary ---
:1945 Author Organization [place] Address [address] [place] [address]. [place] [address] Care Team Providers Name Role Phone [facility] Primary Care Prov kelle Cayden- Denton Casiano MD Unavailable Reason for Visit Reason Comments Stroke follow up Encounter Details Date Type Department Care Team Description 04/03/2021 Office Visit [facility] Vivi Celeste PA-C [address] [place] [address] History of TIA (transient ischemic attac k) and stroke (Primary Dx); Neurology Clinic Antony Burch MD [address] [place] [address] Peripheral sensory-motor axonal polyneur opathy Kevin [address] [place] [id number] Social History Tobacco Use Types Packs/Day Years [...] NOTE DATE OF VISIT: 04/03/2021 CLINIC LOCATION: [facility] PATIENT NAME: Vivek Lang DATE of : [...] and vertigo. On 02/01/2021 he presented to [facility] with transient episode of bilateral hand incoordination, [...] previous back surgeries and underwent EMG at [place] in 2018, which demonstrated length dependent sensorimotor [...] is relatively preserved, finger to nose and phbo-[id number]-csha tests are intact bilaterally, unsteady gait with [...] activities per the note. Antony Burch MD [facility] Neurology (Chart documentation was completed in part with [employer] voice-recognition software. 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
--- OUTSIDE RECORDS SUMMARY | 2022-05-28 14:23 | XMS_ITS | Encounter Summary ---
:1945 Author Organization [place] Address [address] [facility] [place] [address] Care Team Providers Name Role Phone [facility] And Primary Care [facility] kelle Clinics- Reason for Referral Consultation (Routine) - Closed Specialty Diagnoses / Procedures Referred By Contact Refer red To Contact Diagnoses Benign essential hypertension Yeny May, HAYDEE CHRISTIAN [address] [place] [address] Referral ID Status Reason Start Date Expiration Date Visits Requ ested Visits Authorized [id number] Closed 02/14/2021 02/14/2022 1 1 Reason for Visit Reason Comments Atrial Fib Consultation (Routine) - Closed Specialty Diagnoses / Procedures Referred By Contact Refer red To Contact Diagnoses TIA (transient ischemic attack) Atrial fibrillation, unspecified type (H) Denton Casiano MD [address] [place] [address] Referral ID Status Reason Start Date Expiration Date Visits Requ ested Visits Authorized [id number] Closed 02/02/2021 02/02/2022 1 1 Encounter Details Date Type Department Care Team Description 02/14/2021 Office Visit [facility] Yeny May, Connor e ssential hypertension (Primary Dx); Heart Clinic HAYDEE CHRISTIAN TIA (transient ischemic attack); [place] [address] Atrial fibrillation, unspeci fied type (H); [address] Cerebrovascular accident (CVA) due to em bolism of cerebral artery (H) [address] [place] [address] [place], [place] [phone] [address] (Work) [phone] Social History Tobacco Use Types Packs/Day Years [...] male who follows with Dr. Casiano at [facility] His past medical history includes: [...] ??? Basic metabolic panel ??? Follow-Up with Almond Pan Finisher Orders Placed This Encounter Medications ??? lisinopril-hydrochlorothiazide [...] Other Topics Concern ??? Parent/sibling w/ CABG, RI or angioplasty before 65F 55M? Not Asked [...] Gatherings with Friends and Family: ??? Attends Congregational Services: ??? Active Member of Clubs or [...] [address] [place] [address] documented in this encounter Plan of Treatment Upcoming Encounters Date Type Specialty Care Team Description 10/08/2022 Office Visit Cardiology Yeny May, Edgar PRN ON SITE NURSE [address] [place], [place] [address] Denton Casiano MD [address] [place], [place] [address] Scheduled Referrals Name Type Priority Associated Diagnoses Order S chedule Follow-Up with Referral Routine Benign essential Expected: Almond Pan Finisher hypertension 03/17/2021 (Approximate), Expires: 2021 documented as [...] Anion Gap 6 3 - 14 03/21/2021 [facility] mmol/L 8:24 AM CDT Urea Nitrogen 14 7 - 30 03/21/2021 [facility] mg/dL 8:24 AM CDT Creatinine 1.14 0.66 - 03/21/2021 [facility] 1.25 mg/dL 8:24 AM CDT Calcium 8.7 8.5 - 10.1 03/21/2021 [facility] mg/dL 8:24 AM CDT Glucose 120 [...] STRUCTURE OF RIGHT Venipuncture / 03/21/2021 7:33 03/01 7:33 HAND / Unknown Unknown AM CDT AM CDT Yeny May APRN ON SITE NURSE LAB - BLOOD ORDERABLES Performing Organization Address City/State/ZIP Code [place] [address] Care Lab [address] Lab (1st floor, no room number) documented in this encounter Visit Diagnoses Diagnosis Benign essential hypertension - Primary Essential hypertension, benign TIA (transient ischemic attack) Unspecified transient cerebral ischemia Atrial fibrillation, unspecified type (H ) Cerebrovascular accident (CVA) due to em bolism of cerebral artery (H) documented in this encounter Care Teams Basin Cleaner Relationship Specialty Start Date End Date [facility] And PCP - General 02/01/21 [place] [id number] [address] documented as of this encounter
--- OUTSIDE RECORDS SUMMARY | 2022-05-28 14:23 | XMS_ITS | Encounter Summary ---
:1945 Author Organization [place] Address [address] [place] [address] Care Team Providers Name Role Phone [facility] Primary Care Provi kelle [facility] November CANT HOOKER COUNSELING CASE MANAGER Unavailable Reason for Referral Consultation (Routine) - Closed Specialty Diagnoses / Procedures Referred By Contact Refer red To Contact Diagnoses Benign essential hypertension History of TIA (transient ischemic attack) and stroke Permanent atrial fibrillation (H) Morbid obesity (H) Denton Casiano MD [address] [place] [address] Referral ID Status Reason Start Date Expiration Date Visits Requ ested Visits Authorized [id number] Closed 03/21/2021 03/21/2022 1 1 Reason for Visit Reason Comments Hypertension Consultation (Routine) - Closed Specialty Diagnoses / Procedures Referred By Contact Refer red To Contact Diagnoses Benign essential hypertension November, CANT HOOKER COUNSELING CASE MANAGER [address] [place] [address] Referral ID Status Reason Start Date Expiration Date Visits Requ ested Visits Authorized [id number] Closed 02/14/2021 02/14/2022 1 1 Encounter Details Date Type Department Care Team Description 03/21/2021 Office Visit [facility], Yeny E, CANT HOOKER COUNSELING CASE MANAGER [address] [place] [id number] History of TIA (transient ischemic attac k) and stroke (Primary Dx); Heart Clinic Denton Casiano MD [address] [place] [address] Benign essential hypertension; [place] Permanent atrial fibrillatio n (H); [address] [facility] Morbid obesity (H) [address] [place] [address] Social History Tobacco Use Types [...] Office Visit Cardiology Yeny May A PRN COUNSELING CASE MANAGER [address] [place] [address] Denton Casiano MD [address] [place] [address] Scheduled Referrals Name Type Priority Associated Diagnoses [...] obesity documented in this encounter Care Teams Application Integrator Relationship Specialty Start Date End Date [facility], PCP - General 02/01/[address] [facility]- [address] [place] [address] Yeny May, HAYDEE COUNSELING CASE MANAGER Assigned Heart and Vascular 02/18/2103/24 [address] Provider [place] [id number] documented as of this encounter
--- OUTSIDE RECORDS SUMMARY | 2022-05-28 14:23 | XMS_ITS | Encounter Summary ---
:1945 Author Organization [place] Address [address] [place] [address] Care Team Providers Name Role Phone [facility] And Primary Care [facility] kelle Clinics- Denton Casiano MD Unavailable Antony Burch MD Unavailable [phone] Encounter Details Date Type Department Care Team [...] Office Visit Cardiology Yeny May A PRN HOIST OPERATOR [address] [place] [address] Denton Casiano MD [address] [place] [id number] documented as of this encounter Visit Diagnoses Not on filedocumented in this encounter Care Teams Material Requisitioner Relationship Specialty Start Date End Date [facility], PCP - General 02/01/21 [facility]- [address] [place] [address] Denton Casiano MD Assigned Heart and Vascular 03/25/2110/27 [address] Provider [place] [address] Antony Burch Assigned Neuroscience 04/08/21 MD Jan Provider [address] [place] [id number] documented as of this encounter
--- OUTSIDE RECORDS SUMMARY | 2022-05-28 14:23 | XMS_ITS | Encounter Summary ---
:1945 Author Organization [place] Address [address] [place] [address] Care Team Providers Name Role Phone [facility] Primary Care Prov kelle Cayden- Yeny May DRILL SHARPENER OPERATOR PAD CUTTER Unavailable Denton Casiano MD Unavailable Antony Burch MD Unavailable [phone] Yeny May APRN PAD CUTTER Unavailable Denton Casiano MD Unavailable Encounter Details Date [...] Office Visit Cardiology Yeny May A PRN PAD CUTTER [address] [place] [address] Denton Casiano MD [address] [place] [address] documented as of this encounter Visit Diagnoses Not on filedocumented in this encounter Care Teams Tunnel Elastic Operator Zigzag Relationship Specialty Start Date End Date [facility], PCP - General 02/01/21 [facility]- [address] [place] [address] Yeny May, DRILL SHARPENER OPERATOR Assigned Heart and 02/18/21 PAD CUTTER Vascular Provider [address] [place] [address] Denton Casiano, Assigned Heart and 03/25/21 MD Vascular Provider [address] [place] [address] Antony Burch Assigned Neuroscience 04/08/21 MD Jan Provider [address] [place] [address] Yeny May, DRILL SHARPENER OPERATOR Assigned Heart and 10/28/21 PAD CUTTER Vascular Provider [address] [place], [place] [address] Denton Casiano MD Cardiovascular Disease 05/17/[address] [place], [place] [address] documented as of this encounter
--- OUTSIDE RECORDS SUMMARY | 2022-05-28 14:23 | XMS_ITS | Encounter Summary ---
:1945 Author Organization [place] Address [address] [place] [address]. [place] [address] Care Team Providers Name Role Phone [facility] And Primary Care Prov kelle Clinics- [place] Yeny Jose Alejandro SENIOR ENGINEERING SPECIALIST ACUPUNCTURE PHYSICIAN Unavailable Encounter Details Date Type Department Care [...] Team Description 10/08/2022 Office Visit Cardiology [place] November E, A PRN ACUPUNCTURE PHYSICIAN [address] [place] [id number] Denton Casiano MD [address] [place] [id number] documented as of this encounter Visit Diagnoses Not on filedocumented in this encounter Care Teams Cellophaner Relationship Specialty Start Date End Date [facility], PCP - General 02/01/21 [facility]- [address] [place] [address] Yeny May, HAYDEE ACUPUNCTURE PHYSICIAN Assigned Heart and Vascular 02/18/2103/24 [address] Provider [place] [address] documented as of this encounter
--- OUTSIDE RECORDS SUMMARY | 2022-05-28 14:23 | XMS_ITS | Encounter Summary ---
:1945 Author Organization [place] Address [address] [place] [address]. [place] [address] Care Team Providers Name Role Phone [facility] And Primary Care [facility] kelle Clinics- Encounter Details Date Type Department Care [...] Office Visit Cardiology Yeny May A PRN CLINICAL RADIOLOGIST [address] [place] [address] Denton Casiano MD [address] [place] [id number] documented as of this encounter Visit Diagnoses Not on filedocumented in this encounter Care Teams Obstetrics And Gynecology Professor Relationship Specialty Start Date End Date [facility] And PCP - General 02/01/21 [facility]- [address] [place] [address] documented as of this encounter
--- OUTSIDE RECORDS SUMMARY | 2022-05-28 14:23 | XMS_ITS | Encounter Summary ---
:1945 Author Organization [place] Address [address] [place] [address]. [place] [address] Care Team Providers Name Role Phone [facility] And Primary Care Provi kelle Clinics- Yeny May SHODDY MILL WORKER EMERGENCY DEPARTMENT COORDINATOR Unavailable Encounter Details Date Type Department Care Team Description 03/21/2021 Lab [facility] Yeny May, JOELLEN TUCKER Benign essential [facility] [place] EMERGENCY DEPARTMENT COORDINATOR hypertension [address] [place] [address] [phone] Social History Tobacco Use Types Packs/Day Years [...] Office Visit Cardiology Yeny May, Edgar PRN EMERGENCY DEPARTMENT COORDINATOR [address] [place] [address] Denton Casiano MD [address] [place] [address] documented as of this encounter Procedures Procedure [...] STRUCTURE OF RIGHT Venipuncture / 03/21/2021 7:33 09/07/2020 7:33 HAND / Unknown Unknown AM CDT AM CDT Yeny May APRN, CNP LAB - BLOOD ORDERABLES Performing Organization Address City/State/ZIP Code Ph[place] [address] Care Lab [address] Lab (1st floor, no room number) documented in this encounter Visit Diagnoses Diagnosis Benign essential hypertension Essential hypertension, benign documented in this encounter Care Teams Channel Process Plant Operator Relationship Specialty Start Date End Date [facility], PCP - General 02/01/21 [facility]- [address] [place] [address] Yeny May APRN CNP Assigned Heart and Vascular 02/18/2103/24 [address] Provider [place] [id number] documented as of this encounter
--- OUTSIDE RECORDS SUMMARY | 2022-05-28 14:23 | XMS_ITS | Encounter Summary ---
:1945 Author Organization [place] Address [address] [place] [address] Care Team Providers Name Role Phone [facility] And Primary Care Prov kelle Clinics- Denton Casiano MD Unavailable Encounter [...] Office Visit Cardiology Yeny May A PRN RETAIL SALES MANAGER [address] [place] [address] Denton Casiano MD [address] [place] [id number] documented as of this encounter Visit Diagnoses Not on filedocumented in this encounter Care Teams Ui Architect Relationship Specialty Start Date End Date [facility], PCP - General 02/01/[address] [facility]- [address] [place] [address] Denton Casiano MD Assigned Heart and Vascular 03/25/2110/27 [address] Provider [place] [address] documented as of this encounter
--- OUTSIDE RECORDS SUMMARY | 2022-05-28 14:23 | XMS_ITS | Encounter Summary ---
:1945 Author Organization [place] Address [facility] [place] [address] Care Team Providers Name Role Phone [facility] kelle Clinics- Reason for Referral Consultation (Routine) - Closed Specialty Diagnoses / Procedures Referred By Contact Refer coleen To Contact Diagnoses TIA (transient ischemic attack) Atrial fibrillation, unspecified type (H) Denton Casiano MD [address] [facility] [address] [place] [address] Referral ID Status Reason Start Date Expiration Date Visits Requ ested Visits Authorized [id number] Closed 02/02/2021 02/02/2022 1 1 Consultation (Routine) Specialty Diagnoses / Procedures Referred By Contact Bam horne To Contact Neurology Vivi Celeste PA- C [address] [place], [place] [address] Referral ID Status Reason Start Date [...] Observation Dept [address] [place], [place] [address] Phone: Referral ID Status Reason Start Date Expiration Date Visits Requ ested Visits Authorized [id number] 1 1 Encounter Details Date Type Department Care Team Description 02/01/2021 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 DATE/TIME: 02/01/2021 4:39 PM INDICATION: [...] MCASEY Echocardiogram Complete Value LVEF 50-55% Narrative [id number]^SUZANNA^GEETHA^TENZIN [facility] [address] [place], [place] [address] Name: VIVEK LANG Nusrat : 1945 Study Date: 02/02/2021 07:18 AM Age: 75 yrs Gender: Male Patient Location: [facility] Reason For Study: TIA Ordering Physician: GEETHA BRISENO Referring Physician: [facility] Performed By: Vivek Elliott RDCS BSA: 2.5 m2 Height: 73 in Weight: 288 lb HR: 55 BP: 179/93 mmHg Procedure Complete Portable Echo Adult. Poson ([facility] #[id number]) given intravenously. Interpretation Summary Technically challenging study [...] 08:10 AM Most Recent Lab Results In [facility] (For Non-EPIC Providers): Most Recent 3 CBC's: [...] Care Everywhere. Eliquis Oral Tablet 5 mg (Barbadian)AFIB PATIENT INFORMATIONAtrial Fibrillation, Discharge Instructions for (Barbadian)documented in this encounter Medications at Time of [...] Briseno MD - 02/01/2021 4:48 PM CDT [facility] History and Physical Hospitalist Date of Admission: [...] - 6pm, M-F) Primary Care Physician [facility]- [facility] Chief Complaint History is obtained from the [...] as terazosin. He has not seen a income tax advisor in a number of years. He is [...] 2 mg Oral At Bedtime No current [facility]-ordered outpatient medications on file. Review of Systems: [...] Status --------- ------ CBC with platelets and d...[[id number]] Abnormal Final result Please view results for [...] Rate 63 BPM Atrial Rate 43 BPM MT Interval ms QRS Duration 110 ms QT 456 ms QTc 466 ms P [place] degrees R AXIS 38 degrees T Macon 51 degrees Interpretation ECG Atrial fibrillation Nonspecific ST abnormality Abnormal ECG No previous ECGs available Confirmed by - EMERGENCY ROOM, PHYSICIAN ([id number]), newspaper or periodical editor SIMONE QUIROGA ([id number]) on 02/02/2021 6:47:[address] w/o [...] MR BRAIN W/O and W CONTRAST LOCATION: [facility] DATE/TIME: 02/01/2021 4:39 PM INDICATION: [...] Procedure Abnormality Status --------- ------ SARS-COV2 (COVID-19) Vir...[[id number]] Normal Final result Please view results for [...] recent exposure or clinical presentation suggests COVID-19. [facility] are certified under the Clinical Laboratory Improvement Amendments of 1988 (CLIA-88) as qualified to perform moderate and/or high complexity laboratory testing. Neurology IP Consult: Stroke (potential or actual); Patient to be seen: Routine - within 24 hours; TIA; Music Critic may enter orders: Yes; Requesting provider? Hospitalist (if different from attending physician) Narrative Vivi Celeste PA-C 02/02/2021 12:05 PM [facility] Stroke Consult Note Reason for Consult: TIA [...] home statin, LDL is in range - truck terminal manager tight BP control, <135/80 - Advised continued [...] or Dr. Burch of General Neurology at [facility] ([place]) (neurology referral order placed) Thank you for this consult. No further stroke evaluation is recommended, so we will sign off. Please contact us with any additional questions. Vivi Celeste PA-C Neurology 02/02/2021 10:01 AM To page me or covering stroke neurology food service team member, click here: AMCOM Choose Payroll Tax Analyst tab at top, then search dropdown box [...] simultaneous stimulation (assessed by nurse) Coordination: normal eqvzul-bc-zfwf and ezcy-qw-qfex bilaterally without dysmetria, rapid alternating movements symmetric [...] communication per Radha Originating site (patient location) [facility] Distant site (provider location) [facility] I have personally spent a [...] or [employer]) Jantoven (warfarin): $7/mo. Kerrie Car, Luncheonette Manager/Liaison, Discharge Pharmacy [phone] Hemoglobin A1c Result Value Ref Range Hemoglobin [...] Result Value Ref Range LVEF 50-55% Narrative [id number]^ANWER^ANI^TENZIN [facility] [address] [place] [address] Name: VIVEK LANG Nusrat : 1945 Study Date: 02/02/2021 07:18 AM Age: 75 yrs Gender: Male Patient Location: [facility] Reason For Study: TIA Ordering Physician: GEETHA BRISENO Referring Physician: [facility] Performed By: Vivek Elliott RDCS BSA: 2.5 m2 Height: 73 in Weight: 288 lb HR: 55 BP: 179/93 mmHg Procedure Complete Portable Echo Adult. Optison ([facility] #[id number]) given intravenously. Interpretation Summary Technically challenging study [...] from the original note were not included. [facility] Stroke Consult Note Reason for Consult: TIA [...] home statin, LDL is in range - shelter tight BP control, <135/80 - Advised continued [...] or Dr. [facility]urch [facility] (neurology referral order placed) Thank you for this consult. No further stroke evaluation is recommended, so we will sign off. Pleasecontact us with any additional questions. Vivi Celeste PA-C Neurology 02/02/2021 10:01 AM To page me or covering stroke neurology food service team member, click here: AMCOM Choose Payroll Tax Analyst tab at top, then search dropdown box [...] simultaneous stimulation (assessed by nurse) Coordination: normal mkhqlm-kt-tszm and nebz-fz-zedc bilaterally without dysmetria, rapid alternating movements symmetric [...] 11. Extinction and Inattention Total zero Modified Kingman Score (Pre-morbid) 0-No symptoms Imaging I personally [...] communication per Radha Originating site (patient location) [facility] Distant site (provider location) [facility] I have personally spent a [...] with any questions Securely message with the [employer] Console (learn more here) To page me or covering stroke neurology food service team member, click here: AMCOM Choose Payroll Tax Analyst tab at top, then search dropdown box [...] or [employer]) Jantoven (warfarin): $7/mo. -Zev Car, Luncheonette Manager/Liaison, Discharge Pharmacy [phone] Colby Olivia MD - 02/01/2021 3:44 PM CDT Images from the original note were not included. [facility] Stroke Telephone Note I was called by [...] To page me or covering stroke neurology food service team member, click here: AMCOM Choose Payroll Tax Analyst tab at top, then search dropdown box [...] with any questions Securely message with the [employer] Console (learn more here) To page me or covering stroke neurology food service team member, click here: AMCOM Choose Payroll Tax Analyst tab at top, then search dropdown box for Neurology Adult, select location, press Enter, then look for stroke/neuro ICU/telestroke. documented in this encounter ED Notes Melly Mireles, GARRETT - 02/01/2021 5:34 PM CDT Arun-[phone] Pt contact) Gerri Miller RN - 02/01/2021 4:53 PM CDT [facility] ED Nurse Handoff Report Vivek Lang is a 75 year old male ED Chief complaint: One-sided Weakness . ED Diagnosis: Final diagnoses: TIA (transient ischemic attack) Atrial fibrillation, unspecified type (H) Allergies: No Known Allergies Code Status: Full Code Activity level - Baseline/Home: Independent. Activity Level - Current: Stand by Assist. Lift room needed: No. Bariatric: No Corporate Executive Chef Needed: No Isolation: No. Infection: Not Applicable. [...] Status --------- ------ CBC with platelets and d...[[id number]] Abnormal Final result Please view results for [...] lumbar three+ levels Colonoscopy Family History: CVA HI Lung cancer Social History: Patient presents with [...] to prior, dated 01/04/17. Rate 63 bpm. MT interval * ms. QRS duration 110 ms. [...] MD Physician Advisor Utilization Review/ Case Management [facility]. Provider Notification - Lo Hsu RN - 02/02/2021 5:08 AM CDT Paged: FYI per telecom coordinator pt had 2.1 sec pause Plan of [...] No 4. Interpretation of cardiac rhythm per technical assistance consultant: Afib controlled HR in the 50s 5. Tolerating adequate PO diet and medications: Yes 6. Return to near baseline physical activity or neurologic status: Yes Peoples[employer] Hrms Developer Nurse Safe discharge environment identified: Yes Barriers to discharge: Yes Entered by: Gerir Miller 02/01/2021 9:02 PM Please review provider [...] status for this patient is complete. See [facility] admission navigator for allergy information, prior to admission medications and immunization status. Medication history interview done, indicate source(s): Patient and Family Medication history resources (including written lists, pill bottles, clinic record):[facility], [facility] Changes made to STRUCTURAL DESIGNER medication list: Added: Atorvastatin, Protonix, Coq10 Changed: [...] not independent, order SW consult): Facility name: personal injury paralegal: , pt lives with Activity level at [...] Office Visit Cardiology Yeny May A PRN WALL CLEANER [address] [place] [id number] Denton Casiano MD [address] [place] [address] Scheduled Orders Name Type Priority Associated Diagnoses Order S chedule TeleStroke Video Neurology Routine One Time fo r 1 Monitoring Occurrences sta rting 02/02/2021 unti l 02/02/2021 Scheduled Referrals Name Type Priority Associated Diagnoses Order S chedule Adult Neurology Referral Routine Cerebrovascular accident Ordered: [...] 7:18 AM CDT Narrative 02/02/2021 8:10 AM CDT [id number]^SUZANNA^GEETHA^TENZIN [facility] [address] [place] [address] Name: VIVEK LANG : 1945 Study Date: 02/02/2021 07:18 AM Age: 75 yrs Gender: Male Patient Location: [facility] Reason For Study: TIA Ordering Physician: GEETHA BRISENO Referring Physician: [facility] Performed By: Vivek Elliott RDCS BSA: 2.5 m2 Height: 73 in Weight: 288 lb HR: 55 BP: 179/93 mmHg Procedure Complete Portable Echo Adult. Optison ([place] #[id number]) given intravenously. Interpretation Summary Technically challenging study [...] note might be different from the original. [id number]^ANWER^ANI^TENZIN [facility] [address] [place] [address] Name: VIVEK LANG : 1945 Study Date: 02/02/2021 07:18 AM Age: 75 yrs Gender: Male Patient Location: [facility] Reason For Study: TIA Ordering Physician: GEETHA BRISENO Referring Physician: [facility] Performed By: Vivek Elliott RDCS BSA: 2.5 m2 Height: 73 in Weight: 288 lb HR: 55 BP: 179/93 mmHg Procedure Complete Portable Echo Adult. Optison ([place] #[id number]) given intravenously. Interpretation Summary Technically challenging study [...] approved by: Anika Howe 02/02 08:10 AM Makaylai Tenzin Briseno MD CV ECHO ORDERABLES Vitamin B12 [...] Organization Address City/State/ZIP Code Phon [place] [address] Lab [address] [facility] [address] Building, Room 3[address] [place] [address], [place] [address] [facility] Building, Room 3580 Troponin I (02/02/2021 6:43 AM [...] City/State/ZIP Code Ph[place] [address] Care Lab [address] Lab (1st floor, no room number) [...] City/State/ZIP Code [place] [address] Care Lab [address] Lab (1st floor, no room number) [...] Address City/State/ZIP Code [place] [address] Care Lab [address] [facility] Lab (1st floor, no room number) SARS-COV2 (COVID-19) Virus RT-PCR (02/01/2021 6:00 PM CDT) Analysis Performed At Patho logist Time Signature SARS CoV2 PCR Negative [...] exposure or clinical presentation sugges ts COVID-19. ??[facility] are certified under the Clinical Laborat ory Improvement Amendments of 1988 (CLIA-88) as qualified to perform moderate and/or high complexity laboratory testing. Zac Watkins MD LAB - MICRO GENERAL ORDERABL ES Performing Organization Address City/State/[place] [address] Care Lab [address] [facility] Lab (1st floor, no room number) [...] MR BRAIN W/O and W CONTRAST LOCATION: [facility] DATE/TIME: 02/01/2021 4:39 PM INDICATION: One sided weakness COMPARISON: [facility] CONTRAST: 12 mL Gadavist TECHNIQUE: Routine [...] MR BRAIN W/O and W CONTRAST LOCATION: [facility] DATE/TIME: 02/01/2021 4:39 PM INDICATION: One sided weakness COMPARISON: [facility]A [facility] e date CONTRAST: 12 mL Gadavist TECHNIQUE: Routine [...] abnormality. ANUSHKA LACEY MD SYSTEM ID: [id number] Zac Watkins MD IMG DIAGNOSTIC IMAGING ORDER ANTHONY CTA Head Neck [...] ANGIOGRAM OF THE HEAD AND NECK WITH Seth PENA 02/01/2021 3:57 PM HISTORY: 5 minutes episode [...] RESULTS Atrial Rate 43 BPM RADIOLOGY RESULTS MT Interval ms RADIOLOGY RESULTS QRS Duration 110 ms RADIOLOGY RESULTS QT 456 ms RADIOLOGY RESULTS QTc 466 ms RADIOLOGY RESULTS P [place] degrees RADIOLOGY RESULTS R AXIS 38 degrees RADIOLOGY RESULTS T [place] 51 degrees RADIOLOGY RESULTS Interpretation Atrial fibrillation RADIO LOGY ECG Nonspecific ST abnormality RES ULTS Abnormal ECG No previous ECGs available Confirmed by - EMERGENCY ROMMEL Fina PHYSICIAN ([id number]), newspaper or periodical editor SIMONE QUIROGA ([id number]) on 02/02/2021 6:47:41 AM Specimen Anatomical Collection Method Collection Time Receive d Time (Source) Location / / Volume Laterality 02/01/2021 3:21 PM 6:47 CDT AM CDT Zac Watkins MD ECG ORDERABLES Performing Organization Address City/State/ZIP Code Phon e Number RADIOLOGY RESULTS TSH with free T4 reflex (02/01/2021 3:16 PM CDT) athologist Signature TSH 1.29 0.40 - 4.00 [...] City/State/ZIP Code [place] [address] Care Lab [address] Lab (1st floor, no room number) [...] Address City/State/ZIP Code [place] [address] Care Lab [address] Lab (1st floor, no room number) [...] Organization Address City/State/[place] [address] Care Lab [address] [...] On Fri02/02/21 at 0800, For 1 dose, [facility] [id number] prochlorperazine (COMPAZINE) injection 5 mg 5 mg, Intravenous, EVERY 6 HOURS PRN, nausea, vomiting , Administer over 1-2 Minutes, Starting on Martine [...] 500 mL (COMPLETED) 1533 (Given - Provider: Celestina Mancuso [facility]) 500 mL, Intravenous, ONCE, On Fri02/01/21 at 1530, For 1 dose pantoprazole (PROTONIX) EC tablet 40 mg 1155 (Given - Provider: Esdras Chauhan, GARRETT) 40 mg, Oral, EVERY OTHER DAY, First dose on Fri02/02/21 at 1030, DO NOT CRUSH. perflutren diluted 1mL to 2mL with salin e (OPTISON) diluted injection 3 mL (COMPLETED) 6935 (Given - Provid er: Vivek Elliott) 3 mL, Intravenous, ONCE, On Fri02/02/21 at 0800, For 1 dose, [facility] 5327-9842-[address] scan flush (COMPLETED) 1534 (G iven - Provider: Celetsina Mancuso, ARRT) Intravenous, 100 mL, ONCE, On Martine 02/01/21 at 1530, For 1 dose sodium chloride (PF) 0.9% PF flush 10 mL (COMPLETED) 0738 (Given - Provider: Vivek Elliott) 10 mL, [...] provider.
documented in this encounter Care Teams Artist Consultant Relationship Specialty Start Date End Date [facility] And PCP - General 02/01/21 [facility] [address] [place] [address] documented as of this encounter
--- OUTSIDE RECORDS SUMMARY | 2022-05-28 14:23 | XMS_ITS | Encounter Summary ---
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 Reason for Visit Reason Onset Date Comments Results 03/13/2021 event monitor Encounter Details Date Type Department Care Team Description 03/13/2021 Telephone [facility] May, November EZuly (event monitor) [facility] PAINTER HAND BOWSTRING MAKER [address] [facility] [address] [facility] [address] [place] [phone] [place] [id number] Social History Tobacco Use Types Packs/Day Years [...] Office Visit Cardiology Yeny May, Edgar PRN BOWSTRING MAKER [address] [place] [id number] Denton Casiano MD [address] [place] [id number] documented as of this encounter Visit Diagnoses Not on filedocumented in this encounter Care Teams Studio Assistant Relationship Specialty Start Date End Date [facility], PCP - General 02/01/21 [facility]- [address] [place] [address] Yeny May APRN CNP Assigned Heart and Vascular 02/18/2103/[address] Provider [place] [id number] documented as of this encounter
--- OUTSIDE RECORDS SUMMARY | 2022-05-28 14:24 | XMS_ITS | Encounter Summary ---
:1945 Author Organization [facility] Address [address] [place] [address] Care Team Providers Name Role Phone Ran Lee MD Primary Care Provider Reason for Visit Auth/Cert - Closed Specialty Diagnoses / Procedures Referred By Contact Refer red To Contact Surgery Diagnoses DJD Rh Periop Services Procedures ARTHROPLASTY HIP [address] [place], [place] [address] Phone: Fax: Referral ID Status Reason Start Date Expiration Date Visits Requ ested Visits Authorized [id number] Closed 1 1 Encounter Details Date Type Department Care Team Description 03/22/2013 Surgery [facility] Freddy Obregon Right To jazzy hip [place] PeriOp Servic cristian Corona MD Arthroplasty [address] [place], [place] ORTHOPEDICS [address] [address] [facility] [address] [place] [address] (Wo rk) Surgery Details Date/Time [...] Primary Orthopedics 1 Elana Ayala PA-C Assisting Bicycle Repairman Authorizat ion 1 Special Needs 6'3 /288# [...] in 10-14 days post-op. Elana Ayala PA-C [phone] Elana Traylor PA-C - 03/25/2013 8:01 AM [...] on that operative leg. Elana Ayala PA-C [phone] Tony Burgos MD - 03/24/2013 11:30 AM CDT [facility] Hospitalist Progress Note 03/24/2013 Name: Vivek [...] discharge to Home tomorrow. Elana Ayala PA-C [phone] Fatou Koroma-Provider - 03/24/2013 10:00 AM CDT [...] WFL Mobility Bed Mobility Comments SBA, leg airline hostess Transfer Skills Transfer Comments SBA Lower Body Dressing Level of Dewitt: Dress Lower Body stand-by assist Physical Assist/Nonphysical Assist: Dress Lower Body set-up required;supervision Assistive Device circulation director;sock-aid Grooming Level of Dewitt: Grooming stand-by assist Physical Assist/Nonphysical Assist: Grooming set-up required (in bed) Eating/Self Feeding Level of Dewitt: Eating independent Instrumental Activities of Daily Living [...] in their one level home in [place], prior to surgery he had been i [...] to home on . Elana Ayala PA-C [phone] Tony Burgos MD - 03/23/2013 11:20 AM CDT [facility] Hospitalist Progress Note 03/23/2013 Name: Vivek [...] in AM. 2. HTN: Currently stable. Continue VARNISHER Hytrin and Ziac with parameters. 3. Prophylaxis: [...] Physical Therapy Goals The patient and/or their corporate sales representative will achieve their patient-specific goals [...] Occupational Therapy Goals The patient and/or their corporate sales representative will achieve their patient-specific goals [...] Individualization/Patient-Specific Goal (Adult,OB,Behavioral The patient and/or their corporate sales representative will achieve their patient-specific goals [...] Occupational Therapy Goals The patient and/or their corporate sales representative will achieve their patient-specific goals [...] goals as expected OT-Per Dr. Obregon's PA-C, [place], patient is TTWB status on the R. Patient was min A with sit to standand CGA with ambulation to complete toilet transfers. Anticipate patient will be safe to return homewith spouse to assist as needed. Will continue with OT for ADl's, functional mobility and increasingactivity tolerance as well as issuing DME as needed. Plan of Care - Lianet Anna R, VARNISHER - 03/24/2013 1:31 PM CDT Problem: General Rehab Plan of Care Goal: Physical Therapy Goals The patient and/or their corporate sales representative will achieve their patient-specific goals [...] Physical Therapy Goals The patient and/or their corporate sales representative will achieve their patient-specific goals [...] Individualization/Patient-Specific Goal (Adult,OB,Behavioral The patient and/or their corporate sales representative will achieve their patient-specific goals related to the plan of care. The patient-specific goals include: Right femur fracture intra-operative. Metal cable placed. Anticipate longer walker time post-op. Activity: Flat foot weight bearing. [facility] Discharge planning for return home. Vss. [...] Individualization/Patient-Specific Goal (Adult,OB,Behavioral The patient and/or their corporate sales representative will achieve their patient-specific goals related to the plan of care. The patient-specific goals include: Right femur fracture intra-operative. Metal cable placed. Anticipate longer walker time post-op. Activity: Flat foot weight bearing. [facility] Discharge planning for return home. Outcome: [...] Occupational Therapy Goals The patient and/or their corporate sales representative will achieve their patient-specific goals [...] OT provided education andtraining on use of circulation director and sockaid for LE dressing due to hip precautions. Pt. able to complete LE dressing wtih AE with SBA at EOB. OT provided education and training on DME for toilet transfer aspt. notes his RTS has no arms and impairs independence with toileting. OT educated on DME for walk in shower transfer. OT educated on energy conservation/work simplification for ADLs at [facility]. Pt. verbalized understanding and that his can help assist with setup at home. OT recommends discharge home with to assist with IADLs and setup for ADLs. Plan of Care - Allyssa Grover PT - 03/23/2013 11:17 AM CDT Problem: General Rehab Plan of Care Goal: Physical Therapy Goals The patient and/or their corporate sales representative will achieve their patient-specific goals [...] Individualization/Patient-Specific Goal (Adult,OB,Behavioral The patient and/or their corporate sales representative will achieve their patient-specific goals [...] Individualization/Patient-Specific Goal (Adult,OB,Behavioral The patient and/or their corporate sales representative will achieve their patient-specific goals [...] nausea relieved with rest declines PRN med Cartagnea: patent draining clear yellow urine CMS: intact, [...] Individualization/Patient-Specific Goal (Adult,OB,Behavioral The patient and/or their corporate sales representative will achieve their patient-specific goals [...] total hip arthroplasty. SURGEON: Freddy Obregon MD. HOME LIGHTING ADVISER: Elana Villegas PA-C. ANESTHESIA: General. 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 See [facility] admission navigator for allergy information, [...] Office Visit Cardiology Yeny May A PRN INORGANIC CHEMISTRY PROFESSOR [address] [place] [address] Denton Casiano MD [address] [place] [address] documented as of this encounter Procedures Procedure [...] Results (ABNORMAL) INR (03/25/2013 6:30 AM CDT) athologist Signature INR 1.72 (H) 0.86 - 1.14 [facility] Specimen Anatomical Collection Method Collection Time Receive d Time (Source) Location / / Volume Laterality Blood specimen 03/25/2013 6:30 AM 013 6:36 (specimen) CDT AM CDT Freddy Obregon MD LAB - BLOOD ORDERABLES Performing Organization Address [facility] e Number [address] [facility] EKG 12-lead, tracing only (03/24/2013 11:36 AM CDT) [facility] gist Method Time Signature Interpretation ECG Click View RADIOLOGY Image link RESULTS to view waveform and result Specimen (Source) Anatomical Collection Method Collection Time Re ceived Time Location / / Volume Laterality 03/24/2013 11:36 AM CDT Tony Burgos MD ECG ORDERABLES Performing Organization Address [facility] Phon e Number RADIOLOGY RESULTS (ABNORMAL) INR (03/24/2013 6:19 AM CDT) athologist Signature INR 1.23 (H) 0.86 - 1.14 [facility] Specimen Anatomical Collection Method Collection Time Receive d Time (Source) Location / / Volume Laterality Blood specimen 03/24/2013 6:19 AM 013 6:28 (specimen) CDT AM CDT Freddy Obregon MD LAB - BLOOD ORDERABLES Performing Organization Address [facility] Phon e Number [place] [address] [place], [place] [address] [facility] (ABNORMAL) Glucose (03/24/2013 6:19 AM CDT) athologist Signature Glucose 105 (H) 60 - 99 [place] mg/dL [facility] Specimen Anatomical Collection Method Collection Time Receive d Time (Source) Location / / Volume Laterality Blood specimen 03/24/2013 6:19 AM 013 6:28 (specimen) CDT AM CDT Freddy Obregon MD LAB - BLOOD ORDERABLES Performing Organization Address City/[facility]/ZIP [facility] Phon e Number [facility] [address], [place] [address] [facility] (ABNORMAL) Hemoglobin (03/24/2013 6:19 AM CDT) athologist Signature Hemoglobin 10.6 (L) 13.3 - 17.7 [place] g/dL [facility] Specimen Anatomical Collection Method Collection Time Receive d Time (Source) Location / / Volume Laterality Blood specimen 03/24/2013 6:19 AM 013 6:28 (specimen) CDT AM CDT Freddy Obregon MD LAB - BLOOD ORDERABLES Performing Organization Address City/[facility]/ZIP [facility] Phon e Number [facility] [address] [place], [place] [address] [facility] (ABNORMAL) UA reflex to Microscopic (03/23/2013 12:35 PM CDT) Component Value Ref Test Analysis Performed At Patholo gist Range Method Time Signature Color Urine Yellow [facility] Appearance Urine Cloudy [facility] Glucose Urine 30 (A) NEG [place] mg/dL [facility] Bilirubin Urine Negative NEG [facility] Ketones Urine Negative NEG [place] mg/dL [facility] Specific [place] 1.022 1.003 - [place] Urine 1.035 [facility] Blood Urine Moderate (A) NEG [facility] pH Urine 5.5 5.0 - [place] 7.0 pH [facility] Protein Albumin 30 (A) NEG [place] Urine mg/dL [facility] Urobilinogen Normal 0.0 - [place] mg/dL 2.0 [facility] mg/[facility] Nitrite Urine Negative NEG [facility] Leukocyte Small (A) NEG [place] Esterase Urine [facility] Source Catheterized [place] Urine [facility] RBC Urine 82 (H) 0 - 2 [facility] WBC Urine 11 (H) 0 - 2 [facility] Bacteria Urine Few (A) NEG /HPF [facility] Mucous Urine Present (A) NEG /LPF [facility] Amorphous Few (A) NEG /HPF [place] Crystals [facility] Specimen Anatomical Location Collection Method Collection Time Received Time (Source) / Laterality / Volume Urine specimen URINE SPECIMEN 03/23/2013 12:35 013 (specimen) COLLECTION, PM CDT 12:54 PM CDT CATHETERIZED / Unknown Tony Burgos MD LAB - URINE ORDERABLES Performing Organization Address [facility]/[place] [address] [place], [place] [address] [address] [phone] [place] [address] LAB Magnesium (03/23/2013 6:18 AM CDT) athologist Signature Magnesium 2.1 1.6 - 2.3 [facility] LAB Specimen Anatomical Collection Method Collection Time Receive d Time (Source) Location / / Volume Laterality Blood specimen 03/23/2013 6:18 AM 013 1:11 (specimen) CDT PM CDT Tony Burgos MD LAB - BLOOD ORDERABLES Performing Organization Address [facility] [address] [place], [place] [address] [phone] [place] [address] LAB (ABNORMAL) Basic metabolic panel (03/23/2013 6:18 AM CDT) athologist Signature Sodium 135 133 - 144 [place] mmol/L [facility] Potassium 4.6 3.4 - 5.3 [place] mmol/L [facility] Chloride 98 94 - 109 [place] mmol/L [facility] Carbon Dioxide 30 20 - 32 [place] mmol/L [facility] Anion Gap 7 6 - 17 [place] mmol/L [facility] Glucose 155 (H) 60 - 99 [place] mg/dL [facility] Urea Nitrogen 15 7 - 30 [place] mg/dL [facility] Creatinine 0.78 0.66 - [facility] 1.25 mg/dL [facility] GFR Estimate >90 >60 [place] mL/min/1.[address] LAB GFR Estimate If >90 >60 [place] Black mL/min/[address] [place] [address] LAB Calcium 8.3 (L) 8.5 - 10.4 [place] mg/dL [facility] Specimen Anatomical Collection Method Collection Time Receive d Time (Source) Location / / Volume Laterality Blood specimen 03/23/2013 6:18 AM 013 1:11 (specimen) CDT PM CDT Tony Burgos MD LAB - BLOOD ORDERABLES Performing Organization Address City/[facility] Phon e Number [place] [address] [place], [place] [address] [facility] Lipase (03/23/2013 6:18 AM CDT) P athologist Signature Lipase 51 20 - 250 [facility] U/L [facility] Specimen Anatomical Collection Method Collection Time Receive d Time (Source) Location / / Volume Laterality Blood specimen 03/23/2013 6:18 AM 013 1:11 (specimen) CDT PM CDT Tony Burgos MD LAB - BLOOD ORDERABLES Performing Organization Address City/[facility] Phon e Number [place] [address] [place], [place] [address] [facility] INR (03/23/2013 6:18 AM CDT) P athologist Signature INR 1.13 0.86 - 1.14 [facility] Specimen Anatomical Collection Method Collection Time Receive d Time (Source) Location / / Volume Laterality Blood specimen 03/23/2013 6:18 AM 013 6:34 (specimen) CDT AM CDT Freddy Obregon MD LAB - BLOOD ORDERABLES Performing Organization Address City/[facility] Phon e Number [facility] [address] [place], [place] [address] 7 [phone] [place] [address] LAB (ABNORMAL) Glucose (03/23/2013 6:18 AM CDT) P athologist Signature Glucose 156 (H) 60 - 99 [place] mg/dL [facility] Specimen Anatomical Collection Method Collection Time Receive d Time (Source) Location / / Volume Laterality Blood specimen 03/23/2013 6:18 AM 013 6:34 (specimen) CDT AM CDT Freddy Obregon MD LAB - BLOOD ORDERABLES Performing Organization Address City/[facility] [address] [place], [place] [address] [facility] (ABNORMAL) Hemoglobin (03/23/2013 6:18 AM CDT) P athologist Signature Hemoglobin 12.6 (L) 13.3 - 17.7 [place] g/dL [facility] Specimen Anatomical Collection Method Collection Time Receive d Time (Source) Location / / Volume Laterality Blood specimen 03/23/2013 6:18 AM 013 6:34 (specimen) CDT AM CDT Freddy Obregon MD LAB - BLOOD ORDERABLES Performing Organization Address City/[facility]/[place] [address] [place], [place] [address] [facility] XR Pelvis w Hip Port Right [...] athologist Signature INR 1.08 0.86 - 1.14 [facility] Specimen Anatomical Collection Method Collection Time Receive d Time (Source) Location / / Volume Laterality Blood specimen 03/22/2013 5:54 AM 013 5:58 (specimen) CDT AM CDT Elana Ayala PA-C LAB - BLOOD ORDERABLES Performing Organization Address City/State/ZIP Code Phon e Number [facility] [address] [place], [place] [address] [facility] documented in this encounter Visit Diagnoses [...] - Reason: Patient/family refused)180 (Given - Provider: Jiame Siddiqui RN) 0400 (Not Given - Provider: [...] Reason: Nausea)180 (Given - Provider: Jaime Siddiqui RN)212 (Given - Provider: Jaime Siddiqui RN) [...] (Not Given - Provider: Jeremie B Clavecilla, HERNAN - Reason: Nausea)1801 (Given - Provider: Jaime Siddiqui RN) 0639 (Given - Provider: Tita Esposito LPN) 10 mg, Oral, EVERY 12 HOURS, First dose on Fri03/22/13 at 1800, For 4 doses, Moderate to severe pain. Hold while on FREEZER MACHINE OPERATOR or with regular IV opioid dosing. Start [...] (Not Given - Provider: Jeremie B Clavecilla, LEARNING SOLUTIONS SPECIALIST - Reason: IV Infusing)1121 (Not Given - [...] g 1123 (Given - Provider: Celestina Scherer, GARRETT) 0847 (Given - Provider: Kelsi Brooks , GARRETT)1254 (Given - Provider: Breanne Carpenter LPN)1851 (Given - Provider: Shaista Mcclain LPN) 0755 (Given - Provider: Kelsi Brooks RN) 5-10 mg, Oral, EVERY 3 HOURS PRN, modera te to severe pain, Starting 03/22/13 at 1202, Hold while on FREEZER MACHINE OPERATOR or with regular IV opioid dosing., Post-procedure [...] Post-procedure documented in this encounter Care Teams Housekeeping Laundry Worker Relationship Specialty Start Date End Date Ran Lee MD PCP - General Family Practice 06/27/11 07/30/[address] [address] documented as of this encounter
--- OUTSIDE RECORDS SUMMARY | 2022-05-28 14:24 | XMS_ITS | Encounter Summary ---
:1945 Author Organization [facility] Address [address] [place] [address]. [place] [address] Care Team Providers Name Role Phone [facility] Clinics- Encounter Details Date Type Department [...] Office Visit Cardiology Yeny May A PRN GUIDANCE ADVISER [address] [place] [phone] Denton Casiano MD [address] [place] [phone] documented as of this encounter Visit Diagnoses Not on filedocumented in this encounter Care Teams Ict Analyst Relationship Specialty Start Date End Date [facility] And PCP - General 02/01/21 [facility] [address] [place] [phone] documented as of this encounter
--- OUTSIDE RECORDS SUMMARY | 2022-05-28 14:24 | XMS_ITS | Encounter Summary ---
:1945 Author Organization [facility] Address [address] [place] [address] Care Team Providers Name Role Phone Ran Lee MD Primary Care Provider Reason for Visit Reason Onset Date Comments Nurse Advice Line 08/26/2012 Encounter Details Date Type Department Care Team Description 08/26/2012 Telephone [facility] DEPT FOR CCW Fina Lee MD Nurse Advice Line [place] [phone] (Wo rk) Social History Tobacco Use Types Packs/Day Years Used Date Smoking Tobacco: Never Assessed Alcohol Use Standard Drinks/Week Comments Yes 0 (1 standard drink = 0.6 oz pure alcoho l) daily couple of drinks Sex Assigned at Date Recorded Male 04/02/2021 10:12 AM CDT documented as of this encounter Miscellaneous Notes Telephone Encounter - Kelvin Kim - 08/28/2012 1:11 PM CST [facility] Triage Call Report Patient Name: Vivek Lang Call Date & Time: 08/26/2012 2:06:38PM Patient Phone: PCP Name: MRN: Patient Address: Patient Date of : 1945 Age: 66 yr. 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 Patient [...] Medication Note: Allergy: Reaction: Procedure: Procedure Note: S CLERK documented in this encounter Plan of Treatment Upcoming Encounters Date Type Specialty Care Team Description 10/08/2022 Office Visit Cardiology Lalo, Yeny E, A PRN CONTACT LENS BLOCKER AND CUTTER [address] [place] [phone] Denton Casiano MD [address] [place] [address] documented as of this encounter Visit Diagnoses Not on filedocumented in this encounter Care Teams Shipping And Receiving Coordinator Relationship Specialty Start Date End Date Ran Lee MD PCP - General Family Practice 06/27/11 07/30/[address] [phone] documented as of this encounter
--- OUTSIDE RECORDS SUMMARY | 2022-05-28 14:24 | XMS_ITS | Encounter Summary ---
:1945 Author Organization [place] Address [address] [place] [address] Care Team Providers Name Role Phone Unavailable Primary Care Provider Unavailable Reason for Visit Reason Comments Chest Pain Encounter Details Date Type Department Care Team Description 01/04/[address] [facility] Lashay Saldana Precor dial pain; [facility] Emergency Dep t MD Esther Sinus bradycardia; [address] EMERGENCY PHYSICIANS Bruised ribs, left, initial encounter; [place], [place] Essential hypertension [phone] 0562 [facility] [place] [phone] [place], [place] [address] (Wo rk) Social History [...] short of breath. Denies nausea and vomiting. Micro a little clammy on the way over [...] pain Time: 1420 Vent. Rate 55 bpm. NM interval 238. QRS duration 118. QT/QTc 474/453. [...] provider's statements to me. Amy Golden 01/04/2017 [facility] EMERGENCY DEPARTMENT Lashay Saldana MD 01/04/17 1815 documented in this encounter Plan of Treatment Upcoming Encounters Date Type Specialty Care Team Description 10/08/2022 Office Visit Cardiology May Yeny Jose Alejandro, Edgar PRN QUANTITATIVE ANALYST [address] [place] [address] Denton Casiano MD [address] [place] [address] documented as of this encounter Procedures Procedure [...] Results Troponin I (01/04/2017 4:52 PM CDT) [facility] Method Time Signature Troponin I ES <0.015 0.000 - [place] The 99th percentile for uppe r reference range is 0.045 ug/L. ??Troponin values in 0.045 [place] the range of 0.045 - 0.120 ug/L may be associated wit h risks of adverse ug/L HOSPITAL clinical events. Specimen Anatomical Collection Method Collection Time Receive d Time (Source) Location / / Volume Laterality Blood specimen 01/04/2017 4:52 PM 017 5:04 (specimen) CDT PM CDT Lashay Saldana MD LAB - BLOOD ORDERABLES Performing Organization Address City/State/ZIP Code Phon e Number [place] [address] [address] [place] [address] [facility] [address] [phone] XR Chest 2 Views (01/04/2017 3:39 PM [...] Signature Hemoglobin A1C 5.9 4.3 - 6.0 [facility] Specimen Anatomical Collection Method Collection Time Receive d Time (Source) Location / / Volume Laterality 01/04/2017 2:52 PM 7 3:18 CDT PM CDT Lashay Saldana MD LAB - BLOOD ORDERABLES Performing Organization Address City/[facility] Phon e Number M [facility] [address] [place], [place] [address] [phone] Troponin I (01/04/2017 2:52 PM CDT) [facility] Method Time Signature Troponin I ES <0.015 0.000 [facility] The 99th percentile for uppe r reference range is 0.045 ug/L. ??Troponin values in 0.045 [facility] the range of 0.045 - 0.120 ug/L may be associated wit h risks of adverse ug/L HOSPITAL clinical events. Specimen Anatomical Collection Method Collection Time Receive d Time (Source) Location / / Volume Laterality Blood specimen 01/04/2017 2:52 PM 017 3:18 (specimen) CDT PM CDT Lashay Saldana MD LAB - BLOOD ORDERABLES Performing Organization Address City/[facility]/ZIP [facility] Phon e Number M [facility] [address] [address] [facility] [address] [address], U [phone] (ABNORMAL) Basic metabolic panel (01/04/2017 2:52 PM CDT) P athologist Signature Sodium 134 133 - 144 [place] mmol/L [facility] Potassium 3.9 3.4 - 5.3 [place] mmol/L [facility] Chloride 101 94 - 109 [place] mmol/L [facility] Carbon Dioxide 25 20 - 32 [place] mmol/L [facility] Anion Gap 8 3 - 14 [place] mmol/L [facility] Glucose 179 (H) 70 - 99 [place] mg/dL [facility] Urea Nitrogen 20 7 - 30 [place] mg/dL [facility] Creatinine 1.05 0.66 - [place] 1.25 mg/dL [facility] GFR Estimate 69 >60 [place] mL/min/1.[address] Comment: Non GFR Calc GFR Estimate If Black 84 >60 mL/min/1.7m2 F [facility] Comment: GFR Calc Calcium 8.3 (L) 8.5 - 10.1 mg/dL [facility] Specimen Anatomical Collection Method Collection Time Receive d Time (Source) Location / / Volume Laterality Blood specimen 01/04/2017 2:52 PM 017 3:18 (specimen) CDT PM CDT Lashay Saldana MD LAB - BLOOD ORDERABLES Performing Organization Address City/State/ZIP Code Phon e Number M [facility] [address] [phone] [facility] [address] [phone], U [phone] CBC with platelets differential (01/04/2017 2:52 PM CDT) Patholo gist Method Time Signature WBC 6.1 4.0 - [place] 11.0 [facility] 10e9/L [facility] RBC Count 5.05 4.4 - 5.9 [place] 10e12/L [facility] Hemoglobin 15.5 13.3 - [place] 17.7 g/dL [facility] Hematocrit 46.6 40.0 - [place] 53.0 % [facility] MCV 92 78 - 100 [place] fl [facility] MCH 30.7 26.5 - [place] 33.0 pg [facility] MCHC 33.3 31.5 - [place] 36.5 g/dL [facility] RDW 13.2 10.0 - [place] 15.0 % [facility] Platelet Count 150 150 - [address] [place] [address] [place] [address] Diff Method Automated [place] Method [facility] % Neutrophils 68.3 % [facility] % Lymphocytes 20.4 % [facility] % Monocytes 7.9 % [facility] % Eosinophils 2.1 % [facility] % Basophils 1.0 % [facility] % Immature 0.3 % [place] Granulocytes [facility] Nucleated RBCs 0 0 /100 [facility] Absolute 4.1 1.6 - 8.3 [place] Neutrophil [address] [place] [address] Absolute 1.2 0.8 - 5.3 [place] Lymphocytes [address] [place] [address] Absolute 0.5 0.0 - 1.[address] [place] Monocytes [address] [place] [address] Absolute 0.1 0.0 - 0.7 [place] Eosinophils e9/[facility] Absolute 0.1 0.0 - 0.2 [place] Basophils [facility] Abs Immature 0.0 0 - 0.[address] [place] Granulocytes [address] [place] [address] Absolute 0.0 [place] Nucleated RBC [facility] Specimen Anatomical Collection Method Collection Time Receive d Time (Source) Location / / Volume Laterality Blood specimen 01/04/2017 2:52 PM 017 3:18 (specimen) CDT PM CDT Lashay Saldana MD LAB - BLOOD ORDERABLES Performing Organization Address City/State/ZIP Code Phon e Number M [facility] [address] [place], [place] [address] [facility] [address] [place], [place] [address] [phone] EKG 12 lead (01/04/2017 2:20 PM CDT) [facility] Method Time Signature Interpretation ECG Click View [...]
--- OUTSIDE RECORDS SUMMARY | 2022-05-28 14:24 | XMS_ITS | Encounter Summary ---
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 Please call with any questions at [phone]. Electronically signed on 09/25/2005 13:50 by JERICA GRANT PT MT: catherine Name: VIVEK LANG MRN: [id number] Account: [id number] : 1945 Visit Date: 08/07/2005 Sex: M Age: 59 Document: [id number] ORIAL SPECIALIST documented in this encounter Plan of Treatment Upcoming Encounters Date Type Specialty Care Team Description 10/08/2022 Office Visit Cardiology Yeny May A PRN CAMPAIGN ASSISTANT [address] [place] [id number] Denton Casiano MD [address] [place] [address] documented as of this encounter Visit Diagnoses Not on filedocumented in this encounter
--- OUTSIDE RECORDS SUMMARY | 2022-05-28 14:24 | XMS_ITS | Encounter Summary ---
:1945 Author Organization [place] Address [facility] [place] [address] Care Team Providers Name Role Phone Ran Lee MD Primary Care Provider Reason for Visit Auth/Cert - Closed Specialty Diagnoses / Procedures Referred By Contact Refer red To Contact Surgery Diagnoses DJD Rh Periop Services Procedures ARTHROPLASTY HIP [address] [place], [place] [address] Phone: Fax: Referral ID Status Reason Start Date Expiration Date Visits Requ ested Visits Authorized [id number] Closed 1 1 Encounter Details Date Type Department Care Team Description 03/22/2013 Anesthesia Event [facility] Domenico Browne PeriOp Services MD Michael [address] [place] [address] ANESTHESIA [phone] [place], [place] [address] (Wo rk) Anesthesia Record Procedure Summary Procedure Name Responsible Anesthesia Start Anesthesia Stop Anesthesiologist Time Time Right Total hip Domenico Browne MD 03/22/13 0727 03/22/13 0947 Arthroplasty (Right: Hip) Events Date Time Event Comment 03/22/2013 0727 An Start 0730 An Start Data 0734 An Induction 0735 AN START GERMAIN 0735 Present 0738 An Intubation 0749 an arn now 0828 Present 0919 Present 0920 AN [...] Size: 8; Cuffed; Oral Saul Mcdonough, Saul Mcdoonugh, endotracheal tube; Blade BOX SPRING MAKER ARTIST CONSULTANT BOX SPRING MAKER CR NA Type: Anna; Blade Size: 2; [...] benefits and alternatives discussed with: patient or dental sales representative. History & Physical Review History and [...] Office Visit Cardiology Yeny May A PRN INSTRUMENT TESTER [address] [place] [phone] Denton Casiano MD [address] [place] [address] documented as of this encounter Visit Diagnoses Not on filedocumented in this encounter Administered Medications Inactive Administered Medications - up to 3 most recent administrations Medication Order MAR Action Action Date Dose Rate Site ceFAZolin (ANCEF) IVPB 2 g (pre-mix) Given 03/22/2013 7:27 AM CDT 2 g Routine, 2 g, Intravenous, PRE-OP/PRE-PROCEDURE, Starting on 03/22/13 at 0542, For 1 dose, Give first [...] CDT 3 mg Intravenous, PRN, Starting on Fri03/22/13 at 0908, Anesthesia Intra-op propofol (DIPRIVAN) injection [...] Pre-procedure documented in this encounter Care Teams Zipper Measurer Relationship Specialty Start Date End Date Ran Lee MD PCP - General Family Practice 06/27/11 07/30/[address] [phone] documented as of this encounter
--- OUTSIDE RECORDS SUMMARY | 2022-05-28 14:24 | XMS_ITS | Encounter Summary ---
:1945 Author Organization [place] Address [address] [place] [address] Care Team Providers Name Role Phone Siria Joseph MD Primary Care Provider Reason for Visit Auth/Cert - Closed Specialty Diagnoses / Procedures Referred By Contact Refer red To Contact Gastroenterology Diagnoses Screening Endoscopy Procedures COLONOSCOPY [address] [place] [address] Phone: Fax: Referral ID Status Reason Start Date Expiration Date Visits Requ ested Visits Authorized [id number] Closed 06/27/2011 12/24/2011 1 1 Encounter Details Date Type Department Care Team Description 07/04/2011 Surgery [facility] Aristeo Squires MD COLONOSCOPY with Endoscopy [place] XXX RETIRED XXX polypectomy by hot [address] [facility] [place] [address] snare [place], [place] [phone] (Wo rk) [address] [phone] Surgery Details Date/Time Status Location OR Service [...] Gastroenterology 1 Special Needs Referring: Dr Siria Joseph documented in this encounter Social History Tobacco [...] Comments Blood Pressure 125/73 07/04/2011 1:10 PM ENVIRONMENTAL COORDINATOR Pulse 48 07/04/2011 11:55 AM ENVIRONMENTAL COORDINATOR Temperature - - Respiratory Rate 12 07/04/2011 1:10 PM ENVIRONMENTAL COORDINATOR Oxygen Saturation 91% 07/04/2011 1:10 PM ENVIRONMENTAL COORDINATOR Inhaled Oxygen Concentration - - Weight 97.5 kg (215 lb) 07/04/2011 11:27 AM ENVIRONMENTAL COORDINATOR Height 188 cm (6' 2) 07/04/2011 11:27 AM ENVIRONMENTAL COORDINATOR Body Mass Index 27.6 07/04/2011 11:27 AM ENVIRONMENTAL COORDINATOR documented in this encounter Medications at Time [...] Office Visit Cardiology Yeny May, Edgar PRN FLEET MANAGER/DISPATCH [address] [place] [address] Denton Casiano MD [address] [place] [address] Scheduled Orders Name Type Priority Associated Diagnoses Order S chedule PATIENT HANDOUT Procedures Routine Polyp of colon Ordered: 0 07/04/2011 documented as of this encounter Procedures Procedure Name Priority Date/Time Associated Diagnosis Comme nts SURGICAL PATHOLOGY Routine 07/04/2011 12:22 PM Re sults for this EXAM ENVIRONMENTAL COORDINATOR procedure are i n the results section. COLONOSCOPY, 07/04/2011 11:25 AM Screening FLEXIBLE, WITH ENVIRONMENTAL COORDINATOR LESION REMOVAL USING SNARE Special Needs Referring: Dr Siria Joseph COLONOSCOPY Routine 07/04/2011 11:22 AM ENVIRONMENTAL COORDINATOR Resu lts for this procedure are in the results section . documented in this encounter Results Surgical pathology exam (07/04/2011 12:22 PM ENVIRONMENTAL COORDINATOR) Component Value Ref Test Analysis Performed At [facility] Range Method Time Signature Copath Report Patient Name: VIVEK LANG MR#: [id number] Specimen #: [id number] Collected: 07/04/2011 Received: 07/04/2011 Reported: 07/05/2011 11:54 Ordering Phy(s): ARISTEO SQUIRES Additional Phy(s): SIRIA JOSEPH SPECIMEN(S): Sigmoid polyp FINAL DIAGNOSIS: Sigmoid colon [...] to artifact. NEGRITO/gaye DT/07-05-11 TESTING LAB LOCATION: [address] ??[address] COLLECTION SITE: Client: [facility] Specimen Anatomical Collection Method Collection Time Receive d Time (Source) Location / / Volume Laterality 07/04/2011 12:22 07/04/2011 2:00 PM ENVIRONMENTAL COORDINATOR PM ENVIRONMENTAL COORDINATOR Aristeo Squires MD LAB - JAC Performing Organization Address City/State/ZIP Code Phon e Number [place] COLONOSCOPY (07/04/2011 11:22 AM ENVIRONMENTAL COORDINATOR) [facility] Method Time Signature COLONOSCOPY [facility] RAD IOLOGY RESULTS Patient Name: Vivek Lang ?Procedure Date: 07/04/2011 11:22:26 AM ? Date of : 1945 ?Admit Type: Outpatient ? Age: 65 ? Gender: Male ? Attending MD: Aristeo Louis MD ? Procedure: ?Colonoscopy Indications: ?Screeni ng for malignant neoplasm in the colon Providers: ?Aristeo Squires MD Referring MD: ? Siria Joseph MD Medicines: ?Fentanyl 100 micrograms IV, Midazolam [...] Return to primary care physician PRN. ? R Bailee Meyers Aristeo Squires MD Signed Date: 07/04/2011 12:36:27 [...] / / Volume Laterality 07/04/2011 11:22 AM ENVIRONMENTAL COORDINATOR Siria Joseph MD PROCEDURES Performing Organization Address City/State/ZIP Code Phon e Number RADIOLOGY RESULTS documented in this encounter Visit Diagnoses Not on filedocumented in this encounter Administered Medications Inactive Administered Medications - up to 3 most recent administrations Medication Order MAR Action Action Date Dose Rate Site atropine injection Given 07/04/2011 12:18 PM ENVIRONMENTAL COORDINATOR 0.6 mg PRN, Starting on Martine 07/04/11 at 1218, Intra-procedure fentanyl (SUBLIMAZE) injection Given 07/04/2011 12:18 PM ENVIRONMENTAL COORDINATOR 100 mcg PRN, moderate to severe pain, Starting on Martine 07/04/11 at 1218, Intra-procedure midazolam (VERSED) injection Given 07/04/2011 12:18 PM ENVIRONMENTAL COORDINATOR 1.5 mg PRN, anxiety, Starting on Martine 07/04/11 at 1218, Intra-procedure documented in this encounter Active and Recently Administered Medications Times are shown in ENVIRONMENTAL COORDINATOR. PRN Medication Order 07/02/2011 07/03/2011 07/04/2011 atropine [...] Intra-procedure documented in this encounter Care Teams Support Worker Relationship Specialty Start Date End Date Siria Joseph MD PCP - General Family Practice 06/27/11 07/30/[address] [address] documented as of this encounter
--- OUTSIDE RECORDS SUMMARY | 2022-05-28 14:24 | XMS_ITS | Encounter Summary ---
:1945 Author Organization [place] Address [address] [place] [address] Care Team Providers Name Role Phone Unavailable Primary Care Provider Unavailable Encounter Details Date Type Department Care Team Description 03/20/2009 [facility] We[facility] Results [facility] [address] [place] [phone] (Wo rk) Social History Tobacco Use Types Packs/Day Years Used Date Smoking Tobacco: Never Assessed Sex Assigned at Date Recorded Male 04/02/2021 10:12 AM CDT documented as of this encounter Plan of Treatment Upcoming Encounters Date Type Specialty Care Team Description 10/08/2022 Office Visit Cardiology Yeny May A PRN OIL AND GAS EXPLORATION TECHNICIAN [address] [place] [phone] Denton Casiano MD [address] [place] [address] documented as of this encounter Procedures Procedure Name Priority Date/Time Associated Diagnosis Comme nts X-RAY PELVIS Routine 03/20/2009 12:27 PM Resul [...]
--- OUTSIDE RECORDS SUMMARY | 2022-05-28 14:24 | XMS_ITS | Encounter Summary ---
:1945 Author Organization [place] Address [address] [place] [address] Care Team Providers Name Role Phone Unavailable Primary Care Provider Unavailable Encounter Details Date Type Department Care Team Description 06/18/[address] Sales Manager [facility] Jessica Grant sa [facility] jesu R, PT 201 [facility] REHAB [place] [facility] [address] [address] [facility] [phone] [place], [place] [id number] Social History Tobacco Use Types Packs/Day Years Used Date Smoking Tobacco: Never Assessed Sex Assigned at Date Recorded Male 04/02/2021 10:12 AM CDT documented as of this encounter Progress Notes Jerica Grant, PT - 06/05/2011 12:13 AM CORONARY CLINICAL SPECIALIST PHYSICAL THERAPY EVALUATION EVALUATION Summary: Patient is [...] Vivek Lang to physical therapy. Please call [phone] with any questions. JERICA GRANT PT Dictated by: JERICA GRANT PT MT: catherine Document: [id number] CC: NIMISHA SERRANO MD EXAMINATION Physical Therapy [...] read ___Exercise program _X__ Language / needs automotive parts interpreter ___Posture _X__ Patient Goals for Physical Therapy: [...] 4 of 5 LCN: PT DSC: 06/18/2005 [place], [place] Name: MR#: VIVEK LANG [id number] Age: 41 Sex: M : Date of Service: Account #: 1945 06/18/2005 [id number] Referring Physician: Fina MEYERS MD PHYSICAL THERAPY EVALUATION Page 1 of 5 NARY CLINICAL SPECIALIST documented in this encounter Plan of Treatment Upcoming Encounters Date Type Specialty Care Team Description 10/08/2022 Office Visit Cardiology Yeny May A PRN BEAD WRAPPER [address] [place] [phone] Denton Casiano MD [address] [place] [address] documented as of this encounter Visit Diagnoses Not on filedocumented in this encounter
--- OUTSIDE RECORDS SUMMARY | 2022-05-28 14:24 | XMS_ITS | Encounter Summary ---
:1945 Author Organization [facility] Address [address] [place] [address] Care Team Providers Name Role Phone Unavailable Primary Care Provider Unavailable Reason for Visit (Routine) - Closed Specialty Diagnoses / Procedures Referred By Contact Refer red To Contact Cardiology Diagnoses er weekend Zz Rh Echocardiography Procedures ECH STRESS TEST [address] [place] [address] [phone] Phone: Referral ID Status Reason Start Date Expiration Date Visits Requ ested Visits Authorized [id number] Closed 01/06/2017 01/06/2018 1 1 Encounter Details Date Type Department Care Team Description 01/06/2017 Hospital Encounter [facility] Sharri Lashay William Pr ecordial pain Cardiopulmonary MD Soraya [address] [facility] EMERGENCY [place], [place] [address] 4333 [facility] [phone] [place], [place] [id number] (Wo rk) Social History Tobacco Use Types [...] Office Visit Cardiology Yeny May A PRN CARBON LAMP CLEANER [address] [place] [phone] Denton Casiano MD [address] [place] [phone] documented as of this encounter Procedures Procedure [...] PM CDT Narrative 01/06/2017 4:15 PM CDT [id number]^NATALIIA^LASHAY^[facility] Echocardiography Laboratory [address] [place] [address] Name: VIVEK LANG Nusrat : 1945 Study Date: 01/06/2017 01:24 PM Age: 71 yrs Gender: Male Patient Location: [facility] Reason For Study: Precordian Pain History: [...] note might be different from the original. [id number]^NATALIIA^LASHAY^SORAYA [facility] Echocardiography Laboratory [address] [place] [id number] Name: VIVEK LANG : 1945 Study Date: 01/06/2017 01:24 PM Age: 71 yrs Gender: Male Patient Location: [facility] Reason For Study: Precordian Pain History: [...]
--- OUTSIDE RECORDS SUMMARY | 2022-05-28 14:24 | XMS_ITS | Encounter Summary ---
:1945 Author Organization [facility] Address [address] [place] [address] Care Team Providers Name Role Phone Ran Lee MD Primary Care Provider Reason for Visit Auth/Cert - Closed Specialty Diagnoses / Procedures Referred By Contact Refer red To Contact Surgery Diagnoses DJD Rh Periop Services Procedures ARTHROPLASTY HIP [address] [place], [place] [address] Phone: Fax: Referral ID Status Reason Start Date Expiration Date Visits Requ ested Visits Authorized [id number] Closed 1 1 Encounter Details Date Type Department Care Team Description 03/22[facility]2013 [facility]2013 [place] [address] Milton Corona MD (total hip Surgical [place] replacement) [address] ORTHOPEDICS (Primary Dx) [place], [place] [address] [address] [address] [place] [address] Social History Tobacco Use Types [...] in 10-14 days post-op. Elana Ayala PA-C [phone] Elana Ayala PA-C - 03/25/2013 8:01 AM [...] on that operative leg. Elana Ayala PA-C [phone] Tony Burgos MD - 03/24/2013 11:30 AM CDT [facility] Hospitalist Progress Note 03/24/2013 Name: Vivek Lang [...] discharge to Home tomorrow. Elana Ayala PA-C [phone] Fatou Koroma-Provider - 03/24/2013 10:00 AM CDT [...] WFL Mobility Bed Mobility Comments SBA, leg retail selling floor leader Transfer Skills Transfer Comments SBA Lower Body Dressing Level of Elizabeth: Dress Lower Body stand-by assist Physical Assist/Nonphysical Assist: Dress Lower Body set-up required;supervision Assistive Device topline beading machine tender;sock-aid Grooming Level of Elizabeth: Grooming stand-by assist Physical Assist/Nonphysical Assist: Grooming set-up required (in bed) Eating/Self Feeding Level of Elizabeth: Eating independent Instrumental Activities of Daily Living [...] his in their one level home in [place], prior to surgery he had been i [...] to home on . Elana Ayala PA-C [phone] Tony Burgos MD - 03/23/2013 11:20 AM CDT [facility] Hospitalist Progress Note 03/23/2013 Name: Vivek Lang [...] uncontrolled most likely precipitated by #1 3.) LUIC- postoperative state Allyssa Grover, PT - 03/23/2013 [...] in AM. 2. HTN: Currently stable. Continue REFINING EQUIPMENT OPERATOR Hytrin and Ziac with parameters. 3. [...] Physical Therapy Goals The patient and/or their construction sales representative will achieve their patient-specific goals [...] Occupational Therapy Goals The patient and/or their construction sales representative will achieve their patient-specific goals [...] Individualization/Patient-Specific Goal (Adult,OB,Behavioral The patient and/or their construction sales representative will achieve their patient-specific goals [...] Occupational Therapy Goals The patient and/or their construction sales representative will achieve their patient-specific goals [...] needed. Plan of Care - Lianet Anna, REFINING EQUIPMENT OPERATOR - 03/24/2013 1:31 PM CDT Problem: General Rehab Plan of Care Goal: Physical Therapy Goals The patient and/or their construction sales representative will achieve their patient-specific goals [...] Physical Therapy Goals The patient and/or their construction sales representative will achieve their patient-specific goals [...] Individualization/Patient-Specific Goal (Adult,OB,Behavioral The patient and/or their construction sales representative will achieve their patient-specific goals [...] Individualization/Patient-Specific Goal (Adult,OB,Behavioral The patient and/or their construction sales representative will achieve their patient-specific goals [...] Occupational Therapy Goals The patient and/or their construction sales representative will achieve their patient-specific goals [...] OT provided education andtraining on use of topline beading machine tender and sockaid for LE dressing due to hip precautions. Pt. able to complete LE dressing wtih AE with SBA at EOB. OT provided education and training on DME for toilet transfer aspt. notes his RTS has no arms and impairs independence with toileting. OT educated on DME for walk in shower transfer. OT educated on energy conservation/work simplification for AD[place]s at [facility]. Pt. verbalized understanding and that his can help assist with setup at home. OT recommends discharge home with to assist with IADLs and setup for ADLs. Plan of Care - Allyssa Grover, PT - 03/23/2013 11:17 AM CDT Problem: General Rehab Plan of Care Goal: Physical Therapy Goals The patient and/or their construction sales representative will achieve their patient-specific goals [...] Individualization/Patient-Specific Goal (Adult,OB,Behavioral The patient and/or their construction sales representative will achieve their patient-specific goals [...] Individualization/Patient-Specific Goal (Adult,OB,Behavioral The patient and/or their construction sales representative will achieve their patient-specific goals [...] Individualization/Patient-Specific Goal (Adult,OB,Behavioral The patient and/or their construction sales representative will achieve their patient-specific goals [...] use, ankle pumps. Op Note - Freddy bOregon MD - 03/22/2013 9:27 AM CDT PREOPERATIVE DIAGNOSIS: Osteoarthritis, right hip. POSTOPERATIVE DIAGNOSIS: Osteoarthritis, right hip. PROCEDURE PERFORMED: Right total hip arthroplasty. SURGEON: Freddy Obregon MD. CAR CONDITIONER: Elana Villegas PA-C. ANESTHESIA: General. ESTIMATED BLOOD [...] MD MT: [id number] Name: VIVEK LANG Account: [id number] : 1945 Procedure Date: 03/22/2013 Document: [id number] Brief Op Note - Freddy Obregon MD - 03/22/2013 9:21 AM CDT OP NOTE LUCI for DJD of right hip Maximiliano - surgeon 250 EBL Small calcar crack treated with cable Freddy Obregon MD Pharmacy-Admission Medication History - Cecelia Schaefer Palak - 03/16/2013 5:02 PM CDT Admission medication history interview status for this patient is complete. See [facility] admission navigator for allergy information, prior [...] Office Visit Cardiology Yeny May A PRN MULTI DISCIPLINED LANGUAGE ANALYST [address] [place] [id number] Denton Casiano MD [address] [place] [address] documented as of this encounter Procedures Procedure [...] Signature INR 1.72 (H) 0.86 - 1.14 [facility] Specimen Anatomical Collection Method Collection Time Receive d Time (Source) Location / / Volume Laterality Blood specimen 03/25/2013 6:30 AM 013 6:36 (specimen) CDT AM CDT Freddy Obregon MD LAB - BLOOD ORDERABLES Performing Organization Address [facility]/ZIP Code Phon e Number M [facility] [address] [place], [place] [address] [facility] EKG 12-lead, tracing only (03/24/2013 11:36 AM CDT) Patholo gist Method Time Signature Interpretation ECG Click View RADIOLOGY Image link RESULTS to view waveform and result Specimen (Source) Anatomical Collection Method Collection Time Re ceived Time Location / / Volume Laterality 03/24/2013 11:36 AM CDT Tony Burgos MD ECG ORDERABLES Performing Organization Address [facility]/ZIP Code Phon e Number RADIOLOGY RESULTS (ABNORMAL) INR (03/24/2013 6:19 AM CDT) P athologist Signature INR 1.23 (H) 0.86 - 1.14 [facility] Specimen Anatomical Collection Method Collection Time Receive d Time (Source) Location / / Volume Laterality Blood specimen 03/24/2013 6:19 AM 013 6:28 (specimen) CDT AM CDT Freddy Obregon MD LAB - BLOOD ORDERABLES Performing Organization Address [facility]/ZIP Code Phon e Number [facility] [address] [place], [place] [address] [facility] (ABNORMAL) Glucose (03/24/2013 6:19 AM CDT) P athologist Signature Glucose 105 (H) 60 - 99 [place] mg/dL [facility] Specimen Anatomical Collection Method Collection Time Receive d Time (Source) Location / / Volume Laterality Blood specimen 03/24/2013 6:19 AM 013 6:28 (specimen) CDT AM CDT Freddy Obregon MD LAB - BLOOD ORDERABLES Performing Organization Address City/[facility] Phon e Number M [facility] [address] [place], [place] [address] [facility] (ABNORMAL) Hemoglobin (03/24/2013 6:19 AM CDT) P athologist Signature Hemoglobin 10.6 (L) 13.3 - 17.7 [place] g/dL [facility] Specimen Anatomical Collection Method Collection Time Receive d Time (Source) Location / / Volume Laterality Blood specimen 03/24/2013 6:19 AM 013 6:28 (specimen) CDT AM CDT Freddy Obregon MD LAB - BLOOD ORDERABLES Performing Organization Address City/State/ZIP Code Phon e Number M [facility] [address] [place], [place] [address] [facility] (ABNORMAL) UA reflex to Microscopic (03/23/2013 12:35 PM CDT) Component Value Ref Test Analysis Performed At Patholo gist Range Method Time Signature Color Urine Yellow [facility] Appearance Urine Cloudy [facility] Glucose Urine 30 (A) NEG [place] mg/dL [facility] Bilirubin Urine Negative NEG [facility] Ketones Urine Negative NEG [place] mg/dL [facility] Specific [place] 1.022 1.003 - [place] Urine 1.035 [facility] Blood Urine Moderate (A) NEG [facility] pH Urine 5.5 5.0 - [place] 7.0 pH [facility] Protein Albumin 30 (A) NEG [place] Urine mg/dL [facility] Urobilinogen Normal 0.0 - [place] mg/dL 2.0 [facility] Nitrite Urine Negative NEG [facility] Leukocyte Small (A) NEG [place] Esterase Urine [facility] Source Catheterized [place] Urine [facility] RBC Urine 82 (H) 0 - 2 [facility] WBC Urine 11 (H) 0 - 2 [facility] Bacteria Urine Few (A) NEG /[facility] Mucous Urine Present (A) NEG /LPF [facility] Amorphous Few (A) NEG /HPF [place] Crystals [facility] Specimen Anatomical Location Collection Method Collection Time Received Time (Source) / Laterality / Volume Urine specimen URINE SPECIMEN 03/23/2013 12:35 013 (specimen) COLLECTION, PM CDT 12:54 PM CDT CATHETERIZED / Unknown Tony Burgos MD LAB - URINE ORDERABLES Performing Organization Address [facility]/ZIP [facility] [address] [place], [place] [address] [facility] Magnesium (03/23/2013 6:18 AM CDT) athologist Signature Magnesium 2.1 1.6 - 2.3 [facility] mg/dL [facility] Specimen Anatomical Collection Method Collection Time Receive d Time (Source) Location / / Volume Laterality Blood specimen 03/23/2013 6:18 AM 013 1:11 (specimen) CDT PM CDT Tony Burgos MD LAB - BLOOD ORDERABLES Performing Organization Address [facility]/[place] [address] [place], [place] [address] [facility] (ABNORMAL) Basic metabolic panel (03/23/2013 6:18 AM CDT) athologist Signature Sodium 135 133 - 144 [place] mmol/L [facility] Potassium 4.6 3.4 - 5.3 [place] mmol/L [facility] Chloride 98 94 - 109 [place] mmol/L [facility] Carbon Dioxide 30 20 - 32 [place] mmol/L [facility] Anion Gap 7 6 - 17 [place] mmol/L [facility] Glucose 155 (H) 60 - 99 [place] mg/dL [facility] Urea Nitrogen 15 7 - 30 [place] mg/dL [facility] Creatinine 0.78 0.66 - [facility] 1.25 mg/dL [facility] GFR Estimate >90 >60 [place] mL/min/1.7 [facility] m2 [facility] GFR Estimate If >90 >60 [place] Black mL/min/1.7 [facility] m2 [facility] Calcium 8.3 (L) 8.5 - 10.4 [place] mg/dL [facility] Specimen Anatomical Collection Method Collection Time Receive d Time (Source) Location / / Volume Laterality Blood specimen 03/23/2013 6:18 AM 013 1:11 (specimen) CDT PM CDT Tony Burgos MD LAB - BLOOD ORDERABLES Performing Organization Address [facility] Phon e Number [facility] [address] [place], [place] [address] 7 [phone] [place] [address] LAB Lipase (03/23/2013 6:18 AM CDT) P athologist Signature Lipase 51 20 - 250 [facility] Specimen Anatomical Collection Method Collection Time Receive d Time (Source) Location / / Volume Laterality Blood specimen 03/23/2013 6:18 AM 013 1:11 (specimen) CDT PM CDT Tony Burgos MD LAB - BLOOD ORDERABLES Performing Organization Address [facility] Phon e [place] [address] [place], [place] [address] [address] [phone] [place] [address] LAB INR (03/23/2013 6:18 AM CDT) athologist Signature INR 1.13 0.86 - 1.14 [facility] Specimen Anatomical Collection Method Collection Time Receive d Time (Source) Location / / Volume Laterality Blood specimen 03/23/2013 6:18 AM 013 6:34 (specimen) CDT AM CDT Freddy Obregon MD LAB - BLOOD ORDERABLES Performing Organization Address City/[facility] Phon e Number [facility] [address] [place], [place] [address] 7 [phone] [place] [address] LAB (ABNORMAL) Glucose (03/23/2013 6:18 AM CDT) P athologist Signature Glucose 156 (H) 60 - 99 [place] mg/dL [facility] Specimen Anatomical Collection Method Collection Time Receive d Time (Source) Location / / Volume Laterality Blood specimen 03/23/2013 6:18 AM 013 6:34 (specimen) CDT AM CDT Freddy Obregon MD LAB - BLOOD ORDERABLES Performing Organization Address City/[facility]/ZIP Code Phon e Number Fina [facility] [address] [place], [place] [address] [facility] (ABNORMAL) Hemoglobin (03/23/2013 6:18 AM CDT) P athologist Signature Hemoglobin 12.6 (L) 13.3 - 17.7 [place] g/dL [facility] Specimen Anatomical Collection Method Collection Time Receive d Time (Source) Location / / Volume Laterality Blood specimen 03/23/2013 6:18 AM 013 6:34 (specimen) CDT AM CDT Freddy Obregon MD LAB - BLOOD ORDERABLES Performing Organization Address [facility] Phon e Tom Harden [facility] [address] [place], [place] [address] [facility] XR Pelvis w Hip Port Right [...] athologist Signature INR 1.08 0.86 - 1.14 [facility] Specimen Anatomical Collection Method Collection Time Receive d Time (Source) Location / / Volume Laterality Blood specimen 03/22/2013 5:54 AM 013 5:58 (specimen) CDT AM CDT Elana Ayala PA-C LAB - BLOOD ORDERABLES Performing Organization Address City/State/ZIP Code Phon e Number M [facility] [address] [place] [address] HOSPITAL [facility] documented in this encounter [...] Moderate to severe pain. Hold while on SHOE COVERER or with regular IV opioid dosing. Start 12 hours after preop dose., Post-procedure Given 03/23/2013 6:01 PM CDT 10 mg Given 03/22/2013 6:46 PM CDT 10 mg oxyCODONE (ROXICODONE) immediate release tablet Given 03/25/2013 7:55 AM CDT 5 mg 5-10 mg 5-10 mg, Oral, EVERY 3 HOURS PRN, moderate to severe pain, Starting on Fri03/22/13 at 1202, Hold while on SHOE COVERER or with regular IV opioid dosing., Post-procedure [...] Provider: Celestina Scherer RN - Reason: Patient/family refused)1801 (Given - Provider: [...] - Provider: Celestina Scherer RN - Reason: Nausea)1802 (Given - Provider: Jaime Siddiqui RN)2127 (Given - Provider: Jaime Siddiqui RN) 0848 (Given - Provider: Kelsi Brooks RN)1714 (Given - Provider: Shaista Mcclain LPN)214 (Given - Provider: Shaista Mcclain LPN) 0800 (Given - Provider: Kelsi Brooks RN) 100 mg, Oral, 3 TIMES DAILY, First dose on Fri03/22/13 at 2200, 1st dose now oxyCODONE (OxyCONTIN) 12 hr tablet 10 mg () 053 3 (Not Given - Provider: Jeremie Hansen LPN - Reason: Nausea)180 (Given - Provider: Jaime Siddiqui RN) 0639 (Given - Provider: Tita Esposito LPN) 10 mg, Oral, EVERY 12 HOURS, First dose on Fri03/22/13 at 1800, For 4 doses, Moderate to severe pain. Hold while on SHOE COVERER or with regular IV opioid dosing. Start 12 hours after preop dose., Post-procedure ranitidine (Zantac) injection 50 mg (CANCELED) 1429 (Given - Provider: Kelsi Brooks RN)2216 (Given - Provider: Amira Crain RN) 0607 (Given - Provider: Jerica Loja RN) 50 mg, Intravenous, EVERY 8 HOURS, First dose on Fri03/24/13 at 1400 simvastatin (ZOCOR) tablet 20 mg (CANCELED) 2125 (Give n - Provider: Jaime Siddiqui RN) 2148 (Given - Provider: Shaista Mcclain LPN) 20 mg, Oral, AT BEDTIME, First dose on Fri03/22/13 at 2200 sodium chloride (PF) 0.9% PF flush 3 mL (CANCELED) 040 0 (Not Given - Provider: Jeremie Hansen LPN - Reason: IV Infusing)1121 (Not Given - Provider: Celestina Scherer, GARRETT - Reason: IV Infusing)1950 (Not Given - Provider: Pricila Mcdaniel LPN - Reason: IV Infusing) 0347 (Given - Provider: Tita Esposito LPN)1254 (Given - Provider: Breanne Carpenter LPN)2153 (Given - Provider: Shaista Mcclain LPN) 0610 (Given - Provider: Jerica barragan, RN) 3 mL, Intravenous, EVERY 8 HOURS, [...] (CANCELED) 0709 (New Bag - Provider: Jeremie Loki ClavecHERNAN luong)1709 (New Bag - Provider: Jaime Siddiqui RN) at 100 mL/hr, Intravenous, CONTINUOUS, C hange to saline lock when PO well tolerated., Post-procedure PRN Medication Order 03/23/2013 03/24/2013 03/25/2013 ondansetron (ZOFRAN) injection 4 mg (CANCELED) 0814 (G iven - Provider: Aleisha Mckeon, GARRETT) 4 mg, Intravenous, EVERY 6 HOURS PRN, na usea, vomiting, for 2 Minutes, Starting 03/22/13 at 1202, This is Step 1 of [...] Starting 03/22/13 at 1202, Hold while on SHOE COVERER or with regular IV opioid dosing., Post-procedure [...] Post-procedure documented in this encounter Care Teams Manager Data Warehouse Relationship Specialty Start Date End Date Ran Lee MD PCP - General Family Practice 06/27/11 07/30/[address] [address] documented as of this encounter
--- OUTSIDE RECORDS SUMMARY | 2022-05-28 14:24 | XMS_ITS | Encounter Summary ---
:1945 Author Organization [facility] Address [address] [place] [address] Care Team Providers Name Role Phone Siria Lee MD Primary Care Provider Reason for Visit Auth/Cert - Closed Specialty Diagnoses / Procedures Referred By Contact Refer red To Contact Gastroenterology Diagnoses Screening Rh Endoscopy Procedures COLONOSCOPY [address] [place] [address] Phone: Fax: Referral ID Status Reason Start Date Expiration Date Visits Requ ested Visits Authorized [id number] Closed 06/27/2011 12/24/2011 1 1 Encounter Details Date Type Department Care Team Description 07/04/2011 Hospital Encounter [facility] Zaid Squires MD Polyp of colon Endoscopy [place] XXX RETIRED XXX [address] [facility] [place] [address] [place], [place] [phone] [address] (Work) [phone] Social History Tobacco Use Types Packs/Day Years [...] Comments Blood Pressure 125/73 07/04/2011 1:10 PM [facility] Pulse 48 07/04/2011 11:55 AM [facility] Temperature - - Respiratory Rate 12 07/04/2011 1:10 PM [facility] Oxygen Saturation 91% 07/04/2011 1:10 PM [facility] Inhaled Oxygen Concentration - - Weight 97.5 kg (215 lb) 07/04/2011 11:27 AM [facility] Height 188 cm (6' 2) 07/04/2011 11:27 AM [facility] Body Mass Index 27.6 07/04/2011 11:27 AM [facility] documented in this encounter Medications at Time [...] Office Visit Cardiology Yeny May A PRN SPINNERET PERSON [address] [place] [address] Denton Casiano MD [address] [place] [address] Scheduled Orders Name Type Priority Associated Diagnoses Order S chedule PATIENT HANDOUT Procedures Routine Polyp of colon Ordered: 0 07/04/2011 documented as of this encounter Procedures Procedure Name Priority Date/Time Associated Diagnosis Comme nts SURGICAL PATHOLOGY Routine 07/04/2011 12:22 PM Re sults for this EXAM [facility] procedure are i n the results section. COLONOSCOPY, 07/04/2011 11:25 AM Screening FLEXIBLE, WITH [facility] LESION REMOVAL USING SNARE Special Needs Referring: Dr Siria Lee COLONOSCOPY Routine 07/04/2011 11:22 AM [facility] Resu lts for this procedure are in the results section . documented in this encounter Results Surgical pathology exam (07/04/2011 12:22 PM [facility]) Component Value Ref Test Analysis Performed At [facility] Method Time Signature Copath Report Patient Name: VIVEK LANG MR#: [id number] Specimen #: [id number] Collected: 07/04/2011 Received: 07/04/2011 [...] to artifact. NEGRITO/gaye DT/07-05-11 TESTING LAB LOCATION: [address] ??[phone] COLLECTION SITE: Client: [facility] Location: [facility] (R) Specimen Anatomical Collection Method Collection Time Receive d Time (Source) Location / / Volume Laterality 07/04/2011 12:22 07/04/2011 2:00 PM [facility] PM [facility] Aristeo Squires MD LAB - [facility] Organization Address City/State/ZIP Code Phon e Number [place] COLONOSCOPY (07/04/2011 11:22 AM [facility]) [facility] gist Method Time Signature COLONOSCOPY [employer] RAD IOLOGY RESULTS Patient Name: Vivek Smithalexadam ?Procedure Date: 07/04/2011 11:22:26 AM ? Date [...] primary care physician PRN. ? 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 PRN Medication Order 07/02/2011 07/03/2011 07/04/2011 atropine [...] Intra-procedure documented in this encounter Care Teams Tractor Expert Relationship Specialty Start Date End Date Siria Lee MD PCP - General Family Practice 06/27/11 07/30/[address] [phone] documented as of this encounter
--- OUTSIDE RECORDS SUMMARY | 2022-05-28 14:25 | XMS_ITS ---
:1945 Author Care Team Providers Name Role Phone KEREN MELENDEZ MD Primary Care Provider [phone] Allergies Code Code System Name Reaction Severity [...] Bilirubin-Status Small ? Ketones-Status Negative ? Sp [place]-Status 1.025 ? pH-Status 5.5 ? Urobilinogen-Status 1.0 [...]
[2022-05-31 09:28] LABS: Prostate Specific Antigen Free 1.3 ng/mL; Prostate Specific Antigen%Free 30 %; Prostate Specific AntigenTotal 4.4 ng/mL (0.0-4.0)
== END 2022-05-28 17:01 | disposition home or self-care (01) ==
PROVIDERS: PCP Family Medicine; Visit Provider Family Medicine
DX: R97.20 Elevated prostate specific antigen [PSA] (principal)
CPT/HCPCS: 84153; 84154

== ENCOUNTER 2023-03-24 06:12 | Day surgery (SDC) | payer MEDICARE, BC, SELFPAY ==
--- OUTSIDE RECORDS SUMMARY | 2023-03-24 06:16 | XMS_ITS | Continuity of Care Document ---
Author Name Unknown Organization Z [facility] [place] Address [address] [place] [address] Phone Care Team Providers Care Glove Maker Name Role Phone Inocente Germain MD Unavailable Unavailable Advance Directives Directive Yes / No Effective Date File Name No Information Encounters Encounter Description Practice Location Reason(s) For Visit Diagnoses Date Provider Providers Copied on Encounter Z [facility], [address], [place], [address], [place] tel:[phone] [facility] No Information Marcellus Brower. [facility], [address] [place] [address], [address], [place]. tel:[phone] Family History Family Member Type Diagnosis Age At Onset No Information Payers Payer name Insurance type Covered alliance party ID Authoriza tion(s) No Information Social History Type Description Quantity Date Captured Comments Sex Male Smoking Status No Information Chief Complaint And Reason For Visit No Information Reason For Referral Reason For Referral No Information History Of Present Illness Encounter Date Complaint History Of Prese nt Illness No Information Functional Status Date Functional Assessmen t No Information Instructions Date Instruction Additional Infor mation No Information Assessments Type Assessment Date No Information Patient Care Teams Name Effective Dates (start - stop) Status Members No Information
[2023-03-24 06:28] VITALS: BP 141/74; PULSE 60; RESP 16; TEMP 36.4; O2SAT 94; BMI 34.9
[2023-03-24 06:35] VITALS: BP 141/74; PULSE 60; RESP 16; TEMP 36.4; O2SAT 94
[2023-03-24] MEDS: ETHYL CHLORIDE 1 APPLICATION 1 APPLIC TOPICAL (06:45)
[2023-03-24] MEDS: BUPIVACAINE 0.5% 30 ML INJECTION (06:45)
--- NOTE | 2023-03-24 07:03 | SUR.PREOP ---
SAME DAY SURGERY LOCAL INJECTION SITE VERIFICATION WAS PERFORMED BY SURGEON/PA AND PATIENT PRIOR TO LOCAL ANESTHETIC BEING INJECTED TO OPERATIVE SITE.
[2023-03-24 07:25] VITALS: BP 150/85; PULSE 68; RESP 20; O2SAT 95
[2023-03-24 07:30] VITALS: BP 151/84; PULSE 63; RESP 20; O2SAT 95
--- NOTE | 2023-03-24 07:33 | PM.ORPRC ---
Procedure Note Date of procedure: 03/24/23 Procedure: PREOPERATIVE DIAGNOSIS: 1. Right ring finger flexor tenosynovitis - trigger finger POSTOPERATIVE DIAGNOSIS: 1. Right ring finger flexor tenosynovitis - trigger finger PROCEDURE: 1. Right ring finger flexor tendon sheath open release (A1 mary) SURGEON: Rajendra Damian MD. SANITATION WORKER CLEANING MACHINERY: FARHANA Estes ANESTHESIA: Local anesthetic 4ml via 50:50 mixture of 1% Lidocaine with epi and 0.5% marcaine plain EBL: 2mL IMPLANTS: None TOURNIQUET: None COMPLICATIONS: None evident INDICATIONS: The patient is a pleasant 77-year-old male who has experienced right ring finger catching/triggering for number of months. It has progressively gotten worse. Given the failure of nonoperative management, and how this affects daily life, surgery was recommended. DESCRIPTION OF PROCEDURE: Following a thorough discussion of risks, benefits, and alternatives consent was obtained and the operative digit(s) was marked. The patient was brought to the operating room and placed supine on the operating table. Local anesthesia induction was undertaken in preop holding. No antibiotics were administered as this was planned to be a local case only. Proper time-out was performed identifying proper patient, site, and procedure. The operative extremity was prepped and draped in the appropriate sterile fashion using ChloraPrep. A incision was made on the palmar surface of the hand overlying the MCP joint region of the appropriate digit(s) respecting the palmar creases being cautious not to cross these perpendicularly. Sharp incision through the skin, and blunt dissection through subcutaneous tissue allowing protection of crossing neurologic structures. The A1 mary was visualized directly. It was incised sharply with a 15 blade. It was released completely from its distal to proximal extent under direct visualization. The tendon was inspected and found to be mildly striated consistent with some friction. Otherwise, it was intact. The tendon was removed out of the wound, and further inspected. The patient was asked to manually flex and extend the digits and showed no further catching. The catching, which was visualized initially, was no longer evident with reproduction of a manual fist and relaxation. Closure was performed with 4-O nylon in interrupted fashion. Soft dressings were applied, and the patient was transferred to the recovery room in stable condition. PLAN: 1. Encourage elevation of the operative extremity. 2. Range of motion of the fingers and hand/wrist as tolerated. 3. Ibuprofen/acetaminophen and/or oxycodone as needed for pain control. 4. Follow up with PA visit in 12-16 days for wound check and suture removal.
[2023-03-24 07:35] VITALS: BP 152/83; PULSE 61; RESP 18; O2SAT 96
[2023-03-24] MEDS: NEOMYCIN/BACITRACIN/POLYMYXIN B 1 APPLIC TOPICAL (07:36)
[2023-03-24 07:45] VITALS: BP 141/76; PULSE 55; RESP 16; TEMP 36.4; O2SAT 97
== END 2023-03-24 08:00 | disposition home or self-care (01) ==
PROVIDERS: PCP Family Medicine; Visit Provider Orthopaedic Surgery Sports Medicine
PROC: (CPT 26055; principal; 2023-03-24 07:30)
DX: M65.341 Trigger finger, right ring finger (principal); M65.841 Other synovitis and tenosynovitis, right hand
CPT/HCPCS: 26055; J0665

== ENCOUNTER 2023-05-19 11:15 | Outpatient (CLI) | payer MEDICARE, BC, SELFPAY ==
--- OUTSIDE RECORDS SUMMARY | 2023-05-19 11:19 | XMS_ITS | Continuity of Care Document ---
Author Name Unknown Organization Z [facility] [place] Address [address] [place] [address] Phone Care Team Providers Care Electrician Journeyman Wireman Name Role Phone Inocente Germain MD Unavailable Unavailable Advance Directives Directive Yes / No Effective Date File Name No Information Encounters Encounter Description Practice Location Reason(s) For Visit Diagnoses Date Provider Providers Copied on Encounter Z [facility], [address], [place], [address], [place] tel:[phone] [facility] No Information Marcellus Borwer. [facility], [address] [place] [address], [address], [place]. tel:[phone] Family History Family Member Type Diagnosis Age At Onset No Information Payers Payer name Insurance type Covered libertarian ID Authoriza tion(s) No Information Social History [...]
== END 2023-05-19 11:16 | disposition home or self-care (01) ==
PROVIDERS: PCP Family Medicine; Visit Provider Family Medicine
DX: E78.2 Mixed hyperlipidemia (principal); I10 Essential (primary) hypertension; R97.20 Elevated prostate specific antigen [PSA]; I48.91 Unspecified atrial fibrillation
CPT/HCPCS: 80053; 80061; 84153; 84154

== ENCOUNTER 2024-06-04 10:23 | Outpatient (CLI) | payer MEDICARE, BC, SELFPAY ==
--- OUTSIDE RECORDS SUMMARY | 2024-06-04 14:10 | XMS_ITS | Clinical Summary ---
Author Organization [place] Address [address] [place] [address] Care Team Providers Care Product Applications Engineer Name Role Phone [facility]- Primary Care Provider Denton Casiano MD Unavailable [phone] Allergies Active Allergy Reactions Criticality Noted Date Comments Lisinopril Cough Low 03/21/2021 Simvastatin Other (See Comments) 07/18/2017 Myalgias Medications terazosin (HYTRIN) 2 MG capsule Take 2 mg by mouth At Bedtime. 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 90 tablet 3 05/26/20 24 Active hydrochlorothiazi de (HYDRODIURIL) 25 MG tablet Take 1 tablet (25 mg) by mouth daily. 90 tablet 3 05/26/20 24 Active hydrochlorothiazi de (HYDRODIURIL) 25 MG tabletIndications :Benign essential hypertension Take 1 tablet (25 mg) by mouth daily 90 tablet 4 11/09/19 23 024 Discontinued(Re order (No AVS)) losartan (COZAAR) 50 MG tabletIndications :Benign essential hypertension Take 1 tablet (50 mg) by mouth daily 90 tablet 3 01/04/20 23 024 Discontinued(Re order (No AVS)) hydrochlorothiazi de (HYDRODIURIL) 25 MG tabletIndications :Benign essential hypertension Take 1 tablet (25 mg) by mouth daily. 90 tablet 05/20/20 24 024 Discontinued Active Problems Problem Noted Date Diagnosed Date Morbid obesity 03/21/2021 TIA (transient ischemic attack) 02/01/2021 Atrial fibrillation, unspecified type 02/01/2021 CVA (cerebral vascular accident) 02/01/2021 Gastroesophageal reflux disease without esophagi tis 07/18/2017 Overview (03/01/2021): Atypical Chest pain with card eval last yr and was neg for ischemia and [place] to be reflux SURJIT on CPAP 07/18/2017 Overview (03/01/2021): 03/2017 [place] eval up [place] Angioedema of lips, initial encounter 02/27/2014 Hives 02/27/2014 Status post THR (total hip replacement) 03/22/20 13 Encounters Date Type Department Care Team Description 05/26/2024 2:00 PM NAIL GALVANIZER Office Visit [address] [place] [address] Denton Casiano MD Patnoe, Alexander, DEE Chronic a-fib (H) (Primary Dx); Essential hypertension; 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); Impaired fasting glucose 05/26/2024 12:30 PM NAIL GALVANIZER Lab [address] [place] [address] Benign essential hypertension 05/26/2024 Travel 05/20/[address] [place] [id number] Denton Casiano MD Refill Request (Hydrochlorothiazide 25 mg) from Last 3 Months Social History Tobacco Use Types Packs/Day Years Used Date Smoking Tobacco: Former Cigarettes Q uit: 1980 Smokeless Tobacco: Never Alcohol Use Standard Drinks/Week Comments Yes 0 (1 standard drink = 0.6 oz pur e alcohol) 1-2 drinks a day PHQ-2 Answer Date Recorded PHQ-2 Score 0 05/26/2024 Adolescent Education Answer Date Record ed Getting School Help Needed Not on file 03/29 Sex and Gender Information Value Date Recorded Sex Assigned at Male 04/02/2021 10:12 AM CDT Legal Sex Male 3:22 AM NAIL GALVANIZER Gender Identity Male 04/02/2021 10:12 AM CDT Sexual Orientation Straight 04/02/2021 10 :12 AM CDT Last Filed Vital Signs Vital Sign Reading Time Taken Comments Blood Pressure 125/85 05/26/2024 1:52 PM NAIL GALVANIZER Pulse 58 05/26/2024 1:52 PM NAIL GALVANIZER Temperature 36.2 C (97.2 F) 02/20/2021 9:41 PM CDT Respiratory Rate 18 02/20/2021 9:41 PM CDT Oxygen Saturation 97% 05/26/2024 1:52 PM NAIL GALVANIZER Inhaled Oxygen Concentration - - Weight 126.5 kg (278 lb 14.4 oz) 05/26/2024 1:52 PM NAIL GALVANIZER Height 185.4 cm (6' 1) 05/26/2024 1:52 PM NAIL GALVANIZER Body Mass Index 36.8 05/26/2024 1:52 PM NAIL GALVANIZER Plan of Treatment Health Maintenance Due Date Last Done Comments ADVANCE CARE PLANNING 1945 ANNUAL REVIEW OF HM ORDERS 1945 FALL RISK ASSESSMENT 12/24/2008 MEDICARE ANNUAL WELLNESS VISIT 12/24/2008 RSV VACCINE (1 - 1-dose 75+ series) 12/24/2018 LIPID 02/02/2022 02/02/2021 COVID-19 Vaccine ( - season) 2024 03/07/2022, 05/28/2021 INFLUENZA VACCINE (#1) 2024 , 05/20/2022, 04/06/2022, Additional history exists DTAP/TDAP/TD IMMUNIZATION (2 - Td or Tdap) 04/18/2025 04/18/2015 BMP 05/26/2025 05/26/2024, 09/28, 12/12/2021, Additional history exists GLUCOSE 05/26/2027 05/26/2024, 09/28, 12/12/2021, Additional history exists COLONOSCOPY Discontinued 07/04/2011 COLORECTAL CANCER SCREENING Discontinued Pneumococcal Vaccine: 65+ Years Completed 03/08/2019, 04/18/2015 ZOSTER IMMUNIZATION Completed 06/05/2020, 03/14/2020, 05/28/2013 PHQ-2 (once per calendar year) Completed 05/26/2024, 10/08/2022 CT COLONOGRAPHY Discontinued FIT Discontinued FLEX SIG Discontinued HPV IMMUNIZATION Aged Out No longer e ligible based on patient's age to complete this topic MENINGITIS IMMUNIZATION Aged Out No l onger eligible based on patient's age to complete this topic RSV MONOCLONAL ANTIBODY Aged Out No l onger eligible based on patient's age to complete this topic sDNA (Cologuard) Discontinued Medical Devices Implanted Type Area Fire Patrol Device Identifier Shelf Expiration Date Model / Serial / Lot Imp Shell Acetabulum Zim 58mm [id number] Implanted:Qty: 1 on 03/22/2013 by Mark Viera MD at [facility] Right: Hip [employer] 12/27/2022-05 - / [id number] Imp Liner Acetabulum Zim Xlpe [id number] Implanted:Qty: 1 on 03/22/2013 by Mark Viera MD at [facility] Right: Hip [employer] 11/27/2017630-05 8- / [id number] Imp Scr Zim 6.5x25mm Acet Cup Self Tap [id number] Implanted:Qty: 1 on 03/22/2013 by Mark Viera MD at [facility] Right: Hip [employer] 11/27/20226250-06 5- / [id number] Imp Cable Zim Cerclage 1.8x25mm Implanted:Qty: 1 on 03/22/2013 by Mark Viera MD at [facility] Right: Hip [employer] 06/29/20222232-00 4- [id number] Imp Stem Femoral Zim Sz 12.5 06/12 Neck [id number] Implanted:Qty: 1 on 03/22/2013 by Mark Viera MD at [facility] Right: Hip [employer] 12/27/20227711-01 2- [id number] Imp Head Femoral Zim Versys 36mm -3.5 [id number] Implanted:Qty: 1 on 03/22/2013 by Mark Viera MD at [facility] Right: Hip [employer] 07/30/2022-8018-03 6- [id number] Procedures Procedure Name Priority Date/Time Associated Diagnosis Comments BASIC METABOLIC PANEL Routine 05/26/2024 1:07 PM NAIL GALVANIZER Benign essential hypertension LIPID REFLEX TO DIRECT LDL PANEL Routine 02/02/2021 6:43 AM CDT COLONOSCOPY Routine 07/04/2011 11:22 AM NAIL GALVANIZER from Last 3 Months or Most Recently Relevant to Health Maintenance Results * (ABNORMAL) Basic metabolic panel (05/26/2024 1:07 PM NAIL GALVANIZER) Sodium 134(L) 135 - 145 mmol/L 05/26/2024 1:33 PM NAIL GALVANIZER [facility] Potassium 4.0 3.4 - 5.3 mmol/L 05/26/2024 1:33 PM NAIL GALVANIZER [facility] Chloride 98 98 - 107 mmol/L 05/26/2024 1:33 PM NAIL GALVANIZER [facility] Carbon Dioxide (CO2) 22 22 - 29 mmol/L 05/26/2024 1:33 PM NAIL GALVANIZER [facility] Anion Gap 14 7 - 15 mmol/L 05/26/2024 1:33 PM NAIL GALVAN[facility] Urea Nitrogen 16.1 8.0 - 23.0 mg/dL 05/26/2024 1:33 PM NAIL GALVANIZER [facility] Creatinine 0.93 0.67 - 1.17 mg/dL 05/26/2024 1:33 PM NAIL GALVANIZER [facility] GFR Estimate 83 >60 mL/min/1.7 3m2 05/26/2024 1:33 PM NAIL GALVANIZER [facility] Comment:eGFR calculated usin 2020 CKD-EPI equation. Calcium 8.8 8.8 - 10.4 mg/dL 05/26/2024 1:33 PM NAIL GALVANIZER [facility] Comment:Reference intervals for this test were updated on 01/13/2024 to reflect our healthy population more accurately. There may be differences in the flagging of prior results with similar values performed with this method. Those prior results can be interpreted in the context of the updated reference intervals. Glucose 110(H) 70 - 99 mg/dL 05/26/2024 1:33 PM NAIL GALVANIZER [facility] Blood STRUCTURE OF RIGHT HAND / Unknown Venipuncture / Unknown 05/26/2024 1:07 PM NAIL GALVANIZER 05/26/2024 1:07 PM NAIL GALVANIZER us Denton Casiano MD LAB - BLOOD ORDERABLES Fin al Result LABORATORY [facility] [address] [facility] Lab (1st floor, no room number) [place] [address] * Lipid panel reflex to direct LDL (02/02/2021 6:43 AM CDT) Cholesterol 115 <200 mg/dL 02/02/2021 7:45 AM CDT [facility] Comment: Age 0-19 years Desirable: <170 mg/dL Borderline high: 170-199 mg/dl High: >199 mg/dl Age 20 years and older Desirable: <200 mg/dL Triglycerides 98 <150 mg/dL 02/02/2021 7:45 AM CDT [facility] Comment: 0-9 years: Normal: Less than 75 mg/dL Borderline high: 75-99 mg/dL High: Greater than or equal to 100 mg/dL 0-19 years: Normal: Less than 90 mg/dL Borderline high: 90-129 mg/dL High: Greater than or equal to 130 mg/dL 20 years and older: Normal: Less than 150 mg/dL Borderline high: 150-199 mg/dL High: 200-499 mg/dL Very high: Greater than or equal to 500 mg/dL Direct Measure HDL 55 >=40 mg/dL 02/02/2021 7:45 AM CDT [facility] Comment: 0-19 years: Greater than or equal to 45 mg/dL Low: Less than 40 mg/dL Borderline low: 40-44 mg/dL 20 years and older: Female: Greater than or equal to 50 mg/dL Male: Greater than or equal to 40 mg/dL LDL Cholesterol Calculated 40 <=100 mg/dL 02/02/2021 [...] CDT [facility] Comment: 0-19 years: Desirable: Less than 120 mg/dL Borderline high: 120-144 mg/dL High: Greater than or equal to 145 mg/dL 20 years and older: Desirable: 130 mg/dL Above Desirable: 130-159 mg/dL Borderline high: 160-189 mg/dL High: 190-219 mg/dL Very high: Greater than or equal to 220 mg/dL Patient Fasting > 8hrs? Unknown 02/02/2021 7:45 AM CDT [facility] Blood STRUCTURE OF LEFT HAND / Unknown Venipuncture / Unknown 02/02/2021 6:43 AM CDT 02/02/2021 7:21 AM CDT us Geetha Davis MD LAB - BLOOD ORDERABLES Roya watts Result [facility] [address] Lab (1st floor, no room number) [place] [address], [facility] [phone] * COLONOSCOPY (07/04/2011 11:22 AM NAIL GALVANIZER) COLONOSCOPY [facility] Patient Name: Vivek Lang Procedure Date: 07/04/2011 11:22:26 AM Date of : 1945 Admit Type: Outpatient Age: 65 Gender: Male Attending MD: Billy [place] MD Procedure: Colonoscopy Indications: Screening for malignant neoplasm in the colon Providers: Billy Morocho MD Referring MD: Ran Lee MD Medicines: Fentanyl 100 micrograms IV, Midazolam 1.5 mg IV, Atropine 0.6 mg IV Complications: No immediate complications Procedure: Pre-Anesthesia Assessment: - Prior to the procedure, a History and Physical was performed, and patient medications and allergies were reviewed. The patient is competent. The risks and benefits of the procedure and the sedation options and risks were discussed with the patient. All questions were answered and informed consent was obtained. Patient identification and proposed procedure were verified by the physician in the procedure room. Mental Status Examination: alert and oriented. Airway Examination: normal oropharyngeal airway and neck mobility. Respiratory Examination: clear to auscultation. CV Examination: normal. ASA Grade Assessment: II - A patient with mild systemic disease. After reviewing the risks and benefits, the patient was deemed in satisfactory condition to undergo the procedure. The anesthesia plan was to use moderate sedation / analgesia (conscious sedation). Immediately prior to administration of medications, the patient was re-assessed for adequacy to receive sedatives. The heart rate, respiratory rate, oxygen saturations, blood pressure, adequacy of pulmonary ventilation, and response to care were monitored throughout the procedure. The physical status of the patient was re-assessed after the procedure. After obtaining informed consent, the colonoscope was passed under direct vision. Throughout the procedure, the patient's blood pressure, pulse, and oxygen saturations were monitored continuously. The Colonoscope was introduced through the anus and advanced to the terminal ileum. The colonoscopy was performed without difficulty. The patient tolerated the procedure well. The quality of the bowel preparation was excellent. Findings: The digital rectal exam was normal. Two sessile polyps were found in the sigmoid colon. The polyps were 2 to 3 mm in size. These polyps were removed with a hot snare. Resection and retrieval were complete. The rectum, descending colon, splenic flexure, transverse colon, hepatic flexure, ascending colon, cecum, appendiceal orifice, ileocecal valve and ileum appeared normal. The retroflexed view of the anal verge was normal and showed no anal or rectal abnormalities. The terminal ileum appeared normal. Impression: - Two 2 to 3 mm polyps in the sigmoid colon. Resected and retrieved. - The rectum, descending colon, splenic flexure, transverse colon, hepatic flexure, ascending colon, cecum, appendiceal orifice, ileocecal valve and terminal ileum are normal. - The examined portion of the ileum was normal. Recommendation: - Discharge patient to home (ambulatory). - Telephone endoscopist for pathology results in 1 week. - If polyps are adenomatous repeat colonoscopy in 3 years. If polyps are hyperplastic then hemoccults q yr and flex sigmoidoscopy in 3 yrs. - Return to primary care physician PRN. Brittany Morocho M.D Billy Morocho MD Signed Date: 07/04/2011 12:36:27 PM Number of Addenda: 0 I was physically present for the entire viewing portion of the exam. Note Initiated On: 07/04/2011 11:22:26 AM Scope Withdrawal Time: 0 hours 7 minutes 7 seconds Total Procedure Duration: 0 hours 10 minutes 6 seconds RADIOLOGY RESULTS 07/04/2011 11:2 2 AM NAIL GALVANIZER Ran Lee MD PROCEDURES Final Result RADIOLOGY RESULTS from Last 3 Months or Most Recently Relevant to Health Maintenance Insurance MEDICARE [facility] MEDICARE [facility] MEDICARE [facility] MEDICARE SUPPLEMENT Advance Directives For more information, please contact: [phone] * Full Code (Latest Code Status on File) Date Activated Date Inactivated Comments 02/01/2021 6:24 PM 02/02/2021 4:22 PM All basic and advanced life-sustaining interventions are performed as appropriate Question Answer Comments Code status determined by: Discussion with taiwoe nt/ legal decision maker * Full Code Date Activated Date Inactivated Comments 03/22/2013 12:02 PM 03/25/2013 2:20 PM Care Teams Product Applications Engineer Relationship Specialty Start Date End Date [facility]- [address] [place] [address] PCP - General 02/01/21 Denton Casiano MD [address] [facility] [address] [place] [address] Cardiovascular Disease 05/17/22
--- OUTSIDE RECORDS SUMMARY | 2024-06-04 14:10 | XMS_ITS | Encounter Summary ---
Author Organization [place] Address [address] [place] [address] Care Team Providers Care Log Buncher Name Role Phone [facility]- Primary Care Provider Denton Casiano MD Unavailable [phone] Encounter Details Date Type Department Care Team (Late st Contact Info) Description 05/26/2024 12:30 PM ORDER TAKERS SUPERVISOR Lab Health [facility] [address] [place] [address] [address] [place] [address] Benign essential hypertension Social History Tobacco Use Types Packs/Day Years [...] AM CDT Legal Sex Male 3:22 AM ORDER TAKERS SUPERVISOR Gender Identity Male 04/02/2021 10:12 AM CDT Sexual Orientation Straight 04/02/2021 10 :12 AM CDT documented as of this encounter Plan of Treatment Not on file documented as of this encounter Procedures Procedure Name Priority Date/Time Associated Diagnosis Comments BASIC METABOLIC PANEL Routine 05/26/2024 1:07 PM ORDER TAKERS SUPERVISOR Benign essential hypertension documented in this encounter Results * (ABNORMAL) Basic metabolic panel (05/26/2024 1:07 PM ORDER TAKERS SUPERVISOR) Sodium 134(L) 135 - 145 mmol/L 05/26/2024 1:33 PM ORDER TAKERS SUPERVISOR LABORATORY Potassium 4.0 3.4 - 5.3 mmol/L 05/26/2024 1:33 PM ORDER TAKERS SUPERVISOR LABORATORY Chloride 98 98 - 107 mmol/L 05/26/2024 1:33 PM ORDER TAKERS SUPERVISOR LABORATORY Carbon Dioxide (CO2) 22 22 - 29 mmol/L 05/26/2024 1:33 PM ORDER TAKERS SUPERVISOR LABORATORY Anion Gap 14 7 - 15 mmol/L 05/26/2024 1:33 PM ORDER TAKERS SUPERVISOR LABORATORY Urea Nitrogen 16.1 8.0 - 23.0 mg/dL 05/26/2024 1:33 PM ORDER TAKERS SUPERVISOR LABORATORY Creatinine 0.93 0.67 - 1.17 mg/dL 05/26/2024 1:33 PM ORDER TAKERS SUPERVISOR LABORATORY GFR Estimate 83 >60 mL/min/1.7 3m2 05/26/2024 1:33 PM ORDER TAKERS SUPERVISOR LAB[facility] Comment:eGFR calculated usin g 2020 CKD-EPI equation. Calcium 8.8 8.8 - 10.4 mg/dL 05/26/2024 1:33 PM ORDER TAKERS SUPERVISOR LABORATORY Comment:Reference intervals for this test were updated on 01/13/2024 to reflect our healthy population more accurately. There may be differences in the flagging of prior results with similar values performed with this method. Those prior results can be interpreted in the context of the updated reference intervals. Glucose 110(H) 70 - 99 mg/dL 05/26/2024 1:33 PM ORDER TAKERS SUPERVISOR LABORATORY Blood STRUCTURE OF RIGHT HAND / Unknown Venipuncture / Unknown 05/26/2024 1:07 PM ORDER TAKERS SUPERVISOR 05/26/2024 1:07 PM ORDER TAKERS SUPERVISOR us Denton Casiano MD LAB - BLOOD ORDERABLES Fin al Result LABORATORY [facility] Lab [address] Lab (1st floor, no room number) [place] [address], [facility] documented in this encounter Visit Diagnoses Diagnosis Benign essential hypertension Essential hypertension, benign documented in this encounter Care Teams Log Buncher Relationship Specialty Start Date End Date [facility]- [address] [place] [address] PCP - General 02/01/21 Denton Casiano MD [address] [place] [id number] Cardiovascular Disease 05/17/22 documented as of this encounter
--- OUTSIDE RECORDS SUMMARY | 2024-06-04 14:10 | XMS_ITS | Encounter Summary ---
Author Organization [place] Address [address] [place] [address]. [place] [address] Care Team Providers Care Coal Chemist Name Role Phone [facility]- Primary Care Provider Denton Casiano MD Unavailable [phone] Reason for Visit * Reason Onset Date Comments Refill Request 05/20/2024 Hydrochlorothiaz fabian 25 mg Encounter Details Date Type Department Care Team (Late st Contact Info) Description 05/20/2024 Refill [facility] Heart [facility] [address] [place] [address] Denton Casiano MD [address] [facility] [address] [place], [place] [address] Refill Request (Hydrochlorothiazide 25 mg) Social History Tobacco Use Types Packs/Day Years Used Date Smoking Tobacco: Former Cigarettes Q uit: 1979 Smokeless Tobacco: Never Alcohol Use Standard Drinks/Week Comments Yes 0 (1 standard drink = 0.6 oz pur e alcohol) 1-2 drinks a day PHQ-2 Answer Date Recorded PHQ-2 Score 0 10/08/2022 Adolescent Education Answer Date Record ed Getting School Help Needed Not on file 03/29 Sex and Gender Information Value Date Recorded Sex Assigned at Male 04/02/2021 10:12 AM CDT Legal Sex Male 3:22 AM PIPELAYER Gender Identity Male 04/02/2021 10:12 AM CDT Sexual Orientation Straight 04/02/2021 10 :12 AM CDT documented as of this encounter Miscellaneous Notes * Telephone Encounter - Yumi Vu RN - 05/20/2024 4:25 PM CST [facility] Cardiology Refill Guideline reviewed. Pt is overdue for follow up and due for BMP. Order placed. Refill letter sent to pt. Prescription sent to pharmacy for 90 day supply and 0 refills. LAYER documented in this encounter Plan of Treatment Not on file documented as of this encounter Results * (ABNORMAL) Basic metabolic panel (05/26/2024 1:07 PM PIPELAYER) Sodium 134(L) 135 - 145 mmol/L 05/26/2024 1:33 PM [facility] Potassium 4.0 3.4 - 5.3 mmol/L 05/26/2024 1:33 PM [facility] Chloride 98 98 - 107 mmol/L 05/26/2024 1:33 PM [facility] Carbon Dioxide (CO2) 22 22 - 29 mmol/L 05/26/2024 1:33 PM [facility] Anion Gap 14 7 - 15 mmol/L 05/26/2024 1:33 PM [facility] Urea Nitrogen 16.1 8.0 - 23.0 mg/dL 05/26/2024 1:33 PM [facility] Creatinine 0.93 0.67 - 1.17 mg/dL 05/26/2024 1:33 PM [facility] GFR Estimate 83 >60 mL/min/1.7 3m2 05/26/2024 1:33 PM [facility] Comment:eGFR calculated usin 2020 CKD-EPI equation. Calcium 8.8 8.8 - 10.4 mg/dL 05/26/2024 1:33 PM [facility] Comment:Reference intervals for this test were updated on 01/13/2024 to reflect our healthy population more accurately. There may be differences in the flagging of prior results with similar values performed with this method. Those prior results can be interpreted in the context of the updated reference intervals. Glucose 110(H) 70 - 99 mg/dL 05/26/2024 1:33 PM [facility] Blood STRUCTURE OF RIGHT HAND / Unknown Venipuncture / Unknown 05/26/2024 1:07 PM PIPELAYER 05/26/2024 1:07 PM PIPELAYER us Denton Casiano MD LAB - BLOOD ORDERABLES Fin al Result LABORATORY [facility] Acute Care Lab [address] Lab (1st floor, no room number) [place] [address], [facility] documented in this encounter Visit Diagnoses Diagnosis Benign essential hypertension- Primary Essential hypertension, benign documented in this encounter Care Teams Coal Chemist Relationship Specialty Start Date End Date [facility]- [address] [place] [address] PCP - General 02/01/21 Denton Casaino MD [address] [place] [address] Cardiovascular Disease 05/17/22 documented as of this encounter
--- OUTSIDE RECORDS SUMMARY | 2024-06-04 14:10 | XMS_ITS | Encounter Summary ---
Author Organization [place] Address [address] [place] [address] Care Team Providers Care Dining Room Cashier Name Role Phone [facility]- Primary Care Provider Denton Casiano MD Unavailable Encounter Details Date Type Department Care Team (Latest Contact Info) Description 05/26/2024 Travel Social History Tobacco Use Types Packs/Day [...] AM CDT Legal Sex Male 3:22 AM CHICKEN HANDLER Gender Identity Male 04/02/2021 10:12 AM CDT Sexual Orientation Straight 04/02/2021 10 :12 AM CDT documented as of this encounter Plan of Treatment Not on file documented as of this encounter Visit Diagnoses Not on filedocumented in this encounter Care Teams Dining Room Cashier Relationship Specialty Start Date End Date [facility]- [address] [place] [address] PCP - General 02/01/21 Denton Casiano MD [address] [place] [id number] Cardiovascular Disease 05/17/22 documented as of this encounter
--- OUTSIDE RECORDS SUMMARY | 2024-06-04 14:10 | XMS_ITS | Encounter Summary ---
Author Organization [place] Address [address] [place] [address]. [place] [address] Care Team Providers Care Furniture Lumber Production Worker Name Role Phone [facility]- Primary Care Provider Denton Casiano MD Unavailable [phone] Antony Burch MD Unavailable Yeny May APRN WEAPONS AND TACTICS INSTRUCTOR Unavailable [phone] Denton Casiano MD Unavailable [phone] Denton Casiano MD Unavailable [phone] Encounter Details Date Type Department Care Team (Late st Contact Info) Description 04/02/2021 [facility] Medical Advice [facility] [address] [place] [id number] Amy Villalba Social History Tobacco Use Types Packs/Day Years Used Date Smoking Tobacco: Former Cigarettes Q uit: 1980 Smokeless Tobacco: Never Alcohol Use Standard Drinks/Week Comments Not Currently 0 (1 standard drink = 0.6 oz pur e alcohol) Sex and Gender Information Value Date Recorded Sex Assigned at Male 04/02/2021 10:12 AM CDT Legal Sex Male 3:22 AM RUG DYER HELPER Gender Identity Male 04/02/2021 10:12 AM CDT Sexual Orientation Straight 04/02/2021 10 :12 AM CDT COVID-19 Exposure Response Date Recorded In the last month, have you been in contact with someone who was confirmed or suspected to have Coronavirus / COVID-19? No / Unsure 04/03/2021 1:41 PM CDT documented as of this encounter Plan of Treatment Not on file documented as of this encounter Visit Diagnoses Not on filedocumented in this encounter Care Teams Furniture Lumber Production Worker Relationship Specialty Start Date End Date [facility]- [address] [place] [address] PCP - General 02/01/21 Denton Casiano MD [address] [place] [id number] Assigned Heart and Vascular Provider 03/25/21 10/27/21 Antony Burch MD [address] [place] [id number] Assigned Neuroscience Provider 04/08/21 10/04/22 Yeny May APRN WEAPONS AND TACTICS INSTRUCTOR [address] [place] [address] Assigned Heart and Vascular Provider 10/28/21 04/25/23 Denton Casiano MD [address] [place] [id number] Cardiovascular Disease 05/17/22 Denton Casiano MD [address] [place] [address] Assigned Heart and Vascular Provider 04/26/23 04/20/24 documented as of this encounter
--- OUTSIDE RECORDS SUMMARY | 2024-06-04 14:10 | XMS_ITS | Referral Summary ---
Author Organization [place] Address [address] [place] [address] Care Team Providers Care Product Safety Consultant Name Role Phone [facility]- Primary Care Provider Denton Casiano MD Unavailable [phone] Encounters Date Type Department Care Team Description 05/26/2024 12:30 PM DISABILITY BENEFITS SPECIALIST Lab [facility] [address] [place] [address] Benign essential hypertension 05/26/2024 Travel 05/26/2024 2:00 PM DISABILITY BENEFITS SPECIALIST Office Visit [facility] [address] [place] [address] [address] [place] [address] Denton Casiano MD Patnoe, Alexander, NP Chronic a-fib (H) (Primary Dx); Essential hypertension; 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); Impaired fasting glucose 05/20/[address] [place] [address] Denton Casiano MD Refill Request (Hydrochlorothiazide 25 mg) from Last 3 Months Allergies Active Allergy Reactions Criticality Noted Date [...] TABLET BY MOUTH IN THE EVENING 08/16/19 Active apixaban ANTICOAGULANT (ELIQUIS) 5 MG tabletIndications [...] yr and was neg for ischemia and Cement to be reflux SURJIT on CPAP 07/18/2017 Overview (03/01/2021): 03/2017 after eval up somerset Angioedema of lips, initial encounter 02/27/2014 Hives 02/27/2014 Status post THR (total hip replacement) 03/22/20 13 Social History Tobacco Use Types Packs/Day Years [...] AM CDT Legal Sex Male 3:22 AM DISABILITY BENEFITS SPECIALIST Gender Identity Male 04/02/2021 10:12 AM CDT Sexual Orientation Straight 04/02/2021 10 :12 AM CDT Last Filed Vital Signs Vital Sign Reading Time Taken Comments Blood Pressure 125/85 05/26/2024 1:52 PM DISABILITY BENEFITS SPECIALIST Pulse 58 05/26/2024 1:52 PM DISABILITY BENEFITS SPECIALIST Temperature 36.2 C (97.2 F) 02/20/2021 9:41 PM CDT Respiratory Rate 18 02/20/2021 9:41 PM CDT Oxygen Saturation 97% 05/26/2024 1:52 PM DISABILITY BENEFITS SPECIALIST Inhaled Oxygen Concentration - - Weight 126.5 kg (278 lb 14.4 oz) 05/26/2024 1:52 PM DISABILITY BENEFITS SPECIALIST Height 185.4 cm (6' 1) 05/26/2024 1:52 PM DISABILITY BENEFITS SPECIALIST Body Mass Index 36.8 05/26/2024 1:52 PM DISABILITY BENEFITS SPECIALIST Plan of Treatment Not on file Medical Devices Implanted Type Area Cuprous Chloride Helper Device Identifier Shelf Expiration Date Model / Serial / Lot Imp Shell Acetabulum Zim 58mm [id number] Implanted:Qty: 1 on 03/22/2013 by Mark Viera MD at [facility] Right: Hip [employer] 12/27/2022 00-6200-05 8- / [id number] Imp Liner Acetabulum Zim Xlpe [id number] Implanted:Qty: 1 on 03/22/2013 by Mark Viera MD at [facility] Right: Hip [employer] 11/27/2017-6305-05 8-36 / / [id number] Imp Scr Zim 6.5x25mm Acet Cup Self Tap [id number] Implanted:Qty: 1 on 03/22/2013 by Mark Viera MD at [facility] Right: Hip [employer] 11/27/20226250-06 5- / [id number] Imp Cable Zim Cerclage 1.8x25mm Implanted:Qty: 1 on 03/22/2013 by Mark Viera MD at [facility] Right: Hip [employer] 06/29/20222-00 4-18 / [id number] Imp Stem Femoral Zim Sz 12.5 06/12 Neck [id number] Implanted:Qty: 1 on 03/22/2013 by Mark Viera MD at [facility] Right: Hip [employer] 12/27/2022-7711-01 2-10 / [id number] Imp Head Femoral Zim Versys 36mm -3.5 [id number] Implanted:Qty: 1 on 03/22/2013 by Mark Viera MD at [facility] Right: Hip [employer] 07/30/2022-8018-03 6- [id number] Procedures Procedure Name Priority Date/Time Associated Diagnosis Comments BASIC METABOLIC PANEL Routine 05/26/2024 1:07 PM DISABILITY BENEFITS SPECIALIST Benign essential hypertension LIPID REFLEX TO DIRECT LDL PANEL Routine 02/02/2021 6:43 AM CDT COLONOSCOPY Routine 07/04/2011 11:22 AM DISABILITY BENEFITS SPECIALIST from Last 3 Months or Most Recently Relevant to Health Maintenance Results * (ABNORMAL) Basic metabolic panel (05/26/2024 1:07 PM DISABILITY BENEFITS SPECIALIST) Sodium 134(L) 135 - 145 mmol/L 05/26/2024 1:33 PM DISABILITY BENEFITS SPECIALIST LABORATORY Potassium 4.0 3.4 - 5.3 mmol/L 05/26/2024 1:33 PM [facility] Chloride 98 98 - 107 mmol/L 05/26/2024 1:33 PM [facility] Carbon Dioxide (CO2) 22 22 - 29 mmol/L 05/26/2024 1:33 PM DISABILITY BENEFITS SPECIALIST LABORATORY Anion Gap 14 7 - 15 mmol/L 05/26/2024 1:33 PM DISABILITY BENEFITS SPECIALIST LABORATORY Urea Nitrogen 16.1 8.0 - 23.0 mg/dL 05/26/2024 1:33 PM [facility] Creatinine 0.93 0.67 - 1.17 mg/dL 05/26/2024 1:33 PM DISABILITY BENEFITS SPECIALIST LABORATORY GFR Estimate 83 >60 mL/min/1.7 3m2 05/26/2024 1:33 PM DISABILITY BENEFITS SPECIALIST LABORATORY Comment:eGFR calculated usin 2020 CKD-EPI equation. Calcium 8.8 8.8 - 10.4 mg/dL 05/26/2024 1:33 PM [facility] Comment:Reference intervals for this test were updated on 01/13/2024 to reflect our healthy population more accurately. There may be differences in the flagging of prior results with similar values performed with this method. Those prior results can be interpreted in the context of the updated reference intervals. Glucose 110(H) 70 - 99 mg/dL 05/26/2024 1:33 PM [facility] Blood STRUCTURE OF RIGHT HAND / Unknown Venipuncture / Unknown 05/26/2024 1:07 PM DISABILITY BENEFITS SPECIALIST 05/26/2024 1:07 PM DISABILITY BENEFITS SPECIALIST us Denton Casiano MD LAB - BLOOD ORDERABLES Fin al Result LABORATORY [facility] Acute Care Lab [address] Lab (1st floor, no room number) [place] [address], [facility] * Lipid panel reflex to direct [...] Davis MD LAB - BLOOD ORDERABLES Roya l Result [facility] Acute Care Lab [address] [facility] Lab (1st floor, no room number) [place] [address], [facility] [phone] * COLONOSCOPY (07/04/2011 11:22 AM DISABILITY BENEFITS SPECIALIST) COLONOSCOPY [facility] Patient Name: Vivek Precious Procedure Date: 07/04/2011 11:22:26 AM Date of [...] seconds RADIOLOGY RESULTS 07/04/2011 11:2 2 AM DISABILITY BENEFITS SPECIALIST Ran Lee MD PROCEDURES Final Result RADIOLOGY RESULTS from Last 3 Months or Most Recently Relevant to Health Maintenance Insurance MEDICARE [facility] MEDICARE SUPPLEMENT MEDICARE [place] Advance Directives For more information, please contact: [phone] * Full Code (Latest Code Status on File) Date Activated Date Inactivated Comments 02/01/2021 6:24 PM 02/02/2021 4:22 PM All basic and advanced life-sustaining interventions are performed as appropriate Question Answer Comments Code status determined by: Discussion with patie nt/ legal decision maker * Full Code Date Activated Date Inactivated Comments 03/22/2013 12:02 PM 03/25/2013 2:20 PM Care Teams Product Safety Consultant Relationship Specialty Start Date End Date [facility]- [address] [place] [address] PCP - General 02/01/21 Denton Casiano MD [address] [facility] [address] [place] [address] Cardiovascular Disease 05/17/22
--- OUTSIDE RECORDS SUMMARY | 2024-06-04 14:10 | XMS_ITS | Encounter Summary ---
Author Organization [place] Address [address] [place] [address] Care Team Providers Care Shoe Lining Fitter Name Role Phone [facility]- Primary Care Provider Yeny May APRN INSTALLERS MECHANICAL Unavailable [phone] Denton Casiano MD Unavailable [phone] Antony Burch MD Unavailable Yeny May APRN INSTALLERS MECHANICAL Unavailable [phone] Denton Casiano MD Unavailable [phone] Denton Casiano MD Unavailable [phone] Encounter Details Date Type Department Care Team (Late st Contact Info) Description 02/21/2021 Documentation Only INTERFACED REPORT Unknown, Provider Social History Tobacco Use Types Packs/Day Years Used Date Smoking Tobacco: Former Cigarettes Q uit: 1980 Smokeless Tobacco: Never Alcohol Use Standard Drinks/Week Comments Yes 0 (1 standard drink = 0.6 oz pur e alcohol) 1-2 per day Sex and Gender Information Value Date Recorded Sex Assigned at Male 04/02/2021 10:12 AM CDT Legal Sex Male 3:22 AM RATTLE LEAK AND SQUEAK REPAIRER Gender Identity Male 04/02/2021 10:12 AM CDT Sexual Orientation Straight 04/02/2021 10 :12 AM CDT COVID-19 Exposure Response Date Recorded In the last month, have you been in contact with someone who was confirmed or suspected to have Coronavirus / COVID-19? No / Unsure 02/20/2021 9:18 PM CDT documented as of this encounter Plan of Treatment Not on file documented as of this encounter Visit Diagnoses Not on filedocumented in this encounter Care Teams Shoe Lining Fitter Relationship Specialty Start Date End Date [facility]- [address] [place] [address] PCP - General 02/01/21 Yeny May, BLOW UP OPERATOR [employer]STALLERS MECHANICAL [address] [place], [place] [address] Assigned Heart and Vascular Provider 02/18/21 03/24/21 Denton Casiano MD [address] [place] [address] Assigned Heart and Vascular Provider 03/25/21 10/27/21 Antony Burch MD [address] [place], [place] [id number] Assigned Neuroscience Provider 04/08/21 10/04/22 Yeny May, BLOW UP OPERATOR INSTALLERS MECHANICAL [address] [place] [address] Assigned Heart and Vascular Provider 10/28/21 04/25/23 Denton Casiano MD [address] [place] [phone] Cardiovascular Disease 05/17/22 Denton Casiano MD [address] [place] [address] Assigned Heart and Vascular Provider 04/26/23 04/20/24 documented as of this encounter
--- OUTSIDE RECORDS SUMMARY | 2024-06-04 14:10 | XMS_ITS | Clinical Summary ---
Author Organization [facility] Address [place], [place] [address] Care Team Providers Care Automobile Brake Bonder Name Role Phone [facility], Provider Primary Care Provider Trevor newman Social History Tobacco Use Types Packs/Day Years Used Date Smoking Tobacco: Never Assessed Sex and Gender Information Value Date Recorded Sex Assigned at Not on file Gender Identity Not on file Sexual Orientation Not on file Plan of Treatment Health Maintenance Due Date Last Done Comments Tdap 12/24/1956 Depression screening for age 12+ 1955 BMI (ht and wt on same day) for age 18+ 12/24/1961 Tetanus booster 1963 Zoster (shingles) series for age 50+ (1 of 2) 12/24/18 94 Pneumococcal series for age 65+ (1 of 1 - PCV) 009 RSV vaccine for adults or pr egnancy (1 - 1-dose 75+ series) 12/24/2018 COVID-19 vaccine series (2023- season) 4 Influenza for age 65+ 02/29/2024 Care Teams Automobile Brake Bonder Relationship Specialty Start Date End Date [facility], Provider PCP - General 06/04/05
--- OUTSIDE RECORDS SUMMARY | 2024-06-04 14:10 | XMS_ITS | Encounter Summary ---
Author Organization [facility] Address [address] [place] [id number] Care Team Providers Care Coroner Transport Technician Name Role Phone [facility]- Primary Care Provider Denton Casiano MD Unavailable Reason for Referral * Consultation (Routine) - Pending Review Specialty Diagnoses / Procedures Referred By Contac t Referred To Contact Cardiovascular Disease Diagnoses Chronic a-fib (H) Essential hypertension 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) Impaired fasting glucose Ethan Meredith NP [address] [place] [address] Phone: tel: fax: Referral ID Status Reason Start Date Expiration Date V isits Requested Visits Authorized [id number] Pending Review 05/26/2024 05/26/2025 1 1 Question Answer Preferred Location: [facility] Follow-up with: Other Head Of Product - Dr. Casiano Reason for follow-up: General Cardiology - Annual follow-up for chronic A-fib and HTN Patient Scheduling Instructions: [facility] will call you to coordinate your care as prescribed by your provider. If you have concerns about scheduling, please call [phone]. Comments [facility] will call you to coordinate your care as prescribed by your provider. If you have concerns about scheduling, please call [phone]. DROPPER ASSEMBLER Reason for Visit * Reason Comments Annual Visit * Consultation (Routine) - Closed Specialty Diagnoses / Procedures Referred By Contac t Referred To Contact Cardiovascular Disease Diagnoses Benign essential hypertension Chronic a-fib (H) Denton Casiano MD [address] [place] [address] Phone: tel: fax: Referral ID Status Reason Start Date Expiration Date Visits Re quested Visits Authorized [id number] Closed 10/08/2022 10/08/2023 1 1 Encounter Details Date Type Department Care Team (Late st Contact Info) Description 05/26/2024 2:00 PM EYE DROPPER ASSEMBLER Office Visit [facility] [address] [place] [phone] Denton Casiano MD [address] [place] [id number] Ethan Meredith NP [address] [place] [id number] Chronic a-fib (H) (Primary Dx); Essential hypertension; 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); Impaired fasting glucose Social History Tobacco Use Types Packs/Day Years [...] AM CDT Legal Sex Male 3:22 AM EYE DROPPER ASSEMBLER Gender Identity Male 04/02/2021 10:12 AM CDT Sexual Orientation Straight 04/02/2021 10 :12 AM CDT documented as of this encounter Last Filed Vital Signs Vital Sign Reading Time Taken Comments Blood Pressure 125/85 05/26/2024 1:52 PM EYE DROPPER ASSEMBLER Pulse 58 05/26/2024 1:52 PM EYE DROPPER ASSEMBLER Temperature - - Respiratory Rate - - Oxygen Saturation 97% 05/26/2024 1:52 PM EYE DROPPER ASSEMBLER Inhaled Oxygen Concentration - - Weight 126.5 kg (278 lb 14.4 oz) 05/26/2024 1:52 PM EYE DROPPER ASSEMBLER Height 185.4 cm (6' 1) 05/26/2024 1:52 PM EYE DROPPER ASSEMBLER Body Mass Index 36.8 05/26/2024 1:52 PM EYE DROPPER ASSEMBLER documented in this encounter Patient Instructions * Patient Instructions* Ethan Meredith NP - 05/26/2024 2:00 PM EYE DROPPER ASSEMBLER Images from the original note were not included. Thank you for your visit with the [facility] today. Today's plan: - Continue your current medications without changes. - Continue to monitor blood pressure regularly at home and call if it starts to run consistently above 130/85 and we could consider increasing the losartan if needed. - Try to stay physically active and stick to a heart healthy lower sodium diet. - Follow up with Dr. Casiano for a routine annual visit around this time next year. If you have questions or concerns please call the nurse team at [phone] or send a Roomish message. Scheduling phone number: [phone] It was a pleasure seeing you today! Oscar Meredith APRN, PUBLICITY DIRECTOR Nurse Practitioner [facility] DROPPER ASSEMBLER DROPPER ASSEMBLER documented in this encounter Progress Notes * Ethan Meredith NP - 05/26/2024 2:00 PM CST Images from the original note were not included. Cardiology Clinic Progress Note Service Date: May 26, 2024 Primary Cardiology Team: Dr. Casiano HISTORY OF PRESENT ILLNESS: I had the pleasure of meeting Vivek Lang in the clinic today. He is a delightful 78 year old male with a past medical history notable for chronic atrial fibrillation, anticoagulated with apixaban, hypertension, sleep apnea, hyperlipidemia, GERD, neuropathy, and arthritis. He last met with Dr. Casiaon in September 2022 and was doing well at that time. Labs were checked prior to the visit today with basic metabolic panel showing borderline hyponatremia with sodium level of 134, potassium level within normal limits at 4.0, and creatinine level stable at 0.93. Blood glucose is elevated at 110 as he notes that he was fasting for the labs. Today, Mr. Lang presents to the clinic for a routine annual visit. He tells me he has been feeling quite well from a cardiac standpoint over the past year. He has mild fatigue and exertional dyspnea chronically if he walks longer distances or does more strenuous activity, which he attributes to his age, weight, and fairly sedentary lifestyle. He feels that this has been stable recently and hasnot noticed any worsening or change with this in a long time. He says his balance sucks and notesthat he has a history of some peripheral neuropathy and vertigo. This has been somewhat limiting for him in terms of his mobility and physical activity. He loves salt and has had a habit of adding salt to his foods for many years. He checks his blood pressure periodically at home and notes that readings have been stable mostly around the 120s-130s systolic range. He has not had any symptoms of chest pain or worsening lower extremity edema. He has been tolerating Eliquis well without bleeding issues. He spends most of his lenz in [place], [place]. He is back in [place] for [facility] and will stay through New Years, then head back to [place] in June until the spring. ASSESSMENT: 1. Chronic atrial fibrillation. Anticoagulated with Eliquis 5 mg twice daily. 2. Essential hypertension. Blood pressure adequately controlled. 3. Cerebrovascular accident (CVA) 4. Impaired fasting glucose PLAN: - No medication changes. - Recommend he continue to monitor his blood pressure periodically at home. - Counseled on continuing to try to stay physically active, working on weight loss, and try to stick to a heart healthy lower sodium diet. Discussed salt substitutes and herbs/spices as alternatives to salt for taste/flavor. - He is planning to follow-up with his primary care team next week with labs. Would suggest checking hemoglobin A1c for screening of prediabetes/diabetes given elevated fasting close today. - Follow-up with Dr. Casiano for a routine annual visit around this time next year with repeat BMP beforehand. Thank you for the opportunity to participate in this pleasant patient's care. We would be happy to see him sooner if needed for any concerns from a cardiac standpoint in the meantime. 35 total minutes was spent today including chart review, precharting, history and exam, post visit documentation, and reviewing studies as outlined above. Please kindly note that this document was completed in part using voice recognition software. Although reviewed after completion, some word substitutions and typographical errors may occur. Please contact me if clarification is needed. Oscar Meredith APRN, PUBLICITY DIRECTOR Nurse Practitioner [facility] Orders this Visit: No orders of the defined types were placed in this encounter. Orders Placed This Encounter Medications losartan (COZAAR) 50 MG tablet Sig: Take 1 tablet (50 mg) by mouth daily. Dispense: 90 tablet Refill: 3 hydrochlorothiazide (HYDRODIURIL) 25 MG tablet Sig: Take 1 tablet (25 mg) by mouth daily. Dispense: 90 tablet Refill: 3 Medications Discontinued During This Encounter Medication Reason losartan (COZAAR) 50 MG tablet Reorder (No AVS) hydrochlorothiazide (HYDRODIURIL) 25 MG tablet Encounter Diagnoses Name Primary? Benign essential hypertension Chronic a-fib (H) 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) Impaired fasting glucose Yes CURRENT MEDICATIONS: Current Outpatient Medications Medication Sig Dispense Refill apixaban ANTICOAGULANT (ELIQUIS) 5 MG tablet Take 1 tablet (5 mg) by mouth 2 times daily 180 tablet3 co-enzyme Q-10 100 MG CAPS capsule Take 100 mg by mouth daily hydrochlorothiazide (HYDRODIURIL) 25 MG tablet Take 1 tablet (25 mg) by mouth daily. 90 tablet 3 losartan (COZAAR) 50 MG tablet Take 1 tablet (50 mg) by mouth daily. 90 tablet 3 pantoprazole (PROTONIX) 40 MG EC tablet Take 40 mg by mouth every other day rosuvastatin (CRESTOR) 5 MG tablet TAKE ONE TABLET BY MOUTH IN THE EVENING terazosin (HYTRIN) 2 MG capsule Take 2 mg by mouth At Bedtime. ALLERGIES Allergies Allergen Reactions Simvastatin Other (See Comments) Myalgias Lisinopril Cough PAST MEDICAL, SURGICAL, FAMILY HISTORY: History was reviewed and updated as needed, see medical record. SOCIAL HISTORY: Social History Socioeconomic History Marital status: Spouse name: Not on file Number of children: Not on file Years of education: Not on file Highest education level: Not on file Occupational History Not on file Tobacco Use Smoking status: Former Current packs/day: 0.00 Types: Cigarettes Quit date: 1980 Years since quittin.9 Smokeless tobacco: Never Substance and Sexual Activity Alcohol use: Yes Comment: 1-2 drinks a day Drug use: No Sexual activity: Not on file Other Topics Concern Parent/sibling w/ CABG, [place] or angioplasty before 65F 55M? Not Asked Social History Narrative Not on file Social Drivers of Health Financial Resource Strain: Not on file Food Insecurity: Not on file Transportation Needs: Not on file Physical Activity: Not on file Stress: Not on file Social Connections: Not on file Interpersonal Safety: Not on file Housing Stability: Not on file Review of Systems: Focused cardiovascular and respiratory review of systems is negative other than the symptoms noted above in the HPI. Physical Exam: Vitals: BP 125/85 (BP Location: Right arm, Patient Position: Sitting, Cuff Size: Adult Large) Pulse 58 Ht 1.854 m (6' 1) Wt 126.5 kg (278 lb 14.4 oz) SpO2 97% BMI 36.80 kg/m?? Wt Readings from Last 4 Encounters: 05/26/24 126.5 kg (278 lb 14.4 oz) 10/08/22 124 kg (273 lb 6.4 oz) 11/28/21 128.4 kg (283 lb) 10/23/21 127.5 kg (281 lb) Constitutional: Alert and in no acute distress. Neck: Thick neck. Unable to visualize JVP due to body habitus. Cardiovascular: Irregularly irregular rhythm, normal rate. No murmur, rub or gallop. Respiratory: Breathing non-labored. Lungs are clear to auscultation with no wheezes or crackles bilaterally. Gastrointestinal: Abdomen non-distended. Extremities: No pitting lower extremity edema bilaterally. Neuropsychiatric: No gross focal deficits. Affect appropriate. Mentation normal. Recent Lab Results: LIPID RESULTS: Lab Results Component Value Date CHOL 115 02/02/2021 HDL 55 02/02/2021 LDL 40 02/02/2021 TRIG 98 02/02/2021 LIVER ENZYME RESULTS: Lab Results Component Value Date AST 25 02/20/2021 ALT 35 02/20/2021 CBC RESULTS: Lab Results Component Value Date WBC 7.5 02/20/2021 WBC 6.1 01/04/2017 RBC 5.05 02/20/2021 RBC 5.05 01/04/2017 HGB 15.8 02/20/2021 HGB 15.5 01/04/2017 HCT 46.7 02/20/2021 HCT 46.6 01/04/2017 MCV 93 02/20/2021 MCV 92 01/04/2017 MCH 31.3 02/20/2021 MCH 30.7 01/04/2017 MCHC 33.8 02/20/2021 MCHC 33.3 01/04/2017 RDW 12.7 02/20/2021 RDW 13.2 01/04/2017 PLT 143 (L) 02/20/2021 PLT 150 01/04/2017 BMP RESULTS: Lab Results Component Value Date NA 134 (L) 05/26/2024 NA 134 01/04/2017 POTASSIUM 4.0 05/26/2024 POTASSIUM 3.7 12/12/2021 POTASSIUM 3.9 01/04/2017 CHLORIDE 98 05/26/2024 CHLORIDE 102 12/12/2021 CHLORIDE 101 01/04/2017 CO2 22 05/26/2024 CO2 28 12/12/2021 CO2 25 01/04/2017 ANIONGAP 14 05/26/2024 ANIONGAP 7 12/12/2021 ANIONGAP 8 01/04/2017 GLC 110 (H) 05/26/2024 GLC 113 (H) 12/12/2021 GLC 179 (H) 01/04/2017 BUN 16.1 05/26/2024 BUN 14 12/12/2021 BUN 20 01/04/2017 CR 0.93 05/26/2024 CR 1.05 01/04/2017 GFRESTIMATED 83 05/26/2024 GFRESTIMATED 69 01/04/2017 GFRESTBLACK 84 01/04/2017 ISIS 8.8 05/26/2024 ISIS 8.3 (L) 01/04/2017 A1C RESULTS: Lab Results Component Value Date A1C 5.6 02/01/2021 A1C 5.9 01/04/2017 CC Denton Casiano MD [address] [place] [address] DROPPER ASSEMBLER documented in this encounter Plan of Treatment Scheduled Orders Name Type Priority Associated Diagnoses Orde r Schedule Basic metabolic panel Lab Routine Chronic a-fib (H) Essential hypertension 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) Impaired fasting glucose Expected: 05/26/2025 (Approximate), Expires: 05/26/2025 Scheduled Referrals Name Type Priority Associated Diagnoses Orde r Schedule Follow-Up with Cardiology Referral Routine: Next available opening Chronic a-fib (H) Essential hypertension 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) Impaired fasting glucose Expected: 05/26/2025 (Approximate), Expires: 05/26/2025 documented as of this encounter Visit Diagnoses Diagnosis Chronic a-fib (H)- Primary Atrial fibrillation Essential hypertension Unspecified essential hypertension 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) Impaired fasting glucose documented in this encounter Care Teams Coroner Transport Technician Relationship Specialty Start Date End Date [facility]- [address] [place] [address] PCP - General 02/01/21 Denton Casiano MD [address] [facility] [address] [place] [address] Cardiovascular Disease 05/17/22 documented as of this encounter
== END 2024-06-04 10:24 | disposition home or self-care (01) ==
LOC: LKVREF 14:06
PROVIDERS: PCP Family Medicine; Referring Provider Family Medicine; Visit Provider Family Medicine
DX: N40.0 Benign prostatic hyperplasia without lower urinary tract symptoms (principal); G62.9 Polyneuropathy, unspecified; E78.5 Hyperlipidemia, unspecified; I10 Essential (primary) hypertension; R73.9 Hyperglycemia, unspecified; Z12.5 Encounter for screening for malignant neoplasm of prostate
CPT/HCPCS: 80053; 80061; 82607; G0103

== ENCOUNTER 2024-06-07 10:23 | Outpatient (CLI) | payer MEDICARE, BC, SELFPAY | END 2024-06-07 10:24 | disposition home or self-care (01) | LOC: NFLDREF 06-10 03:27 | PROVIDERS: PCP Family Medicine; Referring Provider Family Medicine; Visit Provider Family Medicine | DX: G62.9 Polyneuropathy, unspecified (principal); I10 Essential (primary) hypertension | CPT/HCPCS: 84443 ==

== ENCOUNTER 2024-08-25 09:58 | Outpatient (RCR) | payer MEDICARE, BC, SELFPAY ==
--- NOTE | 2024-08-31 10:25 | PT.OPE ---
PT [facility] Outpatient Eval PT [facility] Outpatient Eval Start: 08/25/24 12:55 Freq: Status: Active Protocol: Document 08/25/24 12:55 ROXANNE (Rec: 08/25/24 12:57 ROXANNE [id number]) E-signed By Mina Holland DPT, MS Physical Therapy Outpatient Evaluation Insurance Information Recert Due Date 11/23/24 Insurance Name Medicare B Medical Diagnosis Dizziness and giddiness; difficulty in walking Treating Diagnosis Deconditioning, B LE and core weakness, imbalance, and gait dysfunction Subjective Subjective Pt is an 78 yo male with a complex PSH who presents to PT with c/o progressively worsening balance and difficulty with walking over the past several years. Fell without injury a few weeks ago after catching his toes on a crack in the pavement in [place]. Has a previous hx of vertigo but denies current dizziness. Describes significant R ankle weakness and instability following a serious R ankle fx during high school football that required reconstructive surgery. B foot neuropathy makes it difficult to balance and walk on uneven surfaces finding himself walking with a wide based shuffling pattern. Owns a SPC but does not typically use this. Pt hopes to learn exercises and strategies to improve his LE strength and balance to prevent falls. Pt leaves tomorrow to return to [place] until early September. PMH of B LE neuropathy, sleep apnea, R RC tear, LS OA, R ankle OA and distal abdominal hernia. PSH of LUCI, L RCR, LS fusion in 2004 and 2017. PMH includes controlled DM-II and lymphoma in remission HTN. AGGR factors : extended walking and standing, walking with head movement, uneven surfaces, getting out of low chairs. ALLEV factors: rest, walking with a SPC. 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 Decreased activity levels over the past several years appear to have led to worsening imbalance and deconditioning. Instructed pt in proper gait mechanics with a SPC on the L and the importance of use emphasized due to B LE neuropathy, imbalance and R ankle instability and weakness . Pt responded well to LE strengthening and static and dynamic balance exercises with fatigue following. He will benefit from continued skilled PT intervention to address these limitations resuming PT in September when he returns to [place] . Primary Functional Limitations Extended walking and standing, walking with head movement, uneven surfaces, getting out of low chairs Plan of Care Rehabilitation Potential Good Rehabilitation Potential Comments Due to chronic nature of sxs, PSH and B LE neuropathy Physical Therapy Goals Short-term goals to be completed in 4 weeks: 1. Pt will report no incidents of falls for >7 consecutive days. 2. Pt will be able to walk >5 min with a SPC with no incidents of imbalance to improve cardiovascular health. Long-term goals to be completed in 12 weeks 1.Pt will be independent and compliant with HEP 2. Pt will display improved strength for B hip flex, ABD and ext >4/5 to improve quality of gait. 3.Pt will display improved TUG testing <11 seconds to decrease falls risk 4.Pt will display improved B SLS >5 sec with mild sway to decrease falls risk. Coordination/Communication With Referral Source Treatment Plan/Direct Interventions Neuromuscular Re-ed, Therapeutic Exercises Frequency/Duration 1x per week for at least 6-10 visits, decreasing visit frequency as able. Patient Will Be Discharged From Therapy Completion of LTG(s),Skills Plateau,Independent w/HEP, Independently Progressing Evaluation Billing Untimed Code Treatment Minutes 25 Complexity Moderate Certification Information Initial Certification Date 08/25/24 Ending Certification Date 11/23/24 Provider Signature Required Yes Provider Signature Shows Agreement With POC & Medical Necessity Physician NPI Number Write NPI# Here Physician Comment/Change : Physician Signature & Date Requested Please Sign/Date Here
== END 2024-12-23 23:59 | disposition home or self-care (01) ==
PROVIDERS: PCP Family Medicine; Visit Provider Otolaryngology
DX: R42 Dizziness and giddiness (principal); Z51.89 Encounter for other specified aftercare
CPT/HCPCS: 97110; 97162

== ENCOUNTER 2025-06-06 10:03 | Outpatient (CLI) | payer MEDICARE, BC, SELFPAY | END 2025-06-06 10:04 | disposition home or self-care (01) | PROVIDERS: PCP Family Medicine; Visit Provider Family Medicine | DX: R97.20 Elevated prostate specific antigen [PSA] (principal); I10 Essential (primary) hypertension; E78.00 Pure hypercholesterolemia, unspecified | CPT/HCPCS: 80053; 80061; 82306; 84153; 84154; G0103 ==